=== PATIENT | male | born 1940 | race Caucasian/White ===

== ENCOUNTER 2021-09-09 03:13 | Outpatient (RCR) | payer MEDICARE, BC, SELFPAY ==
[2021-08-26 09:13] LABS: Abs Immature Grans 0.02 10^3/uL (0.0-0.06); Absolute Basophil Count 0.03 10^3/uL (0.0-0.2); Absolute Lymphocyte Count 1.61 10^3/uL (1.2-3.4); Absolute Monocyte Count 0.55 10^3/uL (0.1-0.8); Absolute Neutrophil Count 3.36 10^3/uL (1.2-6.7); Basophils % 0.5; Eosinophils % 1.8; HCT 34.7 % (40.0-50.0); HGB 11.5 g/dL (13.5-17.5); Immature Grans % 0.4; Lymphocytes % 28.4; MCHC 33.1 % (32.0-36.0); MCV 97 fL (80-95); MPV 10.2 fL (8.0-11.0); Monocytes % 9.7; Neutrophils % 59.2; Platelet Count 203 10^3/uL (130-400); RBC 3.59 10^6/uL (4.36-5.78); RDW 12.1 % (11.8-14.1); RDW-SD 43.4 fL; WBC 5.67 10^3/uL (4.4-10.8)
[2021-08-26] MEDS: Normal Saline Flush 10 ML SYR IVP (09:14)
[2021-08-26 09:31] LABS: ALT 24 U/L (16-63); AST 21 U/L (15-37); Albumin 3.5 g/dL (3.4-5.0); Alkaline Phosphatase 72 U/L (46-116); Anion Gap 9.7 mmol/L (3-11); BUN 31 mg/dL (7-18); Bilirubin, Total 0.5 mg/dL (0.2-1.0); CO2 26.3 mmol/L (21.0-32.0); CREATININE 1.9 mg/dL (0.70-1.30); Calcium 9.2 mg/dL (8.5-10.1); Chloride 105 mmol/L (98-107); Estimated GFR 34.11 (mL/min/1.73m2); Glucose 93 mg/dL (74-106); Potassium 4.5 mmol/L (3.5-5.1); Sodium 141 mmol/L (136-145); Total Protein 7.1 g/dL (6.4-8.2)
[2021-08-26 12:29] LABS: FREE T4 1.17 ng/dL (0.76-1.46); TSH 1.23 uIU/mL (0.36-3.74)
[2021-09-09] MEDS: Normal Saline Flush 10 ML SYR IVP (10:09)
[2021-09-09] MEDS: Heparin 500 UNITS/5 ML SYRINGE IV (10:10)
[2021-09-09 10:14] LABS: Abs Immature Grans 1.85 10^3/uL (0.0-0.06); HCT 29.4 % (40.0-50.0); HGB 9.7 g/dL (13.5-17.5); MCH 32.4 pg (27.0-33.0); MCV 98 fL (80-95); MPV 11.1 fL (8.0-11.0); RBC 2.99 10^6/uL (4.36-5.78); RDW 11.9 % (11.8-14.1); RDW-SD 43.1 fL; WBC 21.02 10^3/uL (4.4-10.8)
[2021-09-09 10:30] LABS: ALT 22 U/L (16-63); AST 18 U/L (15-37); Albumin 3.3 g/dL (3.4-5.0); Alkaline Phosphatase 116 U/L (46-116); Anion Gap 8.8 mmol/L (3-11); BUN 28 mg/dL (7-18); Bilirubin, Total 0.2 mg/dL (0.2-1.0); CO2 27.2 mmol/L (21.0-32.0); CREATININE 2.1 mg/dL (0.70-1.30); Calcium 9.4 mg/dL (8.5-10.1); Chloride 103 mmol/L (98-107); Estimated GFR 30.39 (mL/min/1.73m2); Glucose 103 mg/dL (74-106); Potassium 4.4 mmol/L (3.5-5.1); Sodium 139 mmol/L (136-145)
[2021-09-09 10:54] LABS: Absolute Basophil Count 0.42 10^3/uL (0.0-0.2); Absolute Eosinophil Count 0.42 10^3/uL (0.0-0.7); Absolute Lymphocyte Count 3.36 10^3/uL (1.2-3.4); Absolute Monocyte Count 2.73 10^3/uL (0.1-0.8); Absolute Neutrophil Count 12.82 10^3/uL (1.2-6.7); Bands % 5; Diff Comment Manual Differential; Metamyelocytes % 4; Myelocytes % 2; Platelet Count 57 10^3/uL (130-400); Polychromasia Present
== END 2021-09-14 23:59 | disposition home or self-care (01) ==
LOC: INF 03:13
PROVIDERS: Visit Provider Internal Medicine
DX: C80.1 Malignant (primary) neoplasm, unspecified (principal); Z45.2 Encounter for adjustment and management of vascular access device
CPT/HCPCS: 36591; 80053; 84439; 84443; 85025

== ENCOUNTER 2021-09-25 14:48 | Emergency (ER) | payer MEDICARE, BC, SELFPAY ==
[2021-09-25] VITALS (51 sets, daily range): BP systolic 104–164; BP diastolic 49–89; PULSE 67–115; RESP 15–27; TEMP 35.5–36.7; O2SAT 96–99
--- NOTE | 2021-09-25 14:45 | RT.EKG_ITS ---
APPROVED REPORT Exam: Resting ECG Reason for Exam: heart rate change Patient Location: E HR:104 bpm ECG Measurements Heart Rate 104 AXIS [place] [id number] P 0 QRSd 130 QRS -51 QT 335 T 196 QTc 441 Conclusion Ventricular-paced complexes...other complexes also detected IVCD, consider RBBB...QRSd>120mS, terminal axis(90,270) Nonspecific T abnormalities, lateral leads...T <-0.10mV, I aVL V5 V6. PVCs. Paced. No STEMI.
[2021-09-25 16:06] LABS: Abs Immature Grans 0.29 10^3/uL (0.0-0.06); Absolute Basophil Count 0.05 10^3/uL (0.0-0.2); HCT 22.3 % (40.0-50.0); HGB 7.4 g/dL (13.5-17.5); MCH 32.3 pg (27.0-33.0); MCHC 33.2 % (32.0-36.0); MCV 97 fL (80-95); MPV 11.2 fL (8.0-11.0); Platelet Count 108 10^3/uL (130-400); RBC 2.29 10^6/uL (4.36-5.78); RDW 12.3 % (11.8-14.1); RDW-SD 42.9 fL; WBC 4.55 10^3/uL (4.4-10.8)
--- NOTE | 2021-09-25 16:15 | DI.RAD_ITS ---
Exam(s) XR CHEST 2V PA LATERAL EXAM: XR CHEST 2V PA LATERAL CLINICAL HISTORY: dyspnea on exertion, r/o acute disease. TECHNIQUE: 2D digital imaging was performed. COMPARISON: No exams were available for comparison FINDINGS: 2 views: Bipolar left subclavian pacemaker noted with lead tips in are in RV. The distal tip of the right sailaja ed Port-A-Cath is in the SVC. Heart size is normal. The mediastinum is not widened. Platelike atelectasis noted in the left lung base. Small nodular density seen bilaterally and larger nodular density seen inferiorly in the lower right lung field. This may be a healing rib fracture. Cannot exclude noncalcified lung nodule. IMPRESSION: 2 cm nodule versus healing rib fracture in the right lung base. Other smaller nodule seen in both lester ng crawford. Platelike atelectasis in the left lung base.Consider noninfused CT scan cardiac findings as above. No pulmonary edema. No pleural effusions. \ DATA REPOSITORY: RADIATION DOSE DELIVERED:
[2021-09-25 16:19] LABS: Absolute Eosinophil Count 0.09 10^3/uL (0.0-0.7); Absolute Lymphocyte Count 1.46 10^3/uL (1.2-3.4); Absolute Monocyte Count 0.27 10^3/uL (0.1-0.8); Absolute Neutrophil Count 2.64 10^3/uL (1.2-6.7); Atypical Lymphocytes % 2
[2021-09-25 16:20] LABS: ALT 23 U/L (16-63); AST 16 U/L (15-37); Alkaline Phosphatase 107 U/L (46-116); Anion Gap 6.7 mmol/L (3-11); BUN 38 mg/dL (7-18); Bilirubin, Total 0.3 mg/dL (0.2-1.0); CO2 26.3 mmol/L (21.0-32.0); CREATININE 1.6 mg/dL (0.70-1.30); Calcium 8.7 mg/dL (8.5-10.1); Chloride 106 mmol/L (98-107); Diff Comment Manual Differential; Estimated GFR 41.59 (mL/min/1.73m2); Glucose 106 mg/dL (74-106); Hypochromasia 1+; Magnesium 1.2 mg/dL (1.8-2.4); Metamyelocytes % 2; Myelocytes % 1; NT-proBNP 1712 pg/mL (<300); Potassium 4.6 mmol/L (3.5-5.1); Sodium 139 mmol/L (136-145); Total Protein 6.3 g/dL (6.4-8.2); Troponin I < 50 ng/L (<or=60)
--- NOTE | 2021-09-25 16:25 | W.ED.GENAD ---
Discharge Plan Disposition Patient Disposition: HOME Condition: Stable Discharge Details Clinical Impression: Acute on chronic anemia, Status post chemotherapy, History of adrenal cancer, Dyspnea on exertion Primary Care Provider: Karla Curran ED Provider: Leslee Vuong Home Meds and New Rx's Prescriptions: Continued calcium 600 mg Capsule 1,200 mg PO DAILY atorvastatin 40 mg tablet 1 tab PO HS cyanocobalamin (vitamin B-12) [Vitamin B-12] 1,000 mcg Tablet 1,000 mcg PO DAILY pantoprazole 20 mg tablet,delayed release (DR/EC) 1 tab PO DAILY nitroglycerin 0.4 mg tablet, sublingual 1 tab buccal PRN PRN fluticasone propionate [Flovent HFA] 220 mcg/actuation HFA aerosol inhaler 2 inh INHALATION BID lisinopril 5 mg tablet 1 tab PO DAILY metoprolol tartrate 25 mg tablet 1 tab PO BID Eliquis 2.5 mg tablet 1 tab PO BID Label Comments: TAKE ONE TABLET BY MOUTH TWICE DAILY Discharge Instructions Instructions: Dyspnea (ED), Anemia (ED) Additional Instructions: It is suspected that your symptoms are secondary to anemia or a drop in your hemoglobin. You were given a blood transfusion here in the emergency department. Follow-up with your oncologist at [facility] for further evaluation and recommendations regarding your continued chemotherapy. Return immediately to the emergency department if you develop any worsening or new concerning symptoms. Discharge Data Discharge Date/Time-TO BE ENTERED AT DEPARTURE: 09/25/21 20:59 Discharge Physician: Leslee Vuong Medical Decision Making 1530 -- 80-year-old male with a history of prostate and bladder cancer in remission currently on chemotherapy for adrenal cancer and Eliquis for history of pulmonary embolism in May 2021 presents with dyspnea on exertion for the past week, worse in the past few days. EKG notes a rate of 104, paced, PVCs and no STEMI. Patient appears comfortable and nontoxic. He was tachycardic on arrival but his vitals are now within normal limits. Lungs are clear bilaterally without crackles, wheezing or rhonchi. He has no lower extremity swelling. Differential diagnosis includes anemia status postchemotherapy, ACS, CHF, pneumonia. History and presentation does not appear consistent with PE as his shortness of breath only occurs with activity and he has already taking Eliquis and states he has not missed any doses. Will obtain screening labs and chest x-ray. Labs and imaging reviewed. White blood cell within normal limits. Hemoglobin 7.4, down trended from 9 on 09/16. He denies any hematemesis, hematuria or rectal bleeding. Platelets 108, down trended from 327 on 09/16. D-dimer 661 and negative per age-adjusted cut off. Troponin within normal limits. BNP elevated at 1712. Urinalysis negative. Chest x-ray notes pulmonary nodules with COPD and had recommended considering CT chest for further evaluation of these findings. [facility] records reveal that patient had a CT chest with IV contrast in July 2021 which was completed at [facility]. Report noted pulmonary nodules bilaterally so this is not a new finding. This was discussed with patient and he agreed these are chronic. 1729 --discussed with [facility] oncology --they agreed with plan for blood transfusion and will follow up with patient later this month. They will obtain repeat hemoglobin for monitoring. 1999 --patient received blood transfusion and feels much better and would like to go home. Patient remains hemodynamically stable. Repeat H&H obtained. Patient requested to leave prior to results. Advised to follow up with the primary care doctor and oncology for re-evaluation. Usual and customary return precautions given prior to discharge. Medical Records Medical records reviewed: Yes I reviewed the patient's medical records. Medical records narrative: 07/25/2021 CT chest with IV contrast [facility] Impression: Small noncalcified pulmonary nodules bilaterally without significant change from prior study. No new pulmonary nodule with no new focal infiltrate. No focal infiltrate with mild areas of scarring bilaterally. Scattered sclerotic regional osseous lesions suspicious for metastatic disease without significant change. No mediastinal, hilar or axillary adenopathy. Imaging Data Radiologic Study: Radiologist's impression: XR Chest Exam date and time: 09/25/2021 5:00 PM Age: 80 years old Clinical indication: Other: Dyspnea on exertion, R/O acute disease TECHNIQUE: Imaging protocol: Radiologic exam of the chest. Views: 2 views. COMPARISON: No relevant prior studies available. FINDINGS: Tubes, catheters and devices: Port-A-Cath right chest wall with tip in the superior vena cava. Pacemaker present left chest wall. Lungs: Calcified lung granulomas. Lungs are hyperinflated. Possible lower lobe lung nodules. Pleural spaces: Unremarkable. No pleural effusion. No pneumothorax. Heart/Mediastinum: Unremarkable. No cardiomegaly. Bones/joints: Unremarkable. IMPRESSION: COPD with bilateral lower lobe nodular opacities. Possible lung nodules. If patient has not had recent chest CT consider chest CT with contrast. Lab Data Lab results reviewed: Yes I reviewed the patient's lab results. Labs: Laboratory Tests Range/Units 09/25/21 09/25/21 09/25/21 15:40 15:40 15:40 WBC (4.4-10.8) 10^3/uL 4.55 RBC (4.36-5.78) 10^6/uL 2.29 L Hgb (13.5-17.5) g/dL 7.4 L Hct (40.0-50.0) % 22.3 L MCV (80-95) fL 97 H MCH (27.0-33.0) pg 32.3 MCHC (32.0-36.0) % 33.2 RDW (11.8-14.1) % 12.3 Plt Count (130-400) 10^3/uL 108 L MPV (8.0-11.0) fL 11.2 H Immature Gran % 0.0 Neutrophils % 58.0 Lymphocytes % 30.0 Atypical Lymphs % 2 Monocytes % 6.0 Eosinophils % 2.0 Basophils % 1.0 Metamyelocytes % 2 Myelocytes % 1 Nucleated RBC % (0.0-0.3) % 0.0 Absolute Neutrophils (1.2-6.7) 10^3/uL 2.64 Absolute Lymphocytes (1.2-3.4) 10^3/uL 1.46 Absolute Monocytes (0.1-0.8) 10^3/uL 0.27 Absolute Eosinophils (0.0-0.7) 10^3/uL 0.09 Absolute Basophils (0.0-0.2) 10^3/uL 0.05 RBC Morphology See Below Hypochromasia 1+ D-Dimer (<500) ng/mlFEU 661 H Sodium (136-145) mmol/L 139 Potassium (3.5-5.1) mmol/L 4.6 Chloride (98-107) mmol/L 106 Carbon Dioxide (21.0-32.0) mmol/L 26.3 Anion Gap (3-11) mmol/L 6.7 BUN (7-18) mg/dL 38 H Creatinine (0.70-1.30) mg/dL 1.6 H Estimated GFR/1.73 m2 (mL/min/1.73m2) 41.59 Glucose (74-106) mg/dL 106 Calcium (8.5-10.1) mg/dL 8.7 Magnesium (1.8-2.4) mg/dL 1.2 L Total Bilirubin (0.2-1.0) mg/dL 0.3 AST (15-37) U/L 16 ALT (16-63) U/L 23 Alkaline Phosphatase (46-116) U/L 107 Troponin I (<or=60) ng/L < 50 NT-Pro-B Natriuret Pep (<300) pg/mL 1712 H Total Protein (6.4-8.2) g/dL 6.3 L Albumin (3.4-5.0) g/dL 3.0 L Urine Color (Yellow) Urine Clarity (Clear) Urine pH (5-8) Ur Specific [place] (1.005-1.025) Urine Protein (Negative) mg/dL Urine Ketones (Negative) mg/dL Urine Blood (Negative) Urine Nitrite (Negative) Urine Bilirubin (Negative) Urine Urobilinogen (Up TO 0.2) EU/dL Ur Leukocyte Esterase (Negative) Urine Glucose (Negative) mg/dL Patient ABO/Rh Antibody Screen Crossmatch Range/Units 09/25/21 09/25/21 16:44 16:47 WBC (4.4-10.8) 10^3/uL RBC (4.36-5.78) 10^6/uL Hgb (13.5-17.5) g/dL Hct (40.0-50.0) % MCV (80-95) fL MCH (27.0-33.0) pg MCHC (32.0-36.0) % RDW (11.8-14.1) % Plt Count (130-400) 10^3/uL MPV (8.0-11.0) fL Immature Gran % Neutrophils % Lymphocytes % Atypical Lymphs % Monocytes % Eosinophils % Basophils % Metamyelocytes % Myelocytes % Nucleated RBC % (0.0-0.3) % Absolute Neutrophils (1.2-6.7) 10^3/uL Absolute Lymphocytes (1.2-3.4) 10^3/uL Absolute Monocytes (0.1-0.8) 10^3/uL Absolute Eosinophils (0.0-0.7) 10^3/uL Absolute Basophils (0.0-0.2) 10^3/uL RBC Morphology Hypochromasia D-Dimer (<500) ng/mlFEU Sodium (136-145) mmol/L Potassium (3.5-5.1) mmol/L Chloride (98-107) mmol/L Carbon Dioxide (21.0-32.0) mmol/L Anion Gap (3-11) mmol/L BUN (7-18) mg/dL Creatinine (0.70-1.30) mg/dL Estimated GFR/1.73 m2 (mL/min/1.73m2) Glucose (74-106) mg/dL Calcium (8.5-10.1) mg/dL Magnesium (1.8-2.4) mg/dL Total Bilirubin (0.2-1.0) mg/dL AST (15-37) U/L ALT (16-63) U/L Alkaline Phosphatase (46-116) U/L Troponin I (<or=60) ng/L NT-Pro-B Natriuret Pep (<300) pg/mL Total Protein (6.4-8.2) g/dL Albumin (3.4-5.0) g/dL Urine Color (Yellow) Yellow Urine Clarity (Clear) Clear Urine pH (5-8) 5.5 Ur Specific [place] (1.005-1.025) 1.015 Urine Protein (Negative) mg/dL Negative Urine Ketones (Negative) mg/dL Negative Urine Blood (Negative) Negative Urine Nitrite (Negative) Negative Urine Bilirubin (Negative) Negative Urine Urobilinogen (Up TO 0.2) EU/dL 0.2 Ur Leukocyte Esterase (Negative) Negative Urine Glucose (Negative) mg/dL Negative Patient ABO/Rh A Positive Antibody Screen NEGATIVE Crossmatch See Detail ECG Data Attestation: I personally reviewed and interpreted this ECG (s) as follows: Interpretation: Rate of 104, paced, PVCs, no STEMI. HPI General Mode of arrival: ambulatory. Date/Time Provider Initiated Documentation: 09/25/21 14:53. Limitations to Documentation: no limitations. Information obtained by: patient. HPI Narrative: Patient is an 80-year-old male with a history of prostate and bladder cancer in remission currently on chemotherapy for adrenal cancer presents with dyspnea on exertion for the past week, worse over the past few days. Patient states he is followed by oncologist at [facility] and called the cancer center and spoke to the nurse and was advised to come here for further evaluation of his symptoms. states his last chemotherapy treatment was last Wednesday and states he has been more short of breath since then. He states he only has shortness of breath with activity which resolves immediately upon rest. He denies any fever, new cough, chest pain, abdominal pain, nausea, vomiting, diarrhea or urinary symptoms. Related Data Home Medications Medication Instructions Recorded Confirmed apixaban 2.5 mg tablet (Eliquis) 1 tab PO BID 09/25/21 09/25/21 atorvastatin 40 mg tablet 1 tab PO HS 09/25/21 09/25/21 calcium 600 mg capsule 1,200 mg PO DAILY 09/25/21 09/25/21 cyanocobalamin (vitamin B-12) 1,000 mcg PO DAILY 09/25/21 09/25/21 1,000 mcg tablet (Vitamin B-12) fluticasone propionate 220 2 inh inhalation BID 09/25/21 09/25/21 mcg/actuation HFA aerosol inhaler (Flovent HFA) lisinopril 5 mg tablet 1 tab PO DAILY 09/25/21 09/25/21 metoprolol tartrate 25 mg tablet 1 tab PO BID 09/25/21 09/25/21 nitroglycerin 0.4 mg sublingual 1 tab buccal PRN PRN 09/25/21 09/25/21 tablet pantoprazole 20 mg tablet,delayed 1 tab PO DAILY 09/25/21 09/25/21 release Allergies Allergy/AdvReac Type Severity Reaction Status Date / Time amoxicillin [From Augmentin] AdvReac Unverified 09/25/21 14:58 clavulanic acid AdvReac Unverified 09/25/21 14:58 [From Augmentin] fexofenadine [From Kelsy] AdvReac Unverified 09/25/21 14:58 Penicillins AdvReac Unverified 09/25/21 14:58 General Stated Complaint: SOB MATILDE: 3 Review of Systems All systems reviewed & are unremarkable except as noted in HPI and below Constitutional Constitutional: Denies chills, Denies excessive sweating, Denies fatigue, Denies fever(s), Denies weakness and Denies weight loss Eyes Eyes: Reports system reviewed and no additional complaints, except as documented and Denies blurry vision ENT Ears, Nose, Mouth, and Throat: Denies vertigo, Denies dizziness, Denies otalgia, Denies nasal congestion, Denies sore throat and Denies throat swelling Cardiovascular Cardiovascular: Denies chest pain, Denies syncope, Denies rapid heart rate, Denies dyspnea and Reports dyspnea on exertion Respiratory Respiratory: Denies chest congestion, Denies cough, Denies pain on inspiration, Denies dyspnea and Reports dyspnea on exertion Gastrointestinal Gastrointestinal: Denies abdominal pain, Denies diarrhea and Denies vomiting Genitourinary Genitourinary: Denies hematuria, Denies dysuria and Denies flank pain Musculoskeletal Musculoskeletal: Denies back pain and Denies joint swelling Integumentary/Breasts Skin/Breast: Denies lesions and Denies rash Neurologic Neurologic: Denies behavioral changes, Denies confusion, Denies vertigo, Denies dizziness, Denies syncope, Denies localized weakness and Denies weakness Psychiatric Psychiatric: Denies behavioral changes, Denies confusion and Denies depression Endocrine Endocrine: Denies excessive sweating and Denies fatigue Hematologic/Lymphatic Hematologic/Lymphatic: Denies easy bruising and Denies lymphadenopathy Allergic/Immunologic Allergic/Immunologic: Denies throat swelling PFSH All Active Problems (Updated 09/25/21 @ 19:28 by Leslee Vuong DO) Acute on chronic anemia (Acute) Status post chemotherapy (Acute) History of adrenal cancer (Acute) Dyspnea on exertion (Acute) Medical History (Updated 09/25/21 @ 19:28 by Leslee Vuong DO) Adrenal cancer Bladder tumor Prostate cancer Pulmonary embolism Surgical History (Updated 09/25/21 @ 19:28 by Leslee Vuong DO) Bladder tumor with resection of tumor Social History Smoking/Tobacco Use Status: Current every day Tobacco Type: cigarettes Smoking risk assessment performed?: Yes Alcohol Intake: never Substance use type: does not use Do you feel safe at home: Yes Do you feel safe in your relationship?: Yes Exam Const General: cooperative and no acute distress Orientation: alert, awake and oriented x3 HENMT Head: normal to inspection Ears: hearing grossly normal bilaterally and external ears normal General nose exam: external nose normal Face and sinus: normal facial exam Mouth: oral mucosae normal Throat: posterior oropharynx normal Eyes General: appearance normal, both eyes and all related structures Eyelids: eyelids normal Pupils: PERRL EOM: EOM intact bilaterally Neck Neck: normal visual inspection Lymphatic: no lymphadenopathy noted Chest Chest: normal inspection of the chest Resp Effort & Inspection: normal respiratory effort and able to speak in complete sentences Auscultation: clear to auscultation bilaterally Cardio Rate: tachycardic Rhythm: regular rhythm GI Inspection: normal to inspection Palpation: soft, not firm, no guarding, no hepatosplenomegaly, no masses and nontender Auscultation: normal bowel sounds Back/Spine/Pelvis Back: no CVA tenderness Skin General skin exam: no rashes or lesions noted Neuro General: patient alert and patient awake Cognition: normal cognition Speech: speech normal Gait: normal gait Motor: muscle tone normal throughout Sensory Exam: no sensory deficits noted Extrem General: normal to inspection, full ROM, capillary refill normal and no edema Psych Appearance: grossly normal Mental Status: mental status grossly normal Speech and Movement: speech and movement normal Affect: normal affect Thought Process: normal Course Vital Signs Vital signs: Vital Signs Temperature 98.1 F 09/25/21 14:53 Pulse 109 H 09/25/21 14:53 Respiratory Rate 20 09/25/21 14:53 Blood Pressure 155/68 H 09/25/21 14:53 Pulse Oximetry 98 09/25/21 14:53 Temperature 98.1 F 09/25/21 14:53 Temperature Source Temporal Artery Scan 09/25/21 14:53 Pulse 109 H 09/25/21 14:53 Respiratory Rate 20 09/25/21 14:53 Respiratory Effort 09/25/21 14:57 Blood Pressure 155/68 H 09/25/21 14:53 Blood Pressure Position Sitting 09/25/21 14:53 Pulse Oximetry 98 09/25/21 14:53 Oxygen Delivery Method Room Air 09/25/21 14:53 Oxygen Flow Rate 0 09/25/21 14:53 Pain Level 0 09/25/21 14:53 Lab/Test Results Lab/Test Results: Laboratory Tests Range/Units 09/25/21 15:40 WBC (4.4-10.8) 10^3/uL 4.55 RBC (4.36-5.78) 10^6/uL 2.29 L Hgb (13.5-17.5) g/dL 7.4 L Hct (40.0-50.0) % 22.3 L MCV (80-95) fL 97 H MCH (27.0-33.0) pg 32.3 MCHC (32.0-36.0) % 33.2 RDW (11.8-14.1) % 12.3 Plt Count (130-400) 10^3/uL 108 L MPV (8.0-11.0) fL 11.2 H Immature Gran % 0.0 Neutrophils % 58.0 Lymphocytes % 30.0 Atypical Lymphs % 2 Monocytes % 6.0 Eosinophils % 2.0 Basophils % 1.0 Metamyelocytes % 2 Myelocytes % 1 Nucleated RBC % (0.0-0.3) % 0.0 Absolute Neutrophils (1.2-6.7) 10^3/uL 2.64 Absolute Lymphocytes (1.2-3.4) 10^3/uL 1.46 Absolute Monocytes (0.1-0.8) 10^3/uL 0.27 Absolute Eosinophils (0.0-0.7) 10^3/uL 0.09 Absolute Basophils (0.0-0.2) 10^3/uL 0.05 RBC Morphology See Below Hypochromasia 1+
[2021-09-25 16:26] LABS: D-Dimer 661 ng/mlFEU (<500)
[2021-09-25 16:56] LABS: Bilirubin Negative (Negative); Blood Negative (Negative); Clarity Clear (Clear); Glucose Negative (Negative); Ketones Negative (Negative); Leukocyte Esterase Negative (Negative); Nitrite Negative (Negative); Specific Gravity 1.015 (1.005-1.025); Urobilinogen 0.2 EU/dL (Up TO 0.2); pH 5.5 (5-8)
[2021-09-25] MEDS: MAGNESIUM SULFATE 2 GM/50 ML BAG IVPB (17:05)
--- NOTE | 2021-09-25 17:27 | DI.VRAD_ITS ---
PROCEDURE INFORMATION: Exam: XR Chest Exam date and time: 09/25/2021 5:00 PM Age: 80 years old Clinical indication: Other: Dyspnea on exertion, R/O acute disease TECHNIQUE: Imaging protocol: Radiologic exam of the chest. Views: 2 views. COMPARISON: No relevant prior studies available. FINDINGS: Tubes, catheters and devices: Port-A-Cath right chest wall with tip in the superior vena cava. Pacemaker present left chest wall. Lungs: Calcified lung granulomas. Lungs are hyperinflated. Possible lower lobe lung nodules. Pleural spaces: Unremarkable. No pleural effusion. No pneumothorax. Heart/Mediastinum: Unremarkable. No cardiomegaly. Bones/joints: Unremarkable. IMPRESSION: COPD with bilateral lower lobe nodular opacities. Possible lung nodules. If patient has not had recent chest CT consider chest CT with contrast. Dictated and Authenticated by: Aniceto Alarcon MD. Ordering:MITRA Camilo MD
[2021-09-25 21:06] LABS: HCT 26.4 % (40.0-50.0); HGB 8.7 g/dL (13.5-17.5)
== END 2021-09-25 20:59 | disposition home or self-care (01) ==
PROVIDERS: Emergency Provider Physician Assistant; PCP Family Medicine
DX: D64.9 Anemia, unspecified (principal); C74.90 Malignant neoplasm of unspecified part of unspecified adrenal gland; I49.3 Ventricular premature depolarization; R06.02 Shortness of breath; J44.9 Chronic obstructive pulmonary disease, unspecified; R79.89 Other specified abnormal findings of blood chemistry; F17.210 Nicotine dependence, cigarettes, uncomplicated; R91.8 Other nonspecific abnormal finding of lung field
CPT/HCPCS: 36430; 80053; 86850; 86900; 86901; 86920; 93005; 96365; 96366; 99285; 71046; 81003; 83735; 83880; 84484; 85014; 85018; 85025; 85379; 93010; J3490; P9016

== ENCOUNTER 2021-10-07 02:37 | Outpatient (RCR) | payer MEDICARE, BC, SELFPAY ==
[2021-09-16] MEDS: Normal Saline Flush 10 ML SYR IVP (09:03)
[2021-09-16 09:21] LABS: Abs Immature Grans 0.31 10^3/uL (0.0-0.06); Absolute Basophil Count 0.07 10^3/uL (0.0-0.2); Absolute Eosinophil Count 0.01 10^3/uL (0.0-0.7); Absolute Lymphocyte Count 2.05 10^3/uL (1.2-3.4); Absolute Monocyte Count 1.28 10^3/uL (0.1-0.8); Absolute Neutrophil Count 10.83 10^3/uL (1.2-6.7); Basophils % 0.5; Eosinophils % 0.1; HCT 27.8 % (40.0-50.0); Immature Grans % 2.1; Lymphocytes % 14.1; MCH 31.7 pg (27.0-33.0); MCHC 32.4 % (32.0-36.0); MCV 98 fL (80-95); MPV 10.3 fL (8.0-11.0); Monocytes % 8.8; Neutrophils % 74.4; Platelet Count 327 10^3/uL (130-400); RBC 2.84 10^6/uL (4.36-5.78); RDW 12.2 % (11.8-14.1); RDW-SD 42.9 fL; WBC 14.55 10^3/uL (4.4-10.8)
[2021-09-16 09:37] LABS: ALT 20 U/L (16-63); AST 13 U/L (15-37); Alkaline Phosphatase 102 U/L (46-116); Anion Gap 6.8 mmol/L (3-11); BUN 28 mg/dL (7-18); Bilirubin, Total 0.3 mg/dL (0.2-1.0); CO2 26.2 mmol/L (21.0-32.0); Calcium 9.2 mg/dL (8.5-10.1); Chloride 101 mmol/L (98-107); Estimated GFR 32.15 (mL/min/1.73m2); Glucose 123 mg/dL (74-106); Sodium 134 mmol/L (136-145)
[2021-09-16 13:04] LABS: FREE T4 1.25 ng/dL (0.76-1.46); TSH 2.09 uIU/mL (0.36-3.74)
[2021-09-30 08:28] LABS: Abs Immature Grans 1.52 10^3/uL (0.0-0.06); Absolute Neutrophil Count 8.56 10^3/uL (1.2-6.7); Basophils % 0.7; Eosinophils % 0.1; HCT 27.1 % (40.0-50.0); HGB 9.2 g/dL (13.5-17.5); Immature Grans % 10.7; Lymphocytes % 18.5; MCH 32.2 pg (27.0-33.0); MCHC 33.9 % (32.0-36.0); MCV 95 fL (80-95); Monocytes % 9.7; Neutrophils % 60.3; Nucleated RBC 0.4 % (0.0-0.3); RBC 2.86 10^6/uL (4.36-5.78); RDW 12.7 % (11.8-14.1); RDW-SD 43.8 fL; WBC 14.19 10^3/uL (4.4-10.8)
[2021-09-30 08:35] LABS: Absolute Eosinophil Count 0.01 10^3/uL (0.0-0.7); Absolute Lymphocyte Count 2.63 10^3/uL (1.2-3.4); Absolute Monocyte Count 1.38 10^3/uL (0.1-0.8)
[2021-09-30] MEDS: Normal Saline Flush 10 ML SYR IVP ×2 (08:38→08:51)
[2021-09-30] MEDS: Heparin 500 UNITS/5 ML SYRINGE IV (08:51)
[2021-09-30 09:12] LABS: Diff Comment Agrees w/ Instrument; Platelet Count 45 10^3/uL (130-400)
[2021-09-30 09:13] LABS: Poikilocytes 2+; Polychromasia Present
[2021-10-07] MEDS: Normal Saline Flush 10 ML SYR IVP (08:03)
[2021-10-07 08:11] LABS: Abs Immature Grans 0.15 10^3/uL (0.0-0.06); Absolute Basophil Count 0.04 10^3/uL (0.0-0.2); Absolute Eosinophil Count 0.03 10^3/uL (0.0-0.7); Absolute Lymphocyte Count 1.89 10^3/uL (1.2-3.4); Basophils % 0.4; Eosinophils % 0.3; HCT 27.3 % (40.0-50.0); HGB 9.1 g/dL (13.5-17.5); Immature Grans % 1.4; MCH 32.2 pg (27.0-33.0); MCHC 33.3 % (32.0-36.0); MCV 97 fL (80-95); MPV 9.9 fL (8.0-11.0); Monocytes % 12.3; Neutrophils % 68.6; Platelet Count 259 10^3/uL (130-400); RBC 2.83 10^6/uL (4.36-5.78); RDW 13.6 % (11.8-14.1); RDW-SD 43.8 fL
[2021-10-07 08:12] LABS: Absolute Monocyte Count 1.37 10^3/uL (0.1-0.8); Absolute Neutrophil Count 7.61 10^3/uL (1.2-6.7)
[2021-10-07 08:37] LABS: ALT 23 U/L (16-63); AST 17 U/L (15-37); Albumin 3.2 g/dL (3.4-5.0); Alkaline Phosphatase 105 U/L (46-116); Anion Gap 9.5 mmol/L (3-11); BUN 28 mg/dL (7-18); Bilirubin, Total 0.3 mg/dL (0.2-1.0); CO2 26.5 mmol/L (21.0-32.0); CREATININE 1.9 mg/dL (0.70-1.30); Calcium 8.9 mg/dL (8.5-10.1); Chloride 103 mmol/L (98-107); Estimated GFR 34.11 (mL/min/1.73m2); FREE T4 1.06 ng/dL (0.76-1.46); Glucose 112 mg/dL (74-106); Potassium 4.4 mmol/L (3.5-5.1); Sodium 139 mmol/L (136-145); TSH 1.89 uIU/mL (0.36-3.74); Total Protein 7.1 g/dL (6.4-8.2)
== END 2021-10-15 23:59 | disposition home or self-care (01) ==
LOC: INF 02:37
PROVIDERS: PCP Family Medicine; Visit Provider Internal Medicine
DX: C80.1 Malignant (primary) neoplasm, unspecified (principal); E03.2 Hypothyroidism due to medicaments and other exogenous substances; Z45.2 Encounter for adjustment and management of vascular access device
CPT/HCPCS: 36591; 80053; 86900; 86901; 84439; 84443; 85025

== ENCOUNTER 2021-11-13 03:55 | Outpatient (RCR) | payer MEDICARE, BC, SELFPAY ==
[2021-10-21] MEDS: Normal Saline Flush 10 ML SYR IVP ×3 (08:20→12:00)
[2021-10-21 08:30] LABS: Abs Immature Grans 0.39 10^3/uL (0.0-0.06); Absolute Basophil Count 0.04 10^3/uL (0.0-0.2); Absolute Eosinophil Count 0.07 10^3/uL (0.0-0.7); Absolute Lymphocyte Count 1.87 10^3/uL (1.2-3.4); Absolute Monocyte Count 0.94 10^3/uL (0.1-0.8); Absolute Neutrophil Count 6.69 10^3/uL (1.2-6.7); Basophils % 0.4; Eosinophils % 0.7; HCT 22.5 % (40.0-50.0); HGB 7.4 g/dL (13.5-17.5); Immature Grans % 3.9; Lymphocytes % 18.7; MCH 32.2 pg (27.0-33.0); MCHC 32.9 % (32.0-36.0); MCV 98 fL (80-95); Monocytes % 9.4; Neutrophils % 66.9; Nucleated RBC 0.8 % (0.0-0.3); RDW 13.9 % (11.8-14.1); RDW-SD 47.5 fL
[2021-10-21 08:44] LABS: ALT 24 U/L (16-63); AST 17 U/L (15-37); Albumin 3.4 g/dL (3.4-5.0); Alkaline Phosphatase 117 U/L (46-116); Anion Gap 8.6 mmol/L (3-11); BUN 26 mg/dL (7-18); Bilirubin, Total 0.4 mg/dL (0.2-1.0); CO2 27.4 mmol/L (21.0-32.0); CREATININE 1.8 mg/dL (0.70-1.30); Calcium 8.9 mg/dL (8.5-10.1); Chloride 103 mmol/L (98-107); Estimated GFR 37.12 (mL/min/1.73m2); Glucose 105 mg/dL (74-106); Potassium 4.2 mmol/L (3.5-5.1); Sodium 139 mmol/L (136-145)
[2021-10-21 09:02] LABS: Platelet Count 40 10^3/uL (130-400)
[2021-10-21 09:50] VITALS: BP 127/68; PULSE 74; RESP 18; TEMP 36.2; O2SAT 98
[2021-10-21 10:08] VITALS: BP 126/67; PULSE 64; RESP 18; TEMP 36.4; O2SAT 99
[2021-10-21 10:45] VITALS: BP 137/74; PULSE 62; RESP 18; TEMP 36.4; O2SAT 99
[2021-10-21 11:45] VITALS: BP 141/80; PULSE 81; RESP 18; TEMP 36.1; O2SAT 100
[2021-10-21] MEDS: Heparin 500 UNITS/5 ML SYRINGE IV (12:01)
[2021-10-28] MEDS: Normal Saline Flush 10 ML SYR IVP (08:35)
[2021-10-28 08:43] LABS: Abs Immature Grans 0.05 10^3/uL (0.0-0.06); Absolute Basophil Count 0.03 10^3/uL (0.0-0.2); Absolute Eosinophil Count 0.07 10^3/uL (0.0-0.7); Absolute Lymphocyte Count 1.49 10^3/uL (1.2-3.4); Absolute Monocyte Count 1.05 10^3/uL (0.1-0.8); Absolute Neutrophil Count 6.16 10^3/uL (1.2-6.7); Basophils % 0.3; Eosinophils % 0.8; HGB 8.4 g/dL (13.5-17.5); Immature Grans % 0.6; Lymphocytes % 16.8; MCH 31.8 pg (27.0-33.0); MCHC 32.3 % (32.0-36.0); MCV 99 fL (80-95); Monocytes % 11.9; Neutrophils % 69.6; Platelet Count 159 10^3/uL (130-400); RBC 2.64 10^6/uL (4.36-5.78); RDW 16.3 % (11.8-14.1); RDW-SD 50.4 fL; WBC 8.85 10^3/uL (4.4-10.8)
[2021-10-28 09:12] LABS: ALT 18 U/L (16-63); AST 15 U/L (15-37); Albumin 3.2 g/dL (3.4-5.0); Alkaline Phosphatase 105 U/L (46-116); BUN 24 mg/dL (7-18); Bilirubin, Total 0.3 mg/dL (0.2-1.0); CREATININE 1.8 mg/dL (0.70-1.30); Chloride 103 mmol/L (98-107); Estimated GFR 37.12 (mL/min/1.73m2); FREE T4 1.04 ng/dL (0.76-1.46); Glucose 97 mg/dL (74-106); Potassium 4.5 mmol/L (3.5-5.1); Sodium 139 mmol/L (136-145); TSH 2.32 uIU/mL (0.36-3.74); Total Protein 7.1 g/dL (6.4-8.2)
[2021-11-06] VITALS (10 sets, daily range): BP systolic 125–159; BP diastolic 70–86; PULSE 75–89; RESP 16–18; TEMP 36–37.1; O2SAT 98–100
[2021-11-06] MEDS: Normal Saline Flush 10 ML SYR IVP (08:00)
[2021-11-06 08:09] LABS: Abs Immature Grans 0.45 10^3/uL (0.0-0.06); Absolute Monocyte Count 0.44 10^3/uL (0.1-0.8); HCT 23.1 % (40.0-50.0); HGB 7.6 g/dL (13.5-17.5); MCH 32.6 pg (27.0-33.0); MCHC 32.9 % (32.0-36.0); MCV 99 fL (80-95); MPV 10.8 fL (8.0-11.0); RBC 2.33 10^6/uL (4.36-5.78); RDW-SD 57.4 fL; WBC 5.55 10^3/uL (4.4-10.8)
[2021-11-06 08:29] LABS: Absolute Lymphocyte Count 0.94 10^3/uL (1.2-3.4); Bands % 5
[2021-11-06 08:30] LABS: Absolute Eosinophil Count 0.06 10^3/uL (0.0-0.7); Diff Comment Manual Differential; Hypochromasia 2+; Metamyelocytes % 3; Myelocytes % 1
[2021-11-06 11:29] LABS: Platelet Count 49 10^3/uL (130-400)
[2021-11-13] MEDS: Normal Saline Flush 10 ML SYR IVP (08:02)
[2021-11-13 08:14] LABS: Abs Immature Grans 0.06 10^3/uL (0.0-0.06); Absolute Basophil Count 0.02 10^3/uL (0.0-0.2); Absolute Eosinophil Count 0.06 10^3/uL (0.0-0.7); Absolute Lymphocyte Count 1.95 10^3/uL (1.2-3.4); Absolute Monocyte Count 0.81 10^3/uL (0.1-0.8); Absolute Neutrophil Count 5.68 10^3/uL (1.2-6.7); Basophils % 0.2; Eosinophils % 0.7; HCT 30.3 % (40.0-50.0); Immature Grans % 0.7; Lymphocytes % 22.7; MCH 31.5 pg (27.0-33.0); MCV 96 fL (80-95); MPV 11.4 fL (8.0-11.0); Monocytes % 9.4; Neutrophils % 66.3; RBC 3.17 10^6/uL (4.36-5.78); RDW 15.6 % (11.8-14.1); RDW-SD 51.9 fL; WBC 8.58 10^3/uL (4.4-10.8)
[2021-11-13 08:28] LABS: ALT 34 U/L (16-63); AST 20 U/L (15-37); Albumin 3.6 g/dL (3.4-5.0); Alkaline Phosphatase 123 U/L (46-116); Anion Gap 7.7 mmol/L (3-11); BUN 26 mg/dL (7-18); Bilirubin, Total 0.3 mg/dL (0.2-1.0); CO2 27.3 mmol/L (21.0-32.0); CREATININE 1.7 mg/dL (0.70-1.30); Calcium 8.8 mg/dL (8.5-10.1); Chloride 104 mmol/L (98-107); Estimated GFR 39.75 (mL/min/1.73m2); Glucose 111 mg/dL (74-106); Potassium 4.3 mmol/L (3.5-5.1); Sodium 139 mmol/L (136-145); Total Protein 7.2 g/dL (6.4-8.2)
[2021-11-13 08:33] LABS: Diff Comment Diff Reviewed; Platelet Count 39 10^3/uL (130-400); RBC Morphology Normal
== END 2021-11-14 23:59 | disposition home or self-care (01) ==
LOC: INF 03:55
PROVIDERS: PCP Family Medicine; Visit Provider Internal Medicine
DX: C67.9 Malignant neoplasm of bladder, unspecified (principal); E03.2 Hypothyroidism due to medicaments and other exogenous substances; Z45.2 Encounter for adjustment and management of vascular access device
CPT/HCPCS: 36430; 36591; 80053; 86850; 86900; 86901; 86920; 84439; 84443; 85025; P9016

== ENCOUNTER 2021-11-25 02:32 | Outpatient (RCR) | payer MEDICARE, BC, SELFPAY ==
[2021-11-15 00:12] VITALS: BP 153/81; PULSE 80; RESP 16; TEMP 36.1
[2021-11-25] MEDS: Normal Saline Flush 10 ML SYR IVP (09:06)
[2021-11-25 09:23] LABS: Abs Immature Grans 0.03 10^3/uL (0.0-0.06); Absolute Basophil Count 0.02 10^3/uL (0.0-0.2); Absolute Eosinophil Count 0.03 10^3/uL (0.0-0.7); Absolute Lymphocyte Count 1.11 10^3/uL (1.2-3.4); Absolute Monocyte Count 0.68 10^3/uL (0.1-0.8); Absolute Neutrophil Count 4.36 10^3/uL (1.2-6.7); Basophils % 0.3; Eosinophils % 0.5; HCT 29.5 % (40.0-50.0); HGB 9.9 g/dL (13.5-17.5); Immature Grans % 0.5; Lymphocytes % 17.8; MCH 32.1 pg (27.0-33.0); MCHC 33.6 % (32.0-36.0); MCV 96 fL (80-95); MPV 9.9 fL (8.0-11.0); Monocytes % 10.9; Platelet Count 330 10^3/uL (130-400); RBC 3.08 10^6/uL (4.36-5.78); RDW 18.3 % (11.8-14.1); WBC 6.23 10^3/uL (4.4-10.8)
[2021-11-25 09:56] LABS: ALT 26 U/L (16-63); AST 20 U/L (15-37); Albumin 3.4 g/dL (3.4-5.0); Alkaline Phosphatase 91 U/L (46-116); Anion Gap 10.9 mmol/L (3-11); BUN 28 mg/dL (7-18); Bilirubin, Total 0.4 mg/dL (0.2-1.0); CO2 26.1 mmol/L (21.0-32.0); CREATININE 1.8 mg/dL (0.70-1.30); Calcium 9.5 mg/dL (8.5-10.1); Chloride 102 mmol/L (98-107); Estimated GFR 37.12 (mL/min/1.73m2); FREE T4 1.07 ng/dL (0.76-1.46); Glucose 119 mg/dL (74-106); Potassium 4.3 mmol/L (3.5-5.1); Sodium 139 mmol/L (136-145); TSH 2.42 uIU/mL (0.36-3.74); Total Protein 7.2 g/dL (6.4-8.2)
== END 2021-12-15 23:59 | disposition home or self-care (01) ==
LOC: INF 02:32
PROVIDERS: PCP Family Medicine; Visit Provider Internal Medicine
DX: C80.1 Malignant (primary) neoplasm, unspecified (principal); E03.2 Hypothyroidism due to medicaments and other exogenous substances; Z45.2 Encounter for adjustment and management of vascular access device
CPT/HCPCS: 36591; 80053; 86900; 86901; 84439; 84443; 85025

== ENCOUNTER 2021-12-23 03:14 | Outpatient (RCR) | payer MEDICARE, BC, SELFPAY ==
[2021-12-16 00:06] VITALS: BP 153/81; PULSE 80; RESP 16; TEMP 36.1
[2021-12-23 09:09] LABS: Abs Immature Grans 0.02 10^3/uL (0.0-0.06); Absolute Basophil Count 0.04 10^3/uL (0.0-0.2); Absolute Lymphocyte Count 1.48 10^3/uL (1.2-3.4); Absolute Monocyte Count 0.76 10^3/uL (0.1-0.8); Absolute Neutrophil Count 4.16 10^3/uL (1.2-6.7); Basophils % 0.6; Eosinophils % 5.8; HCT 30.1 % (40.0-50.0); HGB 9.7 g/dL (13.5-17.5); Immature Grans % 0.3; Lymphocytes % 21.6; MCH 32.6 pg (27.0-33.0); MCHC 32.2 % (32.0-36.0); MCV 101 fL (80-95); MPV 10.3 fL (8.0-11.0); Monocytes % 11.1; Neutrophils % 60.6; Platelet Count 208 10^3/uL (130-400); RBC 2.98 10^6/uL (4.36-5.78); RDW-SD 67.1 fL; WBC 6.86 10^3/uL (4.4-10.8)
[2021-12-23] MEDS: Normal Saline Flush 10 ML SYR IVP (09:18)
[2021-12-23 09:40] LABS: ALT 24 U/L (16-63); AST 22 U/L (15-37); Albumin 3.4 g/dL (3.4-5.0); Alkaline Phosphatase 75 U/L (46-116); Anion Gap 9.8 mmol/L (3-11); BUN 31 mg/dL (7-18); Bilirubin, Total 0.4 mg/dL (0.2-1.0); CO2 26.2 mmol/L (21.0-32.0); Calcium 8.8 mg/dL (8.5-10.1); Chloride 105 mmol/L (98-107); Estimated GFR 32.51 (mL/min/1.73m2); FREE T4 1.03 ng/dL (0.76-1.46); Glucose 111 mg/dL (74-106); Potassium 4.2 mmol/L (3.5-5.1); Sodium 141 mmol/L (136-145); TSH 1.14 uIU/mL (0.36-3.74)
[2021-12-24 11:47] LABS: PSA, Ultrasensitive <0.01 ng/mL (<= 7.2)
== END 2022-01-14 23:59 | disposition home or self-care (01) ==
LOC: INF 03:14
PROVIDERS: PCP Family Medicine; Visit Provider Internal Medicine
DX: C61 Malignant neoplasm of prostate (principal); C80.1 Malignant (primary) neoplasm, unspecified; E03.2 Hypothyroidism due to medicaments and other exogenous substances; C67.9 Malignant neoplasm of bladder, unspecified; Z45.2 Encounter for adjustment and management of vascular access device
CPT/HCPCS: 36591; 80053; 84153; 84439; 84443; 85025

== ENCOUNTER 2022-01-20 02:57 | Outpatient (RCR) | payer MEDICARE, BC, SELFPAY ==
[2022-01-15 00:15] VITALS: BP 153/81; PULSE 80; RESP 16; TEMP 36.1
--- OUTSIDE RECORDS SUMMARY | 2022-01-15 09:38 | XMS_ITS ---
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 No sym ptoms attributable. Sent to [facility] ED, started on eliquis Last Assessment & Plan: Reviewed that if upcoming PET scan was w ithout disease, it would be reasonable to consider stopping eliquis. However, if active disease remains, would be inclined to continue, as it represents ongoing significant risk - eliquis 5 bid Non-ischemic cardiomyopathy 12/16/2020 Overview: 2003: EF 55% (at time of inferior IA) 2017: EF 30-35%. Had RCA disease, felt o ut of proportion to CDM. It was stented anyway 04/2018: EF 35% 05/2018: [facility] ICD placed for primary p revention - Generator: [id number], [id number] - RA: [id number]/52, [id number] - RV: 7122Q/58, [id number] Last Assessment & Plan: No failure by history nor exam. - Diuresis: none - Cardioprotection: - Beta Blockade: lopressor 25 bid. - RAASi Lisinopril 5 QD - MC Blockade: not indicated - Devices: ICD in place. ASCVD (arteriosclerotic cardiovascular disease) 2020 Overview: 2003: Inferior IA 2018 Cath (EF decreased to 30 from tammi l): LM patent, LAD and Cx with non- obstructive disease. RCA proximal 80--> LUIS M Last Assessment & Plan: No angina per history. - Anti-Thrombosis: eliquis - Statin: lipitor 40 - Anti-anginals: GTN PRN, metoprolol Chronic obstructive lung disease 11/20/2020 Gastro-esophageal reflux disease with esophagitis 07/2020 Pure hypercholesterolemia 11/20/2020 Malignant neoplasm of prostate metastatic to bone 07/[address] lung nodules on CT 11/20/2020 Malignant tumor of urinary bladder 03/20/2020 Primary malignant neoplasm of prostate 03/13/2020 Essential hypertension 03/13/2020 Hyperlipidemia 03/13/2020 Hyperparathyroidism due to renal insufficiency 021 Stage 3 chronic kidney disease 03/13/2020 Peripheral vascular disease 03/13/2020 Pure hyperglyceridemia 10/09/2016 Tobacco dependence with current use 02/15/1941 Current Oncology Plans [facility] AMB IMMUNOTHERAPY SHARED PLAN - ATEZOLIZUMAB (1,680 MG)Plan Start Date: 11/25/2021 Plan Provider:Jerald Bush MD Linked Problems Primary malignant neoplasm of prostateSm all cell carcinomaMalignant neoplasm of urinary bladder, [facility] Medications Current Day (Day 1, Cycle 3 Next Day ( Day 1, Cycle 4 - - Planned for 01/20/2022) Planned for 02/17) atezolizumab atezolizumab (Tecentriq) atezolizumab (T ecentriq) (Tecentriq)atezolizumab 1,680 mg in sodium chloride 1,680 mg in sodium chloride (Tecentriq) 840 mg infusion 0.9% 278 mL infusion 0.9% 278 mL infusion ZOLEDRONIC ACID (ZOMETA) INFUSIONPlan Start Date:10/28/2021 Plan Provider:Jerald Bush MD Linked Problems Primary malignant neoplasm of prostateMa lignant neoplasm of prostate metastatic to bone Treatment Medications No medications scheduled. ?LEUPROLIDE (LUPRON DEPOT) 22.5 MG EVERY 3 MONTHPlan Start Date:10/28/2021 Plan Provider:Jerald Bush MD Linked Problems Primary malignant neoplasm of prostate Treatment Medications No medications scheduled. Past Plans HEMONC ADDITIONAL THERAPY PLAN 1 Plan Name Start Date Discontinue Date Treatment Discontinue Plan Medications Reason Provider ZOLEDRONIC 10/24/2020 10/28/2021 No medications Therapy Complete D karin ACID (ZOMETA) scheduled. MD Jerald INFUSION ZOLEDRONIC 10/24/2020 10/15/2020 No medications Plan is Being Libby kyle ACID (ZOMETA) scheduled. Renewed MD Jerald INFUSION INFUSION TREATMENT Plan Name Start Date Discontinue Date Treatment Discontinue Plan Pr ovider Medications Reason ?LEUPR 10/24/2020 10/28/2021 No medications Therapy Complete Dev brenda OLMEG scheduled. MD Jerald (LUPRON DEPOT) 22.5 MG EVERY 3 MONTH ONCOLOGY TREATMENT Plan Name Start Discontinue Treatment Medications Discontinue Plan Cycles Date Date Reason Provider BCN AMB ONC 08/27/19 11/25/2021 atezolizumab Therapy Rachelle 4 of 6 SMALL CELL 22 (Tecentriq)atezolizum Complete , Sernina y, cycles LUNG CANCER - ab (Tecentriq) 1200 MD started CARBOplatin / mg ETOPOSIDE/ infusionCARBOplatin ATEZOLIZUMAB (Paraplatin) in 150 mL infusionetoposide (Vepesid) in 500 mL infusion Radiation Treatments No radiation treatments are documented for this patient in [facility]. Treatments may have been administered in another system. Resolved Problems Problem Noted Date Resolved Date Acute ST segment elevation myocardial infarction 03/13/2020 11/20/2020 History of IA (myocardial infarction) 11/15/2017
--- OUTSIDE RECORDS SUMMARY | 2022-01-15 09:38 | XMS_ITS | Encounter Summary ---
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 all cell carcinoma; [facility] Malignant neoplasm of urinar y bladder, unspecified site; [address] [place] [address] High risk medication use; [place], [place] [phone] Primary malignant neoplasm o f prostate [phone] Social History Tobacco Use Types Packs/Day Years Used Date Smoking Tobacco: Every Day Cigarettes 0.3 60 Smokeless Tobacco: Never Alcohol Use Standard Drinks/Week Comments Not Currently 0 (1 standard drink = 0.6 oz pure alcoho l) Sex Assigned at Date Recorded Not on file documented as of this encounter Last Filed Vital Signs Vital Sign Reading Time Taken Comments Blood Pressure 138/59 10/09/2021 1:12 PM EDT Pulse 69 10/09/2021 1:12 PM EDT Temperature 36.2 ??C (97.2 ??F) 10/09/2021 1:12 PM EDT Respiratory Rate 20 10/09/2021 1:12 PM EDT Oxygen Saturation 100% 10/09/2021 1:12 PM EDT Inhaled Oxygen Concentration - - Weight 80.8 kg (178 lb 3.2 oz) 10/09/2021 1:12 PM EDT Height 176.5 cm (5' 9.49) 10/09/2021 1:12 PM EDT Body Mass Index 25.95 10/09/2021 1:12 PM EDT documented in this encounter Progress Notes Marie Ordonez RN - 10/09/2021 1:30 PM EDT INFUSION THERAPY ADMINISTRATION NOTES DIAGNOSIS: Small Cell Carcinoma CYCLE #:3 Day 3 REASON FOR VISIT: Etop SUBJECTIVE Mr. Banks offers no complaints today. OBJECTIVE LAB DATA: Done 10/07 at [facility], reviewed and WNL for treatment. IV ACCESS: Mediport to right chest accessed at [facility] lab 10/07. Flushed after infusion with 20 cc NS and 500 units heparin and deaccessed. Pre administration: Chemotherapy orders independently verified for drug name, route, and dosage per patient's height, weight and BSA by Marie Ordonez, ANNABEL & on-site pharmacist. REACTIONS (DESCRIPTION, TIME, INTERVENTION AND EFFECTIVENESS) none ASSESSMENT Chris was awake, alert and tolerated treatment well. OnPro applied to right arm at 1430. Due to start deploying dose of medication at 1730. Patient instructed to remove at 1830 when meter reads empty and light is solid green. Verbal and written instruction given to patient. PLAN Return to clinic per plan. documented in this encounter Plan of Treatment Upcoming Encounters Date Type Specialty Care Team Description 01/20/2022 Office Visit Hematology and Oncology Rina Zazueta, IT TECHNICAL SUPPORT SPECIALIST [address] [place] [address] [place] [address] (Wo rk) 01/20/2022 Infusion Hematology and Oncology 02/19/2022 Office Visit Cardiology Liam Tompkins MD [facility] [address] [place], [place] [address] (Wo rk) 03/31/2022 Hospital Encounter Cardiology Arrived 04/03/2022 Office Visit Dermatology Mark Bishop MD [address] [facility] DERMATOLOGY [place], [place] [address] (Wo rk) 07/06/2022 Office Visit Urology Shane Ramos MD [facility] UROLOGY [place], [place] [address] (Wo rk) 08/12/2022 Office Visit Cardiology Graeme Cueva PA [facility] CARDIOLOGY DEPT [place], [place] [address] (Wo rk) documented as of this encounter Visit Diagnoses Diagnosis Small cell carcinoma Other malignant neoplasm without specifi cation of site Malignant neoplasm of urinary bladder, u nspecified site High risk medication use Encounter for long-term (current) use of other medications Primary malignant neoplasm of prostate Malignant neoplasm of prostate documented in this encounter Administered Medications Inactive Administered Medications - up to 3 most recent administrations Medication Order MAR Action Action Date Dose Rate Site dexAMETHasone (Decadron) tablet 10 Given 10/09/2021 1:19 PM EDT 10 mg mg 10 mg, Oral, ONCE, 1 dose, On Chelo 10/09/21 at 1330, Administer prior to chemotherapy, Routine etoposide (Vepesid) 148 mg in New Bag 10/09/2021 1:22 PM EDT 148 m g 507.4 mL/hr sodium chloride 0.9% Non-PVC 507.4 mL infusion 148 mg (rounded from 147.75 mg = 75 mg/m2/dose ? 1.97 m2 Treatment Plan BSA from Recorded weight), Intravenous, ONCE, 1 dose, On Chelo 10/09/21 at 1430, Administer over 60 Minutes, Warning Vesicant/Irritant Medication heparin (pf) (porcine) (100 units/mL) Given 10/09/2021 2:35 PM E DT 500 Units flush 5 mL syringe 500 Units 500 Units, Intravenous, ONCE PRN, Starting on Wed10/09/21 at 0810, Until Wed10/09/21 at 1741, Line Care, Refer to Intravenous (IV) Procedure: Accessing Implanted Vascular Access Devices (654) procedure and/or Intravenous (IV) Job Aid: Adult Flushing & Catheter Care (6394) job aid for additional information regarding guidelines and administration., Routine pegfilgrastim (Neulasta Onpro) (6 Given 10/09/2021 2:30 PM EDT 6 mg Right Arm mg/0.6 mL) injection kit 6 mg 6 mg, Subcutaneous, ONCE, 1 dose, On Wed10/09/21 at 1330, Allow the prefilled syringe co-packaged with the on-body injector to reach room temperature at least 30 minutes prior to administration., Routine, This agent is restricted to outpatient use. Is this drug being given as an outpatient? Yes sodium chloride 0.9 % (flush) (BD PosiFlush Given 10/09/2021 2:35 PM EDT 20 mLs Normal Saline 0.9) flush 5-20 mL 5-20 mL, Intravenous, EVERY 1 MIN PRN, Starting on Wed10/08/21 at 1452, Until Wed10/09/21 at 1451, Line Care, Flush pertains to all indwelling lines. Flush per protocol found in the job aid using the link provided on this medication record. Refer to Intravenous (IV) Job Aid: Adult Flushing & Catheter Care (6706) job aid for additional information regarding guidelines and administration., Routine sodium chloride 0.9% infusion New Bag 10/09/2021 1:25 PM EDT 100 mL/hr 100 mL/hr 100 mL/hr, Intravenous, CONTINUOUS, Starting on Wed10/09/21 at 1330, Until Wed10/09/21 at 1741 documented in this encounter Care Teams Sales Support Rep Relationship Specialty Start Date End Date Karla Curran MD PCP - General Family Medicine 12/16/20 [address] [place] [address] documented as of this encounter
--- OUTSIDE RECORDS SUMMARY | 2022-01-15 09:38 | XMS_ITS | Encounter Summary ---
:1940 Author Organization [facility] [place] [address] Care Team Providers Name Role Phone Karla Curran MD Primary Care Provider Encounter Details Date Type Department Care Team Description 11/06/2021 [facility] [address] [place] [phone] Social History Tobacco Use Types Packs/Day Years Used Date Smoking Tobacco: Every Day Cigarettes 0.3 60 Smokeless Tobacco: Never Alcohol Use Standard Drinks/Week Comments Not Currently 0 (1 standard drink = 0.6 oz pure alcoho l) Sex Assigned at Date Recorded Not on file documented as of this encounter Miscellaneous Notes Telephone Encounter - Jill Hall RN - 11/06/2021 10:00 AM EDT LAB TRACKING Diagnosis: Prostate cancer metastatic to multiple sites, 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 Labs: CBC/D at [facility] today. Patient to receive 2 units PRBCs today at [facility]. Called and spoke with ANNABEL Vuong. Patient is there now getting transfusion. States that he is doing well. Dr. Bush notified of labs. Labs again in one week 10/21/21 00:00 10/28/21 00:00 11/06/21 00:00 WBC 5.55 (E) Hemoglobin 7.4 (E) 8.4 (E) 7.6 (E) Hematocrit 22.5 (E) 26.0 (E) 23.1 (E) Platelets 49 (E) Neutr Abs (ANC) 4.00 (E) (E): External lab result documented in this encounter Plan of Treatment Upcoming Encounters Date Type Specialty Care Team Description 01/20/2022 Office Visit Hematology and Oncology Rina Zazueta, POOLROOM/POOLHALL MANAGER [address] [place] [address] [place] [address] (Wo rk) 01/20/2022 Infusion Hematology and Oncology 02/19/2022 Office Visit Cardiology Liam Tompkins MD [facility] [address] [place], [place] [address] (Wo rk) 03/31/2022 Hospital Encounter Cardiology Arrived 04/03/2022 Office Visit Dermatology Mark Bishop MD [address] [place] [address] DERMATOLOGY [place], [place] [address] (Wo rk) 07/06/2022 Office Visit Urology Shane Ramos MD [facility] UROLOGY [place], [place] [address] (Wo rk) 08/12/2022 Office Visit Cardiology Graeme Cueva PA [facility] CARDIOLOGY DEPT [place], [place] [address] (Wo rk) documented as of this encounter Procedures Procedure Name Priority Date/Time Associated Diagnosis Comme nts CBC (WITH DIFF) Routine 11/06/2021 Results for this procedure are in the resu lts section. documented in this encounter Results CBC (with Diff) (11/06/2021) Analysis Performed At Patho logist Time Signature WBC 5.55 [facility] Hemoglobin 7.6 [facility] Hematocrit 23.1 [facility] Platelets 49 [facility] Neutr Abs (ANC) 4.00 [facility] Specimen (Source) Anatomical Location Collection Method / Collectio n Time Received Time / Laterality Volume Blood 11/06/2021 Historical Provider HEMATOLOGY ORDERABLES Performing Organization Address City/State/ZIP Code Phon e Number [facility] [address] [place] [address] HOSPITAL documented in this encounter Visit Diagnoses Not on filedocumented in this encounter Care Teams Pigment Processor Relationship Specialty Start Date End Date Krala Curran MD PCP - General Family Medicine 12/16/[address] [place] [address] documented as of this encounter
--- OUTSIDE RECORDS SUMMARY | 2022-01-15 09:38 | XMS_ITS | Encounter Summary ---
:1940 Author Organization [facility] [place] [address] Care Team Providers Name Role Phone Karla Curran MD Primary Care Provider Encounter Details Date Type Department Care Team Description 01/14/2022 Telephone Cardiology at Liam Shannon MD [address] [facility] [place] [address] [place] [address] (Wo rk) Social History Tobacco Use Types Packs/Day Years Used Date Smoking Tobacco: Every Day Cigarettes 0.3 60 Smokeless Tobacco: Never Comments: 3-4 cigarettes per day Alcohol Use Standard Drinks/Week Comments Not Currently 0 (1 standard drink = 0.6 oz pure alcoho l) Sex Assigned at Date Recorded Not on file documented as of this encounter Miscellaneous Notes Telephone Encounter - Wilbert Solano - 01/14/2022 4:15 PM EST Pt called stating that Graeme scared pt to Pt would like to talk to rodrigo about what Anay has said and why things are so different between Anay's conclusions and Rodrigo' conclusions. When calling back talk to not pt- she is upset about this. Pt told Anay I dont know how I'm going to tell my this and so they are both upset needing a better understanding and want to know what Dr. Tompkins thinks She would like a call as soon as Rodrigo/nurse can #[phone] documented in this encounter Plan of Treatment Upcoming Encounters Date Type Specialty Care Team Description 01/20/2022 Office Visit Hematology and Oncology Rina Zazueta, CLAM SORTER[address] [place] [address] (Wo rk) 01/20/2022 Infusion Hematology and Oncology 02/19/2022 Office Visit Cardiology Liam Tompkins MD [facility] [address] [place] [address] (Wo rk) 03/31/2022 Hospital Encounter Cardiology Arrived 04/03/2022 Office Visit Dermatology Mark Bishop MD [address] [facility] DERMATOLOGY [place], [place] [address] (Wo rk) 07/06/2022 Office Visit Urology Shane Ramos MD [facility] UROLOGY [place], [place] [address] (Wo rk) 08/12/2022 Office Visit Cardiology Graeme Cueva PA [facility] CARDIOLOGY DEPT [place], [place] [address] (Wo rk) documented as of this encounter Visit Diagnoses Not on filedocumented in this encounter Care Teams Foundation Relations Manager Relationship Specialty Start Date End Date Karla Curran MD PCP - General Family Medicine 12/16/20 [address] [place] [address] documented as of this encounter
--- OUTSIDE RECORDS SUMMARY | 2022-01-15 09:38 | XMS_ITS | Encounter Summary ---
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, unspecified site High risk medication use Jerald Bush MD [facility] Hem Onc Office [address] HEMATOLOGY/[place] [phone] Fax: Referral ID Status Reason Start Date Expiration Date Visits Requ ested Visits Authorized [id number] Closed 08/12/2021 08/12/2022 99 99 Encounter Details Date Type Department Care Team Description 10/08/2021 Infusion Hematology Oncology at [facility] all cell carcinoma; [facility] Malignant neoplasm of urinar y bladder, unspecified site; [address] [place] [address] High risk medication use; [place], [place] [phone] Primary malignant neoplasm o f prostate [phone] Social History Tobacco Use Types Packs/Day Years Used Date Smoking Tobacco: Every Day Cigarettes 0.3 60 Smokeless Tobacco: Never Alcohol Use Standard Drinks/Week Comments Not Currently 0 (1 standard drink = 0.6 oz pure alcoho l) Sex Assigned at Date Recorded Not on file documented as of this encounter Last Filed Vital Signs Vital Sign Reading Time Taken Comments Blood Pressure 138/62 10/08/2021 1:26 PM EDT Pulse 74 10/08/2021 1:26 PM EDT Temperature 36.5 ??C (97.7 ??F) 10/08/2021 1:26 PM EDT Respiratory Rate 20 10/08/2021 1:26 PM EDT Oxygen Saturation 100% 10/08/2021 1:26 PM EDT Inhaled Oxygen Concentration - - Weight 79.9 kg (176 lb 3.2 oz) 10/08/2021 1:26 PM EDT Height 176.5 cm (5' 9.49) 10/08/2021 1:26 PM EDT Body Mass Index 25.66 10/08/2021 1:26 PM EDT documented in this encounter Progress Notes Marie Ordonez RN - 10/08/2021 1:30 PM EDT INFUSION THERAPY ADMINISTRATION NOTES DIAGNOSIS: Small Cell Carcinoma CYCLE #:3 Day 2 REASON FOR VISIT: Etop SUBJECTIVE Mr. Banks reports nausea this morning, he is using his home compazine with good effect, otherwise no complaints today, ready for treatment. OBJECTIVE LAB DATA: Done 10/07 at [facility], reviewed and WNL for treatment. IV ACCESS: Mediport to right chest accessed at [facility] lab 10/07. Flushed after infusion with 20 cc NS and 500 units heparin. Left accessed for tomorrow's infusion. Pre administration: Chemotherapy orders independently verified for drug name, route, and dosage per patient's height, weight and BSA by Marie Ordonez, ANNABEL & on-site pharmacist. REACTIONS (DESCRIPTION, TIME, INTERVENTION AND EFFECTIVENESS) none ASSESSMENT Chris was awake, alert and tolerated treatment well. PLAN Return tomorrow for Cycle 3, Day 3. documented in this encounter Plan of Treatment Upcoming Encounters Date Type Specialty Care Team Description 01/20/2022 Office Visit Hematology and Oncology Rina Zazueta APRN [address] [place] [address] [place] [address] (Wo rk) 01/20/2022 Infusion Hematology and Oncology 02/19/2022 Office Visit Cardiology iLam Tompkins MD [facility] [place], [place] [address] (Wo rk) 03/31/2022 Hospital Encounter Cardiology Arrived 04/03/2022 Office Visit Dermatology Mark Bihsop MD [address] [facility] DERMATOLOGY [place], [place] [address] (Wo rk) 07/06/2022 Office Visit Urology Shane Ramos MD [facility] UROLOGY [place], [place] [address] (Wo rk) 08/12/2022 Office Visit Cardiology Graeme Cueva PA [facility] CARDIOLOGY DEPT [place], [place] [address] (Wo rk) documented as of [...] Rate Site dexAMETHasone (Decadron) tablet 10 Given 10/08/2021 1:29 PM EDT 10 mg mg 10 mg, Oral, ONCE, 1 dose, On Wed10/08/21 at 1330, Administer prior to chemotherapy, Routine etoposide (Vepesid) 148 mg in New Bag 10/08/2021 1:36 PM EDT 148 m g 507.4 mL/hr sodium chloride 0.9% Non-PVC 507.4 mL infusion 148 mg (rounded from 147.75 mg = 75 mg/m2/dose ? 1.97 m2 Treatment Plan BSA from Recorded weight), Intravenous, ONCE, 1 dose, On Wed10/08/21 at 1400, Administer over 60 Minutes, Warning Vesicant/Irritant Medication heparin (pf) (porcine) (100 units/mL) Given 10/08/2021 2:48 PM E DT 500 Units flush 5 mL syringe 500 Units 500 Units, Intravenous, ONCE PRN, Starting on Wed10/08/21 at 0817, Until Wed10/08/21 at 1651, Line Care, Refer to Intravenous (IV) Procedure: Accessing Implanted Vascular Access Devices (654) procedure and/or Intravenous (IV) Job Aid: Adult Flushing & Catheter Care (7076) job aid for additional information regarding guidelines and administration., Routine sodium chloride 0.9 % (flush) (BD PosiFlush Given 10/08/2021 2:48 PM EDT 20 mLs Normal Saline 0.9) flush 5-20 mL 5-20 mL, Intravenous, EVERY 1 MIN PRN, Starting on Wed10/07/21 at 1518, Until Wed10/08/21 at 1517, Line Care, Flush pertains to all indwelling lines. Flush per protocol found in the job aid using the link provided on this medication record. Refer to Intravenous (IV) Job Aid: Adult Flushing & Catheter Care (9769) job aid for additional information regarding guidelines and administration., Routine sodium chloride 0.9% infusion New Bag 10/08/2021 1:35 PM EDT 100 mL/hr 100 mL/hr 100 mL/hr, Intravenous, CONTINUOUS, Starting on Wed10/08/21 at 1330, Until Wed10/08/21 at 1651 documented in this encounter Care Teams Bell Clerk Relationship Specialty Start Date End Date Karla Curran MD PCP - General Family Medicine 12/16/20 [address] [place] [address] documented as of this encounter
--- OUTSIDE RECORDS SUMMARY | 2022-01-15 09:38 | XMS_ITS | Encounter Summary ---
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, unspecified site High risk medication use Jerald Bush MD [facility] Hem Onc Office [address] HEMATOLOGY/[place] [phone] Fax: Referral ID Status Reason Start Date Expiration Date Visits Requ ested Visits Authorized [id number] Closed 08/12/2021 08/12/2022 99 99 Encounter Details Date Type Department Care Team Description 10/28/2021 Infusion Hematology Oncology at [facility] all cell carcinoma; [facility] Malignant neoplasm of urinar y bladder, unspecified site; [address] [place] [address] High risk medication use; [place], [place] [phone] Primary malignant neoplasm o f prostate; [phone] 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 Banks offers no complaints. Met with provider prior to infusion and found adequate to treat. OBJECTIVE LAB DATA: Done today at [facility]- WBC 8.85, Hgb 8.4, Hct 26.0, PLT 159, ANC 6.16, BUN 24, Cr 1.8, CrCl 34.8, Lytes WNL, TSH 2.32, T4 1.04 IV ACCESS: Mediport to right chest accessed at [facility] lab. Flushed after infusion with 20 cc NS and 500 units heparin. Left accessed for tomorrow's infusion. Pre administration: Chemotherapy orders independently verified for drug name, route, and dosage per patient's height, weight and BSA by Patricia Astorga RN & on-site pharmacist. REACTIONS (DESCRIPTION, TIME, INTERVENTION AND EFFECTIVENESS) none ASSESSMENT Chris was awake, alert and tolerated treatment well. Lupron 22.5mg given IM to right buttocks. PLAN Return tomorrow for Cycle 4, Day 2. documented in this encounter Plan of Treatment Upcoming Encounters Date Type Specialty Care Team Description 01/20/2022 Office Visit Hematology and Oncology Rina Zazueta APRN [address] [place] [address] [place] [address] (Becky angela) 01/20/2022 Infusion Hematology and Oncology 02/19/2022 Office Visit Cardiology Liam Tompkins MD [facility] [address] [place] [address] (Becky angela) 03/31/2022 Hospital Encounter Cardiology Arrived 04/03/2022 Office Visit Dermatology Mark Bishop MD [address] [place] [address] DERMATOLOGY [place], [place] [address] (Becky angela) 07/06/2022 Office Visit Urology Shane Ramos MD [facility] UROLOGY [place], [place] [address] (Wo rk) 08/12/2022 Office Visit Cardiology Graeme Cueva PA [facility] CARDIOLOGY DEPT [place], [place] [address] (Becky angela) documented as of this encounter Visit Diagnoses Diagnosis Small cell carcinoma Other malignant neoplasm without specifi cation of site Malignant neoplasm of urinary bladder, u nspecified site High risk medication use Encounter for long-term (current) use of other medications Primary malignant neoplasm of prostate Malignant neoplasm of prostate Malignant neoplasm of prostate metastati c to bone Malignant neoplasm of prostate documented in this encounter Administered Medications Inactive Administered Medications - up to 3 most recent administrations Medication Order MAR Action Action Date Dose Rate Site aprepitant (CINVANTI) injection Given 10/28/2021 10:04 AM EDT 13 0 mg Emul 130 mg 130 mg, Intravenous, ONCE, 1 dose, On Wed10/28/21 at 1000, Alternative administration of IV push over 2 minutes is a recommendation from the steam fitter helper. Administer prior to chemotherapy., Routine atezolizumab (Tecentriq) 1,200 New Bag 10/28/2021 10:24 AM EDT 1,200 mg 540 mL/hr mg in sodium chloride 0.9% 270 mL infusion 1,200 mg, Intravenous, ONCE, 1 dose, On Wed10/28/21 at 1100, Administer over 30 Minutes, NO DOSE ADJUSTMENTS. Give initial dose over 60 minutes. If the initial dose is tolerated, all subsequent doses can be given over 30 minutes., This agent is restricted to outpatient use. Is this drug being given as an outpatient? Yes calcium carbonate (Tums) chewable tablet 500 Given 1:17 PM EDT 500 mg mg 500 mg, Oral, ONCE, 1 dose, On Wed10/28/21 at 1000, Routine CARBOplatin (Paraplatin) 293 mg New Bag 10/28/2021 11:02 AM ED T 293 mg 558.6 mL/hr in dextrose 5% 279.3 mL infusion 293 mg (rounded from 292.5 mg, Target AUC = 5), Intravenous, ONCE, 1 dose, On Wed10/28/21 at 1100, Administer over 30 Minutes, Warning Vesicant/Irritant Medication dexAMETHasone (Decadron) tablet 10 mg Given 10/28/2021 10:01 AM EDT 10 mg 10 mg, Oral, ONCE, 1 dose, On Wed10/28/21 at 1000, Administer prior to chemotherapy, Routine etoposide (Vepesid) 148 mg in New Bag 10/28/2021 11:44 AM EDT 148 mg 507.4 mL/hr sodium chloride 0.9% Non-PVC 507.4 mL infusion 148 mg (rounded from 147.75 mg = 75 mg/m2/dose ? 1.97 m2 Treatment Plan BSA from Recorded weight), Intravenous, ONCE, 1 dose, On Wed10/28/21 at 1100, Administer over 60 Minutes, Warning Vesicant/Irritant Medication heparin (pf) (porcine) (100 units/mL) Given 10/28/2021 1:31 PM E DT 500 Units flush 5 mL syringe 500 Units 500 Units, Intravenous, ONCE PRN, Starting on Wed10/28/21 at 0940, Until Wed10/28/21 at 1541, Line Care, Refer to Intravenous (IV) Procedure: Accessing Implanted Vascular Access Devices (694) procedure and/or Intravenous (IV) Job Aid: Adult Flushing & Catheter Care (7250) job aid for additional information regarding guidelines and administration., Routine leuprolide (Lupron Depot) Given 10/28/2021 1:20 PM EDT 22.5 mg Right Gluteal injection 22.5 mg 22.5 mg, Intramuscular, ONCE, 1 dose, On Wed10/28/21 at 1000, Routine, This agent is restricted to outpatient use. Is this drug being given as an outpatient? Yes palonosetron (Aloxi) (0.05 mg/mL) injection Given 10/16 10:03 AM EDT 0.25 mg 0.25 mg 0.25 mg, Intravenous, ONCE, 1 dose, On Wed10/28/21 at 1000, Administer over 30 seconds., Routine sodium chloride 0.9 % (flush) (BD PosiFlush Given 10/28/2021 1:30 PM EDT 20 mLs Normal Saline 0.9) flush 5-20 mL 5-20 mL, Intravenous, EVERY 1 MIN PRN, Starting on Wed10/28/21 at 0940, Until Wed10/28/21 at 1541, Line Care, Flush pertains to all indwelling lines. Flush per protocol found in the job aid using the link provided on this medication record. Refer to Intravenous (IV) Job Aid: Adult Flushing & Catheter Care (2826) job aid for additional information regarding guidelines and administration., Routine sodium chloride 0.9% infusion New Bag 10/28/2021 10:00 AM EDT 100 mL/hr 100 mL/hr 100 mL/hr, Intravenous, CONTINUOUS, Starting on Wed10/28/21 at 1000, Until Wed10/28/21 at 1541 zoledronic acid (Zometa) 3 mg in New Bag 10/28/2021 1:12 PM EDT 3 mg 415 mL/hr sodium chloride 0.9% 103.75 mL infusion 3 mg, Intravenous, ONCE, 1 dose, On Wed10/28/21 at 1000, Administer over 15 Minutes, Do not administer or Y-site with calcium-containing solutions such as lactated ringers. Do not mix with IV Calcium-containing products. CrCl > 60 ml/min: Recommended dose is 4mg IV. CrCl 50-60 ml/min: Reduce dose to 3.5 mg IV. CrCl 40-49 ml/min: Reduce dose to 3.3 mg IV. CrCl 30-39 ml/min: Reduce dose to 3 mg IV. CrCl < 30 ml/min: Use not recommended due to lack of clinical data, Indication for: Multiple myeloma and bone metastases documented in this encounter Care Teams Wastewater Superintendent Relationship Specialty Start Date End Date Karla Curran MD PCP - General Family Medicine 12/16/[address] [place] [address] documented as of this encounter
--- OUTSIDE RECORDS SUMMARY | 2022-01-15 09:38 | XMS_ITS | Encounter Summary ---
:1940 Author Organization [facility] [place] [address] Care Team Providers Name Role Phone Karla Curran MD Primary Care Provider Reason for Visit Reason Onset Date Comments Labs Only 11/13/2021 Lab Tracking Encounter Details Date Type Department Care Team Description 11/13/2021 Telephone Hematology/Oncology at [facility] Only (Lab Tracking [facility] Monica Lala RN ) [address] [place] [phone] Social History Tobacco Use Types Packs/Day Years Used Date Smoking Tobacco: Every Day Cigarettes 0.3 60 Smokeless Tobacco: Never Alcohol Use Standard Drinks/Week Comments Not Currently 0 (1 standard drink = 0.6 oz pure alcoho l) Sex Assigned at Date Recorded Not on file documented as of this encounter Miscellaneous Notes Telephone Encounter - Monica Dillard RN - 11/13/2021 8:41 AM EDT LAB TRACKING Diagnosis: Prostate cancer metastatic to multiple sites, 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 Labs: CBC/D at [facility] Standing Transfusion Orders at [facility] Assessment/Plan: Labs sent to Dr Bush for review. No transfusion needed. 10/21/21 00:00 10/28/21 00:00 11/06/21 00:00 11/13/21 00:00 WBC 5.55 (E) 8.58 (E) RBC 3.17 (E) Hemoglobin 7.4 (E) 8.4 (E) 7.6 (E) 10.0 (E) Hematocrit 22.5 (E) 26.0 (E) 23.1 (E) 30.3 (E) Platelets 49 (E) 39 (E) Neutr Abs (ANC) 4.00 (E) 5.68 (E) BUN 26 (E) Creatinine 1.7 (E) (E): External lab result documented in this encounter Plan of Treatment Upcoming Encounters Date Type Specialty Care Team Description 01/20/2022 Office Visit Hematology and Oncology Rina Zazueta, [address] [place] [address] (Wo rk) 01/20/2022 Infusion Hematology and Oncology 02/19/2022 Office Visit Cardiology Liam Tompkins MD [facility] [place], [place] [address] (Wo rk) 03/31/2022 Hospital Encounter Cardiology Arrived 04/03/2022 Office Visit Dermatology Mark Bishop MD [address] [place] [address] DERMATOLOGY [place], [place] [address] (Wo rk) 07/06/2022 Office Visit Urology Shane Ramos MD [facility] UROLOGY [place], [place] [address] (Wo rk) 08/12/2022 Office Visit Cardiology Graeme Cueva PA [facility] CARDIOLOGY DEPT [place], [place] [address] (Wo rk) documented as of this encounter Procedures Procedure Name Priority Date/Time Associated Diagnosis Comme nts CBC (WITH DIFF) Routine 11/13/2021 Results for this procedure are i n the results section . COMPREHENSIVE METABOLIC Routine 11/13/2021 Resu lts for this PANEL (NON-FASTING) procedur e are in the results section . documented in this encounter Results CBC (with Diff) (11/13/2021) P athologist Signature WBC 8.58 RBC 3.17 Hemoglobin 10.0 Hematocrit 30.3 Platelets 39 Neutr Abs (ANC) 5.68 Specimen (Source) Anatomical Location Collection Method / Collectio n Time Received Time / Laterality Volume Blood Historical Provider HEMATOLOGY ORDERABLES Comprehensive metabolic panel (non-fasting) (11/13/2021) P athologist Signature BUN 26 Creatinine 1.7 Specimen (Source) Anatomical Location Collection Method / Collectio n Time Received Time / Laterality Volume Blood Historical Provider CHEMISTRY ORDERABLES documented in this encounter Visit Diagnoses Not on filedocumented in this encounter Care Teams Criminal Justice Professor Relationship Specialty Start Date End Date Karla Curran MD PCP - General Family Medicine 12/16/20 [address] [place] [address] documented as of this encounter
--- OUTSIDE RECORDS SUMMARY | 2022-01-15 09:38 | XMS_ITS | Encounter Summary ---
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, unspecified site High risk medication use Jerald Bush MD [facility] Hem Onc Office [address] HEMATOLOGY/[place] [phone] Fax: Referral ID Status Reason Start Date Expiration Date Visits Requ ested Visits Authorized [id number] Closed 08/12/2021 08/12/2022 99 99 Encounter Details Date Type Department Care Team Description 10/29/2021 Infusion Hematology Oncology at [facility] all cell carcinoma; [facility] Malignant neoplasm of urinar y bladder, unspecified site; [address] [place] [address] High risk medication use; [place], [place] [phone] Primary malignant neoplasm o f prostate [phone] Social History Tobacco Use Types Packs/Day Years Used Date Smoking Tobacco: Every Day Cigarettes 0.3 60 Smokeless Tobacco: Never Alcohol Use Standard Drinks/Week Comments Not Currently 0 (1 standard drink = 0.6 oz pure alcoho l) Sex Assigned at Date Recorded Not on file documented as of this encounter Last Filed Vital Signs Vital Sign Reading Time Taken Comments Blood Pressure 130/48 10/29/2021 1:31 PM EDT Pulse 87 10/29/2021 1:31 PM EDT Temperature 36.6 ??C (97.9 ??F) 10/29/2021 1:31 PM EDT Respiratory Rate 18 10/29/2021 1:31 PM EDT Oxygen Saturation 100% 10/29/2021 1:31 PM EDT Inhaled Oxygen Concentration - - Weight 80.4 kg (177 lb 3.2 oz) 10/29/2021 1:31 PM EDT Height 176.5 cm (5' 9.49) 10/29/2021 1:31 PM EDT Body Mass Index 25.8 10/29/2021 1:31 PM EDT documented in this encounter Progress Notes Gladys Christian RN - 10/29/2021 1:30 PM EDT INFUSION THERAPY ADMINISTRATION NOTES DIAGNOSIS: Metastatic Small Cell Cancer, Unknown Primary. CYCLE #: Cycle 4, Day 2 - Etoposide. REASON FOR VISIT: To receive prescribed chemotherapy. SUBJECTIVE: Chris offers no complaints. OBJECTIVE: VSS. Weight stable. Denies side effects, slept well. LAB DATA: 10/28/21 - WBC - 8.85, H/H - 8.4/26.0, Plt Ct - 159, ANC - 6.16, Lytes wnl, BUN/Cr - 24/1.8, CA++ - 9.0, TSH/Free T4 - 2.32/1.04 IV ACCESS: Port accessed off site on 10/28/21. Flushes readily with brisk blood return. Pre administration: Chemotherapy orders independently verified for drug name, route, and dosage per patient's height, weight and BSA by Gladys Christian, ANNABEL and Staff Pharmacist(s). REACTIONS (DESCRIPTION, TIME, INTERVENTION AND EFFECTIVENESS) none ASSESSMENT: Chris was awake, alert and tolerated treatment well. Port flushed with 20 cc's of NS and 500 units of heparin and remains accessed for day 3 tomorrow. PLAN: Return to clinic for Day 3. documented in this encounter Plan of Treatment Upcoming Encounters Date Type Specialty Care Team Description 01/20/2022 Office Visit Hematology and Oncology Rina Zazueta, PURCHASING DIRECTOR [address] [place] [address] [place] [address] (Wo rk) 01/20/2022 Infusion Hematology and Oncology 02/19/2022 Office Visit Cardiology Liam Tompkins MD [facility] [place], [place] [address] (Wo rk) 03/31/2022 Hospital Encounter Cardiology Arrived 04/03/2022 Office Visit Dermatology Mark Bishop MD [address] DERMATOLOGY [place], [place] [address] (Wo rk) 07/06/2022 Office Visit Urology Shane Ramos MD [facility] UROLOGY [address] (Wo rk) 08/12/2022 Office Visit Cardiology Graeme Cueva PA [facility] CARDIOLOGY DEPT [address] (Wo rk) documented as of this [...] Rate Site dexAMETHasone (Decadron) tablet 10 Given 10/29/2021 2:04 PM EDT 10 mg mg 10 mg, Oral, ONCE, 1 dose, On Wed10/29/21 at 1400, Administer prior to chemotherapy, Routine etoposide (Vepesid) 148 mg in New Bag 10/29/2021 2:10 PM EDT 148 m g 507.4 mL/hr sodium chloride 0.9% Non-PVC 507.4 mL infusion 148 mg (rounded from 147.75 mg = 75 mg/m2/dose ? 1.97 m2 Treatment Plan BSA from Recorded weight), Intravenous, ONCE, 1 dose, On Wed10/29/21 at 1500, Administer over 60 Minutes, Warning Vesicant/Irritant Medication heparin (pf) (porcine) (100 units/mL) Given 10/29/2021 3:25 PM E DT 500 Units flush 5 mL syringe 500 Units 500 Units, Intravenous, ONCE PRN, Starting on Wed10/29/21 at 0000, Until Wed10/29/21 at 1742, Line Care, Refer to Intravenous (IV) Procedure: Accessing Implanted Vascular Access Devices (654) procedure and/or Intravenous (IV) Job Aid: Adult Flushing & Catheter Care (8646) job aid for additional information regarding guidelines and administration., Routine sodium chloride 0.9% infusion New Bag 10/29/2021 2:04 PM EDT 100 mL/hr 100 mL/hr 100 mL/hr, Intravenous, CONTINUOUS, Starting on Wed10/29/21 at 1400, Until Wed10/29/21 at 1742 documented in this encounter Care Teams Banking Consultant Relationship Specialty Start Date End Date Karla Curran MD PCP - General Family Medicine 12/16/20 [address] [place] [address] documented as of this encounter
--- OUTSIDE RECORDS SUMMARY | 2022-01-15 09:38 | XMS_ITS | Encounter Summary ---
:1940 Author Organization [facility] [place] [address] Care Team Providers Name Role Phone Karla Curran MD Primary Care Provider Reason for Visit Reason Onset Date Comments Labs Only 10/28/2021 Lab tracking Encounter Details Date Type Department Care Team Description 10/28/2021 Telephone Hematology/Oncology at Peg Lutz RN Labs Only (Lab tracking) [address] [phone] Social History Tobacco Use Types Packs/Day Years Used Date Smoking Tobacco: Every Day Cigarettes 0.3 60 Smokeless Tobacco: Never Alcohol Use Standard Drinks/Week Comments Not Currently 0 (1 standard drink = 0.6 oz pure alcoho l) Sex Assigned at Date Recorded Not on file documented as of this encounter Miscellaneous Notes Telephone Encounter - Peg Lutz RN - 10/28/2021 12:01 PM EDT LAB TRACKING DIAGNOSIS: bladder cancer/prostate cancer LABS ORDERED: cbc diff type and screen MEDICATIONS: carbo/etop every 3 weeks, zometa/lupron every 3 months Transfusion orders Transfuse 2 units PRBCS for hbg less than or equal to 8 No premeds Assessment/Plan: Pt saw Dr. bush in clinic today. He will get cycle 4 of carbo etop. He will get cbc diff, type and screen on nov 06. Transfusion orders at [facility]. We will update Dr. Bush with results via a note. Pt agrees with plan. 09/25/21 00:00 09/30/21 00:00 10/21/21 00:00 10/28/21 00:00 Hemoglobin 7.4 (E) 9.2 (E) 7.4 (E) 8.4 (E) Hematocrit 22.3 (E) 27.1 (E) 22.5 (E) 26.0 (E) (E): External lab result documented in this encounter Plan of Treatment Upcoming Encounters Date Type Specialty Care Team Description 01/20/2022 Office Visit Hematology and Oncology Rina Zazueta, [address] [place] [address] (Wo rk) 01/20/2022 Infusion Hematology and Oncology 02/19/2022 Office Visit Cardiology Liam Tompkins MD [facility] [address] [place], [place] [address] (Wo rk) 03/31/2022 Hospital Encounter Cardiology Arrived 04/03/2022 Office Visit Dermatology Mark Bishop MD [address] [place] [address] DERMATOLOGY [place], [place] [address] (Wo rk) 07/06/2022 Office Visit Urology Shane Ramos MD [facility] UROLOGY [place], [place] [address] (Wo rk) 08/12/2022 Office Visit Cardiology Graeme Cueva PA [facility] CARDIOLOGY DEPT [place], [place] [address] (Wo rk) documented as of this encounter Procedures Procedure Name Priority Date/Time Associated Diagnosis Comme nts CBC (WITH DIFF) Routine 10/28/2021 Results for this procedure are in the resu lts section. CBC (WITH DIFF) Routine 10/21/2021 Results for this procedure are in the resu lts section. CBC (WITH DIFF) Routine 09/30/2021 Results for this procedure are in the resu lts section. CBC (WITH DIFF) Routine 09/25/2021 Results for this procedure are in the resu lts section. documented in this encounter Results CBC (with Diff) (10/28/2021) P athologist Signature Hemoglobin 8.4 Hematocrit 26.0 Specimen (Source) Anatomical Location Collection Method / Collectio n Time Received Time / Laterality Volume Blood 10/28/2021 Historical Provider MD HEMATOLOGY ORDERABLES CBC (with Diff) (10/21/2021) P athologist Signature Hemoglobin 7.4 Hematocrit 22.5 Specimen (Source) Anatomical Location Collection Method / Collectio n Time Received Time / Laterality Volume Blood 10/21/2021 Historical Provider MD HEMATOLOGY ORDERABLES CBC (with Diff) (09/30/2021) P athologist Signature Hemoglobin 9.2 Hematocrit 27.1 Specimen (Source) Anatomical Location Collection Method / Collectio n Time Received Time / Laterality Volume Blood 09/30/2021 Historical Provider HEMATOLOGY ORDERABLES CBC (with Diff) (09/25/2021) athologist Signature Hemoglobin 7.4 Hematocrit 22.3 Specimen (Source) Anatomical Location Collection Method / Collectio n Time Received Time / Laterality Volume Blood 09/25/2021 Historical Provider MD HEMATOLOGY ORDERABLES documented in this encounter Visit Diagnoses Not on filedocumented in this encounter Care Teams Food And Beverage Order Clerk Relationship Specialty Start Date End Date Karla Curran MD PCP - General Family Medicine 12/16/20 [address] [place] [address] documented as of this encounter
--- OUTSIDE RECORDS SUMMARY | 2022-01-15 09:38 | XMS_ITS | Encounter Summary ---
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, unspecified site High risk medication use Jerald Bush MD [facility] Hem Onc Office Procedures BCN AMB IMMUNOTHERAPY SHARED PLAN - ATEZOLIZUMAB (1,[address] HEMATOLOGY/[place] [phone] Fax: Referral ID Status Reason Start Date Expiration Date Visits V isits Requested Authorized [id number] Authorized 11/25/2021 11/25/2022 99 99 Encounter Details Date Type Department Care Team Description 11/25/2021 Infusion Hematology Oncology at [facility] all cell carcinoma; [facility] Malignant neoplasm of urinar y bladder, unspecified site; [address] [place] [address] High risk medication use; [place], [place] [phone] Primary malignant neoplasm o f prostate [phone] Social History Tobacco Use Types Packs/Day Years Used Date Smoking Tobacco: Every Day Cigarettes 0.3 60 Smokeless Tobacco: Never Alcohol Use Standard Drinks/Week Comments Not Currently 0 (1 standard drink = 0.6 oz pure alcoho l) Sex Assigned at Date Recorded Not on file documented as of this encounter Progress Notes Patricia Taylor RN - 11/25/2021 10:00 AM EDT INFUSION THERAPY ADMINISTRATION NOTES DIAGNOSIS: Small Cell Carcinoma CYCLE #:5 Day 1 REASON FOR VISIT: Atezolizumab only SUBJECTIVE Mr. Banks offers no complaints. Met with provider prior to infusion and found adequate to treat. Willomit the Carboplatin and etoposide this cycle. OBJECTIVE LAB DATA: Done today at [facility]- WBC 6.23, Hgb 9.9, Hct 29.5, PLT 330, ANC 4.36, BUN 28, Cr 1.8, CrCl 34.75, Lytes WNL, TSH 2.42, T4 1.07 IV ACCESS: Mediport to right chest accessed at [facility] lab. Flushed after infusion with 20 cc NS and 500 units heparin before de-accessing. Pre administration: Chemotherapy orders independently verified for drug name, route, and dosage per patient's height, weight and BSA by Patricia Astorga RN & on-site pharmacist. REACTIONS (DESCRIPTION, TIME, INTERVENTION AND EFFECTIVENESS) none ASSESSMENT Chris was awake, alert and tolerated treatment well. PLAN Return to clinic per plan. documented in this encounter Plan of Treatment Upcoming Encounters Date Type Specialty Care Team Description 01/20/2022 Office Visit Hematology and Oncology Rina Zazueta APRN [address] [place] [address] [place] [address] (Becky angela) 01/20/2022 Infusion Hematology and Oncology 02/19/2022 Office Visit Cardiology Liam Tompkins MD [facility] [address] [place] [address] (Becky angela) 03/31/2022 Hospital Encounter Cardiology Arrived 04/03/2022 Office Visit Dermatology Mark Bishop MD [address] [place] [address] DERMATOLOGY [place], [place] [address] (Becky angela) 07/06/2022 Office Visit Urology Shane Ramos MD [facility] DR UROLOGY [place], [place] [address] (Wo rk) 08/12/2022 Office Visit Cardiology Graeme Cueva PA [facility] CARDIOLOGY DEPT [place], [place] [address] (Wo rk) documented as of [...] MAR Action Action Date Dose Rate Site atezolizumab (Tecentriq) New Bag 11/25/2021 11:15 AM 1,680 mg 55 6 mL/hr 1,680 mg in sodium chloride EDT 0.9% 278 mL infusion 1,680 mg, Intravenous, ONCE, 1 dose, On Wed11/25/21 at 1130, Administer over 30 Minutes, NO DOSE ADJUSTMENTS. Give initial dose over 60 minutes. If the initial dose is tolerated, all subsequent doses can be given over 30 minutes., This agent is restricted to outpatient use. Is this drug being given as an outpatient? Yes heparin (pf) (porcine) (100 units/mL) Given 11/25/2021 11:50 AM EDT 500 Units flush 5 mL syringe 500 Units 500 Units, Intravenous, ONCE PRN, Starting on Wed11/25/21 at 1004, Until Wed11/25/21 at 1402, Line Care, Refer to Intravenous (IV) Procedure: Accessing Implanted Vascular Access Devices (304) procedure and/or Intravenous (IV) Job Aid: Adult Flushing & Catheter Care (0572) job aid for additional information regarding guidelines and administration., Routine sodium chloride 0.9 % (flush) (BD PosiFlush Given 11/15 11:50 AM EDT 20 mLs Normal Saline 0.9) flush 5-20 mL 5-20 mL, Intravenous, EVERY 1 MIN PRN, Starting on Wed11/25/21 at 1004, Until Wed11/25/21 at 1402, Line Care, Flush pertains to all indwelling lines. Flush per protocol found in the job aid using the link provided on this medication record. Refer to Intravenous (IV) Job Aid: Adult Flushing & Catheter Care (5171) job aid for additional information regarding guidelines and administration., Routine documented in this encounter Care Teams Graduating Machine Operator Relationship Specialty Start Date End Date Karla Curran MD PCP - General Family Medicine 12/16/[address] [place] [address] documented as of this encounter
--- OUTSIDE RECORDS SUMMARY | 2022-01-15 09:38 | XMS_ITS | Encounter Summary ---
:1940 Author Organization [facility] [place] [address] Care Team Providers Name Role Phone Karla Curran MD Primary Care Provider Reason for Referral Diagnostic Test (Routine) - Closed Specialty Diagnoses / Procedures Referred By Contact Refer red To Contact Radiology Diagnoses Small cell carcinoma Jerald Bush MD [facility] Rad Nuclear Med Procedures NM PET CT Skull Base to Mid-thigh [facility] HEMATOLOGY/[place] [address] [place] [address] Referral ID Status Reason Start Date Expiration Date Visits V isits Requested Authorized [id number] Closed Specialty 10/28/2021 04/28/2023 1 1 Service Requested Reason for Visit Diagnostic Test (Routine) - Closed Specialty Diagnoses / Procedures Referred By Contact Refer red To Contact Radiology Diagnoses Small cell carcinoma Jerald Bush MD [facility] Rad Nuclear Med Procedures NM PET CT Skull Base to Mid-thigh [facility] HEMATOLOGY/[place] [address] [place] [address] Referral ID Status Reason Start Date Expiration Date Visits V isits Requested Authorized [id number] Closed Specialty 10/28/2021 04/28/2023 1 1 Service Requested Encounter Details Date Type Department Care Team Description 11/17/2021 Hospital Encounter Nuclear Medicine at [facility] all cell carcinoma Angelica Marques MD [facility] [place] HEMATOLOGY/ONCOL [id number] OGY [phone] [place] [address] Social History Tobacco Use Types Packs/Day Years Used Date Smoking Tobacco: Every Day Cigarettes 0.3 60 Smokeless Tobacco: Never Alcohol Use Standard Drinks/Week Comments Not Currently 0 (1 standard drink = 0.6 oz pure alcoho l) Sex Assigned at Date Recorded Not on file documented as of this encounter Medications at Time of Discharge Medication Sig Dispensed Refills Start Date End Date zoledronic 100 ml over 15 minutes 0 11/25/2020 ikos-ipgllozE-uuvua 4 mg/100 mL Piggyback Eliquis 2.5 mg Tablet Take 2.5 mg by mouth 2 0 times daily. leuprolide acetate Inject subcutaneously 0 (ELIGARD, 3 MONTH, SUBQ) Q 3 Months. calcium-vitamin D3 600 mg Take by mouth. 0 calcium- 400 unit Tablet lisinopriL (Zestril) 5 mg Take 5 mg by mouth 0 Tablet daily. metoprolol tartrate Take 25 mg by mouth 2 0 (Lopressor) 25 mg Tablet times daily. atorvastatin (Lipitor) 40 Take 40 mg by mouth 0 mg Tablet daily. zoledronic acid (Zometa) Inject 4 mg into the 0 4 mg/5 mL Solution vein Q 3 Months. pantoprazole EC Take 20 mg by mouth 0 (Protonix) 20 mg Tablet, daily. Delayed Release (E.C.) fluticasone propionate Inhale 1 puff into the 0 (Flovent HFA) 220 lungs 2 times daily. mcg/actuation HFA Aerosol Inhaler acetaminophen (Tylenol) Take 1,000 mg by mouth 0 500 mg Tablet every 6 hours as needed for Pain. prochlorperazine Take 1 tablet by mouth 30 tablet 3 08/12/ 022 (Compazine) 10 mg every 6 hours as TabletIndications: Small needed for Nausea. cell carcinoma ondansetron (Zofran) 8 mg Take 1 tablet by mouth 20 tablet 3 08/12/2021 TabletIndications: Small every 8 hours as cell carcinoma needed for Nausea. nitroGLYcerin (Nitrostat) Place 1 tablet under 25 tablet 06/16/2021 0.4 mg Tablet, Sublingual the tongue every 5 minutes as needed for Chest pain. documented as of this encounter Plan of Treatment Upcoming Encounters Date Type Specialty Care Team Description 01/20/2022 Office Visit Hematology and Oncology Rina Zazueta APRN [address] [place] [address] [place] [address] (Wo rk) 01/20/2022 Infusion Hematology and Oncology 02/19/2022 Office Visit Cardiology Liam Tompkins MD [facility] [place] [address] (Wo rk) 03/31/2022 Hospital Encounter Cardiology Arrived 04/03/2022 Office Visit Dermatology Mark Bishop MD [address] [place] [address] DERMATOLOGY [place], [place] [address] (Wo rk) 07/06/2022 Office Visit Urology Shane Ramos MD [facility] UROLOGY [place], [place] [address] (Wo rk) 08/12/2022 Office Visit Cardiology Graeme Cueva PA [facility] CARDIOLOGY DEPT [place], [place] [address] (Wo rk) documented as of this encounter Procedures Procedure Name Priority Date/Time Associated Diagnosis Comme nts NM PET CT SKULL Routine 11/17/2021 2:45 PM Small cell carcinom a Results for this BASE TO MID-THIGH EDT procedure are in (LCSR) the results section. documented in this encounter Results NM PET CT Skull Base to Mid-thigh (11/17/2021 2:45 PM EDT) Anatomical Region Laterality Modality Positron Emission To mography (PET) Specimen (Source) Anatomical Location Collection Method / Collectio n Time Received Time / Laterality Volume Impressions 11/18/2021 11:12 AM EDT 1. ??Interval resolution of previously seen bilateral adrenal lesions and abdominal para-aortic adenopathy. 2. ??Unchanged small FDG avid sclerotic lesion in the C2 spinous process, highly suspicious for active osseous metastasis . 3. ??No other sites of suspected active metastatic disease. 4. ??Multiple non-FDG avid sclerotic les ions in the axial and proximal appendicular skeleton are unchanged in C T appearance compared to prior PET/CT, consistent with treated sites of osseous metastasis. 5. ??Several new mildly FDG avid subcent imeter ill-defined opacities in the medial left lung apex and in the superio r right lower lobe, with an appearance more suggestive of an interval inflammat ory process. 6. ??Intervally FDG avid calcified nodul e in the posterior right upper lobe is slightly increased in size compared to p rior PET/CT and favored to represent an active granuloma. Attention on follow-up recommended. 7. ??Additional unchanged scattered smal l ill-defined groundglass opacities in the lateral periphery of the left upper lobe and unchanged small bilateral calcified granulomas. 8. ??Mildly FDG avid borderline-enlarged right lower paratracheal lymph node, slightly increased in size and FDG avidi ty compared to prior PET/CT and favored to represent an interval benign reactive node. 9. ??Unchanged 12 mm FDG avid soft tissu e density in the right anterior abdominal wall, favored to represent a benign infl ammatory lesion that may be due to to an injection site. Please correlate with cl inical exam. I have personally reviewed the image(s) and the resident's interpretation and agree with the findings, Meghna Haddad at 11/18/2021 11:12 AM Thank you for letting us participate in the care of this patient. ??If you are a health care provider and have any questi ons regarding this report, please contact the number below. ??For patients who have questions please contact the health rn wound care that requested your imaging first. ? 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 The noncontrast CT was used for anatomic localization and photo n attenuation correction of the PET scan. Blood glucose level: 101 (mg/dL) FDG dose: 12.3 mCi COMPARISON: PET/CT 08/22/2021; FINDINGS: HEAD/NECK: Normal activity in all soft tissue regio ns of the neck and visualized lower head. No significant adenopathy CHEST: Intervally FDG avid calcified nodule in the posterior right upper lobe (axial image 64), slightly increased in size co mpared to prior PET/CT. New mildly FDG avid subcentimeter opacit ies in the superior right lower lobe (axial image 91) and in the more inferio r right lower lobe (axial image 97). New mildly FDG avid subcentimeter ill-de fined opacity in the medial left lung apex (axial image 56), new from prior PE T/CT 08/22/2021. Unchanged appearance scattered small ill -defined groundglass opacities in the lateral periphery of the left upper lobe . Unchanged non-FDG avid bilateral subcent imeter calcified granulomas. Slightly increased size of a mildly FDG avid 23 x 11 mm right lower paratracheal node (axial image 79), previously 18 x 1 0, favored to represent an interval benign reactive node. Right chest wall port with distal tip in the lower SVC. Left chest cardiac generator with leads in the right atrium and ventricle. Coronary and aortic calcifications ABDOMEN/PELVIS: Unchanged 12 x 7 mm FDG avid soft tissue density in the right anterior abdominal wall (axial image 197), favored to repre sent a chronic inflammatory lesion that may be due to an injection site. Interval anatomic and metabolic resoluti on of bilateral adrenal lesions. Interval anatomic and metabolic resoluti on of left para-aortic adenopathy. No new adenopathy. Status post cholecystectomy. SKELETON/EXTREMITIES: Small FDG avid sclerotic lesion within t he C2 spinous process, which in retrospect was present and unchanged in appearance on prior PET/CT of 08/22/2021. Multiple CT visualized non-FDG avid scle rotic lesions in the axial and proximal appendicular skeleton including multiple levels of the spine, sternum, bilateral ribs and bilateral pelvis, unchanged in CT appearance compared to prior study. Procedure Note Vasquez Mason MD - 11/18/2021Formatti ng of this note might be different from the original. 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 The noncontrast CT was used for anatomic localization and photo n attenuation correction of the PET scan. Blood glucose level: 101 (mg/dL) FDG dose: 12.3 mCi COMPARISON: PET/CT 08/22/2021; FINDINGS: HEAD/NECK: Normal activity in all soft tissue regio ns of the neck and visualized lower head. No significant adenopathy CHEST: Intervally FDG avid calcified nodule in the posterior right upper lobe (axial image 64), slightly increased in size co mpared to prior PET/CT. New mildly FDG avid subcentimeter opacit ies in the superior right lower lobe (axial image 91) and in the more inferio r right lower lobe (axial image 97). New mildly FDG avid subcentimeter ill-de fined opacity in the medial left lung apex (axial image 56), new from prior PE T/CT 08/22/2021. Unchanged appearance scattered small ill -defined groundglass opacities in the lateral periphery of the left upper lobe . Unchanged non-FDG avid bilateral subcent imeter calcified granulomas. Slightly increased size of a mildly FDG avid 23 x 11 mm right lower paratracheal node (axial image 79), previously 18 x 1 0, favored to represent an interval benign reactive node. Right chest wall port with distal tip in the lower SVC. Left chest cardiac generator with leads in the right atrium and ventricle. Coronary and aortic calcifications ABDOMEN/PELVIS: Unchanged 12 x 7 mm FDG avid soft tissue density in the right anterior abdominal wall (axial image 197), favored to repre sent a chronic inflammatory lesion that may be due to an injection site. Interval anatomic and metabolic resoluti on of bilateral adrenal lesions. Interval anatomic and metabolic resoluti on of left para-aortic adenopathy. No new adenopathy. Status post cholecystectomy. SKELETON/EXTREMITIES: Small FDG avid sclerotic lesion within t he C2 spinous process, which in retrospect was present and unchanged in appearance on prior PET/CT of 08/22/2021. Multiple CT visualized non-FDG avid scle rotic lesions in the axial and proximal appendicular skeleton including multiple levels of the spine, sternum, bilateral ribs and bilateral pelvis, unchanged in CT appearance compared to prior study. IMPRESSION 1. Interval resolution of previously see n bilateral adrenal lesions and abdominal para-aortic adenopathy. 2. Unchanged small FDG avid sclerotic le carmen in the C2 spinous process, highly suspicious for active osseous metastasis . 3. No other sites of suspected active me tastatic disease. 4. Multiple non-FDG avid sclerotic lesio ns in the axial and proximal appendicular skeleton are unchanged in C T appearance compared to prior PET/CT, consistent with treated sites of osseous metastasis. 5. Several new mildly FDG avid subcentim eter ill-defined opacities in the medial left lung apex and in the superio r right lower lobe, with an appearance more suggestive of an interval inflammat ory process. 6. Intervally FDG avid calcified nodule in the posterior right upper lobe is slightly increased in size compared to p rior PET/CT and favored to represent an active granuloma. Attention on follow-up recommended. 7. Additional unchanged scattered small ill-defined groundglass opacities in the lateral periphery of the left upper lobe and unchanged small bilateral calcified granulomas. 8. Mildly FDG avid borderline-enlarged r ight lower paratracheal lymph node, slightly increased in size and FDG avidi ty compared to prior PET/CT and favored to represent an interval benign reactive node. 9. Unchanged 12 mm FDG avid soft tissue density in the right anterior abdominal wall, favored to represent a benign infl ammatory lesion that may be due to to an injection site. Please correlate with cl inical exam. I have personally reviewed the image(s) and the resident's interpretation and agree with the findings, Meghna Haddad at 11/18/2021 11:12 AM Thank you for letting us participate in the care of this patient. If you are a health care provider and have any questi ons regarding this report, please contact the number below. For patients w ho have questions please contact the health rn wound care that requested your imaging first. Jerald Bush MD IMG PET ORDERABLES documented in this encounter Visit Diagnoses Diagnosis Small cell carcinoma Other malignant neoplasm without specifi cation of site documented in this encounter Administered Medications Inactive Administered Medications - up to 3 most recent administrations Medication Order MAR Action Action Date Dose Rate Site fludeoxyglucose (F-18) FDG Given 11/17/2021 1:42 PM 12.3 mCi Right Arm injection 0-20 mCi EDT 0-20 mCi, Intravenous, ONCE PRN, 1 dose, Starting on 11/17/21 at 1348, Until 11/17/21 at 1342, Per Protocol, Radiology Contrast, Routine documented in this encounter Care Teams Volunteer Services Supervisor Relationship Specialty Start Date End Date Karla Curran MD PCP - General Family Medicine 12/16/20 [address] [place] [address] documented as of this encounter
--- OUTSIDE RECORDS SUMMARY | 2022-01-15 09:38 | XMS_ITS | Encounter Summary ---
:1940 Author Organization [facility] [place] [address] Care Team Providers Name Role Phone Karla Curran MD Primary Care Provider Encounter Details Date Type Department Care Team Description 11/25/2021 Office Visit Hematology/Oncology Jolie Bush MD [facility] DR HEMATOLOGY/[place] [address] Primary malignant neoplasm of prostate ( Primary Dx); at [facility], Rina Choudhary APRN [address] [place] [address] [place] [address] Small cell carcinoma; [address] [place] [address] Drive Malignant neoplasm of urinar y bladder, unspecified site; [place], [place] Anemia due to antineoplastic chemotherapy; [id number] Bone metastases; [phone] Multiple lung n odules on CT; Malignant neopl asm of prostate metastatic to [...] Sign Reading Time Taken Comments Blood Pressure 142/78 11/25/2021 9:29 AM EDT Pulse 79 11/25/2021 9:29 AM EDT Temperature 36.4 ??C (97.6 ??F) 11/25/2021 9:29 AM EDT Respiratory Rate 16 11/25/2021 9:29 AM EDT Oxygen Saturation 100% 11/25/2021 9:29 AM EDT Inhaled Oxygen Concentration - - Weight 78.9 kg (174 lb) 11/25/2021 9:29 AM EDT Height 176.5 cm (5' 9.49) 11/25/2021 9:29 AM EDT Body Mass Index 25.34 11/25/2021 9:29 AM EDT documented in this encounter Progress Notes Jerald Bush MD - 11/25/2021 9:30 AM EDT Images from the original note were not included. 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 Onclogical history 1. Castrate sensitive metastatic prostate cancer -Presented with left cervical adenopathy and bone metastasis documented in March 2015 with PSA of69 -Casodex initiated March 2015 for 1 month -Eligard initiated in March 2015 -Monthly Zometa from March 2015 to February 2017 with transition to every 3 months starting in April 2017 -July 2020 last PSA < 0.0 64, last Eligard and Zometa July 30, 2020 2. 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 scan revealed 3 cm left lateral wall bladder mass and multiple blastic lesions., Right renal stone 6 mm, 09/08/2019 cystoscopy 3+ centimeter sessile bladder mass left lateral bladder wall. 10/10/TURBT with T2 NX MX high-grade urothelial carcinoma bladder 10/30/2019 PET scan without evidence of metastasis. Sclerotic bone lesion without uptake -Weekly carboplatin/Doxil with concurrent radiation started 11/06/2019 and completed 12/19/2019, status post six cycles. Cystectomy was declined 3. Anemia, multifactorial stable Interval history 11/25/21 Chris is in clinic today for followup of his prostate cancer,, discussion on restaging PET scan and maintenance atezolizumab. He tolerated first cycle of chemotherapy reasonably well with mild to moderate fatigue. Minimal nausea. Denies any pain. He received 2 units of blood on November 06.. \\ ROS is otherwise negative. PMH: No interval changes since last visit Kidney stone ER visit in [place] Pulmonary embolism November 07, 2020 Pacemaker defibrillator placement 2 years ago, CAD with 2 coronary stents placement, hypertension, CHF with ejection fraction of 35% IN 2020 Patient Active Problem List Diagnosis ??? Malignant neoplasm of prostate metastatic to bone ??? Small cell carcinoma ??? Malignant neoplasm of urinary bladder ??? High risk medication use ??? Pulmonary embolism 10/2020: detected on surveillance. No symptoms attributable. Sent to [facility] ED, started on eliquis ??? Non-ischemic cardiomyopathy 2003: EF 55% (at time of inferior LA) 2018: EF 30-35%. 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 It was stented anyway 04/2018: EF 35% 05/2018: [facility] ICD placed for primary prevention - Generator: [id number], [id number] - RA: 2088TC/52, [id number] - RV: 7122Q/58, [id number] ??? ASCVD (arteriosclerotic cardiovascular disease) 2003: Inferior LA 2018 Cath (EF decreased to 30 from normal): LM patent, LAD and Cx with non- obstructive disease. RCA proximal 80--> LUIS M ??? Chronic obstructive lung disease ??? Gastro-esophageal reflux disease with esophagitis ??? Pure hypercholesterolemia ??? Malignant neoplasm of prostate metastatic to bone ??? Multiple lung nodules on CT ??? Malignant tumor of urinary bladder ??? Primary malignant neoplasm of prostate ??? Essential hypertension ??? Hyperlipidemia ??? Hyperparathyroidism due to renal insufficiency ??? Stage 3 chronic kidney disease ??? Peripheral vascular disease ??? Pure hyperglyceridemia ??? Tobacco dependence with current use Problem List: #1 CAD -acute IMI 06/14/02 with TNK and rescue PTCA of RCA at [facility] [place] -Echo 06/15/02 with nl LV dimension, EF 60%, inferior and posterior hypo to akinesis, mildly thickened AV. -MIBI no ischemia 2005 #2 Hypercholesterolemia #3 COPD #4 tobacco abuse Social History: No interval changes since last visit Smokes less than half a pack a day, 65 pack year smoking history, does not drink alcohol, lives at home with his Family History: Noncontributory Allergies: Allergies Allergen Reactions ??? Amoxicillin Rash ??? Amoxicillin-Pot Clavulanate Rash ??? Cis Free Text Allergy Rash ANTIHISTAMINES. ??? Fexofenadine Rash ??? Penicillins Hives Medications: Your Medications Accurate as of November 25, 2021 9:33 AM. If you have any questions, ask your nurse or doctor. Continued medications, unchanged Dose Details acetaminophen 500 mg Tab Commonly known as: Tylenol Take 1,000 mg by mouth every 6 hours as needed for Pain. 1,000 mg Refills: 0 atorvastatin 40 mg Tab Commonly known as: Lipitor Take 40 mg by mouth daily. 40 mg Refills: 0 calcium-vitamin D3 600 mg calcium- 400 unit Tab Take by mouth. Refills: 0 ELIGARD (3 MONTH) SUBQ Inject subcutaneously. Refills: 0 Eliquis 2.5 mg Tab Take 2.5 mg by mouth 2 times daily. Generic drug: apixaban 2.5 mg Refills: 0 fluticasone propionate 220 mcg/actuation Hfaa Commonly known as: Flovent HFA Inhale 1 puff into the lungs 2 times daily. 1 puff Refills: 0 lisinopriL 5 mg Tab Commonly known as: Zestril 5 mg. 5 mg Refills: 0 metoproloL tartrate 25 mg Tab Commonly known as: Lopressor Take 25 mg by mouth 2 times daily. 25 mg Refills: 0 nitroGLYcerin 0.4 mg Subl Commonly known as: Nitrostat Place 1 tablet under the tongue every 5 minutes as needed for Chest pain. 0.4 mg Quantity: 25 tablet Refills: PRN ondansetron 8 mg Tab Commonly known as: Zofran Take 1 tablet by mouth every 8 hours as needed for Nausea. 8 mg Quantity: 20 tablet Refills: 3 pantoprazole EC 20 mg Tbec Commonly known as: Protonix Take 20 mg by mouth daily. 20 mg Refills: 0 prochlorperazine 10 mg Tab Commonly known as: Compazine Take 1 tablet by mouth every 6 hours as needed for Nausea. 10 mg Quantity: 30 tablet Refills: 3 zoledronic acid 4 mg/5 mL Soln Commonly known as: Zometa Inject 4 mg into the vein every 21 days. 4 mg Refills: 0 Review of Systems: Constitutional: Negative for fever, chills, activity change, fatigue and unexpected weight change. HEENT: Negative for sore throat, mouth sores and trouble swallowing. Eyes: Negative. Respiratory: Negative for cough, shortness of breath and wheezing. Cardiovascular: Negative for chest pain, palpitations and leg swelling. Gastrointestinal: Negative for nausea, vomiting, abdominal pain, diarrhea, constipation and abdominal distention. Genitourinary: Negative for dysuria and difficulty urinating. Musculoskeletal: Negative. Skin: Negative. Neurological: Negative. Hematological: Negative for adenopathy. PE: General: AAAx3, in NAD Head: Normocephalic, without obvious abnormality, atraumatic Eyes: PERRL, conjunctiva/corneas clear, EOM's intact, fundi benign, both eyes Ears: Normal TM's and external ear canals, both ears Nose: Nares normal, septum midline, mucosa normal, no drainage or sinus tenderness Throat: Lips, mucosa, and tongue normal; teeth and gums normal Neck: Supple, symmetrical, trachea midline, no adenopathy, thyroid: not enlarged, symmetric, no tenderness/mass/nodules, no carotid bruit or JVD Back: Symmetric, no curvature, ROM normal, no CVA tenderness Lungs: Clear to auscultation bilaterally, respirations unlabored Chest Wall: No tenderness or deformity Heart: Regular rate and rhythm, S1, S2 normal, no murmur, rub or gallop Abdomen: Soft, non-tender, bowel sounds active all four quadrants, no masses, no organomegaly. Thereis no appreciable ascites Extremities: Extremities normal, atraumatic, no cyanosis or edema Pulses: 2+ and symmetric Skin: Skin color, texture, turgor normal, no rashes or lesions Lymph nodes: Cervical, supraclavicular, and axillary nodes normal Neurologic: Normal Vitals Pulse 79 Temp 36.4 ??C (97.6 ??F) (Temporal) Resp 16 Ht 176.5 cm (5' 9.49) Wt 78.9 kg (174 lb) SpO2 100% BMI 25.34 kg/m?? Pathology: 08/06/21 DIAGNOSIS Left adrenal gland, biopsy: ??- Small cell carcinoma, consistent with metastasis. ?(see Discussion.) DISCUSSION The immunophenotypic studies performed are not specific for tumor site of origin. ??Clinical/radiologic correlation is needed. 03/29/2015 left low lateral neck lymph node core biopsy: Malignant neoplasm. Comment: Histologic features suggestive of adenocarcinoma. Although definite lymph node there is not identified this most likely represented metastasis. Addendum immunochemical studies performed on adenocarcinoma with antibodies in case pankeratin's, PSA, prostate acid phosphatase. The results of focal activity with antibodies against CDX2. A immunohistochemical profile is diagnosed as of metastatic adenocarcinoma of prostatic origin. Labs 11/25/2021 BUN 28, creatinine 1.8, calcium 9.5, AST 20, ALT 26, alkaline phosphatase 91, TSH 2.42, free T4 1.07, WBC 6.23, hemoglobin 9.9, platelet count 330, ANC 4.36 11/14/2021 WBC 8.85, hemoglobin 8.4, platelet count 159, ANC 6.16, BUN 24, creatinine 1.8, calcium 9.0, AST 15, ALT 18, alkaline phosphatase at 85, total protein 7.1, albumin 3.2, TSH 2.32, free T4 1.04. 10/07/21 WBC 11.10 H/H 9.1/27.3 Plts 259 ANC 7.61 Na 139 K+ 4.4 BUN/Cr 28/1.9 Ca 8.9 T bili 0.3 AST 17 ALT 23 Alk phos 105 TSH 1.89 T4 free 1.06 09/16/2021 WBC 14.55, hemoglobin 9, platelet count 327, ANC 10.8, BUN 28, creatinine 2.0,. 09/09/21 WBC 21.02 H/H 9.7/29.4 Plts 57K Na 139 K+ 4.4 BUN/Cr 28/2.1 Ca 9.4 AST18 ALT 22 Alk phos [id number] 08/26/21 WBC 5.67 H/H11.5/34.7 Plts 203 ANC 3.36 Na 141 K+ 4.5 BUN/Cr 31/1.9 Glu 93 AST 21 ALT 24 T bili 0.5 Alk phos 72 Tsh and T4 free pending Labs: WBC 5.3, hemoglobin 11.9, platelet count 226 2 calcium 9.3, BUN 33, creatinine 1.9, TB0.8, total protein 6.7, albumin 3.7, alkaline phosphatase 60, ALT 16, AST 21, 01/20/21- WBC-6.2 Hgb/Hct-11.4/34.6 Plt-207 ANC-3.7 Na-137 K+-4.2 Ca-9.4 Glucose-100 BUN/cr-24/1.48 T bili-0.5 albumin-3.7 Alk phos- 64 ALT-19 AST-25 10/16/2020 WBC 7, hemoglobin 11.7, platelet count 233, BUN 26, creatinine 1.44, TB 0.6, total protein6.7, albumin 3.9, alkaline phosphatase 75, ALT 19, AST 21, 07/09/2020 BUN 26, creatinine 1.5, sodium 142, potassium 4.5, calcium 9.8, albumin 3.8, AST 17, ALT 14, alkaline phosphatase 65, TB 0.4, glucose 106, total protein 6.3, EGFR 43, WBC 6.3, hemoglobin 10.8, MCV 98, platelet count 233 PSA testosteron 11/25/21 pending 07/17/2021 <0.008 <10.0 01/20/21 <0.008 <10.0 10/16/20 <0.008 <10 07/16/20 <0.064 Imagin11/17/21 PET scan: IMPRESSION 1. Interval resolution of previously seen bilateral adrenal lesions and abdominal para-aortic adenopathy. 2. Unchanged small FDG avid sclerotic lesion in the C2 spinous process, highly suspicious for active osseous metastasis. 3. No other sites of suspected active metastatic disease. 4. Multiple non-FDG avid sclerotic lesions in the axial and proximal appendicular skeleton are unchanged in CT appearance compared to prior PET/CT, consistent with treated sites of osseous metastasis. 5. Several new mildly FDG avid subcentimeter ill-defined opacities in the medial left lung apex and in the superior right lower lobe, with an appearance more suggestive of an interval inflammatory process. 6. Intervally FDG avid calcified nodule in the posterior right upper lobe is slightly increased in size compared to prior PET/CT and favored to represent an active granuloma. Attention on follow-up recommended. 7. Additional unchanged scattered small ill-defined groundglass opacities in the lateral periphery of the left upper lobe and unchanged small bilateral calcified granulomas. 8. Mildly FDG avid borderline-enlarged right lower paratracheal lymph node, slightly increased in size and FDG avidity compared to prior PET/CT and favored to represent an interval benign reactive node. 9. Unchanged 12 mm FDG avid soft tissue density in the right anterior abdominal wall, favored to represent a benign inflammatory lesion that may be due to to an injection site. Please correlate with clinical exam. 09/03/21 CT scan head Normal scan no disease seen 08/25/21 PET scan: IMPRESSION 1. FDG avid adenopathy in the left neck as detailed above, consistent with ruben metastases. 2. FDG avid bilateral adrenal lesions, consistent with adrenal metastases. 3. FDG avid 14 mm adenopathy in the left periaortic region at the level of the renal hilum, consistent with ruben metastasis. 4. CT visualized groundglass opacities in the left upper, right middle, and right lower lobes, unchanged compared to CT of 07/25/2021. 5. Multiple CT visualized non-FDG avid sclerotic lesions in the axial and proximal appendicular skeleton, consistent with treated or quiescent sites of osseous metastases. 07/25/2021 CT chest abdomen pelvis: Impression: Small noncalcified pulmonary nodules bilaterally without significant change from prior study. No new pulmonary nodules no focal infiltrate. Scattered sclerotic region of osseous lesions suspicious for metastatic disease without significant change. No mediastinal, hilar or axillary adenopathy. Bilateral adrenal nodules which have increased in size as detailed above consistent with metastatic disease. Previously described mild left. Pelvic calyceal dilation is no longer seen. Scattered sclerotic lesions. 04/22/21 CT revied 01/20/21- CT chest W contrast- Impression- The small noncalcified pulmonary nodule in the left upper lobe described previously is smaller in size The additional small noncalcified pulmonary nodule in the right lower lobe is without significant change. No new pulmonary nodules. Mild subsegmental atelectasis or scarring in RLL, worse since prior study with mild areas of scarring bilaterally. No mediastinal, hilar or axillary adenopathy. Pulmonary embolus involving the proximal right lower lobe pulmonary artery trunk which was previously described. This appears slightly smaller in size currently. Multiple regional sclerotic osseous lesions suspicious for metastatic disease which were seen previously. 11/07/2020 CT chest with contrast: Findings: No mediastinal, hilar or axillary adenopathy. Stable nonenlarged scattered mediastinal lymph nodes. No pericardial effusion. Filling defect involving the proximal right lower lobe pulmonary artery trunk consistent with pulmonary embolism. Noncalcified nodule opacity in the posterior aspect of the left upper lobe measuring approximately 6 x 7 mm. Tiny pleural-based nodule opacity. Small pleural-based nodule opacity in the posterior lateral aspect of the right lung. Tiny noncalcified nodule in the right lower lobe more inferiorly measuring approximately 3.8 x 3.6 mm. Not definitely seen previously. Impression: Small noncalcified nodule in the opacities 1 in the left upper apex and one in the rightlower lobe which are new since prior outside examination from July 082020. Neoplastic nodules in the setting of metastatic disease cannot be excluded. Continued follow-up is recommended. No focal infiltrate. No mediastinal, hilar or axillary adenopathy. Pulmonary embolism involving the proximal right lower lobe pulmonary artery trunk. CT abdomen and pelvis: Mild prostate enlargement. No abdominal/pelvic mass adenopathy with small left parapelvic renal cyst. Scattered small sclerotic lesions in the lumbar spine, sacrum, pelvic and right proximal femur suspicious for metastatic disease. 11/07/2020 nuclear bone scan: Impression: Subtle uptake in the left posterolateral lower rib cage consistent with sclerotic metastatic disease. No abnormal uptake noted in the reminder of multiple sclerotic lesions described in thechest, abdomen and pelvic regions. 07/08/[address] urogram: No abnormal enhancement within the collecting system. No abdominal pelvic adenopathy. Stable scattered sclerotic osseous metastatic disease Assessment and Plan: [facility] s/p chemo/RT completed 12/2019 Diagnosis: Prostate cancer with multiple metastasis to bones and lymph nodes Treatment: -Eligard 22.5 mg and Zometa renally adjusted dose every 3 months -08/26/21 -10/30/21 fourth cycle of carboplatin/etoposide/atezolizumab -11/25/2021 atezolizumab maintenance. Mr. Banks followed with , [place] [facility] specialist in [place]. PSA was undetectable in July 2020. Clinically, he is asymptomatic. We will continue current regiment.. Restaging CT and bone scan on 11/07/20 shows stable bony lesions with no uptake on the bone scan withexception of one lesion. CT scan demonstrates new small lung opacities/nodules suspicious. They are too small for biopsy. The differential diagnosis is broad including metastases from bladder cancer versus metastasis from prostate cancer versus benign lesions. 07/29/[address] scan today: No changes in lung nodule in right lobe and growing bilateral adrenal masses seen suspicious for metastatic disease. We do not know if.? Adrenal lesions are metastatic from bladder cancer versus prostate versus benignlesions. We discussed a biopsy of 1 out of 2 adrenal gland preferably left one. I will see him back in 1-2 weeks after biopsy. Chris agrees with the plan Continue Lupron and Zometa 08/12/21 he underwent biopsy of adrenal gland on August 06. Pathology is consistent with small cell carcinoma unclear origin. I informed Chris that this is aggressive cancer which can limit his life expectancy. If left untreated his life expectancy can be 6 to 12 months. With treatment median overall survival was about a yearand a half. We discusseds option including chemotherapy and immunotherapy versus chemotherapy alone versus palliative care We discussed chemotherapy with carboplatin, etoposide and atezolizumab. We talk about benefits and risks Risk of chemotherapy and atezolizumab include but not limited to nausea, vomiting, fatigue, allergicreaction, kidney failure, hearing loss, numbness and tingling in extremities, pain, low blood countsrequiring blood transfusion, infection including life-threatng infection as well as immune mediated thyroiditis, hypo or hyperthyroidism, immune mediated colitis, hepatitis, skin rash. All questions were answered to patient's satisfaction. He is interested to proceed with chemotherapy. Informed verbal consent was obtained We will complete his staging with PET scan and brain MRI We will arrange Mediport placement. 09/16/21 Chris tolerated first cycle of chemotherapy reasonably well with mild nausea, fatigue. His gammaglobulin is trending down. Hemoglobin is 9 today. We will proceed with second cycle of chemotherapy. We will check his CBC and type and screen in about 2 weeks and transfuse him with unit of blood ifhemoglobin goes below 8. We discussed benefits and risk of blood transfusion. Consent was obtained. 10/28/21 Na completed cycle 3. Feels very tired and weak dizzy. Dyspnea improved after transfusionof 1 unit last week. We will proceed with cycle 4 today. We will schedule him for blood transfusion of 2 units next . I plan to restage him prior next visit with PET scan. We will see him back in 4 weeks to decide about maintenance therapy with atezolizumab versus 2 more consolidative cycle ofchemotherapy. 11/25/21 PET scan showed resolution of adrenal glands retroperitoneal lymphadenopathy consistent with complete response small cell cancer from chemotherapy. No change in the C2 bone lesion. Lung nodulesent lymphadenopathy consistent with reactive/inflammation. Will monitor. He received 4 cycle of carboplatin/etoposide/atezolizumab. Required support with blood transfusion with last couple of cycles. Given his excellent response I recommended maintenance atezolizumab every 4 weeks. #Bladder cancer: He saw Dr. Ramos for surveillance cystoscopy in June, which was negative. He will see Dr. Ramos again in May for cystoscopy. 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 We will repeat CT scan in 3 months and if stable continue surveillance every 6 months. Plan: 1. Lupron 22.5 mg and Zometa 3 mg IV every 3 months due in January 2. Maintenance atezolizumab today 3. Next visit with CBC CMP TSH T4 free and maintenance atezolizumab in 4 weeks The plan was discussed with the patient in details. All questions answered to patient satisfaction he is comfortable with this plan. He knows to call should he have any problems prior to his next visit. documented in this encounter Plan of Treatment Upcoming Encounters Date Type Specialty Care Team Description 01/20/2022 Office Visit Hematology and Oncology Rina Zazueta, ERIKA [address] [place] [address] [place] [address] (Wo rk) 01/20/2022 Infusion Hematology and Oncology 02/19/2022 Office Visit Cardiology Liam Tompkins MD [facility] [address] [place], [place] [address] (Wo rk) 03/31/2022 Hospital Encounter Cardiology Arrived 04/03/2022 Office Visit Dermatology Mark Bishop MD [address] [facility] DERMATOLOGY [place], [place] [address] (Wo rk) 07/06/2022 Office Visit Urology Shane Ramos MD [facility] UROLOGFrida [place], [place] [address] (Wo rk) 08/12/2022 Office Visit Cardiology Graeme Cueva PA [facility] CARDIOLOGY DEPT [place], [place] [address] (Wo rk) Scheduled Orders Name Type Priority Associated Diagnoses Order S chedule PSA (Ultrasensitive) Lab STAT Primary malignant ne oplasm Expected: 11/25/2021, of prostate Expires: 2022 documented as of this encounter Visit Diagnoses Diagnosis Primary malignant neoplasm of prostate - Primary Malignant neoplasm of prostate Small cell carcinoma Other malignant neoplasm without specifi cation of site Malignant neoplasm of urinary bladder, u nspecified site Anemia due to antineoplastic chemotherap y Antineoplastic chemotherapy induced anem ia Bone metastases Secondary malignant neoplasm of bone and bone marrow Multiple lung nodules on CT Malignant neoplasm of prostate metastati c to bone Malignant neoplasm of prostate documented in this encounter Care Teams Order Picker Relationship Specialty Start Date End Date Karla Curran MD PCP - General Family Medicine 12/16/20 [address] [place] [address] documented as of this encounter
--- OUTSIDE RECORDS SUMMARY | 2022-01-15 09:38 | XMS_ITS | Encounter Summary ---
:1940 Author Organization [facility] [place] [address] Care Team Providers Name Role Phone Karla Curran MD Primary Care Provider Encounter Details Date Type Department Care Team Description 01/12/2022 Office Visit Urology at [facility] Shane Ramos Primary malignant [facility] MD Meghna [place] [address] UROLOGY [phone] [place], [place] [address] (Wo rk) Social History Tobacco Use Types Packs/Day Years Used Date Smoking Tobacco: Every Day Cigarettes 0.3 60 Smokeless Tobacco: Never Alcohol Use Standard Drinks/Week Comments Not Currently 0 (1 standard drink = 0.6 oz pure alcoho l) Sex Assigned at Date Recorded Not on file documented as of this encounter Patient Instructions Patient InstructionsDanyelle Smith LPN - 01/12/2022 10:00 AM EST Instructions following Cystoscopy Activity: As tolerated by your comfort level. Fluids: You should increase your water today. Avoid coffee, tea and cola. You do not need to exceed 64 ounces of water today. Urination: You will likely have a small amount of blood in your urine for the next several days. This is normal; however, if you are passing large amounts of blood clots or are unable to void please call our office at [phone] before 5PM or [phone] after hours. Please call if: * you have copious blood in your urine * fevers greater than 101.3 F * you are unable to void The number for questions is [phone] before 5 PM weekdays and [phone] after 5 PM and weekends. Follow-up: in 6 months documented in this encounter Procedure Notes Shane Ramos MD - 01/12/2022 10:00 AM ESTAssociated Order(s): CYSTOSCOPY Pre-Procedure Diagnose(s): Primary malignant neoplasm of prostate Procedure: Flexible Cystoscopy Surgeon: Shane Ramos MD Preoperative Diagnosis: MIBC s/p chemo / RT completed 12/2019 Post Operative Diagnosis: Negative cysto Complications: None Procedure: Urinalysis revealed no evidence of an active urinary tract infection. After informed consent was obtained and the external genitalia appropriately cleaned and draped, lidocaine was instilled into the urethra to achieve topical anaesthesia. The flexible telescope was inserted into the urethra and advanced into the bladder under direct vision. The bladder was systematically inspected through 360 degrees with the flexible telescope including retroversion. The anterior urethroscopy was normal. The ureteral orifices were in normal position and effluxed clear urine. The bladder was normal. There were no bladder tumors, mucosal abnormalities or bladder stones. The cystoscope was removed. The patient tolerated the procedure without difficulty. There were no complications. Plan: Cysto in 6 months, further care per Dr. Cathie Ramos MD documented in this encounter Plan of Treatment Upcoming Encounters Date Type Specialty Care Team Description 01/20/2022 Office Visit Hematology and Oncology Rina Zazueta APRN [address] [place] [address] [place] [address] (Becky angela) 01/20/2022 Infusion Hematology and Oncology 02/19/2022 Office Visit Cardiology Liam Tompkins MD [facility] [address] [place] [address] (Becky angela) 03/31/2022 Hospital Encounter Cardiology Arrived 04/03/2022 Office Visit Dermatology Mark Bishop MD [address] [facility] DERMATOLOGY [place], [place] [address] (Wo rk) 07/06/2022 Office Visit Urology Shane Ramos MD [facility] UROLOGY [place], [place] [address] (Wo rk) 08/12/2022 Office Visit Cardiology Graeme Cueva PA [facility] CARDIOLOGY DEPT [place], [place] [address] (Wo rk) documented as of this encounter Procedures Procedure Name Priority Date/Time Associated Comments Diagnosis NON-CONFERENCE SPECIALIST FINAL REPORT Routine 01/12/2022 10:15 Res ults for this AM EST procedure are i n the results section. CYTOPATHOLOGY Routine 01/12/2022 10:15 Primary malignant Resul ts for this NON-GYNECOLOGICAL AM EST neoplasm of procedure are in prostate the results section. CYSTOSCOPY Routine 01/12/2022 10:00 Primary malignant Result s for this AM EST neoplasm of procedure are i n prostate the results section. documented in this encounter Results Non-Pulp Operator Final Report (01/12/2022 10:15 AM EST) Component Value Ref Test Analysis Performed At [facility] gist Range Method Time Signature Non-Pulp Operator Final [id number] ? Location: [address] [place] [address] The signing pathologist has (i) examined the relevant preparation(s) for the [facility] specimen(s) and (ii) rendered or confirmed the diagnosis(es) . HOSPITAL LABORATORY . ? No n-Pulp Operator Final DIAGNOSIS Negative for High Grade Urothelial Carcinoma See discussion. Electronically signed by: ?Hardik Murillo MD Verified: ??01/13/2022 11:25 ??Cytopathologist Performed at: ??-[facility] Dept. of Pathology, [place] [address] Newspaper Editor: Caren hall MD, FCAP, ??CLIA Certificate: [id number] DISCUSSION Urine, voided: Urothelial and squamous cells present. Reference: ??Zelalem EM, ??Ku rtycz DFI, Jose CARLISLE. The [place] System for Reporting Urinary Cytology, 2nd edition. [place]: Irene; 2021. CLINICAL INFORMATION Specimen Source : Urine, voided Pertinent Clinical Data and Significant Therapy: Bladder cancer Clinical Impression : Bladder cancer Pertinent Radiologic Findings ??: (not provided) Gross Description: Received ??fresh, approximately 20 mL total volume of clear, yellow fluid. Total Preparation: Liquid-Based Prep 1. Specimen (Source) Anatomical Collection Method Collection Time Re ceived Time Location / / Volume Laterality 01/12/2022 10:15 AM EST Shane Ramos MD PATHOLOGY/CYTOLOGY ORDERABLE S Performing Organization Address City/[facility]/ZIP Code Phon e Number [address] Cytopathology Non-Gynecological (01/12/2022 10:15 AM EST) Specimen Anatomical Collection Method Collection Time Receive d Time (Source) Location / / Volume Laterality AP Specimen 01/12/2022 10:15 01/12/2022 AM EST 10:15 AM EST Narrative [facility] LAB[facility]Y - 01/12/2022 10:15 AM EST Specimen requisition ordered. ??Separate Pathology report to follow Shane Ramos MD PATHOLOGY/CYTOLOGY ORDERABLE S Performing Organization Address City/State/ZIP Code Phon e Number [address] Cystoscopy (01/12/2022 10:00 AM EST) Narrative Shane Ramos MD - 01/12/2022 10: 00 AM EST Shane Ramos MD ? 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 After informed consent was obtained and the external genitalia appropriately cleaned and draped, lidoca ine was instilled into the urethra to achieve topical anaesthes ia. The flexible telescope was inserted into the urethra and advanced into the bladder under direct vision. Th e bladder was systematically inspected through 360 deg holley with the flexible telescope including retroversion. The anterior urethroscopy was normal. The ureteral orifices were in normal pos ition and effluxed clear urine. The bladder was normal. There were no bl adder tumors, mucosal abnormalities or bladder stones. The cystoscope was removed. The patient tolerated the procedure without difficulty. There were no compli cations. Plan: Cysto in 6 months, further care per Dr. Cathie Ramos MD Shane Ramos MD PROCEDURE ORDERABLES documented in this encounter Visit Diagnoses Diagnosis Primary malignant neoplasm of prostate Malignant neoplasm of prostate documented in this encounter Care Teams Speech Clinician Relationship Specialty Start Date End Date Karla Curran MD PCP - General Family Medicine 12/16/[address] [place] [address] documented as of this encounter
--- OUTSIDE RECORDS SUMMARY | 2022-01-15 09:38 | XMS_ITS | Encounter Summary ---
:1940 Author Organization [facility] [place] [address] Care Team Providers Name Role Phone Karla Curran MD Primary Care Provider Reason for Visit Diagnostic Test (Routine) - Closed Specialty Diagnoses / Procedures Referred By Contact Refer red To Contact Radiology Diagnoses Small cell carcinoma Jerald Bush MD [facility] Rad Nuclear Med Procedures NM PET CT Skull Base to Mid-thigh [facility] HEMATOLOGY/[place] [address] [place] [address] Referral ID Status Reason Start Date Expiration Date Visits V isits Requested Authorized [id number] Closed Specialty 10/28/2021 04/28/2023 1 1 Service Requested Encounter Details Date Type Department Care Team Description 11/17/2021 Hospital Encounter Nuclear Medicine at [facility] Mary Hitchcock MD [facility] [place] [address] HEMATOLOGY/ONCOLOGY [phone] [place], [place] [address] (Wo rk) Social History Tobacco [...] 100 ml over 15 minutes 0 11/25/2020 [id number] 4 mg/100 mL Piggyback Eliquis 2.5 mg [...] 1 tablet by mouth 30 tablet 3 022 (Compazine) 10 mg every 6 hours [...] Visit Hematology and Oncology Rina Zazueta, ERIKA [address] [place] [address] [place] [address] (Wo rk) 01/20/2022 Infusion Hematology and Oncology 02/19/2022 Office Visit Cardiology Liam Tompkins MD [facility] Dr [place], [place] [address] (Wo rk) 03/31/2022 Hospital Encounter Cardiology Arrived 04/03/2022 Office Visit Dermatology Mark Bishop MD [address] [facility] DERMATOLOGY [place], [place] [address] (Wo rk) 07/06/2022 Office Visit Urology Shane Ramos MD [facility] UROLOGY [place], [place] [address] (Wo rk) 08/12/2022 Office Visit Cardiology Graeme Cueva PA [facility] DR CARDIOLOGY DEPT [place], [place] [address] (Wo rk) documented as of this encounter Procedures Procedure Name Priority Date/Time Associated Diagnosis Comme nts NM PET CT SKULL Routine 11/17/2021 2:45 PM Small cell carcinom a Results for this BASE TO MID-THIGH EDT procedure are in (LCSR) the results section. POCT GLUCOSE Routine 11/17/2021 1:35 PM Results f or this EDT procedure are i n the results section. documented in this encounter Results POCT Glucose (11/17/2021 1:35 PM EDT) athologist Signature POC Glucose 101 65 - 199 [facility] mg/dL [facility] LABOR[facility] Comment: Supplemental ranges: <140 mg/dL before meals <180 mg/dL all other times of the day Specimen Anatomical Collection Method Collection Time Receive d Time (Source) Location / / Volume Laterality Blood 11/17/2021 1:35 PM 1:35 EDT PM EDT Jerald Bush MD POINT OF CARE TEST ORDERABLE S Performing Organization Address City/State/[place] [address] documented in this encounter Visit Diagnoses Not on filedocumented in this encounter Care Teams Hacksaw Inspector Relationship Specialty Start Date End Date Karla Curran MD PCP - General Family Medicine 12/16/20 580 [place] [address] documented as of this encounter
--- OUTSIDE RECORDS SUMMARY | 2022-01-15 09:38 | XMS_ITS | Encounter Summary ---
:1940 Author Organization [facility] [place] [address] Care Team Providers Name Role Phone Karla Curran MD Primary Care Provider Reason for Referral Diagnostic Test (Routine) - Closed Specialty Diagnoses / Procedures Referred By Contact Refer red To Contact Radiology Diagnoses Small cell carcinoma Jerald Bush MD [facility] Rad Nuclear Med Procedures NM PET CT Skull Base to Mid-thigh [facility] HEMATOLOGY/[place] [address] [place] [address] Referral ID Status Reason Start Date Expiration Date Visits V isits Requested Authorized [id number] Closed Specialty 10/28/2021 04/28/2023 1 1 Service Requested Encounter Details Date Type Department Care Team Description 10/28/2021 Office Visit Hematology/Oncology Jolie Bush MD [facility] HEMATOLOGY/[place] [address] Small cell [facility] (Primary Dx[facility] [address] [place] [address] [place] [address] Malignant neoplasm of prostate metastati c to bone; [address] [place] [address] Drive High risk medication use; [place], [place] Anemia due to antineoplastic chemotherapy; [id number] Hypothyroidism due to drugs; [phone] Malignant neopl asm of urinary bladder, unspecified site; Bone metastases Social History Tobacco Use Types Packs/Day Years Used Date Smoking Tobacco: Every Day Cigarettes 0.3 60 Smokeless Tobacco: Never Alcohol Use Standard Drinks/Week Comments Not Currently 0 (1 standard drink = 0.6 oz pure alcoho l) Sex Assigned at Date Recorded Not on file documented as of this encounter Last Filed Vital Signs Vital Sign Reading Time Taken Comments Blood Pressure 148/78 10/28/2021 8:51 AM EDT Pulse 80 10/28/2021 8:51 AM EDT Temperature 36.4 ??C (97.5 ??F) 10/28/2021 8:51 AM EDT Respiratory Rate 16 10/28/2021 8:51 AM EDT Oxygen Saturation 100% 10/28/2021 8:51 AM EDT Inhaled Oxygen Concentration - - Weight 78.9 kg (174 lb) 10/28/2021 8:51 AM EDT Height 176.5 cm (5' 9.49) 10/28/2021 8:51 AM EDT Body Mass Index 25.34 10/28/2021 8:51 AM EDT documented in this encounter Progress Notes Jerald Bush MD - 10/28/2021 9:30 AM EDT Images from the original note were not included. 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 Onclogical history 1. Castrate sensitive metastatic [...] declined 3. Anemia, multifactorial stable Interval history 10/28/21 Chris is in clinic today for followup of his prostate cancer and 4-th cycleof chemotherapy. He was fatigued again after treatment and had a decreased appetite. He received a unit of blood last week for hemoglobin 7.4. He was transfused and his shortness of breath improved. Heotherwise had no symptoms. He denies any chest pain shortness of breath or cough. Had episode of runny nose which he believes is due to seasonal allergy. It went away after 1 Benadryl he has had no blood in his urine or bowel movements. He did have some mild constipation but it only lasted a couple ofdays after treatment. He denies any pain> ROS is otherwise negative. PMH: No interval changes since last visit Kidney stone ER visit in [place] Pulmonary embolism November 07, 2020 Pacemaker defibrillator placement 2 years ago, CAD with 2 coronary stents placement, hypertension, CHF with ejection fraction of 35% IN 2019 Patient Active Problem List Diagnosis ??? Small cell carcinoma ??? Malignant neoplasm of urinary bladder ??? High risk medication use ??? Pulmonary embolism 10/2020: detected on surveillance. No symptoms attributable. Sent to [facility] ED, started on eliquis ??? Non-ischemic cardiomyopathy 2003: EF 55% (at time of inferior MS) 2018: EF 30-35%. 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 It was stented anyway 04/2018: EF 35% 05/2018: [facility] ICD placed for primary prevention - Generator: [id number], [id number] - RA: 2088TC/52, [id number] - RV: 7122Q/58, [id number] ??? ASCVD (arteriosclerotic cardiovascular disease) 2003: Inferior MS 2018 Cath (EF decreased to 30 from [...] TNK [place] [facility] 06/15/02 with nl LV dimension, EF [...] Hives Medications: Your Medications Accurate as of October 28, 2021 9:17 AM. If you have any questions, ask [...] and axillary nodes normal Neurologic: Normal Vitals BP 148/78 (Patient Position: Sitting) Pulse 80 Temp 36.4 ??C (97.5 ??F) (Temporal) Resp16 Ht 176.5 cm (5' 9.49) Wt 78.9 [...] of metastatic adenocarcinoma of prostatic origin. Labs 11/14/2021 WBC 8.85, hemoglobin 8.4, platelet count [...] Ca 9.4 AST18 ALT 22 Alk phos [id number] 08/26/21 WBC 5.67 H/H11.5/34.7 Plts 203 ANC [...] MCV 98, platelet count 233 PSA testosteron 07/17/2021 <0.008 <10.0 01/20/21 <0.008 <10.0 10/16/20 <0.008 <10 07/16/20 <0.064 Imagin09/03/21 CT scan head Normal scan no disease [...] sclerotic osseous metastatic disease Assessment and Plan: [facility] s/p chemo/RT completed 12/2019 Diagnosis: Prostate cancer with multiple metastasis to bones and lymph nodes Treatment: -Eligard 22.5 mg and Zometa renally adjusted dose every 3 months Mr. Banks followed with , [place] cancer specialist in [place]. PSA was undetectable in July 2020. Clinically, [...] atezolizumab versus 2 more consolidative cycle ofchemotherapy. #Bladder cancer: He saw Dr. Ramos for [...] continue surveillance every 6 months. Plan: 1. Start cycle of carboplatin/etoposide and atezolizumab. Lupron 22.5 mg and Zometa 3 mg IV today 2. CBC and type and screen next , transfuse 2 units for hemoglobin less than 8 3. PET scan in 3 weeks prior next visit 4. Next visit 11/25/21 with CBC CMP TSH T4 free and 4-th cycle of chemotherapy The plan was discussed with the patient in details. All questions answered to patient satisfaction he is comfortable with this plan. He knows to call should he have any problems prior to his next visit. documented in this encounter Plan of Treatment Upcoming Encounters Date Type Specialty Care Team Description 01/20/2022 Office Visit Hematology and Oncology Rina Zazueta[address] [place] [address] (Wo rk) 01/20/2022 Infusion Hematology and Oncology 02/19/2022 Office Visit Cardiology Liam Tompkins MD [facility] Dr [place] [address] (Wo rk) 03/31/2022 Hospital Encounter Cardiology Arrived 04/03/2022 Office Visit Dermatology Mark Bishop MD [address] [place] [address] RD DERMATOLOGY [place], [place] [address] (Wo rk) 07/06/2022 Office Visit Urology Shane Ramos MD [facility] UROLOGY [place], [place] [address] (Wo rk) 08/12/2022 Office Visit Cardiology Graeme Cueva , [place] [facility] CARDIOLOGY DEPT [place], [place] [address] (Wo coreen) documented as of this encounter Results NM PET CT Skull [...] who have questions please contact the health hospice care sales consultant that requested your imaging first. ? Electronically signed by: Vasquez Mason MD, [facility] ([phone]), at 11/18/2021 11:12 AM Narrative 11/18/2021 11:12 AM EDT EXAMINATION: NM [...] cancer TECHNIQUE: Following IV injection of 18- jssszc-8-dnhdksxbrdvq (FDG) a standard uptake of approximately 60 [...] cancer TECHNIQUE: Following IV injection of 18- bwdxcw-1-axfbovbiydwe (FDG) a standard uptake of approximately 60 [...] ho have questions please contact the health hospice care sales consultant that requested your imaging first. 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
--- OUTSIDE RECORDS SUMMARY | 2022-01-15 09:38 | XMS_ITS | Encounter Summary ---
:1940 Author Organization [facility] [place] [address] Care Team Providers Name Role Phone Karla Curran MD Primary Care Provider Reason for Referral Diagnostic Test (Routine) - Authorized Specialty Diagnoses / Procedures Referred By Contact Refer red To Contact Cardiology Diagnoses Fatigue, unspecified type QUINTANA (dyspnea on exertion) ASCVD (arteriosclerotic cardiovascular disease) Cardiomyopathy, unspecified type Graeme Cueva PA [facility] Non-Inv Card Lab Procedures Echocardiogram Transthoracic [facility] [place] [address] [place] [address] Fax: Referral ID Status Reason Start Expiration Visits Visits Date Date Requested Authorized [id number] Authorized Specialty 01/14/2023 1 1 Service 2 Requested Reason for Visit Reason Comments Cardiomyopathy [facility] ICD Encounter Details Date Type Department Care Team Description 01/14/2022 Office Visit Cardiology at Graeme Cueva, Fatigue, unspecified type; Maria G PARRISH QUINTANA (dyspnea on exertion); [address] [facility] MEDICAL ASCVD (a rteriosclerotic cardiovascular disease); [facility] Non-ischemic cardiomyopathy; [place], [place] CARDIOLOGY DEPT Cardiomyopathy, unspecified type [id number] [place] [address] Social History Tobacco Use Types Packs/Day Years Used Date Smoking Tobacco: Every Day Cigarettes 0.3 60 Smokeless Tobacco: Never Tobacco Cessation: Ready to Quit: Not As ked; Counseling Given: Not Answered Comments: 3-4 cigarettes per day Alcohol Use Standard Drinks/Week Comments Not Currently 0 (1 standard drink = 0.6 oz pure alcoho l) Sex Assigned at Date Recorded Not on file documented as of this encounter Last Filed Vital Signs Vital Sign Reading Time Taken Comments Blood Pressure 106/48 01/14/2022 2:45 PM EST Pulse 75 01/14/2022 2:45 PM EST per ekg Temperature - - Respiratory Rate - - Oxygen Saturation - - Inhaled Oxygen Concentration - - Weight 80.3 kg (177 lb) 01/14/2022 2:45 PM EST Height 175.3 cm (5' 9) 01/14/2022 2:45 PM EST Body Mass Index 26.14 01/14/2022 2:45 PM EST documented in this encounter Plan of Treatment Upcoming Encounters Date Type Specialty Care Team Description 01/20/2022 Office Visit Hematology and Oncology Rina Zazueta[address] [place] [address] (Wo rk) 01/20/2022 Infusion Hematology and Oncology 02/19/2022 Office Visit Cardiology Liam Tompkins MD [facility] [place], [place] [address] (Wo rk) 03/31/2022 Hospital Encounter Cardiology Arrived 04/03/2022 Office Visit Dermatology Mark Bishop MD [address] [place] [address] RD DERMATOLOGY [place], [place] [address] (Wo rk) 07/06/2022 Office Visit Urology Shane Ramos MD [facility] UROLOGY [place], [place] [address] (Wo rk) 08/12/2022 Office Visit Cardiology Graeme Cueva PA [facility] DR CARDIOLOGY DEPT [place], [place] [address] (Wo rk) Scheduled Orders Name Type Priority Associated Diagnoses Order S chedule Echocardiogram Echocardiography Routine Fatigue, unspecified E xpected: Transthoracic type 01/14/2022, QUINTANA (dyspnea on Expires: exertion) 07/16/2022 ASCVD (arteriosclerotic cardiovascular disease) Cardiomyopathy, unspecified type documented as of this encounter Visit Diagnoses Diagnosis Fatigue, unspecified type QUINTANA (dyspnea on exertion) Other dyspnea and respiratory abnormalit y ASCVD (arteriosclerotic cardiovascular d isease) Unspecified cardiovascular disease Cardiomyopathy, unspecified type documented in this encounter Care Teams Rear Load Truck Driver Relationship Specialty Start Date End Date Karla Curran MD PCP - General Family Medicine 12/16/[address] [place] [address] documented as of this encounter
--- OUTSIDE RECORDS SUMMARY | 2022-01-15 09:38 | XMS_ITS | Encounter Summary ---
:1940 [place] [address] Care Team Providers Name Role Phone Karla Curran MD Primary Care Provider Encounter Details Date Type Department Care Team Description 12/31/2021 Hospital Encounter [facility] [address] Social History Tobacco Use Types Packs/Day Years Used Date Smoking Tobacco: Every Day Cigarettes 0.3 60 Smokeless Tobacco: Never Alcohol Use Standard Drinks/Week Comments Not Currently 0 (1 standard drink = 0.6 oz pure alcoho l) Sex Assigned at Date Recorded Not on file documented as of this encounter Medications at Time of Discharge Medication Sig Dispensed Refills Start Date End Date vitamin E 400 unit Take by mouth daily. 0 Capsule zoledronic 100 ml over 15 0 11/25/2020 bbjf-[id number]-qkzib 4 minutes mg/100 mL Piggyback Eliquis 2.5 mg Tablet Take 2.5 mg by mouth 0 05/0 10/2021 2 times daily. leuprolide acetate Inject subcutaneously 0 (ELIGARD, 3 MONTH, SUBQ) Q 3 Months. calcium-vitamin D3 600 Take by mouth. 0 mg calcium- 400 unit Tablet lisinopriL (Zestril) 5 Take 5 mg by mouth 0 01/24 mg Tablet daily. metoprolol tartrate Take 25 mg by mouth 2 0 (Lopressor) 25 mg Tablet times daily. atorvastatin (Lipitor) Take 40 mg by mouth 0 40 mg Tablet daily. zoledronic acid (Zometa) Inject 4 mg into the 0 4 mg/5 mL Solution vein Q 3 Months. pantoprazole EC Take 20 mg by mouth 0 (Protonix) 20 mg Tablet, daily. Delayed Release (E.C.) fluticasone propionate Inhale 1 puff into 0 (Flovent HFA) 220 the lungs 2 times mcg/actuation HFA daily. Aerosol Inhaler Calcium Carbonate 600 mg Every 12 hours. 0 calcium (1,500 mg) Tablet acetaminophen (Tylenol) Take 1,000 mg by 0 500 mg Tablet mouth every 6 hours as needed for Pain. prochlorperazine Take 1 tablet by 30 tablet 3 08/12/2021 (Compazine) 10 mg mouth every 6 hours TabletIndications: Small as needed for Nausea. cell carcinoma ondansetron (Zofran) 8 Take 1 tablet by 20 tablet 3 022 mg TabletIndications: mouth every 8 hours Small cell carcinoma as needed for Nausea. nitroGLYcerin Place 1 tablet under 25 tablet 06/16/2021 (Nitrostat) 0.4 mg the tongue every 5 Tablet, Sublingual minutes as needed for Chest pain. cyanocobalamin, Vitamin every 24 hours. 0 01/14/2022 B-12, (Vitamin B-12) 1,000 mcg Tablet documented as of this encounter Plan of Treatment Upcoming Encounters Date Type Specialty Care Team Description 01/20/2022 Office Visit Hematology and Oncology Rina Zazueta, [address] [place] [address] (Wo coreen) 01/20/2022 Infusion Hematology and Oncology 02/19/2022 Office Visit Cardiology Liam Tompkins MD [facility] [address] [place] [address] (Becky angela) 03/31/2022 Hospital Encounter Cardiology Arrived 04/03/2022 Office Visit Dermatology Mark Bishop MD [address] [place] [address] DERMATOLOGY [place], [place] [address] (Wo rk) 07/06/2022 Office Visit Urology Shane Ramos MD [facility] UROLOGY [place], [place] [address] (Becky angela) 08/12/2022 Office Visit Cardiology Graeme Cueva PA [facility] DR CARDIOLOGY DEPT [place], [place] [address] (Wo rk) documented as of this encounter Visit Diagnoses Not on filedocumented in this encounter Care Teams Bus Attendant Relationship Specialty Start Date End Date Karla Cruran MD PCP - General Family Medicine 12/16/[address] [place] [id number] documented as of this encounter
--- OUTSIDE RECORDS SUMMARY | 2022-01-15 09:38 | XMS_ITS | Encounter Summary ---
:1940 Author Organization [facility] [place] [address] Care Team Providers Name Role Phone Karla Curran MD Primary Care Provider Encounter Details Date Type Department Care Team Description 11/25/2021 Notes Only Cardiology [place] [facility] [place] [address] Social History Tobacco Use Types Packs/Day Years Used Date Smoking Tobacco: Every Day Cigarettes 0.3 60 Smokeless Tobacco: Never Alcohol Use Standard Drinks/Week Comments Not Currently 0 (1 standard drink = 0.6 oz pure alcoho l) Sex Assigned at Date Recorded Not on file documented as of this encounter Progress Notes Asia Ang RN - 11/25/2021 7:26 AM EDT Cardiac Electrophysiology Cardiac Implantable Electronic Device Remote Monitoring Interpretation ?? Transmission Date:??11/25/21 Device Type:??ICD Generator document clerk:??Causey Battery Status:??~4.7-5.1 years Alerting for V pacing percent greater than limit ?? Atrial lead status:??stable Right ventricular lead status:??stable Left ventricular lead status:??stable ?? Presenting EGM: /CREWMAN ARMOURED PERSONNEL CARRIER M113 ?? Since August 30, 2020 ?? Atrial pacin% Ventricular pacin% ?? 2 mode switching episodes <1% AT/AF burden ?? documented in this encounter Plan of Treatment Upcoming Encounters Date Type Specialty Care Team Description 01/20/2022 Office Visit Hematology and Oncology Rina Zazueta, [address] [place] [address] (Wo rk) 01/20/2022 Infusion Hematology and Oncology 02/19/2022 Office Visit Cardiology Liam Tompkins MD [facility] [address] [place], [place] [address] (Wo rk) 03/31/2022 Hospital Encounter Cardiology Arrived 04/03/2022 Office Visit Dermatology Mark Bishop MD [address] [facility] DERMATOLOGY [place], [place] [address] (Wo rk) 07/06/2022 Office Visit Urology Shane Ramos MD [facility] UROLOGY [place], [place] [address] (Wo rk) 08/12/2022 Office Visit Cardiology Graeme Cueva PA [facility] DR CARDIOLOGY DEPT [place], [place] [address] (Wo rk) documented as of this encounter Visit Diagnoses Not on filedocumented in this encounter Care Teams Zinc Chloride Operator Relationship Specialty Start Date End Date Karla Curran MD PCP - General Family Medicine 12/16/20 [address] [place] [address] documented as of this encounter
--- OUTSIDE RECORDS SUMMARY | 2022-01-15 09:38 | XMS_ITS | Encounter Summary ---
:1940 Author Organization [facility] [place] [address] Care Team Providers Name Role Phone Karla Curran MD Primary Care Provider Encounter Details Date Type Department Care Team Description 2021 Office Visit Hematology/Oncology Jolie Bush MD [facility] DR HEMATOLOGY/[place] [address] Malignant neoplasm of urinary bladder, u nspecified site; at [facility], Rina L, MARINE ELECTRICIAN HELPER [address] [place] [address] [place] [address] Primary malignant neoplasm of prostate; [address] [place] [address] Anemia due to [place] [id number] Social History Tobacco Use Types Packs/Day Years Used Date Smoking Tobacco: Every Day Cigarettes 0.3 60 Smokeless Tobacco: Never Alcohol Use Standard Drinks/Week Comments Not Currently 0 (1 standard drink = 0.6 oz pure alcoho l) Sex Assigned at Date Recorded Not on file documented as of this encounter Last Filed Vital Signs Vital Sign Reading Time Taken Comments Blood Pressure 135/64 2021 9:10 AM EST Pulse 80 2021 9:10 AM EST Temperature 36.4 ??C (97.5 ??F) 2021 9:10 AM EST Respiratory Rate 16 2021 9:10 AM EST Oxygen Saturation 98% 2021 9:10 AM EST Inhaled Oxygen Concentration - - Weight 80.3 kg (177 lb) 2021 9:10 AM EST Height 176.5 cm (5' 9.49) 2021 9:10 AM EST Body Mass Index 25.77 2021 9:10 AM EST documented in this encounter Progress Notes Marbin Rinasunday Choudhary APRN - 2021 9:30 AM EST Images from the original note were not included. 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 Onclogical history 1. Castrate sensitive metastatic [...] declined 3. Anemia, multifactorial stable Interval history 12/23/21- Chris is in clinic today to continue treatment for MIUC. He is currently receiving maintenance Atezolizumab monthly. He tells me he feels the best the he has in a long time. He was able to finish a shower without resting. He denies any fevers, chills or signs of infection. Nonausea,vomiting, constipation or diarrhea. He has a chronic cough. Still smoking about 4 cigarettes a day. No increase in shortness of breath, chest pain or edema. No rash or skin issues. His fatigue has improved. Denies any pain. Denies any bleeding. No blood in urine. No other focal complaints. PMH: No interval changes since last visit 11/06/21- 2 Units RBC Kidney stone ER visit in [place] Pulmonary embolism November 07, 2020 Pacemaker defibrillator placement 2 years ago, CAD with 2 coronary stents placement, hypertension, CHF with ejection fraction of 35% IN 2020 Patient Active Problem List Diagnosis ??? Cardiac pacemaker in situ ??? Deviated nasal septum ??? Malignant neoplasm of prostate metastatic to bone ??? Small cell carcinoma ??? Malignant neoplasm of urinary bladder ??? High risk medication use ??? Pulmonary embolism 10/2020: detected on surveillance. No symptoms attributable. Sent to [facility] ED, started on eliquis ??? Non-ischemic cardiomyopathy 2003: EF 55% (at time of inferior [place]) 2018: EF 30-35%. 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 It was stented anyway 04/2018: EF 35% 05/2018: [facility] Roberto ICD placed for primary prevention - Generator: [id number], [id number] - RA: 2088TC/52, [id number] - RV: 7122Q/58, [id number] ??? ASCVD (arteriosclerotic cardiovascular disease) 2003: Inferior [place] 2018 Cath (EF decreased to 30 from [...] TNK and rescue PTCA of RCA at [facility] -Echo 06/15/02 with nl LV dimension, EF [...] Hives Medications: Your Medications Accurate as of 2021 11:33 AM. If you have any questions, ask your nurse or doctor. Continued medications, unchanged Dose Details acetaminophen 500 mg Tab Commonly known as: Tylenol Take 1,000 mg by mouth every 6 hours as needed for Pain. 1,000 mg Refills: 0 atorvastatin 40 mg Tab Commonly known as: Lipitor Take 40 mg by mouth daily. 40 mg Refills: 0 Calcium Carbonate 600 mg calcium (1,500 mg) Tab Every 12 hours. Refills: 0 calcium-vitamin D3 600 mg calcium- [...] 10 mg Quantity: 30 tablet Refills: 3 Vitamin B-12 1,000 mcg Tab every 24 hours. Generic drug: cyanocobalamin (Vitamin B-12) Refills: 0 vitamin E 400 unit Cap Take by mouth daily. Refills: 0 zoledronic acid 4 mg/5 mL Soln Commonly known as: Zometa Inject 4 mg into the vein every 21 days. 4 mg Refills: 0 zoledronic swbh-[id number]-tbguc 4 mg/100 mL Pgbk 100 ml over 15 minutes Refills: 0 Review of Systems: Constitutional: Negative [...] axillary nodes normal Neurologic: Normal Vitals BP 135/64 (Patient Position: Sitting) Pulse 80 Temp 36.4 ??C (97.5 ??F) (Temporal) Resp16 Ht 176.5 cm (5' 9.49) Wt 80.3 kg (177 lb) SpO2 98% BMI 25.77 kg/m?? Pathology: 08/06/21 DIAGNOSIS Left adrenal gland, [...] as of metastatic adenocarcinoma of prostatic origin. Labs: 12/23/21- WBC-6.86 Hgb/Hct-9.7/30.1 MCV-101 Plt-208 ANC-4.16 Na-141 K+-4.2 BUN/Cr-21/2.0 Glucose-111 Ca-8.8 T. Bili-0.4 AST-22 ALT-24 Alk phos-75 Albumin-3.4 TSH-1.14 Free T4-1.03 11/25/2021 BUN 28, creatinine 1.8, calcium 9.5, [...] Ca 9.4 AST18 ALT 22 Alk phos [id number] 08/26/21 WBC 5.67 H/H11.5/34.7 Plts 203 ANC [...] sclerotic osseous metastatic disease Assessment and Plan: MIBC s/p chemo/RT completed 12/2019 Diagnosis: Prostate cancer with multiple metastasis to bones and lymph nodes Treatment: -Eligard 22.5 mg and Zometa renally adjusted dose every 3 months -08/26/21 -10/30/21 fourth cycle of carboplatin/etoposide/atezolizumab -11/25/2021 atezolizumab maintenance. Mr. Banks followed with , [place] cancer specialist in [place]. PSA was undetectable in July 2020. Clinically, [...] consistent with small cell carcinoma unclear origin. 09/16/21 Chris tolerated first cycle of chemotherapy [...] couple of cycles. Given his excellent response he was started on maintenance atezolizumab every 4 weeks. 12/23/21- Mr. Banks is here today for C2 maintenance atezolizumab. He is tolerating the therapy well. No clinical evidence of toxicities. Labs reviewed and are acceptable to continue treatment today. #Bladder cancer: He saw Dr. Ramos for surveillance cystoscopy in June, which was negative. He will see Dr. Ramos again in January 2022 for cystoscopy. 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 We will continue surveillance CT scan every 6 months. # Anemia- multifactoral. He completed chemotherapy on 12/18/21. He is taking oral Vitamin B12. Hgb today 9.7. He is asymptomatic. Will continue to monitor. #CKD- Cr today is 2.0 up from 1.8 BUN 21. Followed by his PCP and cardiology. Plan: 1. Lupron 22.5 mg and Zometa 3 mg IV every 3 months due in January 16. C2 Maintenance atezolizumab today 3. Next visit with CBC CMP TSH T4 free and maintenance atezolizumab in 4 weeks Mr. Banks voiced understanding of the plan and was given an opportunity to ask questions which I answered to the best of my ability. Mr. Banks understands he can call the clinic between visits with any questions/concerns or new symptoms. Rina Zazueta APRN Medical Oncology documented in this encounter Plan of Treatment Upcoming Encounters Date Type Specialty Care Team Description 01/20/2022 Office Visit Hematology and Oncology Rina Zazueta APRN [address] [place] [address] [place] [address] (Wo rk) 01/20/2022 Infusion Hematology and Oncology 02/19/2022 Office Visit Cardiology Liam Tompkins MD [facility] [place], [place] [address] (Wo rk) 03/31/2022 Hospital Encounter Cardiology Arrived 04/03/2022 Office Visit Dermatology Mark Bishop MD [address] [facility] DERMATOLOGY [place], [place] [address] (Wo rk) 07/06/2022 Office Visit Urology Shane Ramos MD [facility] UROLOGY [place], [place] [address] (Wo rk) 08/12/2022 Office Visit Cardiology Graeme Cueva PA [facility] CARDIOLOGY DEPT [place], [place] [address] (Wo rk) documented as of this encounter Visit Diagnoses Diagnosis Malignant neoplasm of urinary bladder, u nspecified site Primary malignant neoplasm of prostate Malignant neoplasm of prostate 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
--- OUTSIDE RECORDS SUMMARY | 2022-01-15 09:38 | XMS_ITS | Encounter Summary ---
:1940 Author Organization [facility] [place] [address] Care Team Providers Name Role Phone Karla Curran MD Primary Care Provider Encounter Details Date Type Department Care Team Description 10/07/2021 Office Visit Hematology/Oncology Jolie Bush MD [facility] DR HEMATOLOGY/[place] [address] Primary malignant at [facility] Uma Jeronimo APRN [facility] [place] [address] neoplasm of prostate [address] [place] [phone] Social History Tobacco Use Types Packs/Day Years Used Date Smoking Tobacco: Every Day Cigarettes 0.3 60 Smokeless Tobacco: Never Alcohol Use Standard Drinks/Week Comments Not Currently 0 (1 standard drink = 0.6 oz pure alcoho l) Sex Assigned at Date Recorded Not on file documented as of this encounter Last Filed Vital Signs Vital Sign Reading Time Taken Comments Blood Pressure 115/56 10/07/2021 8:27 AM EDT Pulse 90 10/07/2021 8:27 AM EDT Temperature 36.9 ??C (98.4 ??F) 10/07/2021 8:27 AM EDT Respiratory Rate 18 10/07/2021 8:27 AM EDT Oxygen Saturation 100% 10/07/2021 8:27 AM EDT Inhaled Oxygen Concentration - - Weight 78.4 kg (172 lb 12.8 oz) 10/07/2021 8:27 AM EDT Height 176.5 cm (5' 9.49) 10/07/2021 8:27 AM EDT Body Mass Index 25.16 10/07/2021 8:27 AM EDT documented in this encounter Patient Instructions Patient InstructionsUma Jeronimo APRN - 10/07/2021 9:00 AM EDT He will return as scheduled. documented in this encounter Progress Notes Uma Jeronimo APRN - 10/07/2021 9:00 AM EDT Images from the original note were not included. 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 Onclogical history 1. Castrate sensitive metastatic prostate [...] declined 3. Anemia, multifactorial stable Interval history 10/07/21 Chris is in clinic today for followup of his prostate cancer and third cycle of chemotherapy. He was fatigued again after treatment and had a decreased appetite. He had shortness of breath on 09/29 and was found to have a Hgb 7.5. He was transfused and his shortness of breath improved. He otherwise had no symptoms. He denies any chest pain shortness of breath or cough. He has had no blood in his urine or bowel movements. He did have some mild constipation but it only lasted acouple of days after treatment. He denies any pain> ROS is otherwise negative. Interval history 09/16/21 Chris is in clinic today to follow-up on prostate cancer and second cycle ofchemotherapy. He tolerated first cycle of chemotherapy well with mild fatigue for first week and nausea/decreased appetite. Otherwise, no focal complaints.. He denies any chest pain shortness of breathor cough. He denies any fevers or chills. He had constipation for a couple of days after chemo, but he is bowel movements are regular now. ROS is otherwise negative. PMH: No interval changes since last visit Kidney stone ER visit in [place] Pulmonary embolism November 07, 2020 Pacemaker defibrillator [...] 2003: EF 55% (at time of inferior [place]) 2018: EF 30-35%. 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 It was stented anyway 04/2018: EF 35% 05/2018: [facility] ICD placed for primary prevention - Generator: [id number], [id number] - RA: 2088TC/52, [id number] - RV: 7122Q/58, [id number] ??? ASCVD (arteriosclerotic cardiovascular disease) 2003: Inferior [place] 2018 Cath (EF decreased to 30 from [...] TNK and rescue PTCA of RCA at [facility] -Echo 06/15/02 with nl LV dimension, EF [...] Medications: Your Medications Accurate as of October 07, 2021 9:15 AM. If you have any questions, ask [...] axillary nodes normal Neurologic: Normal Vitals BP 115/56 (Patient Position: Sitting) Pulse 90 Temp 36.9 ??C (98.4 ??F) (Temporal) Resp18 Ht 176.5 cm (5' 9.49) Wt 78.4 kg (172 lb 12.8 oz) SpO2 100% BMI 25.16 kg/m?? Pathology: 08/06/21 DIAGNOSIS Left adrenal gland, [...] of metastatic adenocarcinoma of prostatic origin. Labs 10/07/21 WBC 11.10 H/H 9.1/27.3 Plts 259 [...] Ca 9.4 AST18 ALT 22 Alk phos [id number] 08/26/21 WBC 5.67 H/H11.5/34.7 Plts 203 ANC [...] 3 months Mr. Banks followed with , [place] cancer specialist in [place]. PSA was undetectable in July 2020. Clinically, [...] risk of blood transfusion. Consent was obtained. #Bladder cancer: He saw Dr. Ramos for [...] if stable continue surveillance every 6 months. 10/07/21 his counts are acceptable for treatment. He will receive cycle 3 today and he will return in3 weeks for cycle 4. Plan: 1. Start cycle 3 of carboplatin/etoposide and atezolizumab. Today 2. CBC and type and screen in 2 weeks, transfuse for hemoglobin less than 8 3. Next visit in 3 weeks with CBC CMP TSH T4 free third cycle of chemotherapy The plan was discussed with the patient in details. All questions answered to patient satisfaction he is comfortable with this plan. He knows to call should he have any problems prior to his next visit. documented in this encounter Plan of Treatment Upcoming Encounters Date Type Specialty Care Team Description 01/20/2022 Office Visit Hematology and Oncology Rina Zazueta APRN [address] [place] [address] [place] [address] (Wo rk) 01/20/2022 Infusion Hematology and Oncology 02/19/2022 Office Visit Cardiology Liam Tompkins MD [facility] [address] [place], [place] [address] (Wo rk) 03/31/2022 Hospital Encounter Cardiology Arrived 04/03/2022 Office Visit Dermatology Mark Bishop MD [address] [facility] DERMATOLOGY [place], [place] [address] (Wo rk) 07/06/2022 Office Visit Urology Shane Ramos MD [facility] UROLOGY [place], [place] [address] (Wo rk) 08/12/2022 Office Visit Cardiology Graeme Cueva PA [facility] CARDIOLOGY DEPT [place], [place] [address] (Wo rk) documented as of this encounter Visit Diagnoses Diagnosis Primary malignant neoplasm of prostate Malignant neoplasm of prostate documented in this encounter Care Teams Lineman Apprentice Relationship Specialty Start Date End Date Karla Curran MD PCP - General Family Medicine 12/16/20 [address] [place] [address] documented as of this encounter
--- OUTSIDE RECORDS SUMMARY | 2022-01-15 09:38 | XMS_ITS | Encounter Summary ---
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, unspecified site High risk medication use Jerald Bush MD [facility] [place] Hem Onc Office [address] HEMATOLOGY/[place] [phone] Fax: Referral ID Status Reason Start Date Expiration Date Visits Requ ested Visits Authorized [id number] Closed 08/12/2021 08/12/2022 99 99 Encounter Details Date Type Department Care Team Description 10/07/2021 Infusion Hematology Oncology at [facility] all cell carcinoma; [facility] Malignant neoplasm of urinar y bladder, unspecified site; [address] [place] [address] High risk medication use; [place], [place] [phone] Primary malignant neoplasm o f prostate [phone] Social History Tobacco Use Types Packs/Day Years Used Date Smoking Tobacco: Every Day Cigarettes 0.3 60 Smokeless Tobacco: Never Alcohol Use Standard Drinks/Week Comments Not Currently 0 (1 standard drink = 0.6 oz pure alcoho l) Sex Assigned at Date Recorded Not on file documented as of this encounter Progress Notes Monica Dillard RN - 10/07/2021 9:30 AM EDT INFUSION THERAPY ADMINISTRATION NOTES DIAGNOSIS: Small Cell Carcinoma CYCLE #:3 Day 1 REASON FOR VISIT: Atezo/Carbo/Etop SUBJECTIVE Mr. Banks offers no complaints. Met with provider prior to infusion and found adequate to treat. OBJECTIVE LAB DATA: Done today at [facility], reviewed and WNL for treatment. IV ACCESS: Mediport to right chest accessed at [facility] lab. Flushed after infusion with 20 cc NS and 500 units heparin. Left accessed for tomorrow's infusion. Pre administration: Chemotherapy orders independently verified for drug name, route, and dosage per patient's height, weight and BSA by Monica Dillard, ANNABEL & on-site pharmacist. REACTIONS (DESCRIPTION, TIME, INTERVENTION AND EFFECTIVENESS) none ASSESSMENT Chris was awake, alert and tolerated treatment well. PLAN Return tomorrow for Cycle 3, Day 2. documented in this encounter Plan of Treatment Upcoming Encounters Date Type Specialty Care Team Description 01/20/2022 Office Visit Hematology and Oncology Rina Zazueta DIE FITTER [address] [place] [address] [place] [address] (Becky angela) 01/20/2022 Infusion Hematology and Oncology 02/19/2022 Office Visit Cardiology Liam Tompkins MD [facility] [address] [place] [phone] (Becky angela) 03/31/2022 Hospital Encounter Cardiology Arrived 04/03/2022 Office Visit Dermatology Mark Bishop MD [address] [place] [address] RD DERMATOLOGY [place], [place] [address] (Wo coreen) 07/06/2022 Office Visit Urology Shane Ramos MD [facility] UROLOGY [place], [place] [address] (Becky angela) 08/12/2022 Office Visit Cardiology Graeme Cueva PA [facility] CARDIOLOGY DEPT [place], [place] [address] (Wo rk) documented as of [...] Dose Rate Site aprepitant (CINVANTI) injection Given 10/07/2021 9:28 AM EDT 130 mg Emul 130 mg 130 mg, Intravenous, ONCE, 1 dose, On Wed10/07/21 at 0930, Alternative administration of IV push over 2 minutes is a recommendation from the economic historian. Administer prior to chemotherapy., Routine atezolizumab (Tecentriq) 1,200 mg New Bag 10/07/2021 9:52 AM E DT 1,200 mg 540 mL/hr in sodium chloride 0.9% 270 mL infusion 1,200 mg, Intravenous, ONCE, 1 dose, On Wed10/07/21 at 1030, Administer over 30 Minutes, NO DOSE ADJUSTMENTS. Give initial dose over 60 minutes. If the initial dose is tolerated, all subsequent doses can be given over 30 minutes., This agent is restricted to outpatient use. Is this drug being given as an outpatient? Yes CARBOplatin (Paraplatin) 293 mg New Bag 10/07/2021 10:34 AM ED T 293 mg 558.6 mL/hr in dextrose 5% 279.3 mL infusion 293 mg (rounded from 292.5 mg, Target AUC = 5), Intravenous, ONCE, 1 dose, On Wed10/07/21 at 1030, Administer over 30 Minutes, Warning Vesicant/Irritant Medication dexAMETHasone (Decadron) tablet 10 mg Given 10/07/2021 9:25 AM EDT 10 mg 10 mg, Oral, ONCE, 1 dose, On Wed10/07/21 at 0930, Administer prior to chemotherapy, Routine etoposide (Vepesid) 148 mg in New Bag 10/07/2021 11:15 AM EDT 148 mg 507.4 mL/hr sodium chloride 0.9% Non-PVC 507.4 mL infusion 148 mg (rounded from 147.75 mg = 75 mg/m2/dose ? 1.97 m2 Treatment Plan BSA from Recorded weight), Intravenous, ONCE, 1 dose, On Wed10/07/21 at 1030, Administer over 60 Minutes, Warning Vesicant/Irritant Medication heparin (pf) (porcine) (100 units/mL) Given 10/07/2021 12:23 PM EDT 500 Units flush 5 mL syringe 500 Units 500 Units, Intravenous, ONCE PRN, Starting on Wed10/07/21 at 0914, Until Wed10/07/21 at 1442, Line Care, Refer to Intravenous (IV) Procedure: Accessing Implanted Vascular Access Devices (654) procedure and/or Intravenous (IV) Job Aid: Adult Flushing & Catheter Care (7739) job aid for additional information regarding guidelines and administration., Routine palonosetron (Aloxi) (0.05 mg/mL) injection Given 09/16 9:26 AM EDT 0.25 mg 0.25 mg 0.25 mg, Intravenous, ONCE, 1 dose, On Wed10/07/21 at 0930, Administer over 30 seconds., Routine sodium chloride 0.9 % (flush) (BD PosiFlush Given 09/16 12:23 PM EDT 20 mLs Normal Saline 0.9) flush 5-20 mL 5-20 mL, Intravenous, EVERY 1 MIN PRN, Starting on Wed10/07/21 at 0914, Until Wed10/07/21 at 1442, Line Care, Flush pertains to all indwelling lines. Flush per protocol found in the job aid using the link provided on this medication record. Refer to Intravenous (IV) Job Aid: Adult Flushing & Catheter Care (7315) job aid for additional information regarding guidelines and administration., Routine sodium chloride 0.9% infusion New Bag 10/07/2021 9:25 AM EDT 100 mL/hr 100 mL/hr 100 mL/hr, Intravenous, CONTINUOUS, Starting on Wed10/07/21 at 0930, Until Wed10/07/21 at 1442 documented in this encounter Care Teams Checker Stocker Relationship Specialty Start Date End Date Karla Curran MD PCP - General Family Medicine 12/16/20 [address] [place] [address] documented as of this encounter
--- OUTSIDE RECORDS SUMMARY | 2022-01-15 09:38 | XMS_ITS | Encounter Summary ---
:1940 Author Organization [facility] [place] [address] Care Team Providers Name Role Phone Karla Curran MD Primary Care Provider Encounter Details Date Type Department Care Team Description 01/12/2022 Travel Social History Tobacco Use Types Packs/Day Years Used Date Smoking Tobacco: Every Day Cigarettes 0.3 60 Smokeless Tobacco: Never Alcohol Use Standard Drinks/Week Comments Not Currently 0 (1 standard drink = 0.6 oz pure alcoho l) Sex Assigned at Date Recorded Not on file documented as of this encounter Plan of Treatment Upcoming Encounters Date Type Specialty Care Team Description 01/20/2022 Office Visit Hematology and Oncology Rina Zazueta APRN [address] [place] [address] [place] [address] (Wo rk) 01/20/2022 Infusion Hematology and Oncology 02/19/2022 Office Visit Cardiology Liam Tompkins MD [facility] [address] [place] [address] (Wo rk) 03/31/2022 Hospital Encounter Cardiology Arrived 04/03/2022 Office Visit Dermatology Mark Bishop MD [address] [place] [address] DERMATOLOGY [place], [place] [address] (Wo rk) 07/06/2022 Office Visit Urology Shane Ramos MD [facility] UROLOGY [place], [place] [address] (Becky angela) 08/12/2022 Office Visit Cardiology Graeme Cueva PA [facility] DR CARDIOLOGY DEPT [place], [place] [address] (Wo rk) documented as of this encounter Visit Diagnoses Not on filedocumented in this encounter Care Teams Inside Sales Advisor Relationship Specialty Start Date End Date Karla Curran MD PCP - General Family Medicine 12/16/[address] [place] [address] documented as of this encounter
--- OUTSIDE RECORDS SUMMARY | 2022-01-15 09:38 | XMS_ITS | Continuity of Care Document ---
:1940 Author Organization [facility] Ambulatory Clinics Address [address] [place] [address] Encounter [facility] NBR [id number] Date(s): 12/04/21 - 12/04/21 [facility] Ambulatory Clinics [address] [place], [place] [address] Encounter Diagnosis COVID-19 vaccine administered (Discharge Diagnosis) - 12/04/21 Influenza vaccine administered (Discharge Diagnosis) - 12/04/21 Discharge Disposition: Home or Self Care Attending Physician: Hilton Dorantes. PA Immunizations Given and Recorded Vaccine Date Status Refusal Reason influenza virus vaccine, inactivated 12/04/21 Given SARS-COV-2 mRNA-1273 bivalent booster 12/04/21 Given Medications pantoprazole 20 mg oral delayed release tablet See Instructions, TAKE 1 TABLET ONCE DAILY, # 90 tab, 1 Refill(s), Pharmacy: [facility] Start Date: 12/02/21 Status: Ordered
--- OUTSIDE RECORDS SUMMARY | 2022-01-15 09:38 | XMS_ITS | Encounter Summary ---
:1940 Author Organization [facility] [place] [address] Care Team Providers Name Role Phone Karla Curran MD Primary Care Provider Encounter Details Date Type Department Care Team Description 11/18/2021 Notes Only Cardiology at [facility] Asia Ang, [place] [address] Social History Tobacco Use Types Packs/Day Years Used Date Smoking Tobacco: Every Day Cigarettes 0.3 60 Smokeless Tobacco: Never Alcohol Use Standard Drinks/Week Comments Not Currently 0 (1 standard drink = 0.6 oz pure alcoho l) Sex Assigned at Date Recorded Not on file documented as of this encounter Progress Notes Asia Ang RN - 11/18/2021 8:15 AM EDT Cardiac Electrophysiology Cardiac Implantable Electronic Device Remote Monitoring Interpretation ?? Transmission Date: 11/18/21 Device Type: ICD Generator corporate financial analyst: Causey Battery Status: ~4.7-5.1 years ?? Atrial lead status: stable Right ventricular lead status: stable Left ventricular lead status: stable ?? Presenting EGM: /ADMISSIONS ADVISOR, AP/ADMISSIONS ADVISOR ?? Since August 30, 2020 Atrial pacin% Ventricular pacin% ?? 2 mode switching episodes <1% AT/AF burden ?? Events/Arrhythmias noted since last reset : Alert for V pacing percent greater than limit 2 AMS October 03, 2021 10:04am lasting 10 seconds with peak V rates in the 70s October 16, 2021 9:01pm lasting 16 seconds With peak V rates in the 70s ? documented in this encounter Plan of Treatment Upcoming Encounters Date Type Specialty Care Team Description 01/20/2022 Office Visit Hematology and Oncology Rina Zazueta [address] [place] [address] (Wo rk) 01/20/2022 Infusion Hematology and Oncology 02/19/2022 Office Visit Cardiology Liam Tompkins MD [facility] Dr [place], [place] [address] (Wo rk) 03/31/2022 Hospital Encounter Cardiology Arrived 04/03/2022 Office Visit Dermatology Mark Bishop MD [address] [facility] DERMATOLOGY [place], [place] [address] (Wo rk) 07/06/2022 Office Visit Urology Shane Ramos MD [facility] UROLOGY [place], [place] [address] (Wo rk) 08/12/2022 Office Visit Cardiology Graeme Cueva PA [facility] CARDIOLOGY DEPT [place], [place] [address] (Wo rk) documented as of this encounter Visit Diagnoses Not on filedocumented in this encounter Care Teams Portainer Operator Relationship Specialty Start Date End Date Karla Curran MD PCP - General Family Medicine 12/16/20 [address] [place] [address] documented as of this encounter
--- OUTSIDE RECORDS SUMMARY | 2022-01-15 09:38 | XMS_ITS | Encounter Summary ---
:1940 Author Organization [facility] [place] [address] Care Team Providers Name Role Phone Karla Curran MD Primary Care Provider Encounter Details Date Type Department Care Team Description 12/10/2021 Notes Only Cardiology at [facility] Yordy Brambila PA [facility] [place] [address] [place] [address] [phone] (Wo rk) Social History Tobacco Use Types Packs/Day Years Used Date Smoking Tobacco: Every Day Cigarettes 0.3 60 Smokeless Tobacco: Never Alcohol Use Standard Drinks/Week Comments Not Currently 0 (1 standard drink = 0.6 oz pure alcoho l) Sex Assigned at Date Recorded Not on file documented as of this encounter Progress Notes Yordy Brambila PA - 12/10/2021 2:53 PM EDT Images from the original note were not included. Cardiac Electrophysiology Cardiac Implantable Electronic Device Remote Monitoring Interpretation Chris Banks [id number] Transmission Date: 12/10/2021 Device Type: ICD Generator: Causey Fortify Assura??? , 1327-40 Battery Status: 4.9 years Charge Time: 9.0 sec Atrial Pacin% Ventricular Pacin% Impression: Alerted for V percent greater than limit as it is now reported at 46%. In actuality, he has been 100% V paced since about october. It is not clear why this is the case, but this was also seen prior to mid December last year. Unclear if it is related to his metastatic prostate cancer or treatmentfor same. Normally functioning device Yordy Brambila PA-C, PhD 12/10/2021 Pager [phone] documented in this encounter Plan of Treatment Upcoming Encounters Date Type Specialty Care Team Description 01/20/2022 Office Visit Hematology and Oncology Rina Zazueta, [address] [place] [address] (Wo rk) 01/20/2022 Infusion Hematology and Oncology 02/19/2022 Office Visit Cardiology Liam Tompkins MD [facility] Dr [place], [place] [address] (Wo rk) 03/31/2022 Hospital Encounter Cardiology Arrived 04/03/2022 Office Visit Dermatology Mark Bishop MD [address] [facility] DERMATOLOGY [place], [place] [address] (Wo rk) 07/06/2022 Office Visit Urology Shane Ramos MD [facility] UROLOGY [place], [place] [address] (Wo rk) 08/12/2022 Office Visit Cardiology Graeme Cueva PA [facility] CARDIOLOGY DEPT [place], [place] [address] (Wo rk) documented as of this encounter Visit Diagnoses Not on filedocumented in this encounter Care Teams Construction Flagger Relationship Specialty Start Date End Date Karla Curran MD PCP - General Family Medicine 12/16/20 [address] [place] [address] documented as of this encounter
--- OUTSIDE RECORDS SUMMARY | 2022-01-15 09:38 | XMS_ITS | Encounter Summary ---
:1940 Author Organization [facility] [place] [place] [address] Care Team Providers Name Role Phone Karla Curran MD Primary Care Provider Encounter Details Date Type Department Care Team Description 2021 Travel Social History Tobacco Use Types Packs/Day [...] Visit Hematology and Oncology Rina Zazueta APRN [address] [place] [address] [place] [address] (Wo rk) 01/20/2022 Infusion Hematology and Oncology 02/19/2022 Office Visit Cardiology Liam Tompkins MD [facility] [address] [place] [address] (Wo rk) 03/31/2022 Hospital Encounter Cardiology Arrived 04/03/2022 Office Visit Dermatology Mark Bishop MD [address] [place] [address] DERMATOLOGY [place], [place] [address] (Wo rk) 07/06/2022 Office Visit Urology Shane Ramos MD [facility] UROLOGY [place], [place] [address] (Becky angela) 08/12/2022 Office Visit Cardiology Graeme Cueva PA [facility] DR CARDIOLOGY DEPT [place], [place] [address] (Wo rk) documented as of this encounter Visit Diagnoses Not on filedocumented in this encounter Care Teams Clinical Engineer Relationship Specialty Start Date End Date Karla Curran MD PCP - General Family Medicine 12/16/[address] [place] [address] documented as of this encounter
--- OUTSIDE RECORDS SUMMARY | 2022-01-15 09:38 | XMS_ITS | Encounter Summary ---
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 all cell carcinoma; [facility] Malignant neoplasm of urinar y bladder, unspecified site; [address] [place] [address] High risk medication use; [place], [place] [address] Primary malignant neoplasm o f prostate [phone] Social History Tobacco Use Types Packs/Day Years Used Date Smoking Tobacco: Every Day Cigarettes 0.3 60 Smokeless Tobacco: Never Alcohol Use Standard Drinks/Week Comments Not Currently 0 (1 standard drink = 0.6 oz pure alcoho l) Sex Assigned at Date Recorded Not on file documented as of this encounter Progress Notes Patricia Taylor RN - 2021 10:00 AM EST INFUSION THERAPY ADMINISTRATION NOTES DIAGNOSIS: Small Cell Carcinoma CYCLE #:2 Day 1 REASON FOR VISIT: Atezolizumab only SUBJECTIVE Mr. Bakns offers no complaints. Met with provider prior to infusion and found adequate to treat. OBJECTIVE LAB DATA: Done today at [facility]- WBC 6.86, Hgb 9.7, Hct 30.1, PLT 208, ANC 4.16, BUN 31, Cr 2, Lytes WNL IV ACCESS: Mediport to right chest accessed at [facility] lab. Flushed after infusion with 20 cc [...] Office Visit Hematology and Oncology Rina Zazueta, [address] [place] [address] (eBcky angela) 01/20/2022 Infusion Hematology and Oncology 02/19/2022 Office Visit Cardiology Liam Tompkins MD [facility] [address] [place] [address] (Wo coreen) 03/31/2022 Hospital Encounter Cardiology Arrived 04/03/2022 Office Visit Dermatology Mark Bishop MD [address] [place] [address] DERMATOLOGY [place], [place] [address] (Wo rk) 07/06/2022 Office Visit Urology Shane Ramos MD [facility] UROLOGY [place], [place] [address] (Wo rk) 08/12/2022 Office Visit Cardiology Graeme Cueva PA [facility] CARDIOLOGY DEPT [place], [place] [address] (Becky rk) documented as of this encounter Visit [...] Dose Rate Site atezolizumab (Tecentriq) New Bag 2021 11:00 AM 1,680 mg 55 6 mL/hr 1,680 mg in sodium chloride EST 0.9% 278 mL infusion 1,680 mg, Intravenous, ONCE, 1 dose, On Wed12/23/21 at 1115, Administer over 30 Minutes, NO DOSE ADJUSTMENTS. Give initial dose over 60 minutes. If the initial dose is tolerated, all subsequent doses can be given over 30 minutes., This agent is restricted to outpatient use. Is this drug being given as an outpatient? Yes heparin (pf) (porcine) (100 units/mL) Given 2021 11:35 AM EST 500 Units flush 5 mL syringe 500 Units 500 Units, Intravenous, ONCE PRN, Starting on Wed12/23/21 at 0955, Until Wed12/23/21 at 1429, Line Care, Refer to Intravenous (IV) Procedure: Accessing Implanted Vascular Access Devices (654) procedure and/or Intravenous (IV) Job Aid: Adult Flushing & Catheter Care (5859) job aid for additional information regarding guidelines and administration., Routine sodium chloride 0.9 % (flush) (BD PosiFlush Given 09/2021 11:35 AM EST 20 mLs Normal Saline 0.9) flush 5-20 mL 5-20 mL, Intravenous, EVERY 1 MIN PRN, Starting on Wed12/23/21 at 0955, Until Wed12/23/21 at 1429, Line Care, Flush pertains to all indwelling lines. Flush per protocol found in the job aid using the link provided on this medication record. Refer to Intravenous (IV) Job Aid: Adult Flushing & Catheter Care (5245) job aid for additional information regarding guidelines and administration., Routine documented in this encounter Care Teams Child Caregiver Relationship Specialty Start Date End Date Karla Curran MD PCP - General Family Medicine 12/16/20 [address] [place] [address] documented as of this encounter
--- OUTSIDE RECORDS SUMMARY | 2022-01-15 09:38 | XMS_ITS | Clinical Summary ---
:1940 Author Organization [facility] [place] [address] Care Team Providers Name Role Phone Karla Curran MD Primary Care Provider Allergies Active Allergy Reactions Severity Noted Date Comments Amoxicillin Rash Medium Amoxicillin-Pot Clavulanate Rash Medium Cis Free Text Allergy Rash Medium ANTIHI STAMINES. Fexofenadine Rash Medium 11/20/2020 Penicillins Hives Medium 11/20/2020 Medications Medication Sig Dispensed Refills Start Date End Date Status pantoprazole EC Take 20 mg by mouth 0 Active (Protonix) 20 mg daily. Tablet, Delayed Release (E.C.) fluticasone propionate Inhale 1 puff into 0 Active (Flovent HFA) 220 the lungs 2 times mcg/actuation HFA daily. Aerosol Inhaler metoprolol tartrate Take 25 mg by mouth 0 Active (Lopressor) 25 mg 2 times daily. Tablet atorvastatin (Lipitor) Take 40 mg by mouth 0 Active 40 mg Tablet daily. zoledronic acid Inject 4 mg into 0 Active (Zometa) 4 mg/5 mL the vein Q 3 Solution Months. calcium-vitamin D3 600 Take by mouth. 0 Active mg calcium- 400 unit Tablet lisinopriL (Zestril) 5 Take 5 mg by mouth 0 01/25/20 21 Active mg Tablet daily. leuprolide acetate Inject 0 A ctive (ELIGARD, 3 MONTH, subcutaneously Q 3 SUBQ) Months. nitroGLYcerin Place 1 tablet 25 tablet 06/16/2021 Active (Nitrostat) 0.4 mg under the tongue Tablet, Sublingual every 5 minutes as needed for Chest pain. Eliquis 2.5 mg Tablet Take 2.5 mg by 0 06/23/2021 Active mouth 2 times daily. prochlorperazine Take 1 tablet by 30 tablet 3 08/12/2021 Active (Compazine) 10 mg mouth every 6 hours TabletIndications: as needed for Small cell carcinoma Nausea. ondansetron (Zofran) 8 Take 1 tablet by 20 tablet 3 08/12/2021 Active mg TabletIndications: mouth every 8 hours Small cell carcinoma as needed for Nausea. acetaminophen Take 1,000 mg by 0 Active (Tylenol) 500 mg mouth every 6 hours Tablet as needed for Pain. vitamin E 400 unit Take by mouth 0 Active Capsule daily. Calcium Carbonate 600 Every 12 hours. 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 No sym ptoms attributable. Sent to [facility], started on eliquis Last Assessment & Plan: Reviewed that if upcoming PET scan was w ithout disease, it would be reasonable to consider stopping eliquis. However, if active disease remains, would be inclined to continue, as it represents ongoing significant risk - eliquis 5 bid Non-ischemic cardiomyopathy 12/16/2020 Overview: 2003: EF 55% (at time of inferior HI) 2018: EF 30-35%. Had RCA disease, felt o ut of proportion to CDM. It was stented anyway 04/2018: EF 35% 05/2018: [facility] Roberto ICD placed for primary p revention - Generator: [id number], [id number] - RA: 2088TC/52, [id number] - RV: 7122Q/58, [id number] Last Assessment & Plan: No failure by history nor exam. - Diuresis: none - Cardioprotection: - Beta Blockade: lopressor 25 bid. - RAASi Lisinopril 5 QD - MC Blockade: not indicated - Devices: ICD in place. ASCVD (arteriosclerotic cardiovascular disease) 2020 Overview: 2003: Inferior HI 2018 Cath (EF decreased to 30 from [...] 10/09/2016 Tobacco dependence with current use 02/15/1941 Resolved Problems Problem Noted Date Resolved Date Acute ST segment elevation myocardial infarction 03/13/2020 11/20/2020 History of HI (myocardial infarction) 11/15/2017 Encounters Date Type Specialty Care Team Description 01/14/2022 Office Visit Cardiology Graeme Cueva Fatigue, unsp ecified type; W, PA [place] (dyspnea on exertion); ASCVD (arterios clerotic cardiovascular disease); Non-ischemic ca rdiomyopathy; Cardiomyopathy, unspecified type 01/14/2022 Telephone Cardiology Liam Tompkins MD 01/12/2022 Office Visit Urology Dagrosa, Primary maligna nt Shane Coffman MD neoplasm of p rostate 01/12/2022 Travel 12/31/2021 Hospital Encounter Cardiology 2021 Infusion Hematology and Small cell ca rcinoma; Oncology Malignant neopl asm of urinary bladder, unspecified site; High risk medic ation use; Primary maligna nt neoplasm of prostate 2021 Office Visit Hematology and Rachelle, Malignant omaira plasm of urinary bladder, unspecified site; Oncology MD Jerald Primary malignant neoplasm of prostate; Rina Zazueta, Anemia due to antineoplastic chemotherapy LINER REPLACER 2021 Travel 12/10/2021 Notes Only Cardiology Yordy Brambila PA 11/25/2021 Infusion Hematology and Small cell ca rcinoma; Oncology Malignant neopl asm of urinary bladder, unspecified site; High risk medic ation use; Primary maligna nt neoplasm of prostate 11/25/2021 Office Visit Hematology and Rachelle, Primary malig nant neoplasm of prostate (Primary Dx); Oncology MD Jerald Small cell carcinoma; Rina Zazueta, Malignant n eoplasm of urinary bladder, unspecified site; LINER REPLACER Anemia due to a ntineoplastic chemotherapy; Bone metastases ; Multiple lung n odules on CT; Malignant neopl asm of prostate metastatic to bone 11/25/2021 Notes Only Cardiology Asia Ang, RN 11/18/2021 Notes Only Cardiology Asia Ang RN 11/17/2021 Hospital Encounter Radiology Jerald Bush MD 11/17/2021 Hospital Encounter Radiology Thierry Bush l carcinoma MD Jerald 11/13/2021 Telephone Hematology and [place], Labs Only (Jovita blandon Oncology Monica Lala RN Tracking ) 11/06/2021 Telephone Hematology and Isabel, Oncology Jill Dave RN 10/30/2021 Infusion Hematology and Small cell ca rcinoma; Oncology Malignant neopl asm of urinary bladder, unspecified site; High risk medic ation use; Primary maligna nt neoplasm of prostate 10/29/2021 Infusion Hematology and Small cell ca rcinoma; Oncology Malignant neopl asm of urinary bladder, unspecified site; High risk medic ation use; Primary maligna nt neoplasm of prostate 10/28/2021 Infusion Hematology and Small cell ca rcinoma; Oncology Malignant neopl asm of urinary bladder, unspecified site; High risk medic ation use; Primary maligna nt neoplasm of prostate; Malignant neopl asm of prostate metastatic to bone 10/28/2021 Office Visit Hematology and Libbytscarmina, Small cell ca rcinoma (Primary Dx); Oncology MD Jerald Malignant neoplasm of prostate metastati c to bone; Rina Zazueta, High risk m edication use; LINER REPLACER Anemia due to a ntineoplastic chemotherapy; Hypothyroidism due to drugs; Malignant neopl asm of urinary bladder, unspecified site; Bone metastases 10/28/2021 Telephone Hematology and Peg Lutz Labs Only ( Lab violin teacher tracking) from Last 3 Months Social History Tobacco Use Types Packs/Day Years Used Date Smoking Tobacco: Every Day Cigarettes 0.3 60 Smokeless Tobacco: Never Tobacco Cessation: Ready to Quit: Not As ked; Counseling Given: Not Answered Comments: 3-4 cigarettes per day Alcohol Use Standard Drinks/Week Comments Not Currently 0 (1 standard drink = 0.6 oz pure alcoho l) Sex Assigned at Date Recorded Not on file Last Filed Vital Signs Vital Sign Reading Time Taken Comments Blood Pressure 106/48 01/14/2022 2:45 PM EST Pulse 75 01/14/2022 2:45 PM EST per ekg Temperature 36.4 ??C (97.5 ??F) 2021 9:10 AM EST Respiratory Rate 16 2021 9:10 AM EST Oxygen Saturation 98% 2021 9:10 AM EST Inhaled Oxygen Concentration - - Weight 80.3 kg (177 lb) 01/14/2022 2:45 PM EST Height 175.3 cm (5' 9) 01/14/2022 2:45 PM EST Body Mass Index 26.14 01/14/2022 2:45 PM EST Plan of Treatment Upcoming Encounters Date Type Specialty Care Team Description 01/20/2022 Office Visit Hematology and Oncology Rina Zazueta APRN [address] [place] [address] [place] [address] (Wo rk) 01/20/2022 Infusion Hematology and Oncology 02/19/2022 Office Visit Cardiology Liam Tompkins MD [facility] [address] [place] [address] (Wo rk) 03/31/2022 Hospital Encounter Cardiology Arrived 04/03/2022 Office Visit Dermatology Mark Bishop MD [address] DERMATOLOGY [place], [place] [address] (Wo rk) 07/06/2022 Office Visit Urology Shane Ramos MD [facility] UROLOGY [place], [place] [address] (Wo rk) 08/12/2022 Office Visit Cardiology Graeme Cueva PA [facility] CARDIOLOGY DEPT [place], [place] [address] (Wo rk) Health Maintenance Due Date Last Done Comments Covid-19 Vaccine (#1) 06/23/1941 Pneumoccocal Vaccine: 65+ (1 - PCV) 1944 Tdap adult 1957 Tetanus vaccine 1957 Zoster vaccine (1 of 2) 1988 Advance Directive 1993 Influenza (Flu) vaccine (1 of 1 - Influenza standard 10/16/2021 series) Medical Devices Implanted Type Area Geomagnetist Device Shelf Model / Identifier Expiration Serial / Date Lot Elke Regalado Dr [id number]-06/09/2018 Defibrillator Chest [facility] [id number] / Implanted: Qty: 1 on 06/09/2018 [facility] [id number] / Description: The above implant ([id number]) is considered MR UNSAFE and therefore cannot be scanned here at [facility] ([place]). Duglas Iglesias RT(R)(CT)(MR)(ARRT), MRI Safety Technologist, 08/20/2021 Elke Mendenhall [id number] Lead-06/09/[address] [facility] [id number]-58 / Implanted: Qty: 1 on 06/09/2018 [id number] / Description: RV Lead See Defibrillator for MRI Status: Duglas Iglesias RT(R)(CT)(MR)(ARRT), MRI Safety Technologist, 08/20/2021 Mediport-08/21/2021 Mediport Right: Chest [employer] - 01/14 / Implanted: Qty: 1 on 08/21/2021 by Alexander Mark MD [facility] / [id number] Description: placed in the rij Procedures Procedure Name Priority Date/Time Associated Comments Diagnosis NON-BRICK TENDER FINAL REPORT Routine 01/12/2022 10:15 Res ults for this AM EST procedure are i n the results section. CYTOPATHOLOGY Routine 01/12/2022 10:15 Primary malignant Resul ts for this NON-GYNECOLOGICAL AM EST neoplasm of procedure are in prostate the results section. CYSTOSCOPY Routine 01/12/2022 10:00 Primary malignant Result s for this AM EST neoplasm of procedure are i n prostate the results section. PRO ICD INTERROGATION Routine 12/24/2021 5:24 AM REMOTE UP TO 90 DAYS EST LAB SCAN 2021 12:00 Results for this AM EST procedure are i n the results section. LAB SCAN 2021 12:00 Results for this AM EST procedure are i n the results section. LAB SCAN 11/25/2021 12:00 Results for this AM EDT procedure are i n the results section. LAB SCAN 11/25/2021 12:00 Results for this AM EDT procedure are i n the results section. NM PET CT SKULL BASE Routine 11/17/2021 2:45 PM Small cell R esults for this TO MID-THIGH ([facility]) EDT carcinoma procedur e are in the results section. POCT GLUCOSE Routine 11/17/2021 1:35 PM Results f or this EDT procedure are i n the results section. LAB SCAN 11/13/2021 12:00 Results for this AM EDT procedure are i n the results section. CBC (WITH DIFF) Routine 11/13/2021 Results for this procedure are i n the results section. COMPREHENSIVE Routine 11/13/2021 Results for th is METABOLIC PANEL procedure ar e in (NON-FASTING) the results section. ALLERGY SCAN 11/13/2021 12:00 Results for this AM EDT procedure are i n the results section. LAB SCAN 11/06/2021 12:00 Results for this AM EDT procedure are i n the results section. LAB SCAN 11/06/2021 12:00 Results for this AM EDT procedure are i n the results section. LAB SCAN 11/06/2021 12:00 Results for this AM EDT procedure are i n the results section. LAB SCAN 11/06/2021 12:00 Results for this AM EDT procedure are i n the results section. CBC (WITH DIFF) Routine 11/06/2021 Results for this procedure are i n the results section. ORDS - PROVIDER CARE 10/28/2021 12:00 Res ults for this SCAN AM EDT procedure are i n the results section. CBC (WITH DIFF) Routine 10/28/2021 Results for this procedure are i n the results section. LAB SCAN 10/28/2021 12:00 Results for this AM EDT procedure are i n the results section. LAB SCAN 10/28/2021 12:00 Results for this AM EDT procedure are i n the results section. CBC (WITH DIFF) Routine 10/21/2021 Results for this procedure are i n the results section. LAB SCAN 10/21/2021 12:00 Results for this AM EDT procedure are i n the results section. LAB SCAN 10/21/2021 12:00 Results for this AM EDT procedure are i n the results section. LAB SCAN 10/21/2021 12:00 Results for this AM EDT procedure are i n the results section. from Last 3 Months Results Non-Networking Administrator Final Report (01/12/2022 10:15 AM EST) Component Value Ref Test Analysis Performed At [facility] Range Method Time Signature Non-Networking Administrator Final [id number] ? Location: [address] [place] [address] The signing pathologist has (i) examined the relevant preparation(s) for the [facility] specimen(s) and (ii) rendered or confirmed the diagnosis(es) . HOSP[facility] . ? No n-Networking Administrator Final DIAGNOSIS Negative for High Grade Urothelial Carcinoma See discussion. Electronically signed by: ?Hardik Murillo MD Verified: ??01/13/2022 11:25 ??Cytopathologist Performed at: ??-[facility] Dept. of Pathology, [place] [address] Director Call: Caren hall MD, FCAP, ??CLIA Certificate: [id number] DISCUSSION Urine, voided: Urothelial and squamous cells present. Reference: ??Zelalem KRISHNA, ??Rafael rtycz DFI, Jose CARLISLE. The [place] System for Reporting Urinary Cytology, 2nd edition. [place]: Irene; 2021. CLINICAL INFORMATION Specimen Source : [...] MD PATHOLOGY/CYTOLOGY ORDERABLE S Performing Organization Address City/[facility]/ZIP [place] [address] Cytopathology Non-Gynecological (01/12/2022 10:15 AM EST) Specimen Anatomical Collection Method Collection Time Receive d Time (Source) Location / / Volume Laterality AP Specimen 01/12/2022 10:15 01/12/2022 AM EST 10:15 AM EST Narrative [facility] - 01/12/2022 10:15 AM EST Specimen requisition ordered. ??Separate Pathology report to follow Shane Ramos MD PATHOLOGY/CYTOLOGY ORDERABLE S Performing Organization Address City/State/ZIP [place] [address] Cystoscopy (01/12/2022 10:00 AM EST) [...] Ramos MD Shane Ramos MD PROCEDURE ORDERABLES Cardiac Device Check - Remote (12/24/2021 5:24 AM EST) Anatomical Region Laterality Modality Other Specimen (Source) Anatomical Collection Method Collection Time Re ceived Time Location / / Volume Laterality 12/24/2021 5:24 AM EST Rianna Nicholson MD IMPLANTABLE CARDIAC DEVICE SCAN DOC: LAB (2021 12:00 AM EST)Only the most recent of14 resultswithin the time period is included. Narrative 2021 12:00 AM EST This result has an attachment that is no t available. Ordered by an unspecified provider. Scanning Provider MEDIA MGR SCAN EXT ORDR/RSLT NM PET CT Skull Base to Mid-thigh [...] who have questions please contact the health personal care aide that requested your imaging first. ? Narrative [...] cancer TECHNIQUE: Following IV injection of 18- drinks-0-fazsccohneqo (FDG) a standard uptake of approximately 60 [...] cancer TECHNIQUE: Following IV injection of 18- qqnrnd-9-pwszydgvsxht (FDG) a standard uptake of approximately 60 [...] ho have questions please contact the health personal care aide that requested your imaging first. Jerald Bush MD IMG PET ORDERABLES POCT Glucose (11/17/2021 1:35 PM EDT) athologist Signature POC Glucose 101 65 - 199 [facility] mg/dL [facility] Comment: Supplemental ranges: <140 mg/dL before meals <180 mg/dL all other times of the day Specimen Anatomical Collection Method Collection Time Receive d Time (Source) Location / / Volume Laterality Blood 11/17/2021 1:35 PM 2 1:35 EDT PM EDT Jerald Bush MD POINT OF CARE TEST ORDERABLE S Performing Organization Address City/State/ZIP [place] [address] SCAN DOC: ALLERGY (11/13/2021 12:00 AM EDT) Narrative 11/13/2021 12:00 AM EDT This result has an attachment that is no t available. Ordered by an unspecified provider. Scanning Provider MEDIA MGR SCAN EXT ORDR/RSLT CBC (with Diff) (11/13/2021)Only the most recent of4 resultswithin the time period is included. athologist Signature WBC 8.58 RBC 3.17 Hemoglobin [...] Laterality Volume Blood Historical Provider CHEMISTRY ORDERABLES SCAN DOC: ORDS - PROVIDER CARE (10/28/2021 12:00 AM EDT) Narrative 10/28/2021 12:00 AM EDT This result has an attachment that is no t available. Ordered by an unspecified provider. Scanning Provider MEDIA MGR SCAN EXT ORDR/RSLT from Last 3 Months Insurance Payer Benefit Plan / Subscriber ID Effective Phone Address T ype Group Dates MEDICARE MEDICARE PART A [id number] 2020-Prese [phone] [facility] [place] [phone] ANTH MEDICARE ANTHEM MEDICARE [id number] 2019-Prese [address] [place] [address] Advance Directives Latest Code Status on File Code Status Date Activated Date Inactivated Comments Attempt Cardiopulmonary Resuscitation - 08/21/2021 6:46 AM 4:39 AM Inpatient Question Answer Comments Code Status decision made by: Patient Code Status History Code Status Date Activated Date Inactivated Comments Do NOT Attempt CPR - Inpatient 08/06/2021 1:17 PM 08/07/2021 4:39 AM Question Answer Comments Code Status decision made by: Patient Content of discussion: if my heart stops, don't do anything Independent of Code Status decision, Not Discussed are there any PRE Arrest limitations (Intubation, Pressors, Cardioversion / Pacing, etc)? Per policy, patient may receive all Acknowledged applicable life support PRE arrest: Care Teams Substation Designer Relationship Specialty Start Date End Date Karla Curran MD PCP - General Family Medicine 12/16/20 [address] [place] [address]
--- OUTSIDE RECORDS SUMMARY | 2022-01-15 09:38 | XMS_ITS | Encounter Summary ---
:1940 Author Organization [facility] [place] [address] Care Team Providers Name Role Phone Karla Curran MD Primary Care Provider Reason for Visit Reason Comments Chemotherapy Cycle 4, Day 3 Injections Neulasta Onpro Treatment/Therapy Plan Authorization (Routine) - Closed Specialty Diagnoses / Procedures Referred By Contact Refer red To Contact Diagnoses Primary malignant neoplasm of prostate 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, unspecified site High risk medication use Jerald Bush MD [facility] Hem Onc Office [address] HEMATOLOGY/[place] [phone] Fax: Referral ID Status Reason Start Date Expiration Date Visits Requ ested Visits Authorized [id number] Closed 08/12/2021 08/12/2022 99 99 Encounter Details Date Type Department Care Team Description 10/30/2021 Infusion Hematology Oncology at [facility] all cell carcinoma; [facility] Malignant neoplasm of urinar y bladder, unspecified site; [address] [place] [address] High risk medication use; [place], [place] [phone] Primary malignant neoplasm o f prostate [phone] Social History Tobacco Use Types Packs/Day Years Used Date Smoking Tobacco: Every Day Cigarettes 0.3 60 Smokeless Tobacco: Never Alcohol Use Standard Drinks/Week Comments Not Currently 0 (1 standard drink = 0.6 oz pure alcoho l) Sex Assigned at Date Recorded Not on file documented as of this encounter Last Filed Vital Signs Vital Sign Reading Time Taken Comments Blood Pressure 134/52 10/30/2021 11:08 AM EDT Pulse 71 10/30/2021 11:08 AM EDT Temperature 36.7 ??C (98.1 ??F) 10/30/2021 11:08 AM EDT Respiratory Rate 16 10/30/2021 11:08 AM EDT Oxygen Saturation 99% 10/30/2021 11:08 AM EDT Inhaled Oxygen Concentration - - Weight 81.6 kg (180 lb) 10/30/2021 11:08 AM EDT Height 176.5 cm (5' 9.49) 10/30/2021 11:08 AM EDT Body Mass Index 26.21 10/30/2021 11:08 AM EDT documented in this encounter Progress Notes Monica Dillard RN - 10/30/2021 11:00 AM EDT INFUSION THERAPY ADMINISTRATION NOTES DIAGNOSIS: Metastatic Small Cell Cancer, Unknown Primary. CYCLE #4: Day 3 REASON FOR VISIT: Etoposide & Neulasta OnPro SUBJECTIVE: Chris offers no complaints. OBJECTIVE: VSS. Weight stable. Denies side effects, slept well. LAB DATA: 10/28/21 - WBC - 8.85, H/H - 8.4/26.0, Plt Ct - 159, ANC - 6.16, Lytes wnl, BUN/Cr - 24/1.8, CA++ - 9.0, TSH/Free T4 - 2.32/1.04 IV ACCESS: Port accessed off site on 10/28/21. Flushes readily with brisk blood return. Port flushed with 20cc NS and 500 units Heparin then de-accessed after completion of treatment. Pre administration: Chemotherapy orders independently verified for drug name, route, and dosage per patient's height, weight and BSA by Monica Dillard, ANNABEL and Staff Pharmacist(s). REACTIONS (DESCRIPTION, TIME, INTERVENTION AND EFFECTIVENESS) none ASSESSMENT: Chris was awake, alert and tolerated treatment well. OnPro applied to right arm at 1245. Due to start deploying dose of medication at 1545 on 10/31. Patient instructed to remove at 4:45 PM when meter reads empty and light is solid green. Verbal and written instruction given to patient. PLAN: Return to clinic as scheduled. documented in this encounter Plan of Treatment Upcoming Encounters Date Type Specialty Care Team Description 01/20/2022 Office Visit Hematology and Oncology Rina Zazueta APRN [address] [place] [address] [place] [address] (Wo rk) 01/20/2022 Infusion Hematology and Oncology 02/19/2022 Office Visit Cardiology Liam Tompkins MD [facility] [place] [address] (Wo rk) 03/31/2022 Hospital Encounter Cardiology Arrived 04/03/2022 Office Visit Dermatology Mark Bishop MD [address] [place] [address] DERMATOLOGY [place], [place] [address] (Wo rk) 07/06/2022 Office Visit Urology Shane Ramos MD [facility] UROLOGY [place], [place] [address] (Wo rk) 08/12/2022 Office Visit Cardiology Graeme Cueva PA [facility] DR CARDIOLOGY DEPT [place], [place] [address] (Wo rk) documented as of [...] Rate Site dexAMETHasone (Decadron) tablet 10 Given 10/30/2021 11:16 AM EDT 10 mg mg 10 mg, Oral, ONCE, 1 dose, On Chelo 10/30/21 at 1100, Administer prior to chemotherapy, Routine etoposide (Vepesid) 148 mg in New Bag 10/30/2021 11:30 AM EDT 148 mg 507.4 mL/hr sodium chloride 0.9% Non-PVC 507.4 mL infusion 148 mg (rounded from 147.75 mg = 75 mg/m2/dose ? 1.97 m2 Treatment Plan BSA from Recorded weight), Intravenous, ONCE, 1 dose, On Wed10/30/21 at 1100, Administer over 60 Minutes, Warning Vesicant/Irritant Medication heparin (pf) (porcine) (100 units/mL) Given 10/30/2021 12:40 PM EDT 500 Units flush 5 mL syringe 500 Units 500 Units, Intravenous, ONCE PRN, Starting on Wed10/30/21 at 0000, Until Wed10/30/21 at 1507, Line Care, Refer to Intravenous (IV) Procedure: Accessing Implanted Vascular Access Devices (654) procedure and/or Intravenous (IV) Job Aid: Adult Flushing & Catheter Care (6638) job aid for additional information regarding guidelines and administration., Routine pegfilgrastim (Neulasta Onpro) (6 Given 10/30/2021 12:45 PM EDT 6 mg Right Arm mg/0.6 mL) injection kit 6 mg 6 mg, Subcutaneous, ONCE, 1 dose, On Wed10/30/21 at 1100, Allow the prefilled syringe co-packaged with the on-body injector to reach room temperature at least 30 minutes prior to administration., Routine, This agent is restricted to outpatient use. Is this drug being given as an outpatient? Yes sodium chloride 0.9 % (flush) (BD PosiFlush Given 10/16 12:40 PM EDT 20 mLs Normal Saline 0.9) flush 5-20 mL 5-20 mL, Intravenous, EVERY 1 MIN PRN, Starting on Wed10/29/21 at 1544, Until Wed10/30/21 at 1507, Line Care, Flush pertains to all indwelling lines. Flush per protocol found in the job aid using the link provided on this medication record. Refer to Intravenous (IV) Job Aid: Adult Flushing & Catheter Care (9241) job aid for additional information regarding guidelines and administration., Routine sodium chloride 0.9% infusion New Bag 10/30/2021 11:16 AM EDT 100 mL/hr 100 mL/hr 100 mL/hr, Intravenous, CONTINUOUS, Starting on Wed10/30/21 at 1100, Until Chelo 10/30/21 at 1507 documented in this encounter Care Teams Respiratory Director Relationship Specialty Start Date End Date Karla Curran MD PCP - General Family Medicine 12/16/[address] [place] [address] documented as of this encounter
--- OUTSIDE RECORDS SUMMARY | 2022-01-15 09:39 | XMS_ITS | Encounter Summary ---
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 Jerald Bush MD [facility] Rad Ct Scan Procedures CT Guided Biopsy Adrenal [facility] HEMATOLOGY/[place] [address] [place] [address] Referral ID Status Reason Start Date Expiration Date Visits V isits Requested Authorized [id number] Closed Specialty 07/29/2021 01/28/2023 1 1 Service Requested Encounter Details Date Type Department Care Team Description 07/29/2021 Office Visit Hematology/Oncology Jolie Bush MD [facility] HEMATOLOGY/[place] [address] Malignant neoplasm of urinary bladder, u nspecified site (Primary Dx); [facility] [place] [address] Malignant neoplasm of prostate metastati c to bone; [address] 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; [facility], [place] [phone] Social History Tobacco Use Types Packs/Day Years Used Date Smoking Tobacco: Every Day Cigarettes 0.3 60 Smokeless Tobacco: Never Sex Assigned at Date Recorded Not on file documented as of this encounter Last Filed Vital Signs Vital Sign Reading Time Taken Comments Blood Pressure 168/84 07/29/2021 1:54 PM EDT Pulse 75 07/29/2021 1:54 PM EDT Temperature 36.3 ??C (97.3 ??F) 07/29/2021 1:54 PM EDT Respiratory Rate 16 07/29/2021 1:54 PM EDT Oxygen Saturation 99% 07/29/2021 1:54 PM EDT Inhaled Oxygen Concentration - - Weight 79.8 kg (176 lb) 07/29/2021 1:54 PM EDT Height 176.5 cm (5' 9.49) 07/29/2021 1:54 PM EDT Body Mass Index 25.63 07/29/2021 1:54 PM EDT documented in this encounter Progress Notes Jerald Bush MD - 07/29/2021 2:00 PM EDT Images from the original note were not included. 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 Onclogical history 1. Castrate sensitive metastatic [...] was declined 3. Anemia, multifactorial stable Interval history(07/29/21): Mr. Schwarz returns for follow-up appointment metastatic prostate cancer and muscular invasive bladder cancer. He went to emergency room at [facility] in May with flank pain. Was diagnosed with kidney stone. I do not have the report at time of dictation. He continues on Eliquis 2.5 mg BID. Today he feels well. Complains on abdominal pain lasted for few minutes whenhe goes to bathroom at nighttime. Otherwise no pain.. No blood in the urine. No fever or chills. PMH: Kidney stone ER visit in [place] Pulmonary embolism November 07, 2020 Pacemaker defibrillator placement 2 years ago, CAD with 2 coronary stents placement, hypertension, CHF with ejection fraction of 35% IN 2019 Patient Active Problem List Diagnosis ??? Pulmonary embolism 10/2020: detected on surveillance. No symptoms attributable. Sent to [facility] ED, started on eliquis ??? Non-ischemic cardiomyopathy 2003: EF 55% (at time of inferior OK) 2018: EF 30-35%. 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 It was stented anyway 04/2018: EF 35% 05/2018: [facility] ICD placed for primary prevention - Generator: [id number], [id number] - RA: 2088TC/52, [id number] - RV: 7122Q/58, [id number] ??? ASCVD (arteriosclerotic cardiovascular disease) 2003: Inferior OK 2018 Cath (EF decreased to 30 from [...] TNK and rescue PTCA of RCA at [facility] -Echo 06/15/02 with nl LV dimension, EF 60%, inferior and posterior hypo to akinesis, mildly thickened AV. -MIBI no ischemia 2005 #2 Hypercholesterolemia #3 COPD #4 tobacco abuse Social History: Smokes less than half a pack a day, 65 pack year smoking history, does not drink alcohol, lives at home with his Family History: Noncontributory Allergies: Allergies Allergen Reactions ??? Amoxicillin Rash ??? Amoxicillin-Pot Clavulanate Rash ??? Cis Free Text Allergy Rash ANTIHISTAMINES. ??? Fexofenadine Rash ??? Penicillins Hives Medications: Your Medications Accurate as of July 29, 2021 2:12 PM. If you have any questions, ask your nurse or doctor. Continued medications, unchanged Dose Details atorvastatin 40 mg Tab Commonly known as: [...] Zestril 5 mg. 5 mg Refills: 0 metoprolol tartrate 25 mg Tab Commonly known as: Lopressor Take 25 mg by mouth 2 times daily. 25 mg Refills: 0 nitroGLYcerin 0.4 mg Subl Commonly known as: Nitrostat Place 1 tablet under the tongue every 5 minutes as needed for Chest pain. 0.4 mg Quantity: 25 tablet Refills: PRN pantoprazole EC 20 mg Tbec Commonly known as: Protonix Take 20 mg by mouth daily. 20 mg Refills: 0 zoledronic acid 4 mg/5 mL [...] axillary nodes normal Neurologic: Normal Vitals BP 168/84 (Patient Position: Sitting) Pulse 75 Temp 36.3 ??C (97.3 ??F) (Temporal) Resp16 Ht 176.5 cm (5' 9.49) Wt 79.8 kg (176 lb) SpO2 99% BMI 25.63 kg/m?? Pathology: 03/29/2015 left low lateral neck lymph node [...] of metastatic adenocarcinoma of prostatic origin. Labs: WBC 5.3, hemoglobin 11.9, platelet count [...] <0.008 <10.0 10/16/20 <0.008 <10 07/16/20 <0.064 Imagin07/25/2021 CT chest abdomen pelvis: Impression: Small noncalcified [...] 3 months Mr. Banks followed with , [place] cancer specialist in [place]. PSA was undetectable in July 2020. Clinically, [...] with the plan Continue Lupron and Zometa #Bladder cancer: He saw Dr. Ramos for [...] continue surveillance every 6 months. Plan: 1. Continue Eligard and Zometa infusion every 3 months, due today 2. Adrenal gland biopsy by IR at 3. Follow up visit in 1-2 weeks after the biopsy The plan was discussed with the patient in details. All questions answered to patient satisfaction documented in this encounter Plan of Treatment Upcoming Encounters Date Type Specialty Care Team Description 01/20/2022 Office Visit Hematology and Oncology Rina Zazueta APRN [address] [place] [address] [place] [address] (Wo rk) 01/20/2022 Infusion Hematology and Oncology 02/19/2022 Office Visit Cardiology Liam Tompkins MD [facility] [place], [place] [address] (Wo rk) 03/31/2022 Hospital Encounter Cardiology Arrived 04/03/2022 Office Visit Dermatology Mark Bishop MD [address] [place] [address] DERMATOLOGY [place], [place] [address] (Wo rk) 07/06/2022 Office Visit Urology Shane Ramos MD [facility] UROLOGY [place], [place] [address] (Wo rk) 08/12/2022 Office Visit Cardiology Graeme Cueva PA [facility] DR CARDIOLOGY DEPT [place], [place] [address] (Wo rk) documented as of this encounter Results CT Guided Biopsy Adrenal (08/06/2021 2:02 PM EDT) Anatomical Region Laterality Modality Computed Tomography Specimen (Source) Anatomical Location Collection Method / Collectio n Time Received Time / Laterality Volume Narrative 08/06/2021 2:00 PM EDT IR Procedure Note Procedure: ??CT guided left adrenal glan d biopsy History/indication: ?80 yr old M pa tient with both metastatic prostate Ca and muscular invasive bladder Ca. ??N ow with enlarging bilateral, left greater than right, adrenal glands natalee rning for metastatic disease. ??Request for biopsy for histopathologic diagnosis. Technique: ?? After discussing risks (in cluding infection, hemorrhage), and benefits, patient consented to the proce dure. Split doses of fentanyl and versed were administered by the IR nurse during continuous monitoring of pulse, blood pressure, end tidal CO2 and oxygen saturation. The patient was positioned prone and the enlarged left adrenal gland localized with spiral CT images. ??After sterile preparation of the overlying skin, 1% lidocaine SQ was admi nistered for local anesthesia. A suitable level and access path was selec aishwarya; a 19 ga needle was then advanced under spiral CT guidance (3 D s oftware reconstruction) to the surface of the enlarged gland. Four 20 g auge core biopsy specimens were obtained and submitted to Pathology. The needle was removed and hemostasis observed. Post biopsy CT images demonstr ate no pneumothorax or violeta-adrenal bleeding. The patient shantel ated the procedure well. Complications: ?None immediate; ??EB L=0 Medications: ??1% lidocaine (<10 cc); ve rsed 1.5 mg; fentanyl 150 mcg IV contrast: ?None Impression: ??Left adrenal gland biopsy as detailed above. Attending: ?Josh Mark MD ? I was present during the intraservice ti me as documented by the IR Nurse. 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
--- OUTSIDE RECORDS SUMMARY | 2022-01-15 09:39 | XMS_ITS | Encounter Summary ---
:1940 Author Organization [facility] [place] [address] Care Team Providers Name Role Phone Karla Curran MD Primary Care Provider Encounter Details Date Type Department Care Team Description 08/13/2021 Orders Only Radiology at [facility] [place] Maddie Shah, [facility] [place] [address] [facility] [phone] RADIOLOGY DEPT [place], [place] [address] (Wo rk) Social History Tobacco Use Types Packs/Day Years Used Date Smoking Tobacco: Every Day Cigarettes 0.3 60 Smokeless Tobacco: Never Alcohol Use Standard Drinks/Week Comments Not Currently 0 (1 standard drink = 0.6 oz pure alcoho l) Sex Assigned at Date Recorded Not on file documented as of this encounter H&P Notes Maddie Shah PA - 08/13/2021 2:45 PM EDT Images from the original note were not included. Interventional Radiology Focused Pre-procedure H&P: PCP: Karla Curran MD Referring Provider: No ref. provider found Planned procedure: Port implant Procedure indication: Bladder cancer, need for long-term durable venous access for systemic chemotherapy IR workflow: Procedure request received through Interventional Radiology eDH order queue. There are no answered order specific questions. History of Present Illness: Per chart review, Chris Banks is a 80 y.o. male with PMH of bladder CA who presents to Interventional Radiology to undergo port implant for systemic chemotherapy. First infusion is scheduled for 08/26/21. Patient has a pertinent PMH of PE (on Eliquis). Remainder of patient's medical and surgical history,allergies, medications, and social/family history obtained below as previously outlined in patient'smedical record. IR History: Date/Procedure Meds given/comments 08/06/21 Adrenal gland BIopsy Fentanyl IV 100 mcg, Versed IV 1.5 mg pt tolerated ? Imagin07/25/21 Assessment: 80 y.o. male with bladder CA presenting to Interventional Radiology for port. Plan Planned procedure: Port implant Labs to be performed day of procedure: No labs Sedation: Moderate (Conscious sedation) Prophylactic antibiotic : None Contrast: No contrast Additional medications for procedure: Lidocaine Planned access site: Right IJ vein Position: Supine Consent: Pending Medications to discontinue (and days held): None Cytopathology presence needed: No Case Urgency:: G- Other (non E or F elective cases) Labs: Lab Results Component Value Date PLATELET 239 08/06/2021 INR 1.1 08/06/2021 Allergies: Amoxicillin, Amoxicillin-pot clavulanate, Cis free text allergy, Fexofenadine, and Penicillins Medications: Current Outpatient Medications on File Prior to Visit Medication Sig Dispense Refill ??? prochlorperazine (Compazine) 10 mg Tablet Take 1 tablet by mouth every 6 hours as needed for Nausea. 30 tablet 3 ??? ondansetron (Zofran) 8 mg Tablet Take 1 tablet by mouth every 8 hours as needed for Nausea. 20 tablet 3 ??? Eliquis 2.5 mg Tablet Take 2.5 mg by mouth 2 times daily. ??? nitroGLYcerin (Nitrostat) 0.4 mg Tablet, Sublingual Place 1 tablet under the tongue every 5 minutes as needed for Chest pain. (Patient not taking: No sig reported) 25 tablet PRN ??? leuprolide acetate (ELIGARD, 3 MONTH, SUBQ) Inject subcutaneously. ??? calcium-vitamin D3 600 mg calcium- 400 unit Tablet Take by mouth. ??? lisinopriL (Zestril) 5 mg Tablet 5 mg. ??? metoprolol tartrate (Lopressor) 25 mg Tablet Take 25 mg by mouth 2 times daily. ??? atorvastatin (Lipitor) 40 mg Tablet Take 40 mg by mouth daily. ??? zoledronic acid (Zometa) 4 mg/5 mL Solution Inject 4 mg into the vein every 21 days. ??? pantoprazole EC (Protonix) 20 mg Tablet, Delayed Release (E.C.) Take 20 mg by mouth daily. ??? fluticasone propionate (Flovent HFA) 220 mcg/actuation HFA Aerosol Inhaler Inhale 1 puff into the lungs 2 times daily. No current facility-administered medications on file prior to visit. Past Medical/Surgical history: Patient Active Problem List Diagnosis Code ??? Primary malignant neoplasm of prostate C61 ??? ASCVD (arteriosclerotic cardiovascular disease) I25.10 ??? Chronic obstructive lung disease J44.9 ??? Essential hypertension I10 ??? Gastro-esophageal reflux disease with esophagitis K21.00 ??? Hyperlipidemia E78.5 ??? Hyperparathyroidism due to renal insufficiency N25.81 ??? Stage 3 chronic kidney disease N18.30 ??? Pure hyperglyceridemia E78.1 ??? Pure hypercholesterolemia E78.00 ??? Peripheral vascular disease I73.9 ??? Malignant tumor of urinary bladder C67.9 ??? Tobacco dependence with current use F17.200 ??? Malignant neoplasm of prostate metastatic to bone C61, C79.51 ??? Multiple lung nodules on CT R91.8 ??? Pulmonary embolism I26.99 ??? Non-ischemic cardiomyopathy I42.8 ??? 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 Malignant neoplasm of urinary bladder C67.9 ??? High risk medication use Z79.899 Past Medical History: Diagnosis Date ??? Acute ST segment elevation myocardial infarction 03/13/2020 ??? Chronic obstructive lung disease 11/20/2020 ??? Coronary arteriosclerosis in [place] artery 11/20/2020 ??? High risk medication use 08/12/2021 ??? Hyperparathyroidism due to renal insufficiency 03/13/2020 ??? Peripheral vascular disease 03/13/2020 ??? Stage 3 chronic kidney disease 03/13/2020 ??? Tobacco dependence with current use 02/15/1941 Past Surgical History: Procedure Laterality Date ??? CARDIAC DEFIBRILLATOR PLACEMENT 03/13/2020 ??? CORONARY ANGIOPLASTY WITH STENT PLACEMENT 11/15/2017 ??? CT BIOPSY-ADRENAL 08/06/2021 CT Guided Biopsy Adrenal Alexander Mark MD [facility] RAD CT SCAN Social History and Habits: Social History Tobacco Use ??? Smoking status: Current Every Day Smoker Packs/day: 0.25 Years: 60.00 Pack years: 15.00 Types: Cigarettes ??? Smokeless tobacco: Never Used Vaping Use ??? Vaping Use: Never used Substance Use Topics ??? Alcohol use: Not Currently ??? Drug use: Not Currently Significant Family History: No family history on file. Pertinent ROS: as per HPI Physical Exam: Pending (to be performed in IR the day of procedure) ASA: Pending (to be assessed in IR the day of procedure) Mallampati class: Pending (to be assessed in IR the day of procedure) 08/13/2021 Maddie Shah PA-C documented in this encounter Plan of Treatment Upcoming Encounters Date Type Specialty Care Team Description 01/20/2022 Office Visit Hematology and Oncology Rina Zazueta[address] [place] [address] (Wo rk) 01/20/2022 Infusion Hematology and Oncology 02/19/2022 Office Visit Cardiology Liam Tompkins MD [facility] Dr [place], [place] [address] (Wo rk) 03/31/2022 Hospital Encounter Cardiology Arrived 04/03/2022 Office Visit Dermatology Mark Bishop MD [address] [place] [address] RD DERMATOLOGY [place], [place] [address] (Wo rk) 07/06/2022 Office Visit Urology Shane Ramos MD [facility] UROLOGY [place], [place] [address] (Wo rk) 08/12/2022 Office Visit Cardiology Graeme Cueva PA [facility] CARDIOLOGY DEPT [place], [place] [address] (Wo rk) documented as of this encounter Visit Diagnoses Not on filedocumented in this encounter Care Teams Inspector Purchased Parts Relationship Specialty Start Date End Date Karla Curran MD PCP - General Family Medicine 12/16/[address] [place] [id number] documented as of this encounter
--- OUTSIDE RECORDS SUMMARY | 2022-01-15 09:39 | XMS_ITS | Encounter Summary ---
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 Jerald Bush MD Procedures CT Head wwo Contrast [facility] HEMATOLOGY/[place] [address] Referral ID Status Reason Start Expiration Visits Visits Date Date Requested Authorized [id number] Authorized Specialty 09/01/2021 03/04/2023 1 1 Service Requested Encounter Details Date Type Department Care Team Description 09/01/2021 Orders Only Hematology/Oncology at Jerald Bush, Small cell carcinoma (Primary Dx); [facility] Malignant neoplasm of prostate metastati c to bone [address] [place] [address] HEMATOLOGY/ONCOLOG [phone] [place], [place] [address] Social History Tobacco Use Types Packs/Day Years [...] Visit Hematology and Oncology Rina Zazueta APRN [address] [place] [address] [place] [address] (Wo rk) 01/20/2022 Infusion Hematology and Oncology 02/19/2022 Office Visit Cardiology Liam Tompkins MD [facility] [address] [place], [place] [address] (Wo rk) 03/31/2022 Hospital Encounter Cardiology Arrived 04/03/2022 Office Visit Dermatology Mark Bishop MD [address] [place] [address] DERMATOLOGY [place], [place] [address] (Wo rk) 07/06/2022 Office Visit Urology Shane Ramos MD [facility] UROLOGY [place], [place] [address] (Wo rk) 08/12/2022 Office Visit Cardiology Graeme Cueva PA [facility] DR CARDIOLOGY DEPT [place], [place] [address] (Wo rk) Scheduled Orders Name Type Priority Associated Diagnoses Order S chedule CT Head wwo Contrast Imaging Routine Small cell carcinoma Expected: 09/08/2021, Malignant neoplasm of s: 03/10/2022 prostate metastatic to bone documented as of this encounter Procedures Procedure Name Priority Date/Time Associated Diagnosis Comme nts PRO ICD INTERROGATION Routine 12/24/2021 5:24 AM REMOTE UP TO 90 DAYS EST documented in this encounter Results Cardiac Device Check - Remote (12/24/2021 5:24 AM EST) Anatomical Region Laterality Modality Other Specimen (Source) Anatomical Collection Method Collection Time Re ceived Time Location / / Volume Laterality 12/24/2021 5:24 AM EST Rianna Nicholson MD IMPLANTABLE CARDIAC DEVICE documented in this encounter Visit Diagnoses Diagnosis Small cell carcinoma - Primary Other malignant neoplasm without specifi cation of site Malignant neoplasm of prostate metastati c to bone Malignant neoplasm of prostate documented in this encounter Care Teams Property Condition Assessor Relationship Specialty Start Date End Date Karla Curran MD PCP - General Family Medicine 12/16/20 [address] [place] [address] documented as of this encounter
--- OUTSIDE RECORDS SUMMARY | 2022-01-15 09:39 | XMS_ITS | Encounter Summary ---
:1940 Author Organization [facility] [place] [address] Care Team Providers Name Role Phone Karla Curran MD Primary Care Provider Encounter Details Date Type Department Care Team Description 07/07/2021 Office Visit Urology at [facility] Shane Ramos Primary malignant [facility] MD Meghna [place] [address] UROLOGY [phone] [place], [place] [address] (Wo rk) Social History Tobacco Use Types Packs/Day Years Used Date Smoking Tobacco: Every Day Cigarettes 0.3 60 Smokeless Tobacco: Never Sex Assigned at Date Recorded Not on file documented as of this encounter Last Filed Vital Signs Vital Sign Reading Time Taken Comments Blood Pressure 178/72 07/07/2021 10:01 AM EDT Pulse 77 07/07/2021 10:01 AM EDT Temperature - - Respiratory Rate - - Oxygen Saturation - - Inhaled Oxygen Concentration - - Weight - - Height - - Body Mass Index - - documented in this encounter Patient Instructions Patient InstructionsMuMai welsh RN - 07/07/2021 10:13 AM EDT Instructions following Cystoscopy Activity: As tolerated by [...] to void please call our office at [phone] before 5PM or [phone] after hours. Please call if: * you have copious blood in your urine * fevers greater than 101.3 F * you are unable to void The number for questions is [phone] before 5 PM weekdays and [phone] after 5 PM and weekends. Follow-up: 6 months office cystoscopy documented in this encounter Procedure Notes Shane Ramos MD - 07/07/2021 10:00 AM EDTAssociated Order(s): CYSTOSCOPY Pre-Procedure Diagnose(s): Primary malignant neoplasm [...] Visit Hematology and Oncology Rina Zazueta APRN [address] [place] [address] [place] [address] (Wo rk) 01/20/2022 Infusion Hematology and Oncology 02/19/2022 Office Visit Cardiology Liam Tompkins MD [facility] [address] [place], [place] [address] (Wo rk) 03/31/2022 Hospital Encounter Cardiology Arrived 04/03/2022 Office Visit Dermatology Mark Bishop MD [address] [facility] DERMATOLOGY [place], [place] [address] (Wo rk) 07/06/2022 Office Visit Urology Shane Ramos MD [facility] UROLOGY [place], [place] [address] (Wo rk) 08/12/2022 Office Visit Cardiology Graeme Cueva PA [facility] DR CARDIOLOGY DEPT [place], [place] [address] (Wo rk) documented as of this encounter Procedures Procedure Name Priority Date/Time Associated Comments Diagnosis NON-INTERNET MANAGER FINAL REPORT Routine 07/07/2021 10:28 Res ults for this AM EDT procedure are i n the results section. CYTOPATHOLOGY Routine 07/07/2021 10:28 Primary malignant Resul ts for this NON-GYNECOLOGICAL AM EDT neoplasm of procedure are in prostate the results section. CYSTOSCOPY Routine 07/07/2021 10:00 Primary malignant Result s for this AM EDT neoplasm of procedure are i n prostate the results section. documented in this encounter Results Non-Animal Care Supervisor Final Report (07/07/2021 10:28 AM EDT) Component Value Ref Test Analysis Performed At [facility] Range Method Time Signature Non-Animal Care Supervisor Final [id number] ? Location: [address] [place] [address] The signing pathologist has (i) examined the relevant preparation(s) for the [facility] specimen(s) and (ii) rendered or confirmed the diagnosis(es) . HOSPITAL LABORATORY . ? No n-Animal Care Supervisor Final DIAGNOSIS Negative for High Grade Urothelial Carcinoma See discussion. Electronically signed by: ?Long Santoyo MD Verified: ??07/08/2021 14:00 ??Pathologist Performed at: ??-[facility] Dept. of Pathology, [place], [place] DISCUSSION Urine, voided: Urothelial cells, squamous cells, white blood cells, red bloods, and casts are present. Reference: ??Zelalem EM, ??Ku rtycz DFI, Jose DL. The [place] System for Reporting Urinary Cytology, 2nd edition. Harding: Irene; 2021. CLINICAL INFORMATION Specimen Source : Urine, voided Pertinent Clinical Data and Significant Therapy: Hematuria Clinical Impression : Hematuria Pertinent Radiologic Findings ??: (not provided) Gross Description: Received ??fresh, approximately 80 mL total volu me of ?? clear, yellow fluid. Total Preparation: Liquid-Based Prep 1. Specimen (Source) Anatomical Collection Method Collection Time Re ceived Time Location / / Volume Laterality 07/07/2021 10:28 AM EDT Shane Ramos MD PATHOLOGY/CYTOLOGY ORDERABLE S Performing Organization Address City/State/ZIP Code Phon e Number [address] Cytopathology Non-Gynecological (07/07/2021 10:28 AM EDT) Specimen Anatomical Collection Method Collection Time Receive d Time (Source) Location / / Volume Laterality AP Specimen 07/07/2021 10:28 07/07/2021 AM EDT 10:28 AM EDT Narrative [facility] - 07/07/2021 10:28 AM EDT Specimen requisition ordered. ??Separate Pathology report to follow Shane Ramos MD PATHOLOGY/CYTOLOGY ORDERABLE S Performing Organization Address City/[facility]/ZIP Code Phon e Number [address] Cystoscopy (07/07/2021 10:00 AM EDT) Narrative Shane Ramos MD - 07/07/2021 10: 00 AM EDT Shane Ramos MD ? 07/07/2021 11:14 AM Procedure: Flexible Cystoscopy Surgeon: Shane Ramos [...] bladder was systematically inspected through 360 deg holely with the flexible telescope including retroversion. The [...] further care per Dr. Cathie Ramos MD Aliyah Castellanos APRN PROCEDURE ORDERABLES documented in this encounter Visit Diagnoses Diagnosis Primary malignant neoplasm of prostate Malignant neoplasm of prostate documented in this encounter Care Teams Kitchen Steward/Stewardess Relationship Specialty Start Date End Date Karla Curran MD PCP - General Family Medicine 12/16/20 [address] [place] [address] documented as of this encounter
--- OUTSIDE RECORDS SUMMARY | 2022-01-15 09:39 | XMS_ITS | Encounter Summary ---
:1940 [place] [address] Care Team Providers Name Role Phone Karla Curran MD Primary Care Provider Encounter Details Date Type Department Care Team Description 10/01/2021 Notes Only Cardiology at [facility] Leelee Sanchez, [place] [facility] [place] [phone] CARDIOLOGY [phone] [place], [place] [address] (Wo rk) Social History Tobacco Use Types Packs/Day Years Used Date Smoking Tobacco: Every Day Cigarettes 0.3 60 Smokeless Tobacco: Never Alcohol Use Standard Drinks/Week Comments Not Currently 0 (1 standard drink = 0.6 oz pure alcoho l) Sex Assigned at Date Recorded Not on file documented as of this encounter Progress Notes Leelee Sanchez APRN - 10/01/2021 7:50 AM EDT Cardiac Electrophysiology Cardiac Implantable Electronic Device Remote Monitoring Interpretation Transmission Date: 10/01/21 Device Type: ICD Generator remedial masseur: Causey Battery Status: ~4.9 years Atrial lead status: stable Right ventricular lead status: stable Left ventricular lead status: stable Presenting EGM: /BATTERY CONTAINER TESTER ALUMINUM, AP/BATTERY CONTAINER TESTER ALUMINUM Atrial pacin% Ventricular pacin% 0 mode switching 0% AT/AF burden Events/Arrhythmias noted since last reset : Alert for V pacing percent greater than limit (40%) 1 NSVT 09/05/21 10:29AM. 10 seconds @ 179 bpm Impression: Normally functionning device V pacing % trending upward. ICD implanted 2018, EF 35%. Paced QRS 172ms in 2020. Could consider upgrade to COMPLIANCE INTERN, if clinical symptoms apparent. Leelee Sanchez APRN Cardiac Electrophysiology documented in this encounter Plan of Treatment Upcoming Encounters Date Type Specialty Care Team Description 01/20/2022 Office Visit Hematology and Oncology Rina Zazueta APRN [address] [place] [address] [place] [address] (Wo rk) 01/20/2022 Infusion Hematology and Oncology 02/19/2022 Office Visit Cardiology Liam Tompkins MD [facility] [address] [place], [place] [address] (Wo rk) 03/31/2022 Hospital Encounter Cardiology Arrived 04/03/2022 Office Visit Dermatology Mark Bishop MD [address] [facility] DERMATOLOGY [place], [place] [address] (Wo rk) 07/06/2022 Office Visit Urology Shane Ramos MD [facility] UROLOGY [place], [place] [address] (Wo rk) 08/12/2022 Office Visit Cardiology Graeme Cueva PA [facility] CARDIOLOGY DEPT [place], [place] [address] (Wo rk) documented as of this encounter Visit Diagnoses Not on filedocumented in this encounter Care Teams Drop Pit Worker Relationship Specialty Start Date End Date Karla Curran MD PCP - General Family Medicine 12/16/20 [address] [place] [address] documented as of this encounter
--- OUTSIDE RECORDS SUMMARY | 2022-01-15 09:39 | XMS_ITS | Encounter Summary ---
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 all cell carcinoma; [facility] Malignant neoplasm of urinar y bladder, unspecified site; [address] [place] [address] High risk medication use; [place], [place] [phone] Primary malignant neoplasm o f prostate [phone] Social History Tobacco Use Types Packs/Day Years Used Date Smoking Tobacco: Every Day Cigarettes 0.3 60 Smokeless Tobacco: Never Alcohol Use Standard Drinks/Week Comments Not Currently 0 (1 standard drink = 0.6 oz pure alcoho l) Sex Assigned at Date Recorded Not on file documented as of this encounter Last Filed Vital Signs Vital Sign Reading Time Taken Comments Blood Pressure 130/78 09/17/2021 1:31 PM EDT Pulse 45 09/17/2021 1:31 PM EDT Temperature 36.4 ??C (97.5 ??F) 09/17/2021 1:31 PM EDT Respiratory Rate 20 09/17/2021 1:31 PM EDT Oxygen Saturation 99% 09/17/2021 1:31 PM EDT Inhaled Oxygen Concentration - - Weight 79.7 kg (175 lb 9.6 oz) 09/17/2021 1:31 PM EDT Height 176.5 cm (5' 9.49) 09/17/2021 1:31 PM EDT Body Mass Index 25.57 09/17/2021 1:31 PM EDT documented in this encounter Progress Notes Zoe Mead RN - 09/17/2021 1:30 PM EDT INFUSION THERAPY ADMINISTRATION NOTES DIAGNOSIS: Small Cell Carcinoma CYCLE #:2 Day 2 REASON FOR VISIT: Etoposide SUBJECTIVE Mr. Banks offers no complaints. OBJECTIVE LAB DATA: 09/16/21 at [facility]- WBC 14.55, Hgb 9.0, Hct 27.8, PLT 327k, ANC 10.83, BUN 28, Cr 2.0, TSH 2.09, T4 1.25 IV ACCESS: Mediport to right chest accessed from treatment yesterday. Flushed after infusion with 20cc NS and 500 units heparin. Left accessed for tomorrow's infusion. Pre administration: Chemotherapy orders independently verified for drug name, route, and dosage per patient's height, weight and BSA by Zoe Mead RN & on-site pharmacist. REACTIONS (DESCRIPTION, TIME, INTERVENTION AND EFFECTIVENESS) none ASSESSMENT Chris was awake, alert and tolerated treatment well. PLAN Return tomorrow for Cycle 2, Day 3. documented in this encounter Plan of Treatment Upcoming Encounters Date Type Specialty Care Team Description 01/20/2022 Office Visit Hematology and Oncology Rina Zazueta APRN [address] [place] [address] [place] [address] (Wo rk) 01/20/2022 Infusion Hematology and Oncology 02/19/2022 Office Visit Cardiology Liam Tompkins MD [facility] [address] [place], [place] [address] (Wo rk) 03/31/2022 Hospital Encounter Cardiology Arrived 04/03/2022 Office Visit Dermatology Mark Bishop MD [address] [facility] DERMATOLOGY [place], [place] [address] (Wo rk) 07/06/2022 Office Visit Urology Shane Ramos MD [facility] UROLOGY [place], [place] [address] (Wo rk) 08/12/2022 Office Visit Cardiology Graeme Cueva PA [facility] CARDIOLOGY DEPT [place], [place] [address] (Wo rk) documented as of [...] Rate Site dexAMETHasone (Decadron) tablet 10 Given 09/17/2021 1:40 PM EDT 10 mg mg 10 mg, Oral, ONCE, 1 dose, On Wed09/17/21 at 1330, Administer prior to chemotherapy, Routine etoposide (Vepesid) 148 mg in New Bag 09/17/2021 1:51 PM EDT 148 m g 507.4 mL/hr sodium chloride 0.9% Non-PVC 507.4 mL infusion 148 mg (rounded from 147.75 mg = 75 mg/m2/dose ? 1.97 m2 Treatment Plan BSA from Recorded weight), Intravenous, ONCE, 1 dose, On Wed09/17/21 at 1430, Administer over 60 Minutes, Warning Vesicant/Irritant Medication heparin (pf) (porcine) (100 units/mL) Given 09/17/2021 3:06 PM E DT 500 Units flush 5 mL syringe 500 Units 500 Units, Intravenous, ONCE PRN, Starting on Wed09/17/21 at 0000, Until Wed09/17/21 at 1724, Line Care, Refer to Intravenous (IV) Procedure: Accessing Implanted Vascular Access Devices (654) procedure and/or Intravenous (IV) Job Aid: Adult Flushing & Catheter Care (9324) job aid for additional information regarding guidelines and administration., Routine sodium chloride 0.9 % (flush) (BD PosiFlush Given 09/17/2021 3:06 PM EDT 20 mLs Normal Saline 0.9) flush 5-20 mL 5-20 mL, Intravenous, EVERY 1 MIN PRN, Starting on Wed09/16/21 at 1407, Until Wed09/17/21 at 1406, Line Care, Flush pertains to all indwelling lines. Flush per protocol found in the job aid using the link provided on this medication record. Refer to Intravenous (IV) Job Aid: Adult Flushing & Catheter Care (5926) job aid for additional information regarding guidelines and administration., Routine sodium chloride 0.9% infusion New Bag 09/17/2021 1:47 PM EDT 100 mL/hr 100 mL/hr 100 mL/hr, Intravenous, CONTINUOUS, Starting on Wed09/17/21 at 1330, Until Wed09/17/21 at 1724 documented in this encounter Care Teams Head Of Science Relationship Specialty Start Date End Date Karla Curran MD PCP - General Family Medicine 12/16/20 [address] [place] [id number] documented as of this encounter
--- OUTSIDE RECORDS SUMMARY | 2022-01-15 09:39 | XMS_ITS | Encounter Summary ---
:1940 [place] [address] Care Team Providers Name Role Phone Karla Curran MD Primary Care Provider Encounter Details Date Type Department Care Team Description 07/30/2021 Notes Only Radiology at [facility] Placido Norton DO [facility] [place] [address] RADIOLOGY [phone] [place], [place] [address] (Wo rk) Social History Tobacco Use Types Packs/Day Years Used Date Smoking Tobacco: Every Day Cigarettes 0.3 60 Smokeless Tobacco: Never Sex Assigned at Date Recorded Not on file documented as of this encounter Progress Notes Placido Norton DO - 07/30/2021 7:34 AM EDT INTERVENTIONAL RADIOLOGY Brief Progress Note Received in-basket message from Liam Tompkins MD of Cardiology on 11:35 AM on 07/30/21. Patient can stop Eliquis vioelta-procedurally without need for Lovenox bridge. Placido Norton DO, MPH Staff Physician - Diagnostic and Interventional Radiology Pager [phone] documented in this encounter H&P Notes Placido Norton DO - 07/30/2021 7:34 AM EDT Images from the original note were not included. INTERVENTIONAL RADIOLOGY FOCUSED H&P and PRE-PROCEDURE NOTE: PCP: Karla Curran MD Referring Provider: Annel Bush Planned Procedure: Planned procedure: Adrenal Gland Biopsy; Likely Left Procedure Indication: Growing adrenal glands suspicious for metastatic disease. ??Patient with bladder cancer and metastatic prostate cancer. Need for histopathologic process. Procedure Request: Procedure request received through the Interventional Radiology eDH order queue. Presenting Diagnosis/ Complaint: Chris Banks is a 80 y.o. male presenting to IR for adrenal gland biopsy, likely left. Past medical history is significant for metastatic prostate cancer and muscular invasive bladder cancer. He had incidental finding of pulmonary embolism on his restaging CT scan and was started on Eliquis. Now with enlarging bilateral, left greater than right, adrenal glands concerning for metastatic disease. Request for biopsy for histopathologic diagnosis. IR History: None at [facility]. Previously received care in [place] prior to moving to [place]. Antiplatelets: None. Anticoagulants: Eliquis. Recent Laboratories: ??? None in our system. ??? Getting Laboratories Before Procedure: Yes - Platelet Count and Coagulation Panel. Allergies: None pertinent. Past Medical/Surgical History: Patient Active Problem List Diagnosis Code ??? [...] Pulmonary embolism I26.99 ??? Non-ischemic cardiomyopathy I42.8 Past Medical History: Diagnosis Date ??? Acute ST segment elevation myocardial infarction 03/13/2020 ??? Chronic obstructive lung disease 11/20/2020 ??? Coronary arteriosclerosis in [place] artery 11/20/2020 ??? Hyperparathyroidism due to renal insufficiency 03/13/2020 ??? Peripheral vascular disease 03/13/2020 ??? Stage 3 chronic kidney disease 03/13/2020 ??? Tobacco dependence with current use 02/15/1941 Past Surgical History: Procedure Laterality Date ??? CARDIAC DEFIBRILLATOR PLACEMENT 03/13/2020 ??? CORONARY ANGIOPLASTY WITH STENT PLACEMENT 11/15/2017 Medications: Current Outpatient Medications on File Prior to Visit Medication Sig Dispense Refill ??? Eliquis 2.5 mg Tablet Take 2.5 mg by mouth 2 times daily. ??? nitroGLYcerin (Nitrostat) 0.4 mg Tablet, Sublingual Place 1 tablet under the tongue every 5 minutes as needed for Chest pain. (Patient not taking: Reported on 07/29/2021) 25 tablet PRN ??? leuprolide acetate (ELIGARD, [...] puff into the lungs 2 times daily. Current Facility-Administered Medications on File Prior to Visit Medication Dose Route Frequency Provider Last Rate Last Admin ??? [COMPLETED] leuprolide (Lupron Depot) injection 22.5 mg 22.5 mg Intramuscular Once Jerald Bush MD 22.5 mg at 07/29/21 1536 ??? [COMPLETED] zoledronic acid (Zometa) 3 mg in sodium chloride 0.9% 103.75 mL infusion 3 mg Intravenous Once Jerald Bush MD Stopped at 07/29/21 1530 ??? [COMPLETED] calcium carbonate (Tums) chewable tablet 500 mg 500 mg Oral Once Jerald Bush MD 500 mg at 07/29/21 1512 Allergies: Amoxicillin, Amoxicillin-pot clavulanate, Cis free text allergy, Fexofenadine, and Penicillins Social History and Habits: Social History Socioeconomic History ??? Marital status: Spouse name: Not on file ??? Number of children: Not on file ??? Years of education: Not on file ??? Highest education level: Not on file Occupational History ??? Not on file Tobacco Use ??? Smoking status: Current Every Day Smoker Packs/day: 0.25 Years: 60.00 Pack years: 15.00 Types: Cigarettes ??? Smokeless tobacco: Never Used Vaping Use ??? Vaping Use: Never used Substance and Sexual Activity ??? Alcohol use: Not on file ??? Drug use: Not on file ??? Sexual activity: Not on file Other Topics Concern ??? Not on file Social History Narrative ??? Not on file Social Determinants of Health Financial Resource Strain: Not on file Food Insecurity: Not on file Transportation Needs: Not on file Physical Activity: Not on file Housing Stability: Not on file Significant Family History: No family history on file. Pertinent ROS: as per HPI Labs: Imaging: Physical Exam: Pending (to be performed in angio the day of procedure) ASA: Pending (to be assessed in angio the day of procedure) Mallampati Class: Pending (to be assessed in angio the day of procedure) Assessment: 80 y.o. male with history of both bladder and prostate cancer now with enlarging bilateral, left greater than right, adrenal glands concerning for metastatic disease. Need for histopathologic diagnosis. Left adrenal gland appears amenable to percutaneous biopsy. Patient is on Eliquis which will need to be stopped for 3-days prior to procedure; I have sent a message to the patient's cardiology, Dr. Tompkins, with regard for need for a Lovenox Bridge. No antiplatelets. No recent laboratories; will obtain a platelet count and coagulation panel on day of procedure. Patient appears to be a candidate for moderate sedation. Plan: Planned procedure: Adrenal Gland Biopsy; Likely Left Labs to be performed day of procedure: PLT; Coags Sedation: Moderate (Conscious sedation) Prophylactic antibiotic : None Contrast: No contrast Additional medications for procedure: Lidocaine Planned access site: Left Flank Position: Prone Consent: Pending Medications to discontinue (and days held): None Case Urgency:: G- Other (non E or F elective cases) 07/30/2021 documented in this encounter Plan of Treatment Upcoming Encounters Date Type Specialty Care Team Description 01/20/2022 Office Visit Hematology and Oncology Rina Zazueta [address] [place] [address] (Wo rk) 01/20/2022 Infusion Hematology and Oncology 02/19/2022 Office Visit Cardiology Liam Tompkins MD [facility] [place], [place] [address] (Wo rk) 03/31/2022 Hospital Encounter Cardiology Arrived 04/03/2022 Office Visit Dermatology Mark Bishop MD [address] [facility] DERMATOLOGY [place], [place] [address] (Wo rk) 07/06/2022 Office Visit Urology Shane Ramos MD [facility] UROLOGY [place], [place] [address] (Wo rk) 08/12/2022 Office Visit Cardiology Graeme Cueva PA [facility] CARDIOLOGY DEPT [place], [place] [address] (Wo rk) documented as of this encounter Visit Diagnoses Not on filedocumented in this encounter Care Teams Scientific Associate Relationship Specialty Start Date End Date Karla Curran MD PCP - General Family Medicine 12/16/20 [address] [place] [address] documented as of this encounter
--- OUTSIDE RECORDS SUMMARY | 2022-01-15 09:39 | XMS_ITS | Encounter Summary ---
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, unspecified site High risk medication use Jerald Bush MD [facility] Hem Onc Office [address] HEMATOLOGY/[place] [phone] Fax: Referral ID Status Reason Start Date Expiration Date Visits Requ ested Visits Authorized [id number] Closed 08/12/2021 08/12/2022 99 99 Encounter Details Date Type Department Care Team Description 08/27/2021 Infusion Hematology Oncology at [facility] all cell carcinoma; [facility] Malignant neoplasm of urinar y bladder, unspecified site; [address] [place] [address] High risk medication use; [place], [place] [phone] Primary malignant neoplasm o f prostate [phone] Social History Tobacco Use Types Packs/Day Years Used Date Smoking Tobacco: Every Day Cigarettes 0.3 60 Smokeless Tobacco: Never Alcohol Use Standard Drinks/Week Comments Not Currently 0 (1 standard drink = 0.6 oz pure alcoho l) Sex Assigned at Date Recorded Not on file documented as of this encounter Last Filed Vital Signs Vital Sign Reading Time Taken Comments Blood Pressure 134/68 08/27/2021 1:33 PM EDT Pulse 79 08/27/2021 1:33 PM EDT Temperature 36.5 ??C (97.7 ??F) 08/27/2021 1:33 PM EDT Respiratory Rate 18 08/27/2021 1:33 PM EDT Oxygen Saturation 96% 08/27/2021 1:33 PM EDT Inhaled Oxygen Concentration - - Weight 79.6 kg (175 lb 6.4 oz) 08/27/2021 1:33 PM EDT Height 176.5 cm (5' 9.49) 08/27/2021 1:33 PM EDT Body Mass Index 25.54 08/27/2021 1:33 PM EDT documented in this encounter Progress Notes Marie Ordonez RN - 08/27/2021 1:30 PM EDT INFUSION THERAPY ADMINISTRATION NOTES DIAGNOSIS: SCLC CYCLE #: C1D2 REASON FOR VISIT: etoposide chemotherapy SUBJECTIVE Chris is here for C1D2 Etoposide, he states he feels well today, no issues overnight, ready for treatment. OBJECTIVE LAB DATA: WBC 5.67; Hgb 11.5; Hct 34.7; Plt 203; ANC 3.36; Lytes WNL; BUN 31; Cr 1.9 IV ACCESS: PORT BLOOD RETURN: yes ANY S/S OF INFECTION/EXTRAVASATIONS:none IV FLUSHED WITH: 20cc NS and 500 Units heparin IV DISCONTINUED: remains accessed for day 3 tomorrow Pre administration: Chemotherapy orders independently verified for drug name, route, and dosage per patient's height, weight and BSA by Abbie Gallegos RN and pharmacist on-site REACTIONS (DESCRIPTION, TIME, INTERVENTION AND EFFECTIVENESS) none ASSESSMENT Chris was awake, alert and he tolerated treatment well. PLAN Return to clinic per routine. documented in this encounter Plan of Treatment Upcoming Encounters Date Type Specialty Care Team Description 01/20/2022 Office Visit Hematology and Oncology Rina Zazueta APRN [address] [place] [address] [place] [address] (Wo rk) 01/20/2022 Infusion Hematology and Oncology 02/19/2022 Office Visit Cardiology Liam Tompkins MD [facility] [place], [place] [address] (Wo rk) 03/31/2022 Hospital Encounter Cardiology Arrived 04/03/2022 Office Visit Dermatology Mark Bishop MD [address] [facility] DERMATOLOGY [place], [place] [address] (Wo rk) 07/06/2022 Office Visit Urology Shane Ramos MD [facility] UROLOGY [place], [place] [address] (Wo rk) 08/12/2022 Office Visit Cardiology Graeme Cueva , [facility] CARDIOLOGY DEPT [place], [place] [address] (Wo rk) documented as of [...] Rate Site dexAMETHasone (Decadron) tablet 10 Given 08/27/2021 1:32 PM EDT 10 mg mg 10 mg, Oral, ONCE, 1 dose, On Wed08/27/21 at 1330, Administer prior to chemotherapy, Routine etoposide (Vepesid) 148 mg in New Bag 08/27/2021 1:38 PM EDT 148 m g 338.3 mL/hr sodium chloride 0.9% Non-PVC 507.4 mL infusion 148 mg (rounded from 147.75 mg = 75 mg/m2/dose ? 1.97 m2 Treatment Plan BSA from Recorded weight), Intravenous, ONCE, 1 dose, On Wed08/27/21 at 1430, Administer over 90 Minutes, Warning Vesicant/Irritant Medication heparin (pf) (porcine) (100 units/mL) Given 08/27/2021 3:21 PM E DT 500 Units flush 5 mL syringe 500 Units 500 Units, Intravenous, ONCE PRN, Starting on Wed08/27/21 at 0000, Until Wed08/27/21 at 1734, Line Care, Refer to Intravenous (IV) Procedure: Accessing Implanted Vascular Access Devices (654) procedure and/or Intravenous (IV) Job Aid: Adult Flushing & Catheter Care (1711) job aid for additional information regarding guidelines and administration., Routine sodium chloride 0.9 % (flush) (BD PosiFlush Given 08/27/2021 3:20 PM EDT 20 mLs Normal Saline 0.9) flush 5-20 mL 5-20 mL, Intravenous, EVERY 1 MIN PRN, Starting on Wed08/26/21 at 1504, Until Wed08/27/21 at 1503, Line Care, Flush pertains to all indwelling lines. Flush per protocol found in the job aid using the link provided on this medication record. Refer to Intravenous (IV) Job Aid: Adult Flushing & Catheter Care (6106) job aid for additional information regarding guidelines and administration., Routine documented in this encounter Care Teams Supervisor Assembly And Packing Relationship Specialty Start Date End Date Karla Curran MD PCP - General Family Medicine 12/16/20 [address] [place] [address] documented as of this encounter
--- OUTSIDE RECORDS SUMMARY | 2022-01-15 09:39 | XMS_ITS | Encounter Summary ---
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, unspecified site Jerald Bush MD [facility] Interventionl Rad Procedures IR [facility] HEMATOLOGY/[place] [address] [place] [address] Referral ID Status Reason Start Date Expiration Date Visits V isits Requested Authorized [id number] Closed Specialty 08/12/2021 02/11/2023 1 1 Service Requested Reason for Visit Diagnostic Test (Routine) - Closed Specialty Diagnoses / Procedures Referred By Contact Refer red To Contact Radiology 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, unspecified site Jerald Bush MD [facility] Interventionl Rad Procedures IR [facility] HEMATOLOGY/[place] [address] [place] [address] Referral ID Status Reason Start Date Expiration Date Visits V isits Requested Authorized [id number] Closed Specialty 08/12/2021 02/11/2023 1 1 Service Requested Encounter Details Date Type Department Care Team Description 08/21/2021 [place] [facility] [place]; [facility] MD Jerald Malignant neoplasm of urinary bladder, u nspecified site [address] [place], [place] [address] HEMATOLOGY/ONCOL [phone] [place] [address] Social History Tobacco Use Types Packs/Day Years Used Date Smoking Tobacco: Every Day Cigarettes 0.3 60 Smokeless Tobacco: Never Alcohol Use Standard Drinks/Week Comments Not Currently 0 (1 standard drink = 0.6 oz pure alcoho l) Sex Assigned at Date Recorded Not on file documented as of this encounter Last Filed Vital Signs Vital Sign Reading Time Taken Comments Blood Pressure 164/70 08/21/2021 9:00 AM EDT Pulse 69 08/21/2021 8:30 AM EDT Temperature 36.5 ??C (97.7 ??F) 08/21/2021 8:40 AM EDT Respiratory Rate 20 08/21/2021 9:00 AM EDT Oxygen Saturation 96% 08/21/2021 9:00 AM EDT Inhaled Oxygen Concentration - - Weight - - Height - - Body Mass Index - - documented in this encounter Discharge Instructions Discharge Thania Good RN - 08/21/2021 7:45 AM EDT Images from the original note were not included. [facility] Department of Vascular and Interventional Radiology Discharge Instructions for your Chest Port You have received a ???Power Port?? , which provides access for infusions and blood draws. What makes this a ???Power Port?? is the unique ability to ???power inject?? contrast (intravenous dye) through the port when getting a CT scan, which produces superior images (pictures). Patients who don???thave these special ports need to have an IV started if they need dye injected for their CT scan. Your port is printed with the letters ???CT?? which can be detected by x- ray to identify it as a ???Power Port?? . You will be provided with an ID card stating the production leader and type of port you have. Please carry this with you in a safe place. Bandage: There is a sterile dressing over the port site consisting of small gauze with a clear dressing (Tegaderm or [id number] ). This dressing should be left in place for 48 hours. If the clear dressing becomes loose you should place tape over the edges to secure it in place. Note: If you have steri-strips beneath your dressing, simply allow them to fall off. Do not peel them off. There may be Aguilita-hand (skin glue) also, allow this to flake off. Pain: Apply ice bag to site (s) at 30 minute intervals (30 minutes on and 30 minutes off) for 24 hours?? . May use as needed for pain and/or bruising after 24 hours. Bathing: Do not take a shower until 48 hours after your port is placed; after this time you may shower with the dressing in place, then remove it and pat your skin dry. After 48 hours, we recommend that you cover the area with THE AQUA GUARD PROVIDED for 1 week while showering, facing away from the shower stream. You may use a bandaid to cover the site after the 48 hours are up if there is any drainage. No tub baths, whirlpools or swimming for one week following port placement. Flushing the mediport: If your port has not been used, it must be flushed every 30 days. What to expect when your port is accessed: 1. You may feel tenderness the first few times it is accessed but generally this subsides over time.Ask your healthcare provider to use a local anesthetic on the site if discomfort is a problem for you. You may ask for a prescription for a topical cream (EMLA) from your clinician; you may apply at home prior to your appointments, to help numb the skin over your port. 2. The clinician should be wearing sterile gloves and a mask during the access procedure. Anyone in the room with you should also have a mask on. 3. The skin over and 2 inches around the port should be cleaned with a disinfectant 4. Tell the clinician if you would like the skin numbed (lidocaine) before the access needle is placed. 5. Unless you are unable to take heparin (blood thinner), the port should be injected with a heparinsolution before deaccess (at end of each treatment or blood draw). When to call your healthcare provider: If you notice bleeding from the puncture site in your neck, or from the port incision on your chest,you should apply firm pressure over the site for 10-15 minutes, keeping the site covered. Call if you are still bleeding after 10-15 minutes. If you develop pain, redness, drainage or swelling at or around the port site, or the puncture site in the neck If you develop fever (elevation of more than 2 degrees or greater than 101F) and/or shaking chills When to call the Interventional Radiology Department: Please call with any questions or concerns. Ifit is during regular office hours, please call [phone]. If it is after regular office hours, oron weekends or holidays, please call [phone] and ask to speak to the Diesel Engine Ii Pipe Fitter on callfor Interventional Radiology. XXX You have received medication during your procedure to help lessen anxiety and keep you comfortable. These medications affect judgement and reaction time. We recommend that you do not drive, operateequipment, sign any important documents, or smoke unattended for 24 hours following your procedure. Because of the sedation, be careful on stairs, as you may be unsteady on your feet. You may resume your regular diet as tolerated. IV site -- slight redness, or tenderness is normal, you can use a warm compress. If tenderness and redness increases or foul drainage occurs, please contact your M. D. Revised 12/01/18 documented in this encounter Medications at Time of Discharge Medication Sig Dispensed Refills Start Date End Date zoledronic 100 ml over 15 minutes 0 11/25/2020 [id number] 4 mg/100 mL Piggyback Eliquis 2.5 mg [...] 2 times daily. mcg/actuation HFA Aerosol Inhaler prochlorperazine Take 1 tablet by mouth 30 [...] Chest pain. documented as of this encounter Progress Notes Lore Dodson RN - 08/21/2021 11:59 PM EDT Interventional and Vascular Radiology Post-Procedure Call Name: Chris Ashby Age: 80 y.o. Sex: Male Date of : 1940 (home) No relevant phone numbers on file. PCP Karla Curran MD [phone] Date/Time of call: August 22, 2021/8:16 AM Procedure: Mediport placement Procedural Provider: Dr Mark Contact with patient or if not, with whom? Eleonore- Message left on answering machine? [X] No Are you having pain related to your procedure now? [X] No Are you having any swelling or bleeding from the site? No Are you having any other problems related to your procedure? no Did you understand the discharge instructions given and do you have any questions? yes Do you have any comments about your Nurse or Provider or the care you received? [X] No Comments (if applicable): Thania Sifuentes RN - 08/21/2021 7:45 AM EDT ANGIO NURSING DATABASE Name: CHRIS ASHBY Date of : 1940 AGE: 80 y.o. Address: [address] [place] [address] [address] [facility] [address] (home) Mobile: No relevant phone numbers on file. Referring Provider: Jerald Bush REASON FOR VISIT: Order Questions Answers Where will study be performed? [facility] Radiology [120] Is the patient on anticoagulant / antiplatelet therapy ? 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 Amoxicillin Rash ??? Amoxicillin-Pot Clavulanate Rash ??? Cis Free Text Allergy Rash ANTIHISTAMINES. ??? Fexofenadine Rash ??? Penicillins Hives Pertinent PMH: Patient Active Problem List Diagnosis Code ??? [...] C67.9 ??? High risk medication use Z79.899 Pertinent PSH: Past Surgical History: Procedure Laterality Date ??? CARDIAC DEFIBRILLATOR PLACEMENT 03/13/2020 ??? CORONARY ANGIOPLASTY WITH STENT PLACEMENT 11/15/2017 ??? CT BIOPSY-ADRENAL 08/06/2021 CT Guided Biopsy Adrenal Jas, Alexander Mathews MD [facility] RAD CT SCAN Date/Procedure Meds given/comments 08/06/21 Adrenal gland BIopsy Fentanyl IV 100 mcg, Versed IV 1.5 mg pt tolerated 08/21/21 Mediport Placement Versed 0.5mg IV; Fentanyl 25mcg IV, Pt tolerated procedure ? 729 to procedure room 1 via stretcher. Onto table supine. All monitors, O2, safety strap in place. Meds per protocol. Laboratory Results: Lab Results Component Value Date INR 1.1 08/06/2021 Lab Results Component Value Date PLATELET 239 08/06/2021 documented in this encounter H&P Notes Maddie Shah PA - 08/21/2021 6:46 AM EDT INTERVENTIONAL RADIOLOGY FOCUSED H&P: Procedure: Port implant The patient's history and physical exam have been reviewed and completed. There has been no intervalchange from that of the pre-operative history and physical exam done within the last 30 days. Physical Exam: Cardiovascular: Regular, Normal Pulmonary: Breath sounds clear to auscultation The planned procedure (and sedation plan if appropriate) , its benefits and risks, and alternatives were discussed with the patient. The patient consented to the procedure. PRE-SEDATION ASSESSMENT: Sedation Plan: moderate (conscious sedation) ASA: 2: Patient with mild systemic disease Mallampati: II: tonsillar pillars are blocked by the tongue Confirm NPO status: Yes History of anesthetic complications: No Current medications reviewed: Yes Allergies reviewed: Yes Source Note - Maddie Shah PA - 08/13/2021 2:45 PM [...] of Present Illness: Per chart review, Chris Ashby is a 80 y.o. male with PMH [...] lung disease 11/20/2020 ??? Coronary arteriosclerosis in [place] artery 11/20/2020 ??? High risk medication use 08/12/2021 ??? Hyperparathyroidism due to renal insufficiency 03/13/2020 ??? Peripheral vascular disease 03/13/2020 ??? Stage 3 chronic kidney disease 03/13/2020 ??? Tobacco dependence with current use 02/15/1941 Past Surgical History: Procedure Laterality Date ??? CARDIAC DEFIBRILLATOR PLACEMENT 03/13/2020 ??? CORONARY ANGIOPLASTY WITH STENT PLACEMENT 11/15/2017 ??? CT BIOPSY-ADRENAL 08/06/2021 CT Guided Biopsy Adrenal Alexander Mark MD [facility] RAD CT SCAN Social History and [...] Visit Hematology and Oncology Rina Zazueta APRN [address] [place] [address] [place] [address] (Wo coreen) 01/20/2022 Infusion Hematology and Oncology 02/19/2022 Office Visit Cardiology Liam Tompkins MD [facility] [address] [place] [address] (Becky angela) 03/31/2022 Hospital Encounter Cardiology Arrived 04/03/2022 Office Visit Dermatology Mark Bishop MD [address] [place] [address] DERMATOLOGY [place], [place] [address] (Becky angela) 07/06/2022 Office Visit Urology Shane Ramos MD [facility] UROLOGY [place], [place] [address] (Wo rk) 08/12/2022 Office Visit Cardiology Graeme Cueva PA [facility] CARDIOLOGY DEPT [place], [place] [address] (Wo rk) documented as of this encounter Procedures Procedure Name Priority Date/Time Associated Diagnosis Comme nts IR MEDIPORT Routine 08/21/2021 8:36 AM Small cell ca rcinoma Results for this PLACEMENT EDT Malignant neoplasm procedure are in of urinary bladder, the resu lts unspecified site section. documented in this encounter Results IR Mediport Placement (08/21/2021 8:36 AM EDT) Anatomical Region Laterality Modality X-Ray Angiography Specimen (Source) Anatomical Location Collection Method / Collectio n Time Received Time / Laterality Volume Narrative 08/21/2021 8:34 AM EDT IR Procedure Note Procedure: ? US guided right I JV access ? Single lumen chest port placement (CT compatible) History/indication: ?80 yr old M patient w/ metastatic prostate & muscle invasive bladder C. Chest port pl acement for systemic therapy is requested. PMHx is notable for CAD, card iomyopathy (EF~30%), CKD, COPD. Technique: ?? After discussing risks (in cluding infection, hemorrhage, occlusion), and benefits, the patient co nsented to the procedure and conscious sedation. Split doses of fenta nyl and versed were administered by the IR nurse during continuous monito ring of pulse, blood pressure, end tidal CO2 and oxygen saturation for nader viation of discomfort. ??Maximal sterile barrier technique was employed t hroughout the case. After sterile preparation of the right l ateral neck and upper chest, ultrasound was used to identify and acce ss the internal jugular vein using a micropuncture technique. ??1% lidocain e was used for anesthesia. A 0.018 wire was advanced into SVC under fluoros copic guidance. ??A short 4 Fr dilator was placed. ?? A subcutaneous pocket was created for th e port reservoir inferiorly and laterally using blunt dissection after a skin incision. Additional anesthesia was achieved with bupivicaine with epinepherine. The single lumen port reservoir was attached to the catheter and placed into the pocket. ??A blunt ended tunneler was the n used to bring the infusion catheter through the tunnel to the venot lee site. ??The venotomy was sequentially dilated over a 0.035 Morley wire and a peel-away sheath placed. The catheter was cut to length a nd inserted via the sheath. The catheter tip was positioned in the dista l SVC, documented with a digital fluoroscopic image. The port flushed and aspirated well. ??The pocket was closed using a two layer technique with absorbable suture material (2-0 and 4-0 Vicryl). The superficial skin wa s approximated with tissue adhesive. The patient tolerated the proc edure well. ?? Complications: ?None immediate; ??EB L=0 Medications: ??1% lidocaine (<10 cc); ve rsed 0.5 mg; fentanyl 25 mcg IV contrast: ?None Fluoroscopy time: ?? 0.5 minutes Findings: 1. Patent right IJV by US evaluation 2. Single lumen chest port placement as detailed above; port ready for immediate use. IR Resident: ?? Loretta Smith MD Attending: ? Josh Mark MD (I wa s present and scrubbed for the entire procedure) I was present during the intraservice t sergio as documented by the IR Nurse. Jerald Bush MD IMG IR ORDERABLES documented in this encounter Visit Diagnoses Diagnosis Small cell carcinoma Other malignant neoplasm without specifi cation of site Malignant neoplasm of urinary bladder, u nspecified site documented in this encounter Administered Medications Inactive Administered Medications - up to 3 most recent administrations Medication Order MAR Action Action Date Dose Rate Site fentaNYL (pf) (50 mcg/mL) Given 08/21/2021 7:50 AM EDT 25 mcg multi-dose injection 25-50 mcg 25-50 mcg, Intravenous, EVERY 3 MIN PRN, Starting on Chelo 08/21/21 at 0643, Until Wed08/22/21 at 0434, Pain, per unit protocol, - Start dose 50 mcg (reduce dose to 25 mcg if history of sedation sensitivity). - Titration dose 25-50 mcg IV, (based on patient response) every 3 minutes PRN, to maintain procedural pain less than 2 per pain Scale. Maximum dose: 50 mcg/dose, 250 mcg/hour For use in Interventional Radiology (IR) only for procedural sedation with direct provider supervision and verbal order., Angio/IR (Day of Procedure), Routine lidocaine (Xylocaine) 1% (10 mg/mL) injection Given 7:00 AM EDT 10 mg 10 mg 10 mg, Subcutaneous, ONCE, 1 dose, On Chelo 08/21/21 at 0700, For use in Interventional Radiology (IR) only for procedure with direct provider supervision and verbal order., Angio/IR (Day of Procedure), Routine lidocaine-EPINEPHrine (2% - 1:100,000) Given 08/21/2021 7:00 AM EDT 10 mLs injection vial 10 mL 10 mL, Intradermal, ONCE, 1 dose, On Chelo 08/21/21 at 0700, Warning Vesicant/Irritant Medication , Angio/IR (Day of Procedure), Routine midazolam (pf) (Versed) (1 mg/mL) multi-dose Given 08/2021 7:50 AM EDT 0.5 mg injection 0.5-1 mg 0.5-1 mg, Intravenous, EVERY 3 MIN PRN, Starting on Chelo 08/21/21 at 0643, Until Wed08/22/21 at 0434, Sleep, - Start dose; 1 mg (Reduce dose to 0.5 mg if history of sedation sensitivity). - Titration dose: 0.5 mg - 1 mg (based on patient response) every 3 minutes PRN to obtain RASS score of -3. Maximum dose: 1 mg per dose, 5 mg/hour. For use in Interventional Radiology (IR) only for procedural sedation with direct provider supervision and verbal order., Angio/IR (Day of Procedure), Routine documented in this encounter Care Teams Foreclosure Home Inspector Relationship Specialty Start Date End Date Karla Curran MD PCP - General Family Medicine 12/16/[address] [place] [address] documented as of this encounter
--- OUTSIDE RECORDS SUMMARY | 2022-01-15 09:39 | XMS_ITS | Encounter Summary ---
:1940 Author Organization [facility] [place] [address] Care Team Providers Name Role Phone Karla Curran MD Primary Care Provider Reason for Visit Reason Onset Date Comments Flank Pain 05/23/2021 Left sided pain Encounter Details Date Type Department Care Team Description 05/23/2021 Telephone Hematology/Oncology at Peg Lutz RN Flank Pain (Left sided [facility] pain) [address] [place] [phone] Social History Tobacco Use Types Packs/Day Years Used Date Smoking Tobacco: Every Day Cigarettes 0.3 60 Smokeless Tobacco: Never Sex Assigned at Date Recorded Not on file documented as of this encounter Miscellaneous Notes Telephone Encounter - Peg Lutz RN - 05/23/2021 9:32 AM EDT Caller: Relationship: Spouse/Significant Other Clarified Two Patient Identifiers: [x] Reason For Call: Flank Pain (Left sided pain) Assessment/Symptom Review (onset, location, duration, what makes it better or worse, pertinent positives and negatives): calls and states pt walk up with pain in left side into back rating it a 8 or 10 pain. He also feels nauseated and like he has to have diarrhea. He has moved bowels twice today with normal formed stool. He has no fever or chills and no blood in urine. History of bladder and prostate cancer and renal stones. Asked to bring him to [facility]. Report given to Tatiana JIN. Review of Systems Related to Reason for Call: System POS NEG Not Applicable Head (ENT /Neuro) [] [] [x] Cardiac [] [] [x] Respiratory [] [] [x] GI [] [x] [] [] [x] [] Musculoskeletal [x] [] [] Integumentary [] [] [x] Mental Health [] [] [x] Select Specific Decision Support Tool Used: Telephone Triage for Oncology Nurses, 3rd Edition, ONCSussy and Bret, 2019 Name of Guideline/Protocol Used: Pain Disposition/Plan of Care: Emergency Room via personal vehicle now Patient/Caregiver verbalizes understanding of plan of care: Yes Patient/Caregiver agrees with plan: Yes Advised patient/caregiver to: to ER Patient/Caregiver demonstrates understanding via teach back: Yes documented in this encounter Plan of Treatment Upcoming Encounters Date Type Specialty Care Team Description 01/20/2022 Office Visit Hematology and Oncology Rina Zazueta, [address] [place] [address] (Wo rk) 01/20/2022 Infusion Hematology and Oncology 02/19/2022 Office Visit Cardiology Liam Tompkins MD [facility] [place] [address] (Wo rk) 03/31/2022 Hospital Encounter Cardiology Arrived 04/03/2022 Office Visit Dermatology Mark Bishop MD [address] [place] [address] DERMATOLOGY [place], [place] [address] (Wo rk) 07/06/2022 Office Visit Urology Shane Ramos MD [facility] [place]OLOG[place], [place] [address] (Wo rk) 08/12/2022 Office Visit Cardiology Graeme Cueva PA [facility] CARDIOLOGY DEPT [place], [place] [address] (Wo rk) documented as of this encounter Visit Diagnoses Not on filedocumented in this encounter Care Teams Haulage Boss Relationship Specialty Start Date End Date Karla Curran MD PCP - General Family Medicine 12/16/20 [address] [place] [address] documented as of this encounter
--- OUTSIDE RECORDS SUMMARY | 2022-01-15 09:39 | XMS_ITS | Encounter Summary ---
:1940 Author Organization [facility] [place] [address] Care Team Providers Name Role Phone Karla Curran MD Primary Care Provider Reason for Referral Diagnostic Test (Routine) - Closed Specialty Diagnoses / Procedures Referred By Contact Refer red To Contact Radiology Diagnoses Malignant neoplasm of urinary bladder, unspecified site Malignant neoplasm of prostate metastatic to bone 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 Jerald Bush MD [facility] Rad Ct Scan Procedures CT Guided Biopsy Adrenal [facility] HEMATOLOGY/[place] [address] [place] [address] Referral ID Status Reason Start Date Expiration Date Visits V isits Requested Authorized [id number] Closed Specialty 07/29/2021 01/28/2023 1 1 Service Requested Reason for Visit Diagnostic Test (Routine) - Closed Specialty Diagnoses / Procedures Referred By Contact Refer red To Contact Radiology Diagnoses Malignant neoplasm of urinary bladder, unspecified site Malignant neoplasm of prostate metastatic to bone 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 Jerald Bush MD [facility] Rad Ct Scan Procedures CT Guided Biopsy Adrenal [facility] HEMATOLOGY/[place] [address] [place] [address] Referral ID Status Reason Start Date Expiration Date Visits V isits Requested Authorized [id number] Closed Specialty 07/29/2021 01/28/2023 1 1 Service Requested Encounter Details Date Type Department Care Team Description 08/06/[address] Scan at [facility] Rachelle, Malignant neoplasm of prosta te metastatic to bone; [facility] MD Jerald Pre-op testing; [facility] Malignant neoplasm of urinar y bladder, unspecified site; [place], [place] CENTER 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 [phone] HEMATOLOGY/ONCOL [phone] [place] [address] Social History Tobacco Use Types Packs/Day Years Used Date Smoking Tobacco: Every Day Cigarettes 0.3 60 Smokeless Tobacco: Never Alcohol Use Standard Drinks/Week Comments Not Currently 0 (1 standard drink = 0.6 oz pure alcoho l) Sex Assigned at Date Recorded Not on file documented as of this encounter Last Filed Vital Signs Vital Sign Reading Time Taken Comments Blood Pressure 158/84 08/06/2021 3:45 PM EDT Pulse 77 08/06/2021 1:45 PM EDT Temperature 36 ??C (96.8 ??F) 08/06/2021 2:00 PM EDT Respiratory Rate 18 08/06/2021 3:30 PM EDT Oxygen Saturation 96% 08/06/2021 3:45 PM EDT Inhaled Oxygen Concentration - - Weight - - Height - - Body Mass Index - - documented in this encounter Discharge Instructions Discharge InstructionsWhCheryl mackenzie RN - 08/06/2021 12:[address] [facility] Vascular and Interventional Radiology Biopsy Discharge Instructions Liver, kidney or bone biopsy: call your doctor immediately if you develop a sudden onset of weakness, increased pain or swelling at the biopsy site or heavy bleeding at the biopsy site. Activity And Diet: Go home and rest quietly for the remainder of the day. You may resume your normal activities tomorrow. Resume your usual diet after the procedure. Do not drive, sign any important/legal documents, or make any important decisions for 24 hours following sedation medications. When to call your healthcare provider: If you see any redness, swelling or drainage at the biopsy site. If you develop chills. If you have a fever greater than or equal to 101 degrees Fahrenheit. If you develop pain around the biopsy site. Bandage: Check the dressing/bandaid throughout the day for an increase in drainage. Keep the biopsy site dry for 24 hours. Replace the bandaid as needed. You may shower 24 hours after the biopsy. Medication: DO NOT take aspirin-containing products, ibuprofen, or blood-thinning medication for the next 24 hours unless your clinician says you may do so. Generally you may use acetaminophen as needed for discomfort unless you have liver disease and are instructed not to take acetaminophen. Biopsy Results The results of your biopsy should be available within 5 business days and will be reported to you byyour primary child care lead teacher or the clinician who ordered the biopsy. Please do not call us for results as we will not have them. If you have not been contacted by your clinician within 5 business days you should call that officefor further information. When to call the Interventional Radiology Department: Please call with any questions or concerns. Ifit is during regular office hours, please call [phone]. If it is after regular office hours, oron weekends or holidays, please call [phone] and ask to speak to the Raw Silk Grader on callfor Interventional Radiology. You have received medication during your procedure to help lessen anxiety and keep you comfortable.These medications affect judgement and reaction time. We recommend that you do not drive, operate equipment, sign any important documents, or smoke unattended [...] 100 ml over 15 minutes 0 11/25/2020 [id number]-[id number] 4 mg/100 mL Piggyback Eliquis 2.5 mg Tablet Take 2.5 mg by mouth 2 0 times daily. leuprolide acetate Inject subcutaneously Q 0 (ELIGARD, 3 MONTH, 3 Months. SUBQ) calcium-vitamin D3 600 Take by mouth. 0 mg calcium- 400 unit Tablet lisinopriL (Zestril) 5 Take 5 mg by mouth 0 01/24 mg Tablet daily. metoprolol tartrate Take 25 mg by mouth 2 0 (Lopressor) 25 mg times daily. Tablet atorvastatin (Lipitor) Take 40 mg by mouth 0 40 mg Tablet daily. zoledronic acid Inject 4 mg into the 0 (Zometa) 4 mg/5 mL vein Q 3 Months. Solution pantoprazole EC Take 20 mg by mouth 0 (Protonix) 20 mg daily. Tablet, Delayed Release (E.C.) fluticasone propionate Inhale 1 puff into the 0 (Flovent HFA) 220 lungs 2 times daily. mcg/actuation HFA Aerosol Inhaler nitroGLYcerin Place 1 tablet under the 25 tablet 06/17/19 22 (Nitrostat) 0.4 mg tongue every 5 minutes Tablet, Sublingual as needed for Chest pain. documented as of this encounter Progress Notes Ida Bar RN - 08/06/2021 11:59 PM EDT Interventional and Vascular Radiology Post-Procedure Call Name: Chris Ashby Age: 80 y.o. Sex: Male Date of : 1940 (home) No relevant phone numbers on file. PCP Karla Curran MD [phone] Date/Time of call: August 07, 2021/8:26 AM Procedure: CT Guided Adrenal Biopsy Procedural Provider: Dr. Mark Contact with patient or if not, with whom? No, pts Harika Message left on answering machine? [X] No Are you having pain related to your procedure now? [X] No Are you having any swelling or bleeding from the site? No Are there any improvement in your symptoms? No Are you having any other problems related to your procedure? No Did you understand the discharge instructions given and do you have any questions? Yes Do you have any comments about your Nurse or Provider or the care you received? [X] N/A Comments (if applicable): Cheryl Hernandez RN - 08/06/2021 2:12 PM EDT Report given to recovery nurse Marina Cheryl Hernandez RN - 08/06/2021 1:50 PM EDT Pt tolerated procedure, pt had some PVC and BP elevated , MD aware Cheryl Hernandez RN - 08/06/2021 1:32 PM EDT ANGIO NURSING DATABASE Name: CHRIS ASHBY Date of : 1940 AGE: 80 y.o. Address: [facility] [address] [place] [id number] (home) Mobile: No relevant phone numbers on file. Referring Provider: Jerald Bush REASON FOR VISIT: Order Questions Answers Where will study be performed? [facility] Radiology [120] Is the patient on anticoagulant / antiplatelet therapy ? DOAC (Direct Oral Anticoagulant) Does the patient have any pertinent outside imaging? Yes Reason for exam and clinical history: GrowingAdrenal glands suspicious for metastatic disease. Patient with bladder cancer and metastatic prostate cancer Clinical information / loya questions for radiologist: Needs histology for confirmation of diagnosis Allergies Allergen Reactions ??? Amoxicillin Rash ??? [...] Pulmonary embolism I26.99 ??? 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 CARDIAC DEFIBRILLATOR PLACEMENT 03/13/2020 ??? CORONARY ANGIOPLASTY WITH STENT PLACEMENT 11/15/2017 Date/Procedure Meds given/comments 08/06/21 Adrenal gland BIopsy Fentanyl IV 100 mcg, Versed IV 1.5 mg pt tolerated 1315 to procedure room CT5 via stretcher. Onto table prone. All monitors, O2, safety strap in place. Meds per protocol. Laboratory Results: ForAlexander stroud MD - 08/06/2021 1:05 PM EDT Images from the original note were not included. INTERVENTIONAL RADIOLOGY ?? FOCUSED H&P and PRE-PROCEDURE NOTE: Referring Provider: Annel Bush MD (- Med Onc) Planned Procedure: Adrenal Gland Biopsy- Left Procedure Indication: Growing adrenal glands suspicious for metastatic disease. ??Patient with bladder cancer and metastatic prostate cancer. Presenting Diagnosis/ Complaint: 80 yr old m patient with both metastatic prostate Ca and muscular invasive bladder Ca. ??Now with enlarging bilateral, left greater than right, adrenal glands concerning for metastatic disease. Request for biopsy for histopathologic diagnosis. Pre-Sedation Assessment: ASA: 2: Patient with mild systemic disease Mallampati: II: tonsillar pillars are blocked by the tongue Cardiovascular: Rhythm: Regular Rate: Normal Pulmonary: Breath sounds clear to auscultation H&P reviewed: Yes Confirm NPO status: Yes History of anesthetic complications: No Current medications reviewed: Yes Allergies reviewed: Yes Alcohol use: no, Date and Time of last drink: n/a Drug use: no Sedation Plan: moderate (conscious sedation) The sedation plan, its benefits and risks, and alternatives were discussed with the patient. The planned procedure, its benefits and risks, and alternatives were discussed with the patient. Thepatient consented to the procedure. Discharge to: home documented in this encounter Plan of Treatment Upcoming Encounters Date Type Specialty Care Team Description 01/20/2022 Office Visit Hematology and Oncology Rina Zazueta, [address] [place] [address] (Wo rk) 01/20/2022 Infusion Hematology and Oncology 02/19/2022 Office Visit Cardiology Liam Tompkins MD [facility] [address] [place] [address] (Wo rk) 03/31/2022 Hospital Encounter Cardiology Arrived 04/03/2022 Office Visit Dermatology Mark Bishop MD [address] [place] [address] DERMATOLOGY [place], [place] [address] (Wo rk) 07/06/2022 Office Visit Urology Shane Ramos MD [facility] UROLOGY [place], [place] [address] (Wo rk) 08/12/2022 Office Visit Cardiology Graeme Cueva PA [facility] DR CARDIOLOGY DEPT [place], [place] [address] (Wo rk) documented as of this encounter Procedures Procedure Name Priority Date/Time Associated Diagnosis Comme nts CT BIOPSY-ADRENAL Routine 08/06/2021 2:02 PM Malignant neoplas m Results for this EDT of urinary bladder, procedur e are in unspecified site the results Malignant neoplasm section. of prostate metastatic to milagros ne 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 SURGICAL PATHOLOGY Routine 08/06/2021 1:20 PM Res ults for this REPORT EDT procedure are i n the results section. SPECIMEN TO Routine 08/06/2021 12:47 PM Results for this PATHOLOGY EDT procedure are i n the results section. documented in this encounter Results CT Guided Biopsy Adrenal [...] Nurse. Jerald Bush MD IMG CT ORDERABLES Surgical Pathology Report (08/06/2021 1:20 PM EDT) Component Value Ref Test Analysis Performed At [facility] Method Time Signature Surgical [id number] ? Location: [address] [place] [address] Pathology ODELL Report The signing pathologist has (i) examined the relevant preparation(s) for the [facility] specimen(s) and (ii) rendered or confirmed the diagnosis(es) . HOSPITAL LABORATORY . ?Surgic al Pathology DIAGNOSIS Left adrenal gland, biopsy: - Small cell carcinoma, consistent with metastasis. ? (see Discussion.) Electronically signed by: ?MD Edwige, Graeme Araujo Verified: ??08/08/2021 11:31 ??Pathologist Performed at: ??-[facility] Dept. of Pathology, [place], [place] DISCUSSION The immunophenotypic studies performed are not specific for tumor site of origin. Clinical/radiologic correlation is needed. ADDITIONAL STUDIES Whole slide scan: employment program representative slide(s) Immunohistochemistry Studies: Formalin-fixed, paraffin-emb edded tissue sections are studied using the polymer technique with appropriate positive and negative controls. ?These IHC studies provide the pathologist wit h adjunctive diagnostic information. Antibody specificity has been verified by testin g antibodies on a series of in-house tissues with known immunohistochemical perform ance characteristics. The clinical interpretation of any antibody positive stain ing or its absence is evaluated within the context of clinical presentation, morp hology, histopathological criteria and other diagnostic tests. Block ? Antibody ?Result (Positive /Negative) A2 ? PSA ?Negative A2 ? NKX3.1 ? Negative A2 ? GATA3 ?Focally positive A2 ? TTF1 (Dako) ?Focally positive A2 ? Synaptophysin ?Positive A2 ? RB1 ?Negative (loss) SPECIMEN(S) SUBMITTED A - Left adrenal gland, biopsy (Multiple) CLINICAL INFORMATION Growing adrenal glands suspi cious for metastatic disease. Patient with bladder cancer and metastatic prostate cancer. Need hi stology for confirmation of diagnosis. SPECIMEN PROCESSING A - Labeled/Fixative: Left adrenal gland, formalin. Quantity/Size: Four, averaging 1.6 x 0.1 cm Tissue Description: Marcano-white needle core biopsies. Sections/Processing: Entirely submitted in 2 cassettes labeled A1-A2. ??sns Specimen (Source) Anatomical Collection Method Collection Time Re ceived Time Location / / Volume Laterality 08/06/2021 1:20 PM EDT Jerald Bush MD PATHOLOGY/CYTOLOGY ORDERABLE S Performing Organization Address City/State/[place] [address] Specimen to Pathology (08/06/2021 12:47 PM EDT) Specimen Anatomical Collection Method Collection Time Receive d Time (Source) Location / / Volume Laterality AP Specimen 08/06/2021 12:47 08/06/2021 PM EDT 12:47 PM EDT Narrative [facility] - 08/06/2021 12:47 PM EDT Specimen requisition ordered. ??Separate Pathology report to follow Jerald Bush MD PATHOLOGY/CYTOLOGY ORDERABLE S Performing Organization Address City/State/[place] [address] Prothrombin Time (08/06/2021 11:29 AM EDT) P athologist Signature PT 12.1 9.4 - 12.5 [facility] LABORATORY INR 1.1 [facility] Comment: An INR <2.0 indicates adequate procoagul ant activity for hemostasis in most patients without underlying bleeding dis orders, though the INR may not adequately reflect hemostatic capacity i n patients with liver disease and synthetic impairment. The recommended ta rget INR range for therapeutic anticoagulation is 2.0 ? 3.0 for most applications, though lower and higher ranges may be appropriate depending on c linical circumstances. Specimen Anatomical Collection Method Collection Time Receive d Time (Source) Location / / Volume Laterality Blood 08/06/2021 11:29 08/06/2021 AM EDT 11:44 AM EDT Resulting Agency Comment Spec In Lab Jerald Bush MD HEMATOLOGY ORDERABLES Performing Organization Address City/State/ZIP Code Phon [place] [address] Platelet count (08/06/2021 11:29 AM EDT) P athologist Signature Platelets 239 145 - 357 [facility]IN[facility] x10(3)/[facility] LABORATORY Plat Immature 2.5 0.0 - 7.4 [facility] % % [facility] LABORATORY Comment: Limitation of the Immature Platelet Frac tion (IPF)-May be less reliable when the platelet count is less than 32z009/u L due to statistical imprecision. The IPF value provides an assessment of the Bone Marrow production status. ??It is useful in differentiating Thrombocyto penia caused by platelet destruction/consumption versus decreased production. It also helps to determine the imminent release of platelets and ca n be therefore a helpful parameter in Chemotherapy and Bone marrow transplant patients. ELEVATED IPF value: ?? When the bone marrow is in a state of over production such as when increased destruction and consumption are the unde rlying issue. ?? When the marrow is recovering post ch emotherapy or bone marrow transplant. LOW to NORMAL IPF value: ?? When the bone marrow in not respondin g and is in a decreased state of production. References: [employer] The Clinical Value of the Immature Platelet Fraction (IPF) in Cell Recovery Document Number [id number] 07/2010 [employer] The Role of the Imm ature Platelet Fraction (IPF) in the Differential Diagnosis of Thrombocytopen ia, Document [id number] V006/26/13 P014 Specimen Anatomical Collection Method Collection Time Receive d Time (Source) Location / / Volume Laterality Blood 08/06/2021 11:29 08/06/2021 AM EDT 11:44 AM EDT Resulting Agency Comment Spec In Lab Jerald Bush MD HEMATOLOGY ORDERABLES Performing Organization Address City/State/ZIP Code Phon e Number [facility] [place] [address] documented in this encounter Visit Diagnoses Diagnosis Malignant neoplasm of prostate metastati c to bone Malignant neoplasm of prostate Pre-op testing Preoperative examination, unspecified Malignant neoplasm of urinary bladder, u nspecified site 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 documented in this encounter Administered Medications Inactive Administered Medications - up to 3 most recent administrations Medication Order MAR Action Action Date Dose Rate Site fentaNYL (pf) (50 mcg/mL) Given 08/06/2021 1:32 PM EDT 50 mcg multi-dose injection 25-50 mcg 25-50 mcg, Intravenous, EVERY 3 MIN PRN, Starting on Wed08/06/21 at 1257, Until Chelo 08/07/21 at 0434, Pain, per unit protocol, - [...] direct provider supervision and verbal order., Angio/IR (Intra-Procedure), Routine Given 08/06/2021 1:25 PM EDT 50 mcg lidocaine (Xylocaine) 1% (10 mg/mL) injection Given 1:32 PM EDT 10 mg 10 mg 10 mg, Subcutaneous, ONCE, 1 dose, On Wed08/06/21 at 1315, For use in Interventional Radiology (IR) only for procedure with direct provider supervision and verbal order., Angio/IR (Intra-Procedure), Routine midazolam (pf) (Versed) (1 mg/mL) multi-dose Given 1:32 PM EDT 0.5 mg injection 0.5-1 mg 0.5-1 mg, Intravenous, EVERY 3 MIN PRN, Starting on Wed08/06/21 at 1257, Until Chelo 08/07/21 at 0434, Sleep, - Start dose; 1 [...] direct provider supervision and verbal order., Angio/IR (Intra-Procedure), Routine Given 08/06/2021 1:25 PM EDT 1 mg documented in this encounter Care Teams Blood Bank Technician Relationship Specialty Start Date End Date Karla Curran MD PCP - General Family Medicine 12/16/[address] [place] [address] documented as of this encounter
--- OUTSIDE RECORDS SUMMARY | 2022-01-15 09:39 | XMS_ITS | Encounter Summary ---
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, unspecified site Jerald Bush MD [facility] Rad Nuclear Med Procedures NM PET CT Skull Base to Mid-thigh [facility] HEMATOLOGY/[place] [address] [place] [address] Referral ID Status Reason Start Date Expiration Date Visits V isits Requested Authorized [id number] Closed Specialty 08/12/2021 02/11/2023 1 1 Service Requested Encounter Details Date Type Department Care Team Description 08/22/2021 Hospital Encounter Nuclear Medicine at [facility] Mary Hitchcock MD [facility] [place] [address] HEMATOLOGY/ONCOLOGY [phone] [place], [place] [address] (Wo rk) Social History Tobacco [...] 100 ml over 15 minutes 0 11/25/2020 itka-qjfzcstU-nxmrh 4 mg/100 mL Piggyback Eliquis 2.5 mg [...] Visit Hematology and Oncology Rina Zazueta APRN [address] [place] [address] [place] [address] (Becky angela) 01/20/2022 Infusion Hematology and Oncology 02/19/2022 Office Visit Cardiology Liam Tompkins MD [facility] [address] [place], [place] [address] (Becky angela) 03/31/2022 Hospital Encounter Cardiology Arrived 04/03/2022 Office Visit Dermatology Mark Bishop MD [address] [facility] DERMATOLOGY [place], [place] [address] (Wo rk) 07/06/2022 Office Visit Urology Shane Ramos MD [facility] UROLOGY [place], [place] [address] (Wo rk) 08/12/2022 Office Visit Cardiology Graeme Cueva PA [facility] CARDIOLOGY DEPT [place], [place] [address] (Wo rk) documented as of this encounter Procedures Procedure Name Priority Date/Time Associated Diagnosis Comme nts NM PET CT SKULL Routine 08/22/2021 10:02 AM Small cell c arcinoma Results for this BASE TO MID-THIGH EDT Malignant neoplasm proc edure are in ([facility]) of urinary bladder, the resu lts unspecified site section. POCT GLUCOSE Routine 08/22/2021 8:48 AM Results f or this EDT procedure are i n the results section. documented in this encounter Results POCT Glucose (08/22/2021 8:48 AM EDT) P athologist Signature POC Glucose 107 65 - 199 [facility] mg/dL [facility] LABORATORY Comment: Supplemental ranges: <140 mg/dL before meals <180 mg/dL all other times of the day Specimen Anatomical Collection Method Collection Time Receive d Time (Source) Location / / Volume Laterality Blood 08/22/2021 8:48 AM 8:48 EDT AM EDT Jerald Bush MD POINT OF CARE TEST ORDERABLE S Performing Organization Address City/State/[place] [address] documented in this encounter Visit Diagnoses Not on filedocumented in this encounter Care Teams Welfare Investigator Relationship Specialty Start Date End Date Karla Curran MD PCP - General Family Medicine 12/16/[address] [place] [id number] documented as of this encounter
--- OUTSIDE RECORDS SUMMARY | 2022-01-15 09:39 | XMS_ITS | Encounter Summary ---
:1940 Author Organization [facility] [place] [address] Care Team Providers Name Role Phone Karla Curran MD Primary Care Provider Reason for Visit Reason Comments IV Medication Zometa Injections Lupron Treatment/Therapy Plan Authorization (Routine) - Closed Specialty Diagnoses / Procedures Referred By Contact Refer red To Contact Diagnoses Primary malignant neoplasm of prostate Jerald Bush MD [facility] Hem Onc Office Procedures TC ZOLEDRONIC ACID, 1 MG, INJECTION TC LEUPROLIDE ACETATE 7.5MG, FOR DEPOST SUSPENSION (LUPRON DEPOT) ZOMETA LUPRON [address] HEMATOLOGY/[place] [phone] Fax: Referral ID Status Reason Start Date Expiration Date Visits Requ ested Visits Authorized [id number] Closed 10/15/2020 03/09/2021 99 99 Encounter Details Date Type Department Care Team Description 07/29/2021 Infusion Hematology Oncology at [facility] malignant neoplasm [facility] of prostate [address] [place] [phone] Social History Tobacco Use Types Packs/Day Years Used Date Smoking Tobacco: Every Day Cigarettes 0.3 60 Smokeless Tobacco: Never Sex Assigned at Date Recorded Not on file documented as of this encounter Progress Notes Zoe Mead RN - 07/29/2021 2:30 PM EDT Infusion Note Diagnosis: Metastatic prostate cancer Treatment: Zometa Infusion Creatinine: 07/17/21 CrCl 33.4, Cr 1.90, Ca 9.3 Zometa 3 mg infused over 15 minutes. Treatment: Lupron Injection Lupron 22.5mg injected in left buttocks Patient instructed on side effects of Zometa and Lupron. Patient states understanding of teaching, Patient aware to call clinic with any questions or concerns. Plan: Return to clinic as scheduled. documented in this encounter Plan of Treatment Upcoming Encounters Date Type Specialty Care Team Description 01/20/2022 Office Visit Hematology and Oncology Rina Zazueta[address] [place] [address] (Wo rk) 01/20/2022 Infusion Hematology and Oncology 02/19/2022 Office Visit Cardiology Liam Tompkins MD [facility] Dr [place], [place] [address] (Wo rk) 03/31/2022 Hospital Encounter Cardiology Arrived 04/03/2022 Office Visit Dermatology Mark Bishop MD [address] [place] [address] DERMATOLOGY [place], [place] [address] (Wo rk) 07/06/2022 Office Visit Urology Shane Ramos MD [facility] UROLOGY [place], [place] [address] (Wo rk) 08/12/2022 Office Visit Cardiology Graeme Cueva PA [facility] CARDIOLOGY DEPT [place], [place] [address] (Wo rk) documented as of this encounter Visit Diagnoses Diagnosis Primary malignant neoplasm of prostate Malignant neoplasm of prostate documented in this encounter Administered Medications Inactive Administered Medications - up to 3 most recent administrations Medication Order MAR Action Action Date Dose Rate Site calcium carbonate (Tums) chewable Given 07/29/2021 3:12 PM EDT 5 00 mg tablet 500 mg 500 mg, Oral, ONCE, 1 dose, On Wed07/29/21 at 1515, Routine leuprolide (Lupron Depot) Given 07/29/2021 3:36 PM EDT 22.5 mg Left Gluteal injection 22.5 mg 22.5 mg, Intramuscular, ONCE, 1 dose, On Wed07/29/21 at 1500, Routine, This agent is restricted to outpatient use. Is this drug being given as an outpatient? Yes zoledronic acid (Zometa) 3 mg in New Bag 07/29/2021 3:11 PM EDT 3 mg 415 mL/hr sodium chloride 0.9% 103.75 mL infusion 3 mg, Intravenous, ONCE, 1 dose, On Wed07/29/21 at 1515, Administer over 15 Minutes, Do not administer [...] metastases documented in this encounter Care Teams Trichologist Relationship Specialty Start Date End Date Karla Curran MD PCP - General Family Medicine 12/16/20 580 [place] [address] documented as of this encounter
--- OUTSIDE RECORDS SUMMARY | 2022-01-15 09:39 | XMS_ITS | Encounter Summary ---
:1940 Author Organization [place] [address] Care Team Providers Name Role Phone Karla Curran MD Primary Care Provider Encounter Details Date Type Department Care Team Description 08/06/2021 Laboratory Appointment Lab 3L [facility] Malignant neoplasm of prostate metastatic to bone; [facility] [place] [phone] Social History Tobacco Use Types Packs/Day Years [...] Visit Hematology and Oncology Rina Zazueta APRN [address] [place] [address] [place] [address] (Wo rk) 01/20/2022 Infusion Hematology and Oncology 02/19/2022 Office Visit Cardiology Liam Tompkins MD [facility] [address] [place], [place] [address] (Wo rk) 03/31/2022 Hospital Encounter Cardiology Arrived 04/03/2022 Office Visit Dermatology Mark Bishop MD [address] [place] [address] DERMATOLOGY [place], [place] [address] (Wo rk) 07/06/2022 Office Visit Urology Shane Ramos MD [facility] DR UROLOGY [place], [place] [address] (Wo rk) 08/12/2022 Office Visit Cardiology Graeme Cueva PA [facility] CARDIOLOGY DEPT [place], [place] [address] (Wo rk) documented as of this encounter Procedures Procedure Name Priority Date/Time Associated Comments Diagnosis HC PROTHROMBIN TIME STAT 08/06/2021 11:29 AM Malignant neop lasm Results for this EDT of prostate procedure are i n metastatic to milagros ne the results Pre-op testing section. HC PLATELET COUNT STAT 08/06/2021 11:29 AM Malignant neopla sm Results for this EDT of prostate procedure are i n metastatic to milagros ne the results Pre-op testing section. documented in this encounter Results Platelet count (08/06/2021 11:29 AM EDT) athologist Signature Platelets 239 145 - 357 [facility] x10(3)/[facility] LABORATORY Plat Immature 2.5 0.0 - 7.4 AVINASH ODELL % % [facility] LABORATORY Comment: Limitation of the Immature Platelet Frac tion (IPF)-May be less reliable when the platelet count is less than 16f925/u L due to statistical imprecision. The IPF [...] in a decreased state of production. References: [employer] The Clinical Value of the Immature Platelet Fraction (IPF) in Cell Recovery Document Number [id number] 07/2010 [employer] The Role of the Imm ature Platelet Fraction (IPF) in the Differential Diagnosis of Thrombocytopen ia, Document [id number] V05/01/28 P05/14 Specimen Anatomical Collection Method Collection Time Receive d Time (Source) Location / / Volume Laterality Blood 08/06/2021 11:29 08/06/2021 AM EDT 11:44 AM EDT Resulting Agency Comment Spec In Lab Jerald Bush MD HEMATOLOGY ORDERABLES Performing Organization Address City/[facility] Phon e Number [place] [phone] [facility] LAB[address]ORY [address] Prothrombin Time (08/06/2021 11:29 AM EDT) athologist Signature PT 12.1 9.4 - 12.5 [facility] LABORATORY INR 1.1 [facility] LABOR[facility] Comment: An INR <2.0 indicates [...] Bush MD HEMATOLOGY ORDERABLES Performing Organization Address City/[facility] Phon e Number [place] [phone] HOS[facility] LAB[address]ORY [address] documented in this encounter Visit Diagnoses Diagnosis Malignant neoplasm of prostate metastati c to bone Malignant neoplasm of prostate Pre-op testing Preoperative examination, unspecified documented in this encounter Care Teams Videogame Tester Relationship Specialty Start Date End Date Karla Curran MD PCP - General Family Medicine 12/16/20 580 [place] [address] documented as of this encounter
--- OUTSIDE RECORDS SUMMARY | 2022-01-15 09:39 | XMS_ITS | Encounter Summary ---
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 all cell carcinoma; [facility] Malignant neoplasm of urinar y bladder, unspecified site; [address] [place] [address] High risk medication use; [place], [place] [phone] Primary malignant neoplasm o f prostate [phone] Social History Tobacco Use Types Packs/Day Years Used Date Smoking Tobacco: Every Day Cigarettes 0.3 60 Smokeless Tobacco: Never Alcohol Use Standard Drinks/Week Comments Not Currently 0 (1 standard drink = 0.6 oz pure alcoho l) Sex Assigned at Date Recorded Not on file documented as of this encounter Progress Notes Monica Dillard RN - 09/16/2021 10:30 AM EDT INFUSION THERAPY ADMINISTRATION NOTES DIAGNOSIS: Small Cell Carcinoma CYCLE #:2 Day 1 REASON FOR VISIT: Atezo/Carbo/Etop SUBJECTIVE Mr. Banks offers no complaints. Met with provider prior to infusion and found adequate to treat. OBJECTIVE LAB DATA: Done today at [facility]- WBC 14.55, Hgb 9.0, Hct 27.8, PLT 327k, ANC 10.83, BUN 28, Cr 2.0, TSH2.09, T4 1.25 IV ACCESS: Mediport to right chest accessed at [facility] lab. Flushed after infusion with 20 [...] PLAN Return tomorrow for Cycle 2, Day 2. documented in this encounter Plan of Treatment Upcoming Encounters Date Type Specialty Care Team Description 01/20/2022 Office Visit Hematology and Oncology Rina Zazueta [address] [place] [address] (Bceky angela) 01/20/2022 Infusion Hematology and Oncology 02/19/2022 Office Visit Cardiology Liam Tompkins MD [facility] [address] [place] [address] (Wo coreen) 03/31/2022 Hospital Encounter Cardiology Arrived 04/03/2022 Office Visit Dermatology Mark Bishop MD [address] [place] [address] DERMATOLOGY [place], [place] [address] (Wo rk) 07/06/2022 Office Visit Urology Shane Ramos MD [facility] UROLOGY [place], [place] [address] (Wo rk) 08/12/2022 Office Visit Cardiology Graeme Cueva PA [facility] CARDIOLOGY DEPT [place], [place] [address] (Wo rk) documented as of this encounter [...] Dose Rate Site aprepitant (CINVANTI) injection Given 09/16/2021 10:57 AM EDT 13 0 mg Emul 130 mg 130 mg, Intravenous, ONCE, 1 dose, On Wed09/16/21 at 1100, Alternative administration of IV push over 2 minutes is a recommendation from the cone winder. Administer prior to chemotherapy., Routine atezolizumab (Tecentriq) 1,200 New Bag 09/16/2021 11:23 AM EDT 1,200 mg 540 mL/hr mg in sodium chloride 0.9% 270 mL infusion 1,200 mg, Intravenous, ONCE, 1 dose, On Wed09/16/21 at 1200, Administer over 30 Minutes, NO DOSE ADJUSTMENTS. Give initial dose over 60 minutes. If the initial dose is tolerated, all subsequent doses can be given over 30 minutes., This agent is restricted to outpatient use. Is this drug being given as an outpatient? Yes CARBOplatin (Paraplatin) 293 mg New Bag 09/16/2021 12:05 PM ED T 293 mg 558.6 mL/hr in dextrose 5% 279.3 mL infusion 293 mg (rounded from 292.5 mg, Target AUC = 5), Intravenous, ONCE, 1 dose, On Wed09/16/21 at 1200, Administer over 30 Minutes, Warning Vesicant/Irritant Medication dexAMETHasone (Decadron) tablet 10 mg Given 09/16/2021 10:55 AM EDT 10 mg 10 mg, Oral, ONCE, 1 dose, On Wed09/16/21 at 1100, Administer prior to chemotherapy, Routine etoposide (Vepesid) 148 mg in New Bag 09/16/2021 12:46 PM EDT 148 mg 507.4 mL/hr sodium chloride 0.9% Non-PVC 507.4 mL infusion 148 mg (rounded from 147.75 mg = 75 mg/m2/dose ? 1.97 m2 Treatment Plan BSA from Recorded weight), Intravenous, ONCE, 1 dose, On Wed09/16/21 at 1200, Administer over 60 Minutes, Warning Vesicant/Irritant Medication heparin (pf) (porcine) (100 units/mL) Given 09/16/2021 1:53 PM E DT 500 Units flush 5 mL syringe 500 Units 500 Units, Intravenous, ONCE PRN, Starting on Wed09/16/21 at 1043, Until Wed09/16/21 at 1601, Line Care, Refer to Intravenous (IV) Procedure: Accessing Implanted Vascular Access Devices (654) procedure and/or Intravenous (IV) Job Aid: Adult Flushing & Catheter Care (4892) job aid for additional information regarding guidelines and administration., Routine palonosetron (Aloxi) (0.05 mg/mL) injection Given 03/2021 10:56 AM EDT 0.25 mg 0.25 mg 0.25 mg, Intravenous, ONCE, 1 dose, On Wed09/16/21 at 1100, Administer over 30 seconds., Routine sodium chloride 0.9 % (flush) (BD PosiFlush Given 09/16/2021 1:53 PM EDT 20 mLs Normal Saline 0.9) flush 5-20 mL 5-20 mL, Intravenous, EVERY 1 MIN PRN, Starting on Wed09/16/21 at 1043, Until Wed09/16/21 at 1601, Line Care, Flush pertains to all indwelling lines. Flush per protocol found in the job aid using the link provided on this medication record. Refer to Intravenous (IV) Job Aid: Adult Flushing & Catheter Care (2283) job aid for additional information regarding guidelines and administration., Routine sodium chloride 0.9% infusion New Bag 09/16/2021 11:00 AM EDT 100 mL/hr 100 mL/hr 100 mL/hr, Intravenous, CONTINUOUS, Starting on Wed09/16/21 at 1100, Until Wed09/16/21 at 1601 documented in this encounter Care Teams Animal Skinner Relationship Specialty Start Date End Date Karla Curran MD PCP - General Family Medicine 12/16/20 [address] [place] [address] documented as of this encounter
--- OUTSIDE RECORDS SUMMARY | 2022-01-15 09:39 | XMS_ITS | Encounter Summary ---
:1940 Author Organization [facility] [place] [address] Care Team Providers Name Role Phone Karla Curran MD Primary Care Provider Encounter Details Date Type Department Care Team Description 04/29/2021 Office Visit Hematology/Oncology Rina Zazueta Mali gnant neoplasm of urinary bladder, unspecified site; at [facility] [employer] Malignant neoplasm of prostate; [address] [place] [address] DR Multiple lung nodules on CT [place], [place]OG [place] [phone] [place], [place] [phone] (Wo rk) Social History Tobacco Use Types Packs/Day Years Used Date Smoking Tobacco: Every Day Cigarettes 0.3 60 Smokeless Tobacco: Never Sex Assigned at Date Recorded Not on file documented as of this encounter Last Filed Vital Signs Vital Sign Reading Time Taken Comments Blood Pressure 166/91 04/29/2021 2:31 PM EDT Pulse 80 04/29/2021 2:31 PM EDT Temperature 36.7 ??C (98.1 ??F) 04/29/2021 2:31 PM EDT Respiratory Rate 17 04/29/2021 2:31 PM EDT Oxygen Saturation 99% 04/29/2021 2:31 PM EDT Inhaled Oxygen Concentration - - Weight 82 kg (180 lb 12.8 oz) 04/29/2021 2:31 PM EDT Height 176.5 cm (5' 9.5) 04/29/2021 2:31 PM EDT Body Mass Index 26.32 04/29/2021 2:31 PM EDT documented in this encounter Progress Notes Rina Zazueta, [employer] - 04/29/2021 2:30 PM EDT Images from the original note were not included. 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. Onclogical history 1. Castrate sensitive metastatic [...] was declined 3. Anemia, multifactorial stable Interval history(01/28/21): Mr. Schwarz returns for follow-up appointment metastatic prostate cancer and muscular invasive bladder cancer. He had incidental finding of pulmonary embolism on his restaging CT scan and was sent to emergency room. Started on Eliquis. Stopped Plavix and aspirin. Overall, he feels well. Denies any pain. No blood in the urine. No fever or chills. Crhis was seen by his new primary care Coby Azevedo PMH: Pulmonary embolism November 07, 2020 Pacemaker defibrillator placement 2 years ago, CAD with 2 coronary stents placement, hypertension, CHF with ejection fraction of 35% IN 2019 Patient Active Problem List Diagnosis ??? Pulmonary embolism 10/2020: detected on surveillance. No symptoms attributable. Sent to [facility] ED, started on eliquis ??? Non-ischemic cardiomyopathy 2003: EF 55% (at time of inferior NC) 2018: EF 30-35%. 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 It was stented anyway 04/2018: EF 35% 05/2018: [facility] ICD placed for primary prevention - Generator: [id number], [id number] - RA: 2088TC/52, [id number] - RV: 7122Q/58, [id number] ??? ASCVD (arteriosclerotic cardiovascular disease) 2003: Inferior NC 2018 Cath (EF decreased to 30 from [...] TNK and rescue PTCA of RCA at [facility] -Echo 06/15/02 with nl LV dimension, EF 60%, inferior and posterior hypo to akinesis, mildly thickened AV. -MIBI no ischemia 2005 #2 Hypercholesterolemia #3 COPD #4 tobacco abuse Social History: Smokes less than half a pack a day, 65 pack year smoking history, does not drink alcohol, lives at home with his Family History: Noncontributory Allergies: Allergies Allergen Reactions ??? Amoxicillin ??? Amoxicillin-Pot Clavulanate ??? Cis Free Text Allergy ANTIHISTAMINES. ??? Fexofenadine Other (See Comments) ??? Penicillins Hives Medications: Your Medications Accurate as of April 29, 2021 2:38 PM. If you have any questions, ask your nurse or doctor. Continued medications, unchanged Dose Details apixaban 5 mg Tab Commonly known as: Eliquis Take 5 mg by mouth 2 times daily. 5 mg Refills: 0 aspirin EC 81 mg Tbec Take 81 mg by mouth daily. 81 mg Refills: 0 atorvastatin 40 mg Tab Commonly known as: Lipitor Take 40 mg by mouth daily. 40 mg Refills: 0 calcium-vitamin D3 600 mg calcium- 400 unit Tab Take by mouth. Refills: 0 ELIGARD (3 MONTH) SUBQ Inject subcutaneously. Refills: 0 fluticasone propionate 220 mcg/actuation Hfaa Commonly known as: Flovent HFA Inhale 1 puff into the lungs 2 times daily. 1 puff Refills: 0 lisinopriL 2.5 mg Tab Commonly known as: Zestril Refills: 0 metoprolol tartrate 25 mg Tab Commonly known as: Lopressor Take 25 mg by mouth 2 times daily. 25 mg Refills: 0 pantoprazole EC 20 mg Tbec Commonly known [...] axillary nodes normal Neurologic: Normal Vitals BP (!) 166/91 (Patient Position: Sitting) Pulse 80 Temp 36.7 ??C (98.1 ??F) (Temporal) Resp 17 Ht 176.5 cm (5' 9.5) Wt 82 kg (180 lb 12.8 oz) SpO2 99% BMI 26.32 kg/m?? Pathology: 03/29/2015 left low lateral neck [...] of metastatic adenocarcinoma of prostatic origin. Labs: 01/20/21- WBC-6.2 Hgb/Hct-11.4/34.6 Plt-207 ANC-3.7 Na-137 K+-4.2 [...] MCV 98, platelet count 233 PSA testosteron 01/20/21 <0.008 <10.0 10/16/20 <0.008 <10 07/16/20 <0.064 Imagin01/20/21- CT chest W contrast- Impression- The small [...] sclerotic osseous metastatic disease Assessment and Plan: [facility] s/p chemo/RT completed 12/2019 Diagnosis: Prostate cancer with multiple metastasis to bones and lymph nodes Treatment: -Eligard 22.5 mg and Zometa renally adjusted dose every 3 months Mr. Banks followed with , [place] cancer specialist in [place]. PSA was undetectable in July 2020. Clinically, [...] metastasis from prostate cancer versus benign lesions. We reviewed repeat CT scan today from 04/22/21- - increase in lung nodule in right lobe and new adrenal mass seen. No new nodules. Plan to continue monitoring him clinically and repeat CT scan in 3 months. #Bladder cancer: He saw Dr. Ramos for surveillance cystoscopy on 12/23/20 which was negative. He will see Dr. [...] Continue Eligard and Zometa infusion every [address] scans in 3 months. 3. Follow up visit in 3 months with CBC,CMP, PSA, testosterone. The plan was discussed with the patient in details. All questions answered to patient satisfaction documented in this encounter Plan of Treatment Upcoming Encounters Date Type Specialty Care Team Description 01/20/2022 Office Visit Hematology and Oncology Rina Zazueta APRN [address] [place] [address] [place] [address] (Becky angela) 01/20/2022 Infusion Hematology and Oncology 02/19/2022 Office Visit Cardiology Liam Tompkins MD [facility] [address] [place] [address] (Becky angela) 03/31/2022 Hospital Encounter Cardiology Arrived 04/03/2022 Office Visit Dermatology Mark Bishop MD [address] [facility] DERMATOLOGY [place], [place] [address] (Wo rk) 07/06/2022 Office Visit Urology Shane Ramos MD [facility] UROLOGY [place], [place] [address] (Wo rk) 08/12/2022 Office Visit Cardiology Graeme Cueva PA [facility] DR CARDIOLOGY DEPT [place], [place] [address] (Wo rk) documented as of this encounter Visit Diagnoses Diagnosis Malignant neoplasm of urinary bladder, u nspecified site Malignant neoplasm of prostate Multiple lung nodules on CT documented in this encounter Care Teams Program Control Analyst Relationship Specialty Start Date End Date Karla Curran MD PCP - General Family Medicine 12/16/20 [address] [place] [address] documented as of this encounter
--- OUTSIDE RECORDS SUMMARY | 2022-01-15 09:39 | XMS_ITS | Encounter Summary ---
:1940 Author Organization [facility] [place] [address] Care Team Providers Name Role Phone Karla Curran MD Primary Care Provider Reason for Visit Reason Onset Date Comments Follow-up 09/29/2021 Encounter Details Date Type Department Care Team Description 09/29/2021 Telephone Hematology/Oncology at Peg Lutz RN Follow-up [address] [phone] Social History Tobacco Use Types Packs/Day Years Used Date Smoking Tobacco: Every Day Cigarettes 0.3 60 Smokeless Tobacco: Never Alcohol Use Standard Drinks/Week Comments Not Currently 0 (1 standard drink = 0.6 oz pure alcoho l) Sex Assigned at Date Recorded Not on file documented as of this encounter Miscellaneous Notes Telephone Encounter - Peg Lutz RN - 09/29/2021 10:52 AM EDT Spoke with pt is feeling better, still gets SOB with activity. He has rash on right foot using hydrocortisone and it is getting better. questioning labs tomorrow. Per Uma Jeronimo CURTAIN FITTER he should get labs again tomorrow. Standing orders up at [facility] inf. Continue with hydrocortisone cream. documented in this encounter Plan of Treatment Upcoming Encounters Date Type Specialty Care Team Description 01/20/2022 Office Visit Hematology and Oncology Rina Zazueta APRN [address] [place] [address] [place] [address] (Wo rk) 01/20/2022 Infusion Hematology and Oncology 02/19/2022 Office Visit Cardiology Liam Tompkins MD [facility] [address] [place] [address] (Wo rk) 03/31/2022 Hospital Encounter Cardiology Arrived 04/03/2022 Office Visit Dermatology Mark Bishop MD [address] [facility] DERMATOLOGY [place], [place] [address] (Wo rk) 07/06/2022 Office Visit Urology Shane Ramos MD [facility] UROLOGFrida [place], [place] [address] (Wo rk) 08/12/2022 Office Visit Cardiology Graeme Cueva PA [facility] CARDIOLOGY DEPT [place], [place] [address] (Wo rk) documented as of this encounter Visit Diagnoses Not on filedocumented in this encounter Care Teams Teletypesetter Operator Relationship Specialty Start Date End Date Karla Curran MD PCP - General Family Medicine 12/16/20 580 [place], [place] [phone] documented as of this encounter
--- OUTSIDE RECORDS SUMMARY | 2022-01-15 09:39 | XMS_ITS | Encounter Summary ---
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 all cell carcinoma; [facility] Malignant neoplasm of urinar y bladder, unspecified site; [address] [place] [address] High risk medication use; [place], [place] [phone] Primary malignant neoplasm o f prostate [phone] Social History Tobacco Use Types Packs/Day Years Used Date Smoking Tobacco: Every Day Cigarettes 0.3 60 Smokeless Tobacco: Never Alcohol Use Standard Drinks/Week Comments Not Currently 0 (1 standard drink = 0.6 oz pure alcoho l) Sex Assigned at Date Recorded Not on file documented as of this encounter Last Filed Vital Signs Vital Sign Reading Time Taken Comments Blood Pressure 150/57 09/18/2021 1:25 PM EDT Pulse 67 09/18/2021 1:25 PM EDT Temperature 36.1 ??C (97 ??F) 09/18/2021 1:25 PM EDT Respiratory Rate 16 09/18/2021 1:25 PM EDT Oxygen Saturation 99% 09/18/2021 1:25 PM EDT Inhaled Oxygen Concentration - - Weight 80.8 kg (178 lb 3.2 oz) 09/18/2021 1:25 PM EDT Height 176.5 cm (5' 9.49) 09/18/2021 1:25 PM EDT Body Mass Index 25.95 09/18/2021 1:25 PM EDT documented in this encounter Progress Notes Patricia Taylor RN - 09/18/2021 1:30 PM EDT INFUSION THERAPY ADMINISTRATION NOTES DIAGNOSIS: Small Cell Carcinoma CYCLE #:2 Day 3 REASON FOR VISIT: Etoposide SUBJECTIVE Mr. Banks offers no complaints. OBJECTIVE LAB DATA: 09/16/21 at [facility]- WBC 14.55, Hgb 9.0, Hct 27.8, PLT 327k, ANC 10.83, BUN 28, Cr 2.0, TSH 2.09, T4 1.25 IV ACCESS: Mediport to right chest accessed from treatment yesterday. Flushed after infusion with 20cc NS and 500 units heparin. Mediport deaccessed prior to discharge. Pre administration: Chemotherapy orders independently verified for drug name, route, and dosage per patient's height, weight and BSA by Patricia Astorga RN & on-site pharmacist. REACTIONS (DESCRIPTION, TIME, INTERVENTION AND EFFECTIVENESS) none ASSESSMENT Chris was awake, alert and tolerated treatment well. OnPro applied to right arm at 1430. Due to start deploying dose of medication tomorrow at 1730. Patient instructed to remove tomorrow at 1830 when meter reads empty and light is solid green. Verbal andwritten instruction given to patient. PLAN Return to clinic as planned. documented in this encounter Plan of Treatment Upcoming Encounters Date Type Specialty Care Team Description 01/20/2022 Office Visit Hematology and Oncology Rina Zazueta, [address] [place] [address] (Wo rk) 01/20/2022 Infusion Hematology and Oncology 02/19/2022 Office Visit Cardiology Liam Tompkisn MD [facility] [address] [place], [place] [address] (Wo rk) 03/31/2022 Hospital Encounter Cardiology Arrived 04/03/2022 Office Visit Dermatology Mark Bishop MD [address] DERMATOLOGY [place], [place] [address] (Wo rk) 07/06/2022 Office Visit Urology Shaen Ramos MD [facility] UROLOGY [place], [place] [address] (Wo rk) 08/12/2022 Office Visit Cardiology Graeme Cueva PA [facility] DR CARDIOLOGY DEPT [place], [place] [address] (Wo rk) documented as of [...] Rate Site dexAMETHasone (Decadron) tablet 10 Given 09/18/2021 1:22 PM EDT 10 mg mg 10 mg, Oral, ONCE, 1 dose, On Chelo 09/18/21 at 1330, Administer prior to chemotherapy, Routine etoposide (Vepesid) 148 mg in New Bag 09/18/2021 1:31 PM EDT 148 m g 507.4 mL/hr sodium chloride 0.9% Non-PVC 507.4 mL infusion 148 mg (rounded from 147.75 mg = 75 mg/m2/dose ? 1.97 m2 Treatment Plan BSA from Recorded weight), Intravenous, ONCE, 1 dose, On Chelo 09/18/21 at 1430, Administer over 60 Minutes, Warning Vesicant/Irritant Medication heparin (pf) (porcine) (100 units/mL) Given 09/18/2021 2:47 PM E DT 500 Units flush 5 mL syringe 500 Units 500 Units, Intravenous, ONCE PRN, Starting on Chelo 09/18/21 at 1111, Until Chelo 09/18/21 at 1700, Line Care, Refer to Intravenous (IV) Procedure: Accessing Implanted Vascular Access Devices (654) procedure and/or Intravenous (IV) Job Aid: Adult Flushing & Catheter Care (3560) job aid for additional information regarding guidelines and administration., Routine pegfilgrastim (Neulasta Onpro) (6 Given 09/18/2021 2:30 PM EDT 6 mg Right Arm mg/0.6 mL) injection kit 6 mg 6 mg, Subcutaneous, ONCE, 1 dose, On Chelo 09/18/21 at 1330, Allow the prefilled syringe co-packaged with the on-body injector to reach room temperature at least 30 minutes prior to administration., Routine, This agent is restricted to outpatient use. Is this drug being given as an outpatient? Yes sodium chloride 0.9 % (flush) (BD PosiFlush Given 09/18/2021 2:47 PM EDT 20 mLs Normal Saline 0.9) flush 5-20 mL 5-20 mL, Intravenous, EVERY 1 MIN PRN, Starting on Chelo 09/18/21 at 1111, Until Chelo 09/18/21 at 1700, Line Care, Flush pertains to all indwelling lines. Flush per protocol found in the job aid using the link provided on this medication record. Refer to Intravenous (IV) Job Aid: Adult Flushing & Catheter Care (9814) job aid for additional information regarding guidelines and administration., Routine sodium chloride 0.9% infusion New Bag 09/18/2021 1:25 PM EDT 100 mL/hr 100 mL/hr 100 mL/hr, Intravenous, CONTINUOUS, Starting on Chelo 09/18/21 at 1330, Until Chelo 09/18/21 at 1700 documented in this encounter Care Teams Ux Manager Relationship Specialty Start Date End Date Karla Curran MD PCP - General Family Medicine 12/16/20 [address] [place] [address] documented as of this encounter
--- OUTSIDE RECORDS SUMMARY | 2022-01-15 09:39 | XMS_ITS | Encounter Summary ---
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, unspecified site High risk medication use Jerald Bush MD [facility] Hem Onc Office [address] HEMATOLOGY/[place] [phone] Fax: Referral ID Status Reason Start Date Expiration Date Visits Requ ested Visits Authorized [id number] Closed 08/12/2021 08/12/2022 99 99 Encounter Details Date Type Department Care Team Description 08/26/2021 Infusion Hematology Oncology at [facility] all cell carcinoma; [facility] Malignant neoplasm of urinar y bladder, unspecified site; [address] [place] [address] High risk medication use; [place], [place] [phone] Primary malignant neoplasm o f prostate [phone] Social History Tobacco Use Types Packs/Day Years Used Date Smoking Tobacco: Every Day Cigarettes 0.3 60 Smokeless Tobacco: Never Alcohol Use Standard Drinks/Week Comments Not Currently 0 (1 standard drink = 0.6 oz pure alcoho l) Sex Assigned at Date Recorded Not on file documented as of this encounter Progress Notes Patricia Taylor RN - 08/26/2021 11:00 AM EDT INFUSION THERAPY ADMINISTRATION NOTES DIAGNOSIS: Small Cell Cancer Unknown Origin CYCLE #:1, Day 1 REASON FOR VISIT: Atezo/Carbo/Etop SUBJECTIVE Mr. Banks offers no complaints. Met with Uma Jeronimo NP prior to infusion for chemo teach and foundadequate to treat. OBJECTIVE LAB DATA: WBC 5.67; Hgb 11.5; Hct 34.7; Plt 203; ANC 3.36; Lytes WNL; BUN 31; Cr 1.9 IV ACCESS: Mediport to right chest accessed at [facility] lab. Flushed after infusion with 20cc NS and 500unit heparin. Left accessed for tomorrow's infusion. Pre administration: Chemotherapy orders independently verified for drug name, route, and dosage per patient's height, weight and BSA by Patricia Astorga RN & on-site pharmacist. REACTIONS (DESCRIPTION, TIME, INTERVENTION AND EFFECTIVENESS) none ASSESSMENT Chris was awake, alert and tolerated treatment well. PLAN Return tomorrow for Cycle 1, Day 2. documented in this encounter Plan of Treatment Upcoming Encounters Date Type Specialty Care Team Description 01/20/2022 Office Visit Hematology and Oncology Rina Zazueta [employer] OPER[employer] [address] [place] [address] [place] [address] (Becky angela) 01/20/2022 Infusion Hematology and Oncology 02/19/2022 Office Visit Cardiology Liam Tompkins MD [facility] [address] [place] [address] (Wo coreen) 03/31/2022 Hospital Encounter Cardiology Arrived 04/03/2022 Office Visit Dermatology Mark Bishop MD [address] [place] [address] DERMATOLOGY [place], [place] [address] (Wo coreen) 07/06/2022 Office Visit Urology Shane Ramos MD [facility] UROLOGY [place], [place] [address] (Wo rk) 08/12/2022 Office Visit Cardiology Graeme Cueva PA [facility] CARDIOLOGY DEPT [place], [place] [address] (Wo rk) documented as of [...] Dose Rate Site aprepitant (CINVANTI) injection Given 08/26/2021 11:02 AM EDT 13 0 mg Emul 130 mg 130 mg, Intravenous, ONCE, 1 dose, On Wed08/26/21 at 1045, Alternative administration of IV push over 2 minutes is a recommendation from the supervisor poultry hatchery. Administer prior to chemotherapy., Routine atezolizumab (Tecentriq) 1,200 New Bag 08/26/2021 11:10 AM EDT 1,200 mg 270 mL/hr mg in sodium chloride 0.9% 270 mL infusion 1,200 mg, Intravenous, ONCE, 1 dose, On Wed08/26/21 at 1145, Administer over 60 Minutes, NO DOSE ADJUSTMENTS. Give initial dose over 60 minutes. If the initial dose is tolerated, all subsequent doses can be given over 30 minutes., This agent is restricted to outpatient use. Is this drug being given as an outpatient? Yes CARBOplatin (Paraplatin) 293 mg New Bag 08/26/2021 12:29 PM ED T 293 mg 558.6 mL/hr in dextrose 5% 279.3 mL infusion 293 mg (rounded from 292.5 mg, Target AUC = 5), Intravenous, ONCE, 1 dose, On Wed08/26/21 at 1145, Administer over 30 Minutes, Warning Vesicant/Irritant Medication dexAMETHasone (Decadron) (10 mg/mL) injection Given 10:58 AM EDT 10 mg 10 mg 10 mg, Intravenous, ONCE, 1 dose, On Wed08/26/21 at 1045, Administer prior to chemotherapy etoposide (Vepesid) 148 mg in New Bag 08/26/2021 1:10 PM EDT 148 m g 338.3 mL/hr sodium chloride 0.9% Non-PVC 507.4 mL infusion 148 mg (rounded from 147.75 mg = 75 mg/m2/dose ? 1.97 m2 Treatment Plan BSA from Recorded weight), Intravenous, ONCE, 1 dose, On Wed08/26/21 at 1145, Administer over 90 Minutes, Warning Vesicant/Irritant Medication heparin (pf) (porcine) (100 units/mL) Given 08/26/2021 2:54 PM E DT 500 Units flush 5 mL syringe 500 Units 500 Units, Intravenous, ONCE PRN, Starting on Wed08/26/21 at 1022, Until Wed08/26/21 at 1703, Line Care, Refer to Intravenous (IV) Procedure: Accessing Implanted Vascular Access Devices (654) procedure and/or Intravenous (IV) Job Aid: Adult Flushing & Catheter Care (3281) job aid for additional information regarding guidelines and administration., Routine palonosetron (Aloxi) (0.05 mg/mL) injection Given 08/15 11:00 AM EDT 0.25 mg 0.25 mg 0.25 mg, Intravenous, ONCE, 1 dose, On Wed08/26/21 at 1045, Administer over 30 seconds., Routine sodium chloride 0.9 % (flush) (BD PosiFlush Given 08/26/2021 2:54 PM EDT 20 mLs Normal Saline 0.9) flush 5-20 mL 5-20 mL, Intravenous, EVERY 1 MIN PRN, Starting on Wed08/26/21 at 1022, Until Wed08/26/21 at 1703, Line Care, Flush pertains to all indwelling lines. Flush per protocol found in the job aid using the link provided on this medication record. Refer to Intravenous (IV) Job Aid: Adult Flushing & Catheter Care (7387) job aid for additional information regarding guidelines and administration., Routine sodium chloride 0.9% infusion New Bag 08/26/2021 10:30 AM EDT 100 mL/hr 100 mL/hr 100 mL/hr, Intravenous, CONTINUOUS, Starting on Wed08/26/21 at 1045, Until Wed08/26/21 at 1703 documented in this encounter Care Teams Management Engineer Relationship Specialty Start Date End Date Karla Curran MD PCP - General Family Medicine 12/16/20 [address] [place] [address] documented as of this encounter
--- OUTSIDE RECORDS SUMMARY | 2022-01-15 09:39 | XMS_ITS | Encounter Summary ---
:1940 Author Organization [facility] [place] [address] Care Team Providers Name Role Phone Karla Curran MD Primary Care Provider Encounter Details Date Type Department Care Team Description 08/26/2021 Office Visit Hematology/Oncology Jolie Bush MD [facility] HEMATOLOGY/[place] [address] Malignant neoplasm of urinary bladder, u nspecified site; at [facility] Uma Jeronimo APRN [facility] [place] [address] Hypothyroidism due to drugs [address] [place] [phone] Social History Tobacco Use Types Packs/Day Years Used Date Smoking Tobacco: Every Day Cigarettes 0.3 60 Smokeless Tobacco: Never Alcohol Use Standard Drinks/Week Comments Not Currently 0 (1 standard drink = 0.6 oz pure alcoho l) Sex Assigned at Date Recorded Not on file documented as of this encounter Last Filed Vital Signs Vital Sign Reading Time Taken Comments Blood Pressure 136/85 08/26/2021 9:29 AM EDT Pulse 72 08/26/2021 9:29 AM EDT Temperature 36.2 ??C (97.1 ??F) 08/26/2021 9:29 AM EDT Respiratory Rate 18 08/26/2021 9:29 AM EDT Oxygen Saturation 97% 08/26/2021 9:29 AM EDT Inhaled Oxygen Concentration - - Weight 77.8 kg (171 lb 9.6 oz) 08/26/2021 9:29 AM EDT Height 176.5 cm (5' 9.49) 08/26/2021 9:29 AM EDT Body Mass Index 24.99 08/26/2021 9:29 AM EDT documented in this encounter Patient Instructions Patient InstructionsUma Jeronimo APRN - 08/26/2021 10:00 AM EDT He will return in 2 weeks with labs prior for followup - he will return in 3 weeks with labs prior for cycle 2 and followup. documented in this encounter Progress Notes Uma Jeronimo APRN - 08/26/2021 10:00 AM EDT Images from the original note were not included. 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 Onclogical history 1. Castrate sensitive metastatic [...] declined 3. Anemia, multifactorial stable Interval history 08/26/21 He is here today for followup, chemotherapy teaching and start of his chemotherapy treatment. He states that he is feeling well. Since his last visit he has had a mediport placed. He denies any pain. He denies any chest pain shortness of breath or cough. His appetite is good. ROS is otherwise negative Interval history(08/12/21): Mr. Schwarz returns for follow-up appointment after biopsy of adrenal gland. He feels well. Denies pain. No focal complaints PMH: No interval changes since last visit Kidney stone ER visit in [place] Pulmonary embolism November 07, 2020 Pacemaker defibrillator placement 2 years ago, CAD with 2 coronary stents placement, hypertension, CHF with ejection fraction of 35% IN 2020 Patient Active Problem List Diagnosis ??? Small cell carcinoma ??? Malignant neoplasm of urinary bladder ??? High risk medication use ??? Pulmonary embolism 10/2020: detected on surveillance. No symptoms attributable. Sent to [facility] ED, started on eliquis ??? Non-ischemic cardiomyopathy 2003: EF 55% (at time of inferior TN) 2018: EF 30-35%. 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 It was stented anyway 04/2018: EF 35% 05/2018: [facility] ICD placed for primary prevention - Generator: [id number], [id number] - RA: 2088TC/52, [id number] - RV: 7122Q/58, [id number] ??? ASCVD (arteriosclerotic cardiovascular disease) 2003: Inferior TN 2018 Cath (EF decreased to 30 from [...] TNK and rescue PTCA of RCA at [facility] -Echo 06/15/02 with nl [...] Hives Medications: Your Medications Accurate as of August 26, 2021 10:23 AM. If you have any questions, ask [...] axillary nodes normal Neurologic: Normal Vitals BP 136/85 (Patient Position: Sitting) Pulse 72 Temp 36.2 ??C (97.1 ??F) (Temporal) Resp18 Ht 176.5 cm (5' 9.49) Wt 77.8 kg (171 lb 9.6 oz) SpO2 97% BMI 24.99 kg/m?? Pathology: 08/06/21 DIAGNOSIS Left adrenal gland, [...] of metastatic adenocarcinoma of prostatic origin. Labs 08/26/21 WBC 5.67 H/H11.5/34.7 Plts 203 ANC [...] sclerotic osseous metastatic disease Assessment and Plan: [facility] s/p chemo/RT completed 12/2019 Diagnosis: Prostate cancer with multiple metastasis to bones and lymph nodes Treatment: -Eligard 22.5 mg and Zometa renally adjusted dose every 3 months Mr. Banks followed with , [place] cancer specialist in [place]. PSA was undetectable in July 2020. Clinically, [...] low blood countsrequiring blood transfusion, infection including life-threatening infection as well as immune mediated thyroiditis, hypo or hyperthyroidism, immune mediated colitis, hepatitis, skin rash. All questionswere answered to patient's satisfaction. He is interested to proceed with chemotherapy. Informed verbal consent was obtained We will complete his staging with PET scan and brain MRI We will arrange Mediport placement. #Bladder cancer: He saw Dr. Ramos for [...] stable continue surveillance every 6 months. Plan: 08/26/21 1. He will receive his first cycle of carboplatin/etoposide and atezolizumab.f . 2. He will have a CT scan of his brain. 3. He will have cycle 2 in 3 weeks with labs prior. 4. Next visit in 2 weeks with CBC, CMP, The plan was discussed with the patient in details. All questions answered to patient satisfaction Chemotherapy teaching The following information was reviewed with the patient and family. All questions were asked and answered. They were comfortable with starting treatment. Carboplatin (Day 1) and Etoposide (Days 1, 2 & 3) every 21 days Atezolizumab (DAY 1). Labs will be done prior to each cycle of chemotherapy Provider Visits: Day 1 each cycle with lab work prior to infusion therapy Possible Side Effects Carboplatin : [facility] Etoposide: [facility] Medications: the following prescription should be picked up before starting treatment Prochlorperazine (Compazine): 10 mg (1 tablet) every 6 hours as needed for nausea Ondansetron (Zofran) 8 mg 1 tablet every 8 hours as needed for nausea Plan: .he was given written information regarding chemotherapy regimen, side effects and management strategies.He was given an o pportunity to ask questions and verbalized understanding of the information and treatment plan. No barriers to learning were identified. He was counseled on how to call for any further questions or concerns. ??? Chemotherapy is scheduled to begin on 08/26/21 ??? Testing/Diagnostics o Baseline blood work was reviewed and is adequate for treatment ??? Supportive Care: o To reduce the risk of neutropenia, patient will receive Neulasta onpro. This will be done on day 3of treatment. Neulasta may cause skeletal pain for several days after each injection. Claritin (loratadine) may be helpful in alleviating neulasta related bone pain. Patient may take 10 mg starting before their injection and continue to take daily for 5-7 days. o Antiemetics were reviewed with and patient understands how and when to take the medications prescribed o Hydration: -Hydration is important, try to drink plenty of fluids - 6-8 glasses of fluids per day (for example: Water and Gatorade) -Try to limit or avoid caffeinated drinks as they will dehydrate you. -Avoid alcohol during treatment as chemotherapy is already effects the liver and alcohol can make itworse. o Energy Levels / Fatigue: -Steroids are given with your treatment and can make you feel energized the first few days after treatment. You may feel fatigued by the end of the week. - Fatigue can be cumulative, meaning it can become worse with each treatment. - It is important to save your energy for the things most important to you -Try to stay active, but listen to your body when it is time to rest Antitumor Therapy Schedule: Atezolizumab (Tecentriq) - once every 3 weeks Infusion itself takes 60 minutes Laboratory Tests: CBC, CMP, TSH, Free T4 Provider Visits: Every 3 weeks with lab work prior to infusion therapy Possible Side Effects include, but are not limited to: Atezolizumab: side effects include but are not limited to low blood counts (decrease in red blood cells, resulting in anemia), fatigue, infusion reaction, skin reactions or rash (redness, blistering, peeling or loosening of the skin, including inside the mouth), increased liver enzymes, constipation or diarrhea, shortness of breath, nausea, vomiting, swelling, itching, electrolyte abnormalities, dizziness, joint or muscle pain, thyroid dysfunction, headaches. A serious but uncommon side effect may be an immune-mediated reaction. When this side effect occurs, it affects primarily the bowels, liver, skin, nerves and the endocrine system documented in this encounter Plan of Treatment Upcoming Encounters Date Type Specialty Care Team Description 01/20/2022 Office Visit Hematology and Oncology Rina Zazueta APRN [address] [place] [address] [place] [address] (Wo rk) 01/20/2022 Infusion Hematology and Oncology 02/19/2022 Office Visit Cardiology Liam Tompkins MD [facility] [address] [place], [place] [address] (Wo rk) 03/31/2022 Hospital Encounter Cardiology Arrived 04/03/2022 Office Visit Dermatology Mark Bishop MD [address] [place] [address] DERMATOLOGY [place], [place] [address] (Wo rk) 07/06/2022 Office Visit Urology Shane Ramos MD [facility] UROLOGY [place], [place] [address] (Wo rk) 08/12/2022 Office Visit Cardiology Graeme Cueva PA [facility] CARDIOLOGY DEPT [place], [place] [address] (Wo rk) Scheduled Orders Name Type Priority Associated Diagnoses Order S chedule TSH Lab Routine Malignant neoplasm of urinar y As Needed for 15 Occurrences bladder, unspeci fied site starting 08/26/2021 until Hypothyroidism due to drugs 08/26/2022 T4, free Lab Routine Malignant neoplasm of urinar y As Needed for 15 Occurrences bladder, unspeci fied site starting 08/26/2021 until Hypothyroidism due to drugs 08/26/2022 documented as of this encounter Visit Diagnoses Diagnosis Malignant neoplasm of urinary bladder, u nspecified site 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
--- OUTSIDE RECORDS SUMMARY | 2022-01-15 09:39 | XMS_ITS | Encounter Summary ---
:1940 Author Organization [facility] [place] [address] Care Team Providers Name Role Phone Karla Curran MD Primary Care Provider Reason for Visit Reason Comments Coronary Artery Disease Cardiomyopathy Encounter Details Date Type Department Care Team Description 06/16/2021 Office Visit Cardiology at Liam Tompkins ASCVD (ar teriosclerotic cardiovascular disease); Maria G SONG Pulmonary embolism, unspecified chronici ty, unspecified pulmonary embolism type, unspecified whether acute cor pulmonale present; [address] [facility] Non-isch emic cardiomyopathy [facility] [address], [place] [phone] Social History Tobacco Use Types Packs/Day Years Used Date Smoking Tobacco: Every Day Cigarettes 0.3 60 Smokeless Tobacco: Never Sex Assigned at Date Recorded Not on file documented as of this encounter Last Filed Vital Signs Vital Sign Reading Time Taken Comments Blood Pressure 150/79 06/16/2021 9:53 AM EDT Pulse 61 06/16/2021 9:53 AM EDT Temperature - - Respiratory Rate 22 06/16/2021 9:53 AM EDT Oxygen Saturation - - Inhaled Oxygen Concentration - - Weight 81.6 kg (180 lb) 06/16/2021 9:53 AM EDT Height 176.5 cm (5' 9.5) 06/16/2021 9:53 AM EDT Body Mass Index 26.2 06/16/2021 9:53 AM EDT documented in this encounter Progress Notes Liam Tompkins MD - 06/16/2021 9:40 AM EDT Images from the original note were not included. Subjective: Patient ID: Chris Banks is a 80 y.o. male who presents on follow-up for: Chief Complaint Patient presents with ??? Coronary Artery Disease ??? Cardiomyopathy HPI Last seen by me 12/2020, at which time no changes were made. Since then, he has been doing relatively well. Reasonable activity is without exertional encumbrance. No angina, orthopnea/pnd, weight gain, palpitations No bleeding on eliquis Current Outpatient Medications: ??? leuprolide acetate (ELIGARD, 3 MONTH, SUBQ), Inject subcutaneously., Disp: , Rfl: ??? calcium-vitamin D3 600 mg calcium- 400 unit Tablet, Take by mouth., Disp: , Rfl: ??? lisinopriL (Zestril) 5 mg Tablet, 5 mg., Disp: , Rfl: ??? metoprolol tartrate (Lopressor) 25 mg Tablet, Take 25 mg by mouth 2 times daily., Disp: , Rfl: ??? atorvastatin (Lipitor) 40 mg Tablet, Take 40 mg by mouth daily., Disp: , Rfl: ??? zoledronic acid (Zometa) 4 mg/5 mL Solution, Inject 4 mg into the vein every 21 days., Disp: , Rfl: ??? apixaban (Eliquis) 5 mg Tablet, Take 5 mg by mouth 2 times daily., Disp: , Rfl: ??? pantoprazole EC (Protonix) 20 mg Tablet, Delayed Release (E.C.), Take 20 mg by mouth daily., Disp: , Rfl: ??? fluticasone propionate (Flovent HFA) 220 mcg/actuation HFA Aerosol Inhaler, Inhale 1 puff into the lungs 2 times daily., Disp: , Rfl: ??? nitroGLYcerin (Nitrostat) 0.4 mg Tablet, Sublingual, Place 1 tablet under the tongue every 5 minutes as needed for Chest pain., Disp: 25 tablet, Rfl: PRN Patient Active Problem List Diagnosis ??? Pulmonary embolism 10/2020: detected on surveillance. No symptoms attributable. Sent to [facility] ED, started on eliquis ??? Non-ischemic cardiomyopathy 2003: EF 55% (at time of inferior NE) 2018: EF 30-35%. 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 It was stented anyway 04/2018: EF 35% 05/2018: [facility] [employer] ICD placed for primary prevention - Generator: [id number], [id number] - RA: 2088TC/52, [id number] - RV: 7122Q/58, [id number] ??? ASCVD (arteriosclerotic cardiovascular disease) 2003: Inferior NE 2018 Cath (EF decreased to 30 from [...] hyperglyceridemia ??? Tobacco dependence with current use Objective: BP 150/79 (BP Location (NBP): Right arm, Patient Position: Sitting, BP Cuff Sizes: Adult (25-34 cm)) Pulse 61 Resp 22 Ht 176.5 cm (5' 9.5) Wt 81.6 kg (180 lb) BMI 26.20 kg/m?? Gen: pleasant male in NAD Cor: rrr, s1/s2 of nl character and amplitude, no m/r/g. Estimated RAP not elevated. Carotids with normal upstroke without bruit. Pulm: CTAB. Normal diaphragmatic movement without use of accessory muscles Device Check Device: [facility] [employer] dcICD Implanted 2018 Indication: primary prevention of SCD Battery: 9.5 years Mode: DDDR, LRL 60 Atrial Ventricular Impedence (ohms) 610 490 Sensitivity (mV) 0.5 2.0 Threshold (V) 1.375 1.0 Amplitude (V) 2.0 2.0 Paced % 29 13 AT/AF burden: <0.1% Events: none Programming Changes: Iterative changes for testing purposes Assessment and Plan: ASCVD (arteriosclerotic cardiovascular disease) No angina per history. - Anti-Thrombosis: eliquis - Statin: lipitor 40 - Anti-anginals: GTN PRN, metoprolol Pulmonary embolism Reviewed that if upcoming PET scan was without disease, it would be reasonable to consider stopping eliquis. However, if active disease remains, would be inclined to continue, as it represents ongoing significant risk - eliquis 5 bid Non-ischemic cardiomyopathy No failure by history nor exam. - Diuresis: none - Cardioprotection: - Beta Blockade: lopressor 25 bid. - RAASi Lisinopril 5 QD - MC Blockade: not indicated - Devices: ICD in place. RTC 6 months Liam Tompkins MD documented in this encounter Miscellaneous Notes Assessment & Plan Note - Liam Tompkins MD - 06/22/2021 3:56 PM EDTAssociated Problem(s): Non-ischemic cardiomyopathy No failure by history nor exam. - Diuresis: none - Cardioprotection: - Beta Blockade: lopressor 25 bid. - RAASi Lisinopril 5 QD - MC Blockade: not indicated - Devices: ICD in place. Assessment & Plan Note - Liam Tompkins MD - 06/22/2021 3:55 PM EDTAssociated Problem(s): Pulmonary embolism Reviewed that if upcoming PET scan was without disease, it would be reasonable to consider stopping eliquis. However, if active disease remains, would be inclined to continue, as it represents ongoing significant risk - eliquis 5 bid Assessment & Plan Note - Liam Tompkins MD - 06/22/2021 3:54 PM EDTAssociated Problem(s): ASCVD (arteriosclerotic cardiovascular disease) No angina per history. - Anti-Thrombosis: eliquis - Statin: lipitor 40 - Anti-anginals: GTN PRN, metoprolol documented in this encounter Plan of Treatment Upcoming Encounters Date Type Specialty Care Team Description 01/20/2022 Office Visit Hematology and Oncology Rina Zazueta, AGENT CONTRACT CLERK[address] [place] [address] (Wo rk) 01/20/2022 Infusion Hematology and Oncology 02/19/2022 Office Visit Cardiology Liam Tompkins MD [facility] [address] [place], [place] [address] (Wo rk) 03/31/2022 Hospital Encounter Cardiology Arrived 04/03/2022 Office Visit Dermatology Mark Bishop MD [address] [facility] DERMATOLOGY [place], [place] [address] (Wo rk) 07/06/2022 Office Visit Urology Shane Ramos MD [facility] UROLOGY [place], [place] [address] (Wo rk) 08/12/2022 Office Visit Cardiology Graeme Cueva PA [facility] DR CARDIOLOGY DEPT [place], [place] [address] (Wo rk) documented as of this encounter Visit Diagnoses Diagnosis ASCVD (arteriosclerotic cardiovascular d isease) Unspecified cardiovascular disease Pulmonary embolism, unspecified chronici ty, unspecified pulmonary embolism type, unspecified whether acute cor pulmonale present Non-ischemic cardiomyopathy Other primary cardiomyopathies documented in this encounter Care Teams Catalyst Operator Gasoline Relationship Specialty Start Date End Date Karla Curran MD PCP - General Family Medicine 12/16/20 [address] [place] [address] documented as of this encounter
--- OUTSIDE RECORDS SUMMARY | 2022-01-15 09:39 | XMS_ITS | Encounter Summary ---
:1940 Author Organization [facility] [place] [address] Care Team Providers Name Role Phone Karla Curran MD Primary Care Provider Encounter Details Date Type Department Care Team Description 09/25/2021 Telephone Hematology and Oncology at Gladys Hudson MD [facility] Mikel zheng HEMATOLOGY/[place] [address] [place] [address] [phone] (Wo rk) Social History Tobacco Use Types Packs/Day Years Used Date Smoking Tobacco: Every Day Cigarettes 0.3 60 Smokeless Tobacco: Never Alcohol Use Standard Drinks/Week Comments Not Currently 0 (1 standard drink = 0.6 oz pure alcoho l) Sex Assigned at Date Recorded Not on file documented as of this encounter Miscellaneous Notes Telephone Encounter - Gladys Hudson MD - 09/25/2021 4:49 PM EDT [facility] - TELEPHONE NOTE Reason for call: shortness of breath; Hgb 7.4 HPI (from caller and chart review): Spoke with Dr. Vuong at [facility]. 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 Castrate sensitive metastatic prostate [...] last Eligard and Zometa July 30, 2020 ?? 2. High-grade muscular invasive urothelial carcinoma of [...] status post six cycles. Cystectomy was declined ?? 3. Anemia, multifactorial stable Hgb was 9 --> 7.4 after receiving chemotherapy 1 week ago. Full workup for shortness of breath exhausted. D-Dimer negative and on Eliquis without missing doses. Will get guaic stool and continue Eliquis. He has follow-up scheduled with Dr. Bush. I am not able to examine the patient. I personally reviewed labs and imaging studies. Assessment: 80 y.o. male with metastatic prostate cancer on active therapy with carbo/etopo/atezo, last dose 09/16/2021, presenting with QUINTANA. Full workup negative other than Hgb drop from 9 --> 7.4. Plan per Dr. Bush's note is transfuse for Hgb < 8. Recommendations: - Agree with blood transfusion for Hgb <8 - He has f/up scheduled with Dr. Bush on 10/07/2021 The above is based on my discussion with Dr. Vuong. I am not able to independently interview and examine the patient. I encouraged the caller to reach out again if clinical status changes or if additional questions arise. Gladys Hudson MD, MS Hematology/Oncology Fellow [facility] Pager [phone] documented in this encounter Plan of Treatment Upcoming Encounters Date Type Specialty Care Team Description 01/20/2022 Office Visit Hematology and Oncology Rina Zazueta, [address] [place] [address] (Wo rk) 01/20/2022 Infusion Hematology and Oncology 02/19/2022 Office Visit Cardiology Liam Tompkins MD [facility] [address] [place], [place] [address] (Wo rk) 03/31/2022 Hospital Encounter Cardiology Arrived 04/03/2022 Office Visit Dermatology Mark Bishop MD [address] [facility] DERMATOLOGY [place], [place] [address] (Wo rk) 07/06/2022 Office Visit Urology Shane Ramos MD [facility] UROLOGY [place], [place] [address] (Wo rk) 08/12/2022 Office Visit Cardiology Graeme Cueva PA [facility] CARDIOLOGY DEPT [place], [place] [address] (Wo rk) documented as of this encounter Visit Diagnoses Not on filedocumented in this encounter Care Teams Biostatistics Professor Relationship Specialty Start Date End Date Karla Curran MD PCP - General Family Medicine 12/16/20 [address] [place] [address] documented as of this encounter
--- OUTSIDE RECORDS SUMMARY | 2022-01-15 09:39 | XMS_ITS | Encounter Summary ---
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, unspecified site High risk medication use Jerald Bush MD [facility] Hem Onc Office [address] HEMATOLOGY/ONCOLOGY [place], [place] [phone] Fax: Referral ID Status Reason Start Date Expiration Date Visits Requ ested Visits Authorized [id number] Closed 08/12/2021 08/12/2022 99 99 Encounter Details Date Type Department Care Team Description 08/28/2021 Infusion Hematology Oncology at [facility] all cell carcinoma; [facility] Malignant neoplasm of urinar y bladder, unspecified site; [address] [place] [address] High risk medication use; [place], [place] [phone] Primary malignant neoplasm o f prostate [phone] Social History Tobacco Use Types Packs/Day Years Used Date Smoking Tobacco: Every Day Cigarettes 0.3 60 Smokeless Tobacco: Never Alcohol Use Standard Drinks/Week Comments Not Currently 0 (1 standard drink = 0.6 oz pure alcoho l) Sex Assigned at Date Recorded Not on file documented as of this encounter Last Filed Vital Signs Vital Sign Reading Time Taken Comments Blood Pressure 142/48 08/28/2021 1:21 PM EDT Pulse 80 08/28/2021 1:21 PM EDT Temperature 36.4 ??C (97.5 ??F) 08/28/2021 1:21 PM EDT Respiratory Rate 20 08/28/2021 1:21 PM EDT Oxygen Saturation 97% 08/28/2021 1:21 PM EDT Inhaled Oxygen Concentration - - Weight 80.9 kg (178 lb 6.4 oz) 08/28/2021 1:21 PM EDT Height 176.5 cm (5' 9.49) 08/28/2021 1:21 PM EDT Body Mass Index 25.97 08/28/2021 1:21 PM EDT documented in this encounter Progress Notes Jill Hall RN - 08/28/2021 1:30 PM EDT INFUSION THERAPY ADMINISTRATION NOTES DIAGNOSIS: Small Cell Cancer - unknown origin CYCLE #: 1 Day 3 REASON FOR VISIT: Etoposide chemotherapy, OnPro Device application SUBJECTIVE Mr. Banks is here for C1D3 Etoposide infusion & OnPro. He is overall doing well. Reports that he has had some constipation for the past 2 days. Is taking stool softener x 2 at night x 2 nights without benefit yet. He denies nausea/vomiting, abdominal pain. He understands that he will have OnPro Device applied today. He has no questions/concerns and is ready for treatment today. OBJECTIVE LAB DATA: Labs drawn 08/26 at [facility] and reviewed. Pre administration: Chemotherapy orders independently verified for drug name, route, and dosage per patient's height, weight and BSA by El Hall RN and pharmacist on-site. REACTIONS (DESCRIPTION, TIME, INTERVENTION AND EFFECTIVENESS) none ASSESSMENT Mr. Banks was awake, alert and tolerated treatment well. Constipation teaching done and patient given written instructions on constipation management. Advised that he call us tomorrow if no BM by mid-day for instructions. OnPro applied to right arm at 1452. Due to start deploying dose of medication tomorrow at 1752. Patient instructed to remove tomorrow at 1850 when meter reads empty and light is solid green. Reviewed patient instruction booklet in detail with patient and written instruction/booklet given to patient [facility] and [facility]. PLAN Return to clinic per routine. Patient was reminded to call in the interim with any questions/concerns. documented in this encounter Plan of Treatment Upcoming Encounters Date Type Specialty Care Team Description 01/20/2022 Office Visit Hematology and Oncology Rina Zazueta, PROCESS DESIGNER [address] [place] [address] [place] [address] (Wo rk) 01/20/2022 Infusion Hematology and Oncology 02/19/2022 Office Visit Cardiology Liam Tompkins MD [facility] [place], [place] [address] (Wo rk) 03/31/2022 Hospital Encounter Cardiology Arrived 04/03/2022 Office Visit Dermatology Mark Bishop MD [address] [place] [address] DERMATOLOGY [place], [place] [address] (Wo rk) 07/06/2022 Office Visit Urology Shane Ramos MD [facility] DR UROLOGY [place], [place] [address] (Wo rk) 08/12/2022 Office Visit Cardiology Graeme Cueva PA [facility] CARDIOLOGY DEPT [place], [place] [address] (Wo rk) documented as of [...] Rate Site dexAMETHasone (Decadron) tablet 10 Given 08/28/2021 1:41 PM EDT 10 mg mg 10 mg, Oral, ONCE, 1 dose, On Chelo 08/28/21 at 1300, Administer prior to chemotherapy, Routine etoposide (Vepesid) 148 mg in New Bag 08/28/2021 1:46 PM EDT 148 m g 338.3 mL/hr sodium chloride 0.9% Non-PVC 507.4 mL infusion 148 mg (rounded from 147.75 mg = 75 mg/m2/dose ? 1.97 m2 Treatment Plan BSA from Recorded weight), Intravenous, ONCE, 1 dose, On Chelo 08/28/21 at 1400, Administer over 90 Minutes, Warning Vesicant/Irritant Medication heparin (pf) (porcine) (100 units/mL) Given 08/28/2021 3:31 PM E DT 500 Units flush 5 mL syringe 500 Units 500 Units, Intravenous, ONCE PRN, Starting on Wed08/28/21 at 0813, Until Wed08/29/21 at 0812, Line Care, Refer to Intravenous (IV) Procedure: Accessing Implanted Vascular Access Devices (654) procedure and/or Intravenous (IV) Job Aid: Adult Flushing & Catheter Care (9487) job aid for additional information regarding guidelines and administration., Routine pegfilgrastim (Neulasta Onpro) (6 Given 08/28/2021 2:52 PM EDT 6 mg Right Arm mg/0.6 mL) injection kit 6 mg 6 mg, Subcutaneous, ONCE, 1 dose, On Wed08/28/21 at 1300, Allow the prefilled syringe co-packaged with the on-body injector to reach room temperature at least 30 minutes prior to administration., Routine, This agent is restricted to outpatient use. Is this drug being given as an outpatient? Yes sodium chloride 0.9 % (flush) (BD PosiFlush Given 08/28/2021 3:31 PM EDT 20 mLs Normal Saline 0.9) flush 5-20 mL 5-20 mL, Intravenous, EVERY 1 MIN PRN, Starting on Wed08/27/21 at 1536, Until Wed08/28/21 at 1535, Line Care, Flush pertains to all indwelling lines. Flush per protocol found in the job aid using the link provided on this medication record. Refer to Intravenous (IV) Job Aid: Adult Flushing & Catheter Care (1201) job aid for additional information regarding guidelines and administration., Routine sodium chloride 0.9% infusion New Bag 08/28/2021 1:40 PM EDT 100 mL/hr 100 mL/hr 100 mL/hr, Intravenous, CONTINUOUS, Starting on Chelo 08/28/21 at 1300, Until 08/29/21 at 1415 documented in this encounter Care Teams Fnps Relationship Specialty Start Date End Date Karla Curran MD PCP - General Family Medicine 12/16/20 [address] [place] [address] documented as of this encounter
--- OUTSIDE RECORDS SUMMARY | 2022-01-15 09:39 | XMS_ITS | Encounter Summary ---
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 [address] [place] [address] Social History Tobacco Use Types Packs/Day Years Used Date Smoking Tobacco: Every Day Cigarettes 0.3 60 Smokeless Tobacco: Never Alcohol Use Standard Drinks/Week Comments Not Currently 0 (1 standard drink = 0.6 oz pure alcoho l) Sex Assigned at Date Recorded Not on file documented as of this encounter Last Filed Vital Signs Vital Sign Reading Time Taken Comments Blood Pressure 136/81 09/09/2021 11:04 AM EDT Pulse 79 09/09/2021 11:04 AM EDT Temperature 36.8 ??C (98.2 ??F) 09/09/2021 11:04 AM EDT Respiratory Rate 20 09/09/2021 11:04 AM EDT Oxygen Saturation 100% 09/09/2021 11:04 AM EDT Inhaled Oxygen Concentration - - Weight 77.8 kg (171 lb 9.6 oz) 09/09/2021 11:04 AM EDT Height 176.5 cm (5' 9.49) 09/09/2021 11:04 AM EDT Body Mass Index 24.99 09/09/2021 11:04 AM EDT documented in this encounter Patient Instructions Patient InstructionsUma Jeronimo APRN - 09/09/2021 11:00 AM EDT He will return in one week with labs prior for followup and his next cycle of treatment. documented in this encounter Progress Notes Uma Jeronimo APRN - 09/09/2021 11:00 AM EDT Images from the original note were not included. 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 Onclogical history 1. Castrate sensitive metastatic prostate [...] declined 3. Anemia, multifactorial stable Interval history 09/09/21 he is here today after having received his first cycle of chemotherapy about 2 weeks ago. He tolerated the treatment well. He did not have any nausea from the treatment. He is fatigued- Especially during the first week. It is slowly getting better. He also notes that his appetite decreased since the treatment but he is starting to eat again. He did develop what appears to be blisters on his one foot and no place else. They were not itchy and there are no open areas. He denies any chest pain shortness of breath or cough. He denies any fevers or chills. He has had no issues with his bowels. ROS is otherwise negative. Interval history 08/26/21 He is here today for followup, chemotherapy teaching and start of his chemotherapy treatment. He states that he is feeling well. Since his last visit he has had a mediport placed. He denies any pain. He denies any chest pain shortness of breath or cough. His appetite is good. ROS is otherwise negative PMH: No interval changes since last visit Kidney stone ER visit in [place] Pulmonary embolism November 07, 2020 Pacemaker defibrillator [...] 2003: EF 55% (at time of inferior VA) 2018: EF 30-35%. 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 It was stented anyway 04/2018: EF 35% 05/2018: [facility] ICD placed for primary prevention - Generator: [id number], [id number] - RA: 8TC/52, [id number] - RV: 7122Q/58, [id number] ??? 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 If you have any questions, ask [...] axillary nodes normal Neurologic: Normal Vitals BP 136/81 (Patient Position: Sitting) Pulse 79 Temp 36.8 ??C (98.2 ??F) (Temporal) Resp20 Ht 176.5 cm (5' 9.49) Wt 77.8 kg (171 lb 9.6 oz) SpO2 100% BMI 24.99 kg/m?? Pathology: 08/06/21 DIAGNOSIS Left [...] of metastatic adenocarcinoma of prostatic origin. Labs 09/09/21 WBC 21.02 H/H 9.7/29.4 Plts 57K Na 139 K+ 4.4 BUN/Cr 28/2.1 Ca 9.4 AST18 ALT 22 Alk phos [id number] 08/26/21 WBC 5.67 H/H11.5/34.7 Plts 203 ANC [...] scan head Normal scan no disease seen 07/25/2021 CT chest abdomen pelvis: Impression: Small [...] 3 months Mr. Banks followed with , [place] cancer specialist in [place]. PSA was undetectable in July 2020. Clinically, [...] stable continue surveillance every 6 months. Plan: 09/09/21 1. He will return in one week for Cycle 2 of carboplatin/etoposide and atezolizumab. 2. His CTscan of his Head did not show any evidence of disease 3. He will have labs prior next week CBC CMP TSH T4 free The plan was discussed with the patient in details. All questions answered to patient satisfaction he is comfortable with this plan. He knows to call should he have any problems prior to his next visit. documented in this encounter Plan of Treatment Upcoming Encounters Date Type Specialty Care Team Description 01/20/2022 Office Visit Hematology and Oncology Rina Zazueta APRN [address] [place] [address] [place] [address] (Wo rk) 01/20/2022 Infusion Hematology and Oncology 02/19/2022 Office Visit Cardiology Liam Tompkins MD [facility] [place], [place] [address] (Wo rk) 03/31/2022 Hospital Encounter Cardiology Arrived 04/03/2022 Office Visit Dermatology Mark Bishop MD [address] [facility] DERMATOLOGY [place], [place] [address] (Wo rk) 07/06/2022 Office Visit Urology Shane Ramos MD [facility] UROLOGY [place], [place] [address] (Wo rk) 08/12/2022 Office Visit Cardiology Graeme Cueva PA [facility] DR CARDIOLOGY DEPT [place], [place] [address] (Wo rk) documented as of this encounter Visit Diagnoses Diagnosis Malignant neoplasm of urinary bladder, u nspecified site 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
--- OUTSIDE RECORDS SUMMARY | 2022-01-15 09:39 | XMS_ITS | Encounter Summary ---
:1940 [place] [address] Care Team Providers Name Role Phone Karla Curran MD Primary Care Provider Encounter Details Date Type Department Care Team Description 09/03/2021 Ancillary Procedure Radiology Library at Damien Curran MD [facility] [address] [facility] [address] [facility] [place] [address] [phone] Social History Tobacco Use Types Packs/Day Years [...] Visit Hematology and Oncology Rina Zazueta APRN [address] [place] [address] [place] [address] (Wo rk) 01/20/2022 Infusion Hematology and Oncology 02/19/2022 Office Visit Cardiology Liam Tompkins MD [facility] [address] [place] [address] (Wo rk) 03/31/2022 Hospital Encounter Cardiology Arrived 04/03/2022 Office Visit Dermatology Mark Bishop MD [address] [facility] DERMATOLOGY [place], [place] [address] (Wo rk) 07/06/2022 Office Visit Urology Shane Ramos MD [facility] UROLOGY [place], [place] [address] (Wo rk) 08/12/2022 Office Visit Cardiology Graeme Cueva PA [facility] CARDIOLOGY DEPT [place], [place] [address] (Wo rk) documented as of this encounter Procedures Procedure Name Priority Date/Time Associated Diagnosis Comme nts FILM LIBRARY Routine 09/03/2021 1:25 PM Results f or this STORAGE ONLY CT EDT procedure ar e in HEAD the results section. documented in this encounter Results Film Library- Storage Only CT Head (09/03/2021 1:25 PM EDT) Specimen (Source) Anatomical Location Collection Method / Collectio n Time Received Time / Laterality Volume Narrative ANA LUISA - 09/03/2021 1:25 PM EDT This exam is auto-finalizing. It's purpo se is for storage only. Karla Curran MD IMG FILM LIBRARY ORDERABLES Performing Organization Address City/State/ZIP Code Phon e Number [place], [place] documented in this encounter Visit Diagnoses Not on filedocumented in this encounter Care Teams Pretzel Twister Relationship Specialty Start Date End Date Karla Curran MD PCP - General Family Medicine 12/16/20 [facility] [place] [address] documented as of this encounter
--- OUTSIDE RECORDS SUMMARY | 2022-01-15 09:39 | XMS_ITS | Encounter Summary ---
:1940 Author Organization [facility] [place] [address] Care Team Providers Name Role Phone Karla Curran MD Primary Care Provider Encounter Details Date Type Department Care Team Description 07/25/2021 Ancillary Procedure Radiology Library at Damien Curran MD [facility] 580 [facility] [address] [facility] [place] [address] [phone] Social History Tobacco Use Types Packs/Day Years Used Date Smoking Tobacco: Every Day Cigarettes 0.3 60 Smokeless Tobacco: Never Sex Assigned at Date Recorded Not on file documented as of this encounter Plan of Treatment Upcoming Encounters Date Type Specialty Care Team Description 01/20/2022 Office Visit Hematology and Oncology Rina Zazueta, ELECT[employer]IC WARFARE OPERATOR [address] [place] [address] DR MEDICAL ONCOLOGY [place], [place] [address] (Wo rk) 01/20/2022 Infusion Hematology and Oncology 02/19/2022 Office Visit Cardiology Liam Tompkins MD [facility] [address] [place] [address] (Wo rk) 03/31/2022 Hospital Encounter Cardiology Arrived 04/03/2022 Office Visit Dermatology Mark Bishop MD [address] [facility] DERMATOLOGY [place], [place] [address] (Wo rk) 07/06/2022 Office Visit Urology Shane Ramos MD [facility] DR UROLOGY [place], [place] [address] (Wo rk) 08/12/2022 Office Visit Cardiology Graeme Cueva PA [facility] CARDIOLOGY DEPT [place], [place] [address] (Wo rk) documented as of this encounter Procedures Procedure Name Priority Date/Time Associated Diagnosis Comme nts FILM LIBRARY Routine 07/25/2021 12:00 AM Results for this STORAGE ONLY CT EDT procedure ar e in CHEST ABDOMEN the results PELVIS section. documented in this encounter Results Film Library- Storage Only CT Chest Abdomen Pelvis (07/25/2021 12:00 AM EDT) Specimen (Source) Anatomical Location Collection Method / Collectio n Time Received Time / Laterality Volume Narrative RAD - 07/28/2021 9:51 PM EDT This exam is auto-finalizing. It's purpo se is for storage only. Karla Curran MD IMG FILM LIBRARY ORDERABLES Performing Organization Address City/State/ZIP Code Phon e Number [place], [place] documented in this encounter Visit Diagnoses Not on filedocumented in this encounter Care Teams Mail Carrier Relationship Specialty Start Date End Date Karla Curran MD PCP - General Family Medicine 12/16/20 [address] [place] [address] documented as of this encounter
--- OUTSIDE RECORDS SUMMARY | 2022-01-15 09:39 | XMS_ITS | Encounter Summary ---
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, unspecified site Jerald Bush MD [facility] Rad Nuclear Med Procedures NM PET CT Skull Base to Mid-thigh [facility] HEMATOLOGY/[place] [address] [place] [address] Referral ID Status Reason Start Date Expiration Date Visits V isits Requested Authorized [id number] Closed Specialty 08/12/2021 02/11/2023 1 1 Service Requested Reason for Visit Diagnostic Test (Routine) - Closed Specialty Diagnoses / Procedures Referred By Contact Refer red To Contact Radiology 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, unspecified site Jerald Bush MD [facility] Rad Nuclear Med Procedures NM PET CT Skull Base to Mid-thigh [facility] HEMATOLOGY/[place] [address] [place] [address] Referral ID Status Reason Start Date Expiration Date Visits V isits Requested Authorized [id number] Closed Specialty 08/12/2021 02/11/2023 1 1 Service Requested Encounter Details Date Type Department Care Team Description 08/22/2021 Hospital Encounter Nuclear Medicine at [facility] all cell carcinoma; Angelica Marques MD Malignant neoplasm of urinary bladder, u nspecified site [facility] [address] [place] HEMATOLOGY/ONCOL [address] OGY [phone] [place] [address] Social History Tobacco Use Types Packs/Day Years [...] 100 ml over 15 minutes 0 11/25/2020 hqmr-cnjjryvG-puzbh 4 mg/100 mL Piggyback Eliquis 2.5 mg [...] Office Visit Hematology and Oncology Rina Zazueta, BAND BUILDER [address] [place] [address] [place] [address] (Wo rk) 01/20/2022 Infusion Hematology and Oncology 02/19/2022 Office Visit Cardiology Liam Tompkins MD [facility] [place], [place] [address] (Wo rk) 03/31/2022 Hospital Encounter Cardiology Arrived 04/03/2022 Office Visit Dermatology Mark Bishop MD [address] [place] [address] DERMATOLOGY [place], [place] [address] (Wo rk) 07/06/2022 Office Visit Urology Shane Ramos MD [facility] UROLOGY [place], [place] [address] (Wo rk) 08/12/2022 Office Visit Cardiology Graeme Cueva PA [facility] DR CARDIOLOGY DEPT [place], [place] [address] (Wo rk) documented as of this encounter Procedures Procedure Name Priority Date/Time Associated Diagnosis Comme nts NM PET CT SKULL Routine 08/22/2021 10:02 AM Small cell c arcinoma Results for this BASE TO MID-THIGH EDT Malignant neoplasm proc edure are in ([facility]) of urinary bladder, the resu lts unspecified site section. documented in this encounter Results NM PET CT Skull Base to Mid-thigh (08/22/2021 10:02 AM EDT) Anatomical Region Laterality Modality Positron Emission To mography (PET) Specimen (Source) Anatomical Location Collection Method / Collectio n Time Received Time / Laterality Volume Impressions 08/25/2021 4:02 PM EDT 1. ??FDG avid adenopathy in the left neck as detailed above, consistent with ruben metastases. 2. ??FDG avid bilateral adrenal lesions, consistent with adrenal metastases. 3. ??FDG avid 14 mm adenopathy in the le ft periaortic region at the level of the renal hilum, consistent with ruben metas tasis. 4. ??CT visualized groundglass opacities in the left upper, right middle, and right lower lobes, unchanged compared to CT of 07/25/2021. 5. ??Multiple CT visualized non-FDG avid sclerotic lesions in the axial and proximal appendicular skeleton, consiste nt with treated or quiescent sites of osseous metastases. I have personally reviewed the image(s) and the resident's interpretation and agree with the findings, Meghna Haddad at 08/25/2021 4:02 PM Thank you for letting us participate in the care of this patient. ??If you are a health care provider and have any questi ons regarding this report, please contact the number below. ??For patients who have questions please contact the health director of medicare that requested your imaging first. ? Electronically signed by: Vasquez Mason MD, [facility] ([phone]), at 08/25/2021 4:02 PM Narrative 08/25/2021 4:02 PM EDT EXAMINATION: NM PET CT STANDARD SKULL BASE TO MID-THIGH CLINICAL HISTORY: Prostate cancer metast atic to multiple sites of bone and lymph nodes, muscular invasive bladder cancer Metastatic prostate cancer LEFT lobe lateral neck lymph node core b iopsy with adenocarcinoma. 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 The noncontrast CT was used for anatomic localization and photo n attenuation correction of the PET scan. Blood glucose level: 107 (mg/dL) FDG dose: 11.9 mCi COMPARISON: CT chest with contrast 07/25/2021 FINDINGS: HEAD/NECK: Small FDG avid lymph nodes in the left l evel 5 region (axial image 32 and 33) and in the left anterior and posterior s upraclavicular regions (axial images 44-45). CHEST: Multiple bilateral punctate calcified gr anulomas, none of which demonstrate any FDG avidity. Similar appearance of LEFT upper lobe gr oundglass opacities, the largest of which measures 15 mm (CT image 88). Unchanged groundglass opacity in the RIG HT middle lobe (image 100) and the RIGHT lower lobe (106 and 103). No new groundg lass nodules or metabolically active groundglass nodules. Right-sided Mediport is in place. Left-s ided pulse generator with atrial and ventricular leads. ABDOMEN/PELVIS: FDG avid bilateral adrenal lesions, the LEFT measuring 3.7 cm and the RIGHT measuring 1.3 cm. 14 mm FDG avid adenopathy in the left pe riaortic region of the renal hilum (axial image 156). Patient status post cholecystectomy. Ath erosclerotic calcification of the abdominal aorta. SKELETON/EXTREMITIES: Linear FDG uptake in the LEFT gluteus ma ximus muscle (axial image 207), with an appearance most consistent with inflamma tion due to injection site. Multiple CT visualized non-FDG avid scle rotic lesions in the axial and proximal appendicular skeleton including in multi ple levels of the spine, both sides of the pelvis, and bilateral ribs. Procedure Note Vasquez Mason MD - 08/25/2021Formatti ng of this note might be different from the original. EXAMINATION: NM PET CT STANDARD SKULL BA SE TO MID-THIGH CLINICAL HISTORY: Prostate cancer metast atic to multiple sites of bone and lymph nodes, muscular invasive bladder cancer Metastatic prostate cancer LEFT lobe lateral neck lymph node core b iopsy with adenocarcinoma. 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 The noncontrast CT was used for anatomic localization and photo n attenuation correction of the PET scan. Blood glucose level: 107 (mg/dL) FDG dose: 11.9 mCi COMPARISON: CT chest with contrast 07/25/2021 FINDINGS: HEAD/NECK: Small FDG avid lymph nodes in the left l evel 5 region (axial image 32 and 33) and in the left anterior and posterior s upraclavicular regions (axial images 44-45). CHEST: Multiple bilateral punctate calcified gr anulomas, none of which demonstrate any FDG avidity. Similar appearance of LEFT upper lobe gr oundglass opacities, the largest of which measures 15 mm (CT image 88). Unchanged groundglass opacity in the RIG HT middle lobe (image 100) and the RIGHT lower lobe (106 and 103). No new groundg lass nodules or metabolically active groundglass nodules. Right-sided Mediport is in place. Left-s ided pulse generator with atrial and ventricular leads. ABDOMEN/PELVIS: FDG avid bilateral adrenal lesions, the LEFT measuring 3.7 cm and the RIGHT measuring 1.3 cm. 14 mm FDG avid adenopathy in the left pe riaortic region of the renal hilum (axial image 156). Patient status post cholecystectomy. Ath erosclerotic calcification of the abdominal aorta. SKELETON/EXTREMITIES: Linear FDG uptake in the LEFT gluteus ma ximus muscle (axial image 207), with an appearance most consistent with inflamma tion due to injection site. Multiple CT visualized non-FDG avid scle rotic lesions in the axial and proximal appendicular skeleton including in multi ple levels of the spine, both sides of the pelvis, and bilateral ribs. IMPRESSION 1. FDG avid adenopathy in the left neck as detailed above, consistent with ruben metastases. 2. FDG avid bilateral adrenal lesions, c onsistent with adrenal metastases. 3. FDG avid 14 mm adenopathy in the left periaortic region at the level of the renal hilum, consistent with ruben metas tasis. 4. CT visualized groundglass opacities i n the left upper, right middle, and right lower lobes, unchanged compared to CT of 07/25/2021. 5. Multiple CT visualized non-FDG avid s clerotic lesions in the axial and proximal appendicular skeleton, consiste nt with treated or quiescent sites of osseous metastases. I have personally reviewed the image(s) and the resident's interpretation and agree with the findings, Meghna Haddad at 08/25/2021 4:02 PM Thank you for letting us participate in the care of this patient. If you are a health care provider and have any questi ons regarding this report, please contact the number below. For patients w ho have questions please contact the health director of medicare that requested your imaging first. Electronically signed by: Vasquez Mason MD, [facility] ([phone]), at 08/25/2021 4:02 PM Jerald Bush MD IMG PET ORDERABLES documented in this encounter Visit Diagnoses Diagnosis Small cell carcinoma Other malignant neoplasm without specifi cation of site Malignant neoplasm of urinary bladder, u nspecified site documented in this encounter Administered Medications Inactive Administered Medications - up to 3 most recent administrations Medication Order MAR Action Action Date Dose Rate Site fludeoxyglucose (F-18) FDG Given 08/22/2021 8:56 AM 11.9 mCi Right Arm injection 0-20 mCi EDT 0-20 mCi, Intravenous, ONCE PRN, 1 dose, Starting on Wed08/22/21 at 0903, Until Wed08/22/21 at 0856, Per Protocol, Radiology Contrast, Routine documented in this encounter Care Teams Solar Electric Installer Relationship Specialty Start Date End Date Karla Curran MD PCP - General Family Medicine 12/16/20 [address] [place] [address] documented as of this encounter
--- OUTSIDE RECORDS SUMMARY | 2022-01-15 09:39 | XMS_ITS | Encounter Summary ---
:1940 Author Organization [facility] [place] [address] Care Team Providers Name Role Phone Karla Curran MD Primary Care Provider Encounter Details Date Type Department Care Team Description 09/25/2021 [facility] [place] [facility] [address] [place] [address] [phone] Social History Tobacco Use Types Packs/Day Years Used Date Smoking Tobacco: Every Day Cigarettes 0.3 60 Smokeless Tobacco: Never Alcohol Use Standard Drinks/Week Comments Not Currently 0 (1 standard drink = 0.6 oz pure alcoho l) Sex Assigned at Date Recorded Not on file documented as of this encounter Miscellaneous Notes Telephone Encounter - Jill Hall RN - 09/25/2021 1:14 PM EDT ----- Message from Ariana Barger sent at 09/25/2021 11:51 AM EDT ----- Neil Chris Banks's called in today and mentioned that Chris is having shortness of breath while walking up stairs or even just picking up a heavy bottle of water, he is to have his CBC lab drawn again on Wednesday, but wondered if he should go tomorrow as his hemoglobin was low two weeks ago. Iasked if he was dizzy, but denied that she also mentioned that his nausea is gone. 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 Banks. Mr. Banks has noticed over the past week or increased SOB with activity. reports that they went to the store last night and after walking up and down 3 small aisles she noted that he was very SOB, had to go back to car to sit down. 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 Other ROS: Cough - has chronic smokers cough. Nothing new or changed, no hemoptysis. No fevers or chills. Has some dizziness/lightheadedness when he gets up too quickly but this isn't new either. states that she checked his SaO2 today when he was sitting in chair and it was 92-93%. In clinic, normally runs between 96-100%. Denies chest pain/pressure Denies swelling lower extremities Eating and drinking well. No nausea/vomiting. Last CBC on 09/16 - Hgb was 9.0 Patient is scheduled to have mid-cycle CBC checked next week with plan for transfusion if hgb less than 8. wonders if they can have it checked tomorrow. Discussed with Uma Jeronimo APRN who would like patient to go to ED for evaluation. RN call back to patient/ with this recommendation. They will go to [facility] ED. RN call to [facility] ED, spoke with ANNABEL Patel with report/handoff. documented in this encounter Plan of Treatment Upcoming Encounters Date Type Specialty Care Team Description 01/20/2022 Office Visit Hematology and Oncology Rina Zazueta APRN [address] [place] [address] [place] [address] (Becky angela) 01/20/2022 Infusion Hematology and Oncology 02/19/2022 Office Visit Cardiology Liam Tompkins MD [facility] [address] [place] [address] (Becky angela) 03/31/2022 Hospital Encounter Cardiology Arrived 04/03/2022 Office Visit Dermatology Mark Bishop MD [address] [facility] DERMATOLOGY [place], [place] [address] (Wo rk) 07/06/2022 Office Visit Urology Shane Ramos MD [facility] UROLOGY [place], [place] [address] (Wo rk) 08/12/2022 Office Visit Cardiology Graeme Cueva PA [facility] DR CARDIOLOGY DEPT [place], [place] [address] (Wo rk) documented as of this encounter Visit Diagnoses Not on filedocumented in this encounter Care Teams Director Of Quantitative Research Relationship Specialty Start Date End Date Karla Curran MD PCP - General Family Medicine 12/16/20 580 [place] [address] documented as of this encounter
--- OUTSIDE RECORDS SUMMARY | 2022-01-15 09:39 | XMS_ITS | Encounter Summary ---
:1940 Author Organization [facility] [address] Care Team Providers Name Role Phone Karla Curran MD Primary Care Provider Encounter Details Date Type Department Care Team Description 05/01/2021 Telephone Hematology/Oncology at Andrade Rojas [address] [phone] Social History Tobacco Use Types Packs/Day Years Used Date Smoking Tobacco: Every Day Cigarettes 0.3 60 Smokeless Tobacco: Never Sex Assigned at Date Recorded Not on file documented as of this encounter Miscellaneous Notes Telephone Encounter - Andrade Rojas - 05/01/2021 7:[address] order to [facility]. Pt has MCR and a supplement - no PA. I asked [facility] to schedule his scan the week of July 21. Asked them to please let me know when the apt is scheduled. documented in this encounter Plan of Treatment Upcoming Encounters Date Type Specialty Care Team Description 01/20/2022 Office Visit Hematology and Oncology Rina Zazueta APRN [address] [place] [address] [place] [address] (Becky angela) 01/20/2022 Infusion Hematology and Oncology 02/19/2022 Office Visit Cardiology Liam Tompkins MD [facility] [address] [place] [address] (Becky angela) 03/31/2022 Hospital Encounter Cardiology Arrived 04/03/2022 Office Visit Dermatology Mark Bishop MD [address] [facility] DERMATOLOGY [place], [place] [address] (Wo rk) 07/06/2022 Office Visit Urology Shane Ramos MD [facility] UROLOGY [place], [place] [address] (Wo rk) 08/12/2022 Office Visit Cardiology Graeme Cueva PA [facility] CARDIOLOGY DEPT [place], [place] [address] (Wo rk) documented as of this encounter Visit Diagnoses Not on filedocumented in this encounter Care Teams Wood Crew Supervisor Relationship Specialty Start Date End Date Karla Curran MD PCP - General Family Medicine 12/16/20 580 [place] [address] documented as of this encounter
--- OUTSIDE RECORDS SUMMARY | 2022-01-15 09:39 | XMS_ITS | Encounter Summary ---
:1940 Author Organization [facility] [place] [address] Care Team Providers Name Role Phone Karla Curran MD Primary Care Provider Encounter Details Date Type Department Care Team Description 09/26/2021 [facility] [place] [facility] [address] [place] [address] [phone] Social History Tobacco Use Types Packs/Day Years Used Date Smoking Tobacco: Every Day Cigarettes 0.3 60 Smokeless Tobacco: Never Alcohol Use Standard Drinks/Week Comments Not Currently 0 (1 standard drink = 0.6 oz pure alcoho l) Sex Assigned at Date Recorded Not on file documented as of this encounter Miscellaneous Notes Telephone Encounter - Jill Hall RN - 09/26/2021 1:22 PM EDT ----- Message from Nat Yoon sent at 09/26/2021 1:02 PM EDT ----- Regarding: Looking for Direction Jennifer called to get directions on what to do now he went to [facility] ED yesterday. She needs to know what to do as far as labs and appointments. Suellen's call back is [phone]. Thanks Haley JIN Follow-Up Note Patient seen at [facility] ED yesterday (see triage notes from yesterday). In ER found to have Hgb 7.4, hct 22.3, plt 108k, wbc 4.55, anc 2.64. Was given 1 unit PRBCs and magnesium for mag 1.2. ER note, labs, Chest X-Ray, EKG report to be scanned to chart. reports that Mr. Banks is feeling better today and SOB is improved. States that he has been outside walking, including stairs, and is breathing much better. Mr. Banks wonders what plan for next weekshould be as patient was supposed to get labs again on 09/30. Plan: Keep lab appt scheduled for 09/30 for now. Triage nursing to call patient/ on Wednesday to seehow he is feeling and how the weekend went then discuss with Uma Jeronimo APRN if patient should have labs again on 09/30. documented in this encounter Plan of Treatment Upcoming Encounters Date Type Specialty Care Team Description 01/20/2022 Office Visit Hematology and Oncology Rina Zazueta APRN [address] [place] [address] [place] [address] (Wo rk) 01/20/2022 Infusion Hematology and Oncology 02/19/2022 Office Visit Cardiology Liam Tompkins MD [facility] [address] [place], [place] [address] (Wo rk) 03/31/2022 Hospital Encounter Cardiology Arrived 04/03/2022 Office Visit Dermatology Mark Bishop MD [address] [place] [address] DERMATOLOGY [place], [place] [address] (Wo rk) 07/06/2022 Office Visit Urology Shane Ramos MD [facility] UROLOGY [place], [place] [address] (Wo rk) 08/12/2022 Office Visit Cardiology Graeme Cueva PA [facility] CARDIOLOGY DEPT [place], [place] [address] (Wo rk) documented as of this encounter Visit Diagnoses Not on filedocumented in this encounter Care Teams Electromechanical Inspector Relationship Specialty Start Date End Date Karla Curran MD PCP - General Family Medicine 12/16/20 580 [place] [address] documented as of this encounter
--- OUTSIDE RECORDS SUMMARY | 2022-01-15 09:39 | XMS_ITS | Encounter Summary ---
:1940 Author Organization [place] [address] Care Team Providers Name Role Phone Karla Curran MD Primary Care Provider Reason for Visit Reason Onset Date Comments Follow-up 09/30/2021 No transfusion requi red Encounter Details Date Type Department Care Team Description 09/30/2021 Telephone Hematology/Oncology at Peg Lutz RN Follow-up (No [facility] transfusion required) [address] [place] [phone] Social History Tobacco Use Types Packs/Day Years Used Date Smoking Tobacco: Every Day Cigarettes 0.3 60 Smokeless Tobacco: Never Alcohol Use Standard Drinks/Week Comments Not Currently 0 (1 standard drink = 0.6 oz pure alcoho l) Sex Assigned at Date Recorded Not on file documented as of this encounter Miscellaneous Notes Telephone Encounter - Peg Lutz RN - 09/30/2021 9:56 AM EDT Pt's cbc reviewed by Uma Jeronimo CITY COLLECTOR today no transfusions required. HBG up to 9.2,Plt did drop to 45, he will have labs again next week and be seen by provider prior to infusion. Mrs. Banks agrees withplan. documented in this encounter Plan of Treatment Upcoming Encounters Date Type Specialty Care Team Description 01/20/2022 Office Visit Hematology and Oncology Rina Zazueta APRN [address] [place] [address] [place] [address] (Wo rk) 01/20/2022 Infusion Hematology and Oncology 02/19/2022 Office Visit Cardiology Liam oTmpkins MD [facility] [address] [place], [place] [address] (Wo rk) 03/31/2022 Hospital Encounter Cardiology Arrived 04/03/2022 Office Visit Dermatology Mark Bishop MD [address] [facility] DERMATOLOGY [place], [place] [address] (Wo rk) 07/06/2022 Office Visit Urology Shane Ramos MD [facility] UROLOGFrida [place], [place] [address] (Wo rk) 08/12/2022 Office Visit Cardiology Graeme Cueva PA [facility] CARDIOLOGY DEPT [place], [place] [address] (Wo rk) documented as of this encounter Visit Diagnoses Not on filedocumented in this encounter Care Teams International Sourcing Manager Relationship Specialty Start Date End Date Karla Curran MD PCP - General Family Medicine 12/16/20 [address] [place] [address] documented as of this encounter
--- OUTSIDE RECORDS SUMMARY | 2022-01-15 09:39 | XMS_ITS | Encounter Summary ---
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 Rad Nuclear Med Procedures NM PET CT Skull Base to Mid-thigh [facility] HEMATOLOGY/[place] [address] [place] [address] Referral ID Status Reason Start Date Expiration Date Visits V isits Requested Authorized [id number] Closed Specialty 08/12/2021 02/11/2023 1 1 Service Requested Encounter Details Date Type Department Care Team Description 08/12/2021 Office Visit Hematology/Oncology Jerald Bush Sm all cell carcinoma (Primary Dx); at [facility] Malignant neoplasm of urinary bladder, u nspecified site; [address] [facility] Malignant neoplasm of prosta te metastatic [place] [address] HEMATOLOGY/ONCOLOG [phone] Y [place], [place] [address] Social History Tobacco Use Types Packs/Day Years Used Date Smoking Tobacco: Every Day Cigarettes 0.3 60 Smokeless Tobacco: Never Alcohol Use Standard Drinks/Week Comments Not Currently 0 (1 standard drink = 0.6 oz pure alcoho l) Sex Assigned at Date Recorded Not on file documented as of this encounter Last Filed Vital Signs Vital Sign Reading Time Taken Comments Blood Pressure 161/86 08/12/2021 3:48 PM EDT Pulse 86 08/12/2021 3:48 PM EDT Temperature 36.2 ??C (97.2 ??F) 08/12/2021 3:48 PM EDT Respiratory Rate 18 08/12/2021 3:48 PM EDT Oxygen Saturation 100% 08/12/2021 3:48 PM EDT Inhaled Oxygen Concentration - - Weight 79 kg (174 lb 3.2 oz) 08/12/2021 3:48 PM EDT Height 176.5 cm (5' 9.49) 08/12/2021 3:48 PM EDT Body Mass Index 25.36 08/12/2021 3:48 PM EDT documented in this encounter Progress Notes Jerald Bush MD - 08/12/2021 4:00 PM EDT Images from the original note were not included. 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 Onclogical history 1. Castrate sensitive metastatic [...] was declined 3. Anemia, multifactorial stable Interval history(08/12/21): Mr. Schwarz returns for follow-up appointment after biopsy of adrenal gland. He feels well. Denies pain. No focal complaints PMH: No interval changes since last visit Kidney stone ER visit in [place] Pulmonary embolism November 07, 2020 Pacemaker defibrillator placement 2 years ago, CAD with 2 coronary stents placement, hypertension, CHF with ejection fraction of 35% [place] 2019 Patient Active Problem List Diagnosis ??? Pulmonary embolism 10/2020: detected on surveillance. No symptoms attributable. Sent to [facility] ED, started on eliquis ??? Non-ischemic cardiomyopathy 2003: EF 55% (at time of inferior KS) 2018: EF 30-35%. 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 It was stented anyway 04/2018: EF 35% 05/2018: [facility] ICD placed for primary prevention - Generator: [id number], [id number] - RA: [id number], [id number] - RV: [id number], [id number] ??? ASCVD (arteriosclerotic cardiovascular disease) 2003: Inferior [place] 2018 Cath (EF decreased to 30 from [...] [place]NK [place] [facility] [place]02 with nl LV [...] Medications: Your Medications Accurate as of August 12, 2021 4:21 PM. If you have any questions, ask [...] axillary nodes normal Neurologic: Normal Vitals BP 161/86 (Patient Position: Sitting) Pulse 86 Temp 36.2 ??C (97.2 ??F) (Temporal) Resp18 Ht 176.5 cm (5' 9.49) Wt 79 kg (174 lb 3.2 oz) SpO2 100% BMI 25.36 kg/m?? Pathology: 08/06/21 DIAGNOSIS Left adrenal gland, [...] followed with , [place] cancer specialist in [place]. PSA was undetectable in July 2020. Clinically, [...] continue surveillance every 6 months. Plan: 1. Mediport placement by IR 2. PET scan and brain MRI 3. tumor board discussion 08/21 4. Next visit in 2 weeks with CBC, CMP, CONE OPERATOR teaching and first cycle of carboplatin/etoposide and atezolizumab. The plan was discussed with the patient in details. All questions answered to patient satisfaction documented in this encounter Plan of Treatment Upcoming Encounters Date Type Specialty Care Team Description 01/20/2022 Office Visit Hematology and Oncology Rina Zazueta APRN [address] [place] [address] [place] [address] (Wo rk) 01/20/2022 Infusion Hematology and Oncology 02/19/2022 Office Visit Cardiology Liam Tompkins MD [facility] [address] [place], [place] [address] (Wo rk) 03/31/2022 Hospital Encounter Cardiology Arrived 04/03/2022 Office Visit Dermatology Mark Bishop MD [address] [place] [address] DERMATOLOGY [place], [place] [address] (Wo rk) 07/06/2022 Office Visit Urology Shane Ramos MD [facility] UROLOGY [place], [place] [address] (Wo rk) 08/12/2022 Office Visit Cardiology Graeme Cueva PA [facility] CARDIOLOGY DEPT [place], [place] [address] (Wo rk) Scheduled Orders Name Type Priority Associated Diagnoses Order S chedule MRI Brain wwo Contrast Imaging Routine Small cell carcino ma Expected: 08/19/2021 (Generic) (Approximate), Expires: 2022 MRI Brain wwo Contrast Imaging Routine Small zulema l carcinoma Expected: 08/19/2021, (Generic) Malignant neoplasm of s: 02/18/2022 urinary bladder, unspecified site CBC (with Diff) Lab Routine Small cell carcinoma Once a week for 10 Occurrences sta rting 08/12/2021 unti l 08/12/2022 Comprehensive metabolic Lab Routine Small cell carcin ever Once a week for 10 panel (non-fasting) Occurren yung starting 08/12/2021 unti l 08/12/2022 documented as of this encounter Results NM [...] who have questions please contact the health laboratory animal caretaker that requested your imaging first. ? Narrative 08/25/2021 4:02 PM EDT EXAMINATION: NM [...] origin TECHNIQUE: Following IV injection of 18- vqfjfa-2-kevqeqrlvvwm (FDG) a standard uptake of approximately 60 [...] origin TECHNIQUE: Following IV injection of 18- wudbxo-6-otznqxdruwzz (FDG) a standard uptake of approximately 60 [...] ho have questions please contact the health laboratory animal caretaker that requested your imaging first. Jerald Bush MD IMG PET ORDERABLES IR Mediport Placement (08/21/2021 8:36 AM EDT) [...] c to bone Malignant neoplasm of prostate Small cell carcinoma Other malignant neoplasm without specifi cation of site Malignant neoplasm of urinary bladder, u nspecified site Small cell carcinoma Other malignant neoplasm without specifi cation of site Malignant neoplasm of urinary bladder, u nspecified site documented in this encounter Care Teams Outsole Paraffiner Relationship Specialty Start Date End Date Karla Curran MD PCP - General Family Medicine 12/16/[address] [place] [address] documented as of this encounter
--- OUTSIDE RECORDS SUMMARY | 2022-01-15 09:39 | XMS_ITS | Encounter Summary ---
:1940 Author Organization [facility] [place] [address] Care Team Providers Name Role Phone Karla Curran MD Primary Care Provider Encounter Details Date Type Department Care Team Description 09/16/2021 Office Visit Hematology/Oncology Jolie Bush MD [facility] DR HEMATOLOGY/[place] [address] Anemia due to at [facility] Uma Jeronimo APRN [facility] [place] [address] [place] [address] chemotherapy (Primary [place], [place] Dx) [id number] Social History Tobacco Use Types Packs/Day Years Used Date Smoking Tobacco: Every Day Cigarettes 0.3 60 Smokeless Tobacco: Never Alcohol Use Standard Drinks/Week Comments Not Currently 0 (1 standard drink = 0.6 oz pure alcoho l) Sex Assigned at Date Recorded Not on file documented as of this encounter Last Filed Vital Signs Vital Sign Reading Time Taken Comments Blood Pressure 132/91 09/16/2021 10:08 AM EDT Pulse 85 09/16/2021 10:08 AM EDT Temperature 36.5 ??C (97.7 ??F) 09/16/2021 10:08 AM EDT Respiratory Rate 16 09/16/2021 10:08 AM EDT Oxygen Saturation 99% 09/16/2021 10:08 AM EDT Inhaled Oxygen Concentration - - Weight 77.6 kg (171 lb) 09/16/2021 10:08 AM EDT Height 176.5 cm (5' 9.49) 09/16/2021 10:08 AM EDT Body Mass Index 24.9 09/16/2021 10:08 AM EDT documented in this encounter Progress Notes Jerald Bush MD - 09/16/2021 10:00 AM EDT Images from the original note were not included. 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 Onclogical history 1. Castrate sensitive metastatic prostate [...] declined 3. Anemia, multifactorial stable Interval history 09/16/21 Chris is in clinic [...] last visit Kidney stone ER visit in [place] Pulmonary embolism November 07, 2020 Pacemaker defibrillator placement 2 years ago, CAD with 2 coronary stents placement, hypertension, CHF with ejection fraction of 35% [place] 2020 Patient Active Problem List Diagnosis ??? Small cell carcinoma ??? Malignant neoplasm of urinary bladder ??? High risk medication use ??? Pulmonary embolism 10/2020: detected on surveillance. No symptoms attributable. Sent to [facility] ED, started on eliquis ??? Non-ischemic cardiomyopathy 2003: EF 55% (at time of inferior PA) 2018: EF 30-35%. 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 It was stented anyway 04/2018: EF 35% 05/2018: [facility] ICD placed for primary prevention - Generator: [id number], [id number] - RA: [id number], [id number] - RV: [id number]/58, [id number] ??? ASCVD (arteriosclerotic cardiovascular disease) 2003: Inferior PA 2018 Cath (EF decreased to 30 from [...] [place] [facility] [place] Medications: Your Medications Accurate as of September 16, 2021 10:18 AM. If you have any questions, ask [...] nodes normal Neurologic: Normal Vitals BP (!) 132/91 (Patient Position: Sitting) Pulse 85 Temp 36.5 ??C (97.7 ??F) (Temporal) Resp 16 Ht 176.5 cm (5' 9.49) Wt 77.6 kg (171 lb) SpO2 99% BMI 24.90 kg/m?? Pathology: 08/06/21 DIAGNOSIS Left adrenal gland, [...] of metastatic adenocarcinoma of prostatic origin. Labs 09/16/2021 WBC 14.55, hemoglobin 9, platelet count 327, ANC 10.8, BUN 28, creatinine 2.0, 09/09/21 WBC 21.02 H/H 9.7/29.4 Plts 57K Na 139 K+ 4.4 BUN/Cr 28/2.1 Ca 9.4 AST18 ALT 22 Alk phos [id number] 08/26/21 WBC 5.67 H/H11.5/34.7 Plts 203 ANC [...] 3 months Mr. Banks followed with , [place] cancer specialist in [place]. PSA was undetectable in July 2020. Clinically, [...] every 6 months. Plan: 1. Start cycle 2 of carboplatin/etoposide and atezolizumab. Today 2. CBC [...] 01/20/2022 Office Visit Hematology and Oncology Rina Zazueta[address] [place] [address] (Wo rk) 01/20/2022 Infusion Hematology and Oncology 02/19/2022 Office Visit Cardiology Liam Tompkins MD [facility] [place], [place] [address] (Wo rk) 03/31/2022 Hospital Encounter Cardiology Arrived 04/03/2022 Office Visit Dermatology Mark Bishop MD [address] [place] [address] DERMATOLOGY [place], [place] [address] (Wo rk) 07/06/2022 Office Visit Urology Shane Ramos MD [facility] UROLOGY [place], [place] [address] (Wo rk) 08/12/2022 Office Visit Cardiology Graeme Cueva PA [facility] CARDIOLOGY DEPT [place], [place] [address] (Wo rk) Scheduled Orders Name Type Priority Associated Diagnoses Order S chedule Type and screen Lab Routine Anemia due to Every 2 Wee ks [place] 10 [place] [place] [place] antineoplastic chemother apy Occurrences starting 09/16/2021 unti l 09/16/2022 documented as of this encounter Visit Diagnoses Diagnosis 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
--- OUTSIDE RECORDS SUMMARY | 2022-01-15 09:40 | XMS_ITS | Encounter Summary ---
:1940 Author Organization [facility] [address] Care Team Providers Name Role Phone Coby Azevedo APRN Primary Care Provider Reason for Referral Diagnostic Test (Routine) - Closed Specialty Diagnoses / Procedures Referred By Contact Refer red To Contact Diagnoses Malignant neoplasm of prostate metastatic to bone Malignant neoplasm of urinary bladder, unspecified site Multiple lung nodules on CT Jerald Bush MD Procedures CT Chest w Contrast [facility] DR HEMATOLOGY/[place] [address] Referral ID Status Reason Start Date Expiration Date Visits V isits Requested Authorized [id number] Closed Specialty 11/19/2020 05/20/2022 1 1 Service Requested Encounter Details Date Type Department Care Team Description 11/19/2020 Office Visit Hematology/Oncology Jolie Bush MD [facility] DR HEMATOLOGY/[place] [address] Malignant neoplasm of prostate metastati c to bone; at [facility] Rina Zazueta APRN [address] [place] [address] [place] [address] Malignant neoplasm of urinary bladder, u nspecified site; [address] [place] [address] Bone metastases; [place], [place] [id number] Social History Tobacco Use Types Packs/Day Years Used Date Smoking Tobacco: Every Day Smokeless Tobacco: Never Sex Assigned at Date Recorded Not on file documented as of this encounter Last Filed Vital Signs Vital Sign Reading Time Taken Comments Blood Pressure 172/88 11/19/2020 10:55 AM EDT Pulse 74 11/19/2020 10:55 AM EDT Temperature 36.3 ??C (97.4 ??F) 11/19/2020 10:55 AM EDT Respiratory Rate 16 11/19/2020 10:55 AM EDT Oxygen Saturation 100% 11/19/2020 10:55 AM EDT Inhaled Oxygen Concentration - - Weight 78.9 kg (174 lb) 11/19/2020 10:55 AM EDT Height 171.5 cm (5' 7.52) 11/19/2020 10:55 AM EDT Body Mass Index 26.83 11/19/2020 10:55 AM EDT documented in this encounter Progress Notes Jerald Bush MD - 11/19/2020 11:00 AM EDT Images from the original note were not included. 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 Onclogical history 1. Castrate sensitive metastatic prostate [...] was declined 3. Anemia, multifactorial stable Interval history: Mr. Chris Schwarz is in clinic for follow-up appointment on metastatic prostate cancer and muscular invasive bladder cancer. He had incidental finding of pulmonary embolism on his restaging CT scan and was sent to emergency room. Started on Eliquis. Stopped Plavix and aspirin. Overall, he feels well. Denies any pain. No blood in the urine. No fever or chills. Chris was seen by his new primary care Coby Azevedo PMH: Pulmonary embolism November 07, 2020 Pacemaker defibrillator placement 2 years ago, CAD with 2 coronary stents placement, hypertension, CHF with ejection fraction of 35% [place] 2019 Patient Active Problem List Diagnosis ??? Malignant neoplasm of prostate metastatic to bone Problem List: #1 CAD -acute IMI 06/14/02 with TNK [place] [facility] [place] 06/15/02 with nl LV dimension, [...] ??? Cis Free Text Allergy ANTIHISTAMINES. ??? Cis Free Text Allergy CLAVULANIC ACID. Medications: Your Medications Accurate as of November 19, 2020 10:55 AM. If you have any questions, ask your nurse or doctor. Some of the medications listed here do not show instructions, such as how often to take the medication. Ask your doctor or nurse how to use these medications. Specifically ask about this and similar medications: CIS Free Text Med - Albuterol Continued medications with new dosing Dose Details CIS FREE TEXT MED What changed: See the new instructions. Refills: 0 Continued medications, unchanged Dose Details aspirin EC 81 mg Tbec Take 81 mg by mouth daily. 81 mg Refills: 0 Calcium 600 + D(3) 600 mg(1,500mg) -200 unit Tab Take 2 tablets by mouth daily. Generic drug: calcium-vitamin D3 2 tablet Refills: 0 clopidogreL 75 mg Tab Commonly known as: Plavix Take 75 mg by mouth three times a week. 75 mg Refills: 0 fluticasone propionate 220 mcg/actuation Hfaa Commonly known as: Flovent HFA Inhale 1 puff into the lungs 2 times daily. 1 puff Refills: 0 Lipitor 20 mg Tab Take 40 mg by mouth daily. Generic drug: atorvastatin 40 mg Refills: 0 lisinopriL 5 mg Tab Commonly known as: Zestril 5mg, PO, QD Refills: 0 metoprolol succinate XL 25 mg Tablet sr Commonly known as: Toprol-XL Take 25 mg by mouth 2 times daily. 25 mg Refills: 0 pantoprazole EC 20 mg Tbec Commonly known as: Protonix Take 20 mg by mouth daily. 20 mg Refills: 0 prochlorperazine 10 mg Tab Commonly known as: Compazine Take 10 mg by mouth every 6 hours as needed for Nausea. 10 mg Refills: 0 Review of Systems: Constitutional: [...] axillary nodes normal Neurologic: Normal Vitals BP 172/88 (Patient Position: Sitting) Pulse 74 Temp 36.3 ??C (97.4 ??F) (Temporal) Resp16 Ht 171.5 cm (5' 7.52) Wt 78.9 kg (174 lb) SpO2 100% BMI 26.83 kg/m?? Pathology: 03/29/2015 left low lateral neck [...] of metastatic adenocarcinoma of prostatic origin. Labs: 10/16/2020 WBC 7, hemoglobin 11.7, platelet count 233, BUN 26, creatinine 1.44, TB 0.6, total protein 6.7, albumin 3.9, alkaline phosphatase 75, ALT 19, AST 21, 07/09/2020 BUN 26, creatinine 1.5, sodium 142, potassium 4.5, calcium 9.8, albumin 3.8, AST 17, ALT 14, alkaline phosphatase 65, TB 0.4, glucose 106, total protein 6.3, EGFR 43, WBC 6.3, hemoglobin 10.8, MCV 98, platelet count 233 PSA testosteron 10/16/20 <0.008 <10 07/16/20 <0.064 Imagin11/07/2020 CT chest with contrast: Findings: No mediastinal, [...] sclerotic osseous metastatic disease Assessment and Plan: Diagnosis: Prostate cancer with multiple metastasis to bones and lymph nodes Treatment: -Eligard 22.5 mg and Zometa renally adjusted dose every 3 months Mr. Banks followed with , [place] cancer specialist in [place]. PSA was undetectable in July 2020. Clinically, he is asymptomatic. We will continue current regiment.. Restaging CT and bone scan shows stable bony lesions with no uptake on the bone scan with exception of one lesion. CT scan demonstrates new small lung opacities/nodules suspicious. They are too small for biopsy. The differential diagnosis is broad including metastases from bladder cancer versus metastasis from prostate cancer versus benign lesions I recommend to repeat CT scan within short timeframe in 2 months #Bladder cancer: Has follow-up appointment with Dr. 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 We will continue surveillance every 3 months. We will switch to every 6 months after next scan if negative for metastatic disease Plan: 1. Continue leuprolide and Zometa infusion every [address] chest in 2 months prior next visit 4. Next visit on January 21 with blood work, CT chest, Lupron and Zometa infusion The plan was discussed with the patient in details. All questions answered to patient satisfaction documented in this encounter Plan of Treatment Upcoming Encounters Date Type Specialty Care Team Description 01/20/2022 Office Visit Hematology and Oncology Rina Zazueta, [address] [place] [address] (Wo rk) 01/20/2022 Infusion Hematology and Oncology 02/19/2022 Office Visit Cardiology Liam Tompkins MD [facility] Dr [place], [place] [address] (Wo rk) 03/31/2022 Hospital Encounter Cardiology Arrived 04/03/2022 Office Visit Dermatology Mark Bishop MD [address] [place] [address] DERMATOLOGY [place], [place] [address] (Wo rk) 07/06/2022 Office Visit Urology Shane Ramos MD [facility] UROLOGY [place], [place] [address] (Wo rk) 08/12/2022 Office Visit Cardiology Graeme Cueva PA [facility] CARDIOLOGY DEPT [place], [place] [address] (Wo rk) Scheduled Orders Name Type Priority Associated Diagnoses Order S chedule CT Chest w Contrast Imaging Routine Malignant neoplasm of Expected: 01/13/2021 prostate metastatic to (Appr oximate), bone Expires: 07/15/2021 Malignant neoplasm of urinary bladder, unspecified site Multiple lung nodules on CT documented as of this encounter Visit Diagnoses Diagnosis Malignant neoplasm of prostate metastati c to bone Malignant neoplasm of prostate Malignant neoplasm of urinary bladder, u nspecified site Bone metastases Secondary malignant neoplasm of bone and bone marrow Multiple lung nodules on CT documented in this encounter Care Teams Online Merchandising Coordinator Relationship Specialty Start Date End Date Coby Azevedo APRN PCP - General Family Medicine 11/15/20 12/15/20 documented as of this encounter
--- OUTSIDE RECORDS SUMMARY | 2022-01-15 09:40 | XMS_ITS | Encounter Summary ---
:1940 Author Organization [facility] [place] [address] Care Team Providers Name Role Phone Karla Curran MD Primary Care Provider Encounter Details Date Type Department Care Team Description 03/24/2021 Orders Only Cardiology at Liam Tompkins ASCVD (ar teriosclerotic Maria G SONG cardiovascular disease) [address] [facility] [address] [place], [place] [phone] Social History Tobacco Use Types Packs/Day Years Used Date Smoking Tobacco: Every Day Cigarettes 0.3 60 Smokeless Tobacco: Never Sex Assigned at Date Recorded Not on file documented as of this encounter Plan of Treatment Upcoming Encounters Date Type Specialty Care Team Description 01/20/2022 Office Visit Hematology and Oncology Rina Zazueta APRN [address] [place] [address] DR MEDICAL ONCOLOGY [place], [place] [address] (Wo rk) 01/20/2022 Infusion Hematology and Oncology 02/19/2022 Office Visit Cardiology Liam Tompkins MD [facility] [address] [place] [address] (Wo rk) 03/31/2022 Hospital Encounter Cardiology Arrived 04/03/2022 Office Visit Dermatology Mark Bishop MD [address] [facility] DERMATOLOGY [place], [place] [address] (Wo rk) 07/06/2022 Office Visit Urology Shane Ramos MD [facility] UROLOGY [place], [place] [address] (Wo rk) 08/12/2022 Office Visit Cardiology Graeme Cueva PA [facility] CARDIOLOGY DEPT [place], [place] [address] (Wo rk) documented as of this encounter Visit Diagnoses Diagnosis ASCVD (arteriosclerotic cardiovascular d isease) Unspecified cardiovascular disease documented in this encounter Care Teams Prompt Care Rn Relationship Specialty Start Date End Date Karla Curran MD PCP - General Family Medicine 12/16/[address] [place] [address] documented as of this encounter
--- OUTSIDE RECORDS SUMMARY | 2022-01-15 09:40 | XMS_ITS | Encounter Summary ---
:1940 Author Organization [facility] [place] [address] Care Team Providers Name Role Phone Karla Curran MD Primary Care Provider Reason for Visit Reason Comments Annual Exam Encounter Details Date Type Department Care Team Description 03/31/2021 Office Visit Dermatology at [facility] [employer] [place] (act inic keratosis); Maria G SONG Seborrheic keratosis [address] [facility] [address] Zachery B DERMATOLOGY [place], [place] [id number] [phone] Social History Tobacco Use Types Packs/Day Years Used Date Smoking Tobacco: Every Day Cigarettes 0.3 60 Smokeless Tobacco: Never Sex Assigned at Date Recorded Not on file documented as of this encounter Progress Notes Mark Bishop MD - 03/31/2021 3:15 PM EST Problem: Skin check new patient initial visit Chris is an 80-year-old gentleman who is 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 He has been referred to see me for generalskin checkup as he was getting these on a yearly basis elsewhere last in [place] where he lived for 11 years before moving to the [facility]. Prior to that he lived in about 20 years in [place]. He tries to fall somewhat precautions and use sunscreen. He wears a hat when he is out of doors. He denies any personal history of skin cancer. He has had lesions treated with liquid nitrogen he states. Physical examination reveals a pleasant 80-year-old gentleman who has a cluster of 3 actinic keratoses on the left ear 2 on helical rim and 1 on the scapha of the ear. He is a benign examination of thehead the neck the chest the back the hands the arms of forearms. He has numerous seborrheic keratoses on his back shoulders and upper chest and on the scalp as well. Assessment plan: Actinic keratoses left ear 1. LN 2 x 2 applied to each of 3 sites Seborrheic keratoses 1. Patient reassured about his benign seborrheic keratoses History of extensive sun exposure 1. Patient was reassured about today's benign skin examination 2. Return to clinic in another year for repeat skin checkup 3. Will obtain old medical records from patient's prior smoke tester. CC: Karla Curran MD documented in this encounter Plan of Treatment Upcoming Encounters Date Type Specialty Care Team Description 01/20/2022 Office Visit Hematology and Oncology Rina Zazueta[address] [place] [address] (Wo rk) 01/20/2022 Infusion Hematology and Oncology 02/19/2022 Office Visit Cardiology Liam Tompkins MD [facility] [address] [place], [place] [address] (Becky angela) 03/31/2022 Hospital Encounter Cardiology Arrived 04/03/2022 Office Visit Dermatology Mark Bishop MD [address] [facility] DERMATOLOGY [place], [place] [address] (Wo rk) 07/06/2022 Office Visit Urology Shane Ramos MD [facility] UROLOGY [place], [place] [address] (Wo coreen) 08/12/2022 Office Visit Cardiology Graeme Cueva PA [facility] CARDIOLOGY DEPT [place], [place] [address] (Wo rk) documented as of this encounter Visit Diagnoses Diagnosis [place] (actinic keratosis) Actinic keratosis Seborrheic keratosis Other seborrheic keratosis documented in this encounter Care Teams Station Operator Relationship Specialty Start Date End Date Karla Curran MD PCP - General Family Medicine 12/16/20 [address] [place] [address] documented as of this encounter
--- OUTSIDE RECORDS SUMMARY | 2022-01-15 09:40 | XMS_ITS | Encounter Summary ---
:1940 Author Organization [facility] Address [facility] [place] [address] Care Team Providers Name Role Phone Eliana RIVERA MD, Charles J Primary Care Provider [phone] Encounter Details Date Type Department Care Team Description 11/07/2020 Ancillary Procedure Radiology Library at Alyson Monroy [facility] MD NICOLE [facility] [address] [place] [address] [place] [address] [phone] Social History Tobacco Use Types Packs/Day Years Used Date Smoking Tobacco: Every Day Smokeless Tobacco: Never Sex Assigned at Date Recorded Not on file documented as of this encounter Plan of Treatment Upcoming Encounters Date Type Specialty Care Team Description 01/20/2022 Office Visit Hematology and Oncology Rina Zazueta APRN [address] [place] [address] [place] [address] (Wo rk) 01/20/2022 Infusion Hematology and Oncology 02/19/2022 Office Visit Cardiology Liam Tompkins MD [facility] [address] [place] [address] (Wo rk) 03/31/2022 Hospital Encounter Cardiology Arrived 04/03/2022 Office Visit Dermatology Mark Bishop MD [address] [place] [address] DERMATOLOGY [place], [place] [address] (Wo rk) 07/06/2022 Office Visit Urology Shane Ramos MD [facility] DR UROLOGY [place], [place] [address] (Wo rk) 08/12/2022 Office Visit Cardiology Graeme Cueva PA [facility] CARDIOLOGY DEPT [place], [place] [address] (Wo rk) documented as of this encounter Procedures Procedure Name Priority Date/Time Associated Diagnosis Comme nts FILM LIBRARY Routine 11/07/2020 1:09 PM Results f or this STORAGE ONLY EDT procedure are i n NUCLEAR MEDICINE the results section. documented in this encounter Results Film Library- Storage Only nuclear medicine (11/07/2020 1:09 PM EDT) Specimen (Source) Anatomical Location Collection Method / Collectio n Time Received Time / Laterality Volume Narrative RAD - 11/07/2020 1:09 PM EDT This exam is auto-finalizing. It's purpo se is for storage only. Mark Monroy II, MD IMG FILM LIBRARY ORDERABLES Performing Organization Address City/State/ZIP Code Phon e Number [place], [place] documented in this encounter Visit Diagnoses Not on filedocumented in this encounter Care Teams Plug Overwrap Machine Tender Relationship Specialty Start Date End Date Mark Monroy II, MD PCP - General 01/07/10 11/14/20 [address] [place] [address] documented as of this encounter
--- OUTSIDE RECORDS SUMMARY | 2022-01-15 09:40 | XMS_ITS | Encounter Summary ---
:1940 Author Organization [facility] [place] [address] Care Team Providers Name Role Phone Coby Azevedo APRN Primary Care Provider Reason for Visit Consultation (Routine) - Closed Specialty Diagnoses / Procedures Referred By Contact Refer red To Contact Urology Diagnoses Primary malignant neoplasm of prostate metastatic to bone Malignant neoplasm of urinary bladder, unspecified site Malignant neoplasm of prostate metastatic to bone - Primary Malignant neoplasm of urinary bladder, unspecified site Jerald Bush MD [facility] U[facility] Procedures surveillance cystoscopy treatment [address] [place] [id number] Referral ID Status Reason Start Date Expiration Date Visits V isits Requested Authorized [id number] Closed Consult, 10/29/2020 10/29/2021 1 1 Test & Treat Encounter Details Date Type Department Care Team Description 11/25/2020 Office Visit Hematology and Shane Ramos t neoplasm of prostate; Oncology at [facility] MD Meghna Malignant neoplasm of urinary bladder, u nspecified site [facility] [address] [place] [address] [place] [address] [phone] (Wo rk) Social History Tobacco Use Types Packs/Day Years Used Date Smoking Tobacco: Every Day Cigarettes 0.3 Smokeless Tobacco: Never Sex Assigned at Date Recorded Not on file documented as of this encounter Last Filed Vital Signs Vital Sign Reading Time Taken Comments Blood Pressure 151/82 11/25/2020 2:56 PM EDT Pulse 71 11/25/2020 2:56 PM EDT Temperature - - Respiratory Rate 18 11/25/2020 2:56 PM EDT Oxygen Saturation 97% 11/25/2020 2:56 PM EDT Inhaled Oxygen Concentration - - Weight 78.7 kg (173 lb 6.4 oz) 11/25/2020 2:56 PM EDT Height 172 cm (5' 7.72) 11/25/2020 2:56 PM EDT Body Mass Index 26.59 11/25/2020 2:56 PM EDT documented in this encounter Progress Notes Susan Florence RN - 11/25/2020 3:00 PM EDT Prostate IPSS and EVAN(Pt Entered): Today's answers and scores Prostate Scores and Responses 11/25/2020 Confidence, level - past 6 months Low Penetration - past 6 months Almost never or never Penetration, maintain - past 6 months Almost never or never Erection, maintain - past 6 months Did not attempt intercourse Sexual satisfaction - past 6 months Did not attempt intercourse Sexual Health in Men 4 (SEVERE ED) Incomplete emptying Less than 1 time in 5 Frequency Less than half the time Intermittency Less than 1 time in 5 Urgency Less than 1 time in 5 Weak Stream Less than 1 time in 5 Straining Not at all Nocturia 3 times Quality of life Delighted Total IPSS Score 9 (MODERATE LUTS) Shane Ramos MD - 11/25/2020 3:00 PM EDT Outpatient Follow-up Chris Banks is a 79 y.o. gentleman referred for evaluation of 1) Metastatic prostate cancer 2) Muscle invasive bladder cancer. Onclogical history 1. Castrate sensitive metastatic prostate [...] status post six cycles. Cystectomy was declined The above are being managed by Dr. Brand. I reviewed the patient's history including pathology and recent imaging I explained my recommendations which are for cystoscopy every 3 months for the 1st 2 years in the setting of bladder preservationand he could have surveillance imaging as planned with Dr. Guillory. He is due for office cystoscopy now which I will schedule. documented in this encounter Plan of Treatment Upcoming Encounters Date Type Specialty Care Team Description 01/20/2022 Office Visit Hematology and Oncology Rina Zazueta APRN [address] [place] [address] [place] [address] (Becky angela) 01/20/2022 Infusion Hematology and Oncology 02/19/2022 Office Visit Cardiology Liam Tompkins MD [facility] [address] [place] [address] (Becky angela) 03/31/2022 Hospital Encounter Cardiology Arrived 04/03/2022 Office Visit Dermatology Mark Bishop MD [address] [place] [address] DERMATOLOGY [place], [place] [address] (Becky angela) 07/06/2022 Office Visit Urology Shane Ramos MD [facility] UROLOGY [place], [place] [address] (Becky angela) 08/12/2022 Office Visit Cardiology Trenkle, Greame W , PA [facility] DR CARDIOLOGY DEPT [place], [place] [address] (Wo rk) documented as of this encounter Visit Diagnoses Diagnosis Malignant neoplasm of prostate Malignant neoplasm of urinary bladder, u nspecified site documented in this encounter Care Teams Zone Manager Relationship Specialty Start Date End Date Coby Azevedo APRN PCP - General Family Medicine 11/15/20 12/15/20 documented as of this encounter
--- OUTSIDE RECORDS SUMMARY | 2022-01-15 09:40 | XMS_ITS | Encounter Summary ---
:1940 Author Organization [facility] [place] [address] Care Team Providers Name Role Phone Karla Curran MD Primary Care Provider Reason for Visit Reason Comments Coronary Artery Disease Congestive Heart Failure Cardiomyopathy [facility] AICD Diagnostic Test (Routine) - Closed Specialty Diagnoses / Procedures Referred By Contact Refer red To Contact Diagnoses Malignant neoplasm of prostate metastatic to bone Malignant neoplasm of urinary bladder, unspecified site Multiple lung nodules on CT Jerald Bush MD Procedures CT Chest w Contrast [facility] HEMATOLOGY/[place] [address] Referral ID Status Reason Start Date Expiration Date Visits V isits Requested Authorized [id number] Closed Specialty 11/19/2020 05/20/2022 1 1 Service Requested Encounter Details Date Type Department Care Team Description 12/16/2020 Office Visit Cardiology at Liam Tompkins, Malignant neoplasm of prostate metastatic to bone; Maria G SONG Malignant neoplasm of urinary bladder, u nspecified site; [facility] Multiple lung nodules on CT; [facility] Pulmonary embolism, unspecified chronici ty, unspecified pulmonary embolism type, unspecified whether acute cor pulmonale present; ILEANA [address] [place], [place] [address] ASCVD (arteriosclerotic cardiovascular d isease); [id number] Non-ischemic cardiomyopathy Social History Tobacco Use Types Packs/Day Years Used Date Smoking Tobacco: Every Day Cigarettes 0.3 60 Smokeless Tobacco: Never Sex Assigned at Date Recorded Not on file documented as of this encounter Last Filed Vital Signs Vital Sign Reading Time Taken Comments Blood Pressure 157/79 12/16/2020 1:09 PM EDT Pulse 78 12/16/2020 1:09 PM EDT Temperature - - Respiratory Rate - - Oxygen Saturation - - Inhaled Oxygen Concentration - - Weight 79.2 kg (174 lb 11.2 oz) 12/16/2020 1:09 PM EDT Height 175.3 cm (5' 9) 12/16/2020 1:09 PM EDT Body Mass Index 25.8 12/16/2020 1:09 PM EDT documented in this encounter Progress Notes Liam Tompkins MD - 12/16/2020 1:20 PM EDT Images from the original note were not included. CARDIOLOGY NEW OUTPATIENT PRIMARY CARE PROVIDER: Karla Curran MD PROBLEM LIST: Patient Active Problem List Diagnosis ??? Pulmonary [...] ICD placed for primary prevention - Generator: [id number], [id number] - RA: 2088TC/52, [id number] - RV: 7122Q/58, [id number] ??? ASCVD (arteriosclerotic cardiovascular disease) 2003: Inferior HI 2018 Cath (EF decreased [...] hyperglyceridemia ??? Tobacco dependence with current use MEDICATIONS: Current Outpatient Medications Medication Sig Dispense Refill ??? lisinopriL (Zestril) 5 mg Tablet Take 5 mg by mouth daily. ??? metoprolol tartrate (Lopressor) 25 mg Tablet Take 25 mg by mouth 2 times daily. ??? atorvastatin (Lipitor) 40 mg Tablet Take 40 mg by mouth daily. ??? zoledronic acid (Zometa) 4 mg/5 mL Solution Inject 4 mg into the vein every 21 days. ??? apixaban (Eliquis) 5 mg Tablet Take 5 mg by mouth 2 times daily. ??? pantoprazole EC (Protonix) 20 mg Tablet, Delayed Release (E.C.) Take 20 mg by mouth daily. ??? fluticasone propionate (Flovent HFA) 220 mcg/actuation HFA Aerosol Inhaler Inhale 1 puff into the lungs 2 times daily. ??? calcium-vitamin D3 (Calcium 600 + D,3,) 600 mg(1,500mg) -200 unit Tablet Take 2 tablets by mouthdaily. ??? prochlorperazine (Compazine) 10 mg Tablet Take 10 mg by mouth every 6 hours as needed for Nausea. No current facility-administered medications for this visit. Subjective: Patient ID: Chris Banks is a 79 y.o. male. HPI: 79 M presents on referral form GP to establish cardiovascular care. He has a notable cardiac historyas per updated problem list, all incurred in [place] when he lived there previously for over a decade Since last seen there (last year, approximately), he states he has been doing reasonably well. He walks about his neighborhood with exertional symptomatology such as angina nor untoward dyspnea. Last month, he was diagnosed with an incidental PE on CT scan and was initiated on eliquis. This has been rather costly for him, and he would like to switch to coumadin. No orthopnea, pnd, weight changes No bleeding on eliquis bp at home typically systolic 140-150 Objective: Patient Vitals for the past 24 hrs: Pulse BP 12/16/20 1309 78 157/79 Gen: pleasant male in NAD Cor: rrr, s1/s2 of nl character and amplitude, no m/r/g. Estimated RAP not elevated. Carotids without bruit. Pulm: CTAB. Normal diaphragmatic movement without use of accessory muscles EKG: -RADIOLOGY TECH Device Check Device: [facility] dcICD Implanted 2018 Indication: primary prevention of SCD Battery: 74% Mode: DDDR, LRL 60 Atrial Ventricular Impedence (ohms) 390 330, 77 Sensitivity (mV) auto auto Threshold (V) 0.25 1.0 Amplitude (V) 1.625 2.0 Paced % 44 21 AT/AF burden: 0% Events: 0 Programming Changes: Iterative changes for testing purposes Assessment and Plan: ASCVD (arteriosclerotic cardiovascular disease) No angina per history. - Anti-Thrombosis: OAC- see below - Statin: lipitor 40 - Anti-anginals: GTN PRN, metoprolol Non-ischemic cardiomyopathy No failure by history nor exam. - Diuresis: none - Cardioprotection: - Beta Blockade: lopressor 25 bid. Will discuss switching to QD formulation next visit - RAASi Lisinopril 5 QD. If SBP remains > 135, will discuss uptitration - MC Blockade: not indicated - Devices: ICD in place. Whilst CUPOLA MAN can be considered, this would be moreso for symptom improvement of which he does not have much attributable. Pulmonary embolism This is likely due to underlying malignancies. In this setting, without clear reversibility, lifelong OAC is indicated. He is having cost issues with Eliquis. I thus recommended initiation of VKA once his refill of Eliquis runs out - Recommend switching from Eliquis to coumadin (target INR 2.5), starting 1 day prior to his current fill of eliquis running out. RTC 6 months Liam Tompkins MD Between 45-59 minutes were spent doing patient care, chart care/review (today), and care coordination. documented in this encounter Miscellaneous Notes Assessment & Plan Note - Liam Tompkins MD - 12/16/2020 2:30 PM EDTAssociated Problem(s): Pulmonary embolism This is likely due to underlying malignancies. In this setting, without clear reversibility, lifelong OAC is indicated. He is having cost issues with Eliquis. I thus recommended initiation of VKA once his refill of Eliquis runs out - Recommend switching from Eliquis to coumadin (target INR 2.5), starting 1 day prior to his current fill of eliquis running out. Assessment & Plan Note - Liam Tompkins MD - 12/16/2020 2:25 PM EDTAssociated Problem(s): Non-ischemic cardiomyopathy No failure by history nor exam. - Diuresis: none - Cardioprotection: - Beta Blockade: lopressor 25 bid. Will discuss switching to QD formulation next visit - RAASi Lisinopril 5 QD. If SBP remains > 135, will discuss uptitration - MC Blockade: not indicated - Devices: ICD in place. Whilst CUPOLA MAN can be considered, this would be moreso for symptom improvement of which he does not have much attributable. Assessment & Plan Note - Liam Tompkins MD - 12/16/2020 2:25 PM EDTAssociated Problem(s): ASCVD (arteriosclerotic cardiovascular disease) No angina per history. - Anti-Thrombosis: OAC- see below - Statin: lipitor 40 - Anti-anginals: GTN PRN, metoprolol documented in this encounter Plan of Treatment Upcoming Encounters Date Type Specialty Care Team Description 01/20/2022 Office Visit Hematology and Oncology Rina Zazueta APRN [address] [place] [address] [place] [address] (Becky angela) 01/20/2022 Infusion Hematology and Oncology 02/19/2022 Office Visit Cardiology Liam Tompkins MD [facility] [address] [place] [address] (Becky angela) 03/31/2022 Hospital Encounter Cardiology Arrived 04/03/2022 Office Visit Dermatology Mark Bishop MD [address] [facility] DERMATOLOGY [place], [place] [address] (Becky angela) 07/06/2022 Office Visit Urology Shane Ramos MD [facility] UROLOGY [place], [place] [address] (Wo rk) 08/12/2022 Office Visit Cardiology Graeme Cueva PA [facility] CARDIOLOGY DEPT [place], [place] [address] (Wo rk) documented as of this encounter Visit Diagnoses Diagnosis Malignant neoplasm of prostate metastati c to bone Malignant neoplasm of prostate Malignant neoplasm of urinary bladder, u nspecified site Multiple lung nodules on CT Pulmonary embolism, unspecified chronici ty, unspecified pulmonary embolism type, unspecified whether acute cor pulmonale present ASCVD (arteriosclerotic cardiovascular d isease) Unspecified cardiovascular disease Non-ischemic cardiomyopathy Other primary cardiomyopathies documented in this encounter Care Teams Liquefaction Plant Operator Relationship Specialty Start Date End Date Karla Curran MD PCP - General Family Medicine 12/16/20 580 [place] [address] documented as of this encounter
--- OUTSIDE RECORDS SUMMARY | 2022-01-15 09:40 | XMS_ITS | Encounter Summary ---
:1940 Author Organization [facility] [place] [address] Care Team Providers Name Role Phone Eliana RIVERA MD, Mark Lala Primary Care Provider [phone] Reason for Visit Consultation (Routine) - Closed Specialty Diagnoses / Procedures Referred By Contact Refer red To Contact Hematology and Oncology Diagnoses Malignant neoplasm of bladder, unspecified Malignant neoplasm of prostate Malignant neoplasm of prostate,Malignant neoplasm of bladder, unspecified. Unknown [facility] Hem Onc Office Procedures TREATMENT OPTIONS. None [address] [place] [address] Phone: Fax: Referral ID Status Reason Start Date Expiration Date Visits Requ ested Visits Authorized [id number] Closed 09/03/2020 09/03/2021 1 1 Encounter Details Date Type Department Care Team Description 10/15/2020 Office Visit Hematology/Oncology Jerald Bush Ma lignant neoplasm of prostate metastatic to bone (Primary Dx); at [facility] Malignant neoplasm of urinary bladder, u nspecified site [address] [place] [address] HEMATOLOGY/ONCOLOG [phone] [address] [place], [place] [address] Social History Tobacco Use Types Packs/Day Years Used Date Smoking Tobacco: Every Day Smokeless Tobacco: Never Sex Assigned at Date Recorded Not on file documented as of this encounter Last Filed Vital Signs Vital Sign Reading Time Taken Comments Blood Pressure 165/78 10/15/2020 4:14 PM EDT Pulse 72 10/15/2020 4:14 PM EDT Temperature 36.2 ??C (97.2 ??F) 10/15/2020 4:14 PM EDT Respiratory Rate 16 10/15/2020 4:14 PM EDT Oxygen Saturation 98% 10/15/2020 4:14 PM EDT Inhaled Oxygen Concentration - - Weight 77.1 kg (170 lb) 10/15/2020 4:14 PM EDT Height 171.5 cm (5' 7.5) 10/15/2020 4:14 PM EDT Body Mass Index 26.23 10/15/2020 4:14 PM EDT documented in this encounter Progress Notes Peg Lutz, ANNABEL - 10/15/2020 4:00 PM EDT MEDICAL ONCOLOGY INITIAL NURSING ASSESSMENT ADVANCE DIRECTIVES: In EDH [ ] Has documents [x ] Will bring in [ x ] IF NO: Advance Directive pamphlet provided : Referral to Care Management : PRESENTING SYSTEMS and PATHOLOGY: noticed lump on left neck REVIEW OF SYSTEMS: see Dr. Bush's Prior Radiotherapy: no[ ] Yes[ x ]Site Bladder Date nov 2019 Facility Prior Chemotherapy: no[ ] Yes[ x ] Drug: nov 2019 concurrent Oncologist- LastTreatment: Balance difficulty: [ x ]no [ ]yes At risk for fall: [ x ] no [ ] yes If yes, actions implemented to prevent fall. Patient/family instructed to avoid independent ambulation. Use wheelchair and ask for assistance of staff while in the clinic. ADL [ x ] no limits [ ] needs dressing assistance [ ] needs meal assistance Assistive device:[ x ]none [ ]cane [ ]walker [ ]wheelchair [ ]other: explain PAIN ASSESSMENT: [ 0 ] out of 10 Location: Description: [ ] Dull [ ] Sharp [ ] Burning [ ] Throbbing [ ] Radiating [ ] Continuous [ ]Intermittent Aggravating Factors: [ ] Movement [ ] Position [ ]Immobility [ ]Other Alleviating Factors: [ ]Medication [ ] Positioning [ ] Other Current Pain Management Plan: [ ]Satisfied [ ] Not satisfied SOCIAL ASSESSMENT: See EDH social assessment information entered. Support Systems: [place] , transportation plan: [x ]private vehicle [ ] RCT needs Social Work referral [ ] Unknown at this time needs Social Work referral Barriers to treatment: none at this time Referrals/Interventions: LEARNING STYLE: Visual and verbal, wants written material and verbal discussion. TEACHING: __ NCI ???Chemotherapy and You?? and folder given __ Specific chemotherapy literature provided and reviewed with patient Jerald Bush MD - 10/15/2020 4:00 PM EDT Images from the original note were not included. 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 Onclogical history 1. Castrate sensitive metastatic [...] Cystectomy was declined 3. Anemia, multifactorial stable PMH: Pacemaker defibrillator placement 2 years ago, CAD with 2 coronary stents placement, hypertension Patient Active Problem List Diagnosis ??? Malignant neoplasm of prostate metastatic to bone Problem List: #1 CAD -acute IMI 06/14/02 with TNK and rescue PTCA of RCA at [facility] -Echo 06/15/02 with nl LV dimension, EF [...] ACID. Medications: Your Medications Accurate as of October 15, 2020 6:11 PM. If you have any questions, ask [...] and axillary nodes normal Neurologic: Normal Vitals Pathology: 03/29/2015 left low lateral neck lymph [...] of metastatic adenocarcinoma of prostatic origin. Labs: 07/09/2020 BUN 26, creatinine 1.5, sodium 142, potassium 4.5, calcium 9.8, albumin 3.8, AST 17, ALT 14, alkaline phosphatase 65, TB 0.4, glucose 106, total protein 6.3, EGFR 43, WBC 6.3, hemoglobin 10.8, MCV 98, platelet count 233 PSA testosteron 07/16/20 <0.064 Imagin07/08/[address] urogram: No abnormal enhancement within the collecting system. No abdominal pelvic adenopathy. Stable scattered sclerotic osseous metastatic disease Assessment and Plan: Diagnosis: Prostate cancer with multiple metastasis to bones and lymph nodes Treatment: -Eligard 22.5 mg and Zometa renally adjusted dose every 3 months Mr. Banks followed with , [place] cancer specialist in [place]. PSA was undetectable in July 2020. Clinically, he is asymptomatic. We will continue current regiment.. 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 We will continue surveillance every 3 months. We will switch to every 6 months after next scan if negative for metastatic disease Plan: 1. CBC, CMP, PSA, testosterone within a week at [facility] 2. Stand-alone leuprolide and Zometa infusion on , October [address] chest, CT urogram and bone scan within the next 3-4 weeks at [facility] 4. Next visit in 4-5 weeks 5. Referral to urology at [facility] for surveillance cystoscopy documented in this encounter Plan of Treatment Upcoming Encounters Date Type Specialty Care Team Description 01/20/2022 Office Visit Hematology and Oncology Rina Zazueta APRN [address] [place] [address] [place] [address] (Wo coreen) 01/20/2022 Infusion Hematology and Oncology 02/19/2022 Office Visit Cardiology Liam Tompkins MD [facility] [address] [place], [place] [address] (Wo rk) 03/31/2022 Hospital Encounter Cardiology Arrived 04/03/2022 Office Visit Dermatology Mark Bishop MD [address] [place] [address] DERMATOLOGY [place], [place] [address] (Wo rk) 07/06/2022 Office Visit Urology Shane Ramos MD [facility] UROLOGY [place], [place] [address] (Wo rk) 08/12/2022 Office Visit Cardiology Graeme Cueva PA [facility] CARDIOLOGY DEPT [place], [place] [address] (Wo rk) documented as of this encounter Visit Diagnoses Diagnosis Malignant neoplasm of prostate metastati c to bone - Primary Malignant neoplasm of prostate Malignant neoplasm of urinary bladder, u nspecified site documented in this encounter Care Teams Bone Process Operator Relationship Specialty Start Date End Date Mark Monroy II, MD PCP - General 01/07/10 11/14/20 [address] [place] [address] documented as of this encounter
--- OUTSIDE RECORDS SUMMARY | 2022-01-15 09:40 | XMS_ITS | Encounter Summary ---
:1940 Author Organization [facility] [place] [address] Care Team Providers Name Role Phone Eliana RIVERA MD, Mark Lala Primary Care Provider [phone] Reason for Visit Reason Onset Date Comments Follow-up 10/18/2020 Encounter Details Date Type Department Care Team Description 10/18/2020 Telephone Hematology/Oncology at Peg Lutz RN Follow-up [address] [phone] Social History Tobacco Use Types Packs/Day Years Used Date Smoking Tobacco: Every Day Smokeless Tobacco: Never Sex Assigned at Date Recorded Not on file documented as of this encounter Miscellaneous Notes Telephone Encounter - Peg Lutz RN - 10/18/2020 9:09 AM EDT Spoke with Mrs. Banks to let her and pt know Dr. Guillory reviewed labs and they looked good. PSA <0.008. Pt due for lupron and zometa 3.3 mg due to creatinine of 1.44, on oct 24 at 9am. She agrees with plan. documented in this encounter Plan of Treatment Upcoming Encounters Date Type Specialty Care Team Description 01/20/2022 Office Visit Hematology and Oncology Rina Zazueta APRN [address] [place] [address] MEDICAL ONCOLOGY [place], [place] [id number] (Wo rk) 01/20/2022 Infusion Hematology and Oncology 02/19/2022 Office Visit Cardiology Liam Tompkins MD [facility] Dr [place], [place] [address] (Wo rk) 03/31/2022 Hospital Encounter Cardiology Arrived 04/03/2022 Office Visit Dermatology Mark Bishop MD [address] [place] [address] DERMATOLOGY [place], [place] [address] (Wo rk) 07/06/2022 Office Visit Urology Shane Ramos MD [facility] UROLOGY [place], [place] [address] (Wo rk) 08/12/2022 Office Visit Cardiology Graeme Cueva PA [facility] DR CARDIOLOGY DEPT [place], [place] [address] (Wo rk) documented as of this encounter Visit Diagnoses Not on filedocumented in this encounter Care Teams Medical Billing Coder Relationship Specialty Start Date End Date Mark Monroy II, MD PCP - General 01/07/10 11/14/20 [address] [place] [address] documented as of this encounter
--- OUTSIDE RECORDS SUMMARY | 2022-01-15 09:40 | XMS_ITS | Encounter Summary ---
:1940 Author Organization [facility] [place] [address] Care Team Providers Name Role Phone Eliana RIVERA MD, Mark Lala Primary Care Provider [phone] Reason for Visit Reason Onset Date Comments Other 11/07/2020 PE Encounter Details Date Type Department Care Team Description 11/07/2020 Telephone Hematology/Oncology at Peg Lutz RN Other (PE) [address] [phone] Social History Tobacco Use Types Packs/Day Years Used Date Smoking Tobacco: Every Day Smokeless Tobacco: Never Sex Assigned at Date Recorded Not on file documented as of this encounter Miscellaneous Notes Telephone Encounter - Peg Lutz RN - 11/07/2020 10:23 AM EDT Called from [facility] PE seen on CT scan in right lower lobe, reviewed with Dr. Velazquez who stated pt needed to go to [facility]. Spoke with pt's who states he is not short of breath and will bring him right over to ER.Report given to [facility] [employer] MA[employer]. Latest notes faxed. Dr. Bushupdated and agreed with plan. Asked for images to be pushed. documented in this encounter Plan of Treatment Upcoming Encounters Date Type Specialty Care Team Description 01/20/2022 Office Visit Hematology and Oncology Rina Zazueta APRN [address] [place] [address] [place] [address] (Wo rk) 01/20/2022 Infusion Hematology and Oncology 02/19/2022 Office Visit Cardiology Liam Tompkins MD [facility] Dr [place], [place] [address] (Wo rk) 03/31/2022 Hospital Encounter Cardiology Arrived 04/03/2022 Office Visit Dermatology Mark Bishop MD [address] [place] [address] DERMATOLOGY [place], [place] [address] (Wo rk) 07/06/2022 Office Visit Urology Shane Ramos MD [facility] UROLOGFrida [place], [place] [address] (Wo rk) 08/12/2022 Office Visit Cardiology Graeme Cueva PA [facility] CARDIOLOGY DEPT [place], [place] [address] (Wo rk) documented as of this encounter Visit Diagnoses Not on filedocumented in this encounter Care Teams Threader Operator Relationship Specialty Start Date End Date Mark Monroy II, MD PCP - General 01/07/10 11/14/20 [address] [place] [address] documented as of this encounter
--- OUTSIDE RECORDS SUMMARY | 2022-01-15 09:40 | XMS_ITS | Encounter Summary ---
:1940 Author Organization [facility] [place] [address] Care Team Providers Name Role Phone Karla Curran MD Primary Care Provider Reason for Visit Reason Comments Injections SQ Eligard and IV zometa Treatment/Therapy Plan Authorization (Routine) - Closed Specialty Diagnoses / Procedures Referred By Contact Refer red To Contact Diagnoses Primary malignant neoplasm of prostate Jerald Bush MD [facility] Hem Onc Office Procedures TC ZOLEDRONIC ACID, 1 MG, INJECTION TC LEUPROLIDE ACETATE 7.5MG, FOR DEPOST SUSPENSION (LUPRON DEPOT) ZOMETA LUPRON [address] HEMATOLOGY/ONCOLOGY [place], [place] [phone] Fax: Referral ID Status Reason Start Date Expiration Date Visits Requ ested Visits Authorized [id number] Closed 10/15/2020 03/09/2021 99 99 Encounter Details Date Type Department Care Team Description 04/29/2021 Infusion Hematology Oncology at [facility] malignant neoplasm [facility] of prostate [address] [place] [phone] Social History Tobacco Use Types Packs/Day Years Used Date Smoking Tobacco: Every Day Cigarettes 0.3 60 Smokeless Tobacco: Never Sex Assigned at Date Recorded Not on file documented as of this encounter Progress Notes Gladys Christian RN - 04/29/2021 3:00 PM EDT Infusion Note Diagnosis: Metastatic prostate cancer Treatment: Zometa Infusion Creatinine: 04/22/21 - 1.81. CrCl - 36.275 Zometa 3 mg infused over 15 minutes. Patient instructed on side effects of Zometa. Patient states understanding of teaching, Patient aware to call clinic with any questions or concerns. Treatment: Eligard Injection Eligard 22.5 mg injected SQ in LQ abd. Patient instructed on side effects of Eligard Patient states understanding of teaching, Patient aware to call clinic with any questions or concerns. Plan: Return to clinic in three months. documented in this encounter Plan of Treatment Upcoming Encounters Date Type Specialty Care Team Description 01/20/2022 Office Visit Hematology and Oncology Rina Zazueta[address] [place] [address] (Wo rk) 01/20/2022 Infusion Hematology and Oncology 02/19/2022 Office Visit Cardiology Liam Tompkins MD [facility] Dr [place], [place] [address] (Wo rk) 03/31/2022 Hospital Encounter Cardiology Arrived 04/03/2022 Office Visit Dermatology Mark Bishop MD [address] [place] [address] DERMATOLOGY [place], [place] [address] (Wo rk) 07/06/2022 Office Visit Urology Shane Ramos MD [facility] UROLOGY [place], [place] [address] (Wo rk) 08/12/2022 Office Visit Cardiology Graeme Cueva PA [facility] CARDIOLOGY DEPT [place], [place] [address] (Wo rk) documented as of this encounter Visit Diagnoses Diagnosis Primary malignant neoplasm of prostate Malignant neoplasm of prostate documented in this encounter Administered Medications Inactive Administered Medications - up to 3 most recent administrations Medication Order MAR Action Action Date Dose Rate Site calcium carbonate (Tums) chewable Given 04/29/2021 3:56 PM EDT 5 00 mg tablet 500 mg 500 mg, Oral, ONCE, 1 dose, On Wed04/29/21 at 1530, Routine leuprolide (3 month) Given 04/29/2021 3:45 PM EDT 22.5 mg Right Lower Quadrant (Eligard) injection 22.5 mg 22.5 mg, Subcutaneous, ONCE, 1 dose, On Wed04/29/21 at 1545, Eligard is patient's preference, Routine, This agent is restricted to outpatient use. Is this drug being given as an outpatient? Yes zoledronic acid (Zometa) 3 mg in New Bag 04/29/2021 3:50 PM EDT 3 mg 415 mL/hr sodium chloride 0.9% 103.75 mL infusion 3 mg, Intravenous, ONCE, 1 dose, On Wed04/29/21 at 1530, Administer over 15 Minutes, Do not administer [...] metastases documented in this encounter Care Teams Tree Feller Operator Relationship Specialty Start Date End Date Karla Curran MD PCP - General Family Medicine 12/16/20 [address] [place] [address] documented as of this encounter
--- OUTSIDE RECORDS SUMMARY | 2022-01-15 09:40 | XMS_ITS | Encounter Summary ---
:1940 Author Organization [facility] [place] [address] Care Team Providers Name Role Phone Eliana RIVERA MD, Mark Lala Primary Care Provider [phone] Reason for Visit Reason Comments Other lupron, zometa Treatment/Therapy Plan Authorization (Routine) - Closed Specialty Diagnoses / Procedures Referred By Contact Refer red To Contact Diagnoses Primary malignant neoplasm of prostate Jerald Bush MD [facility] [[email or web address]] Hem Onc Office Procedures TC ZOLEDRONIC ACID, 1 MG, INJECTION TC LEUPROLIDE ACETATE 7.5MG, FOR DEPOST SUSPENSION (LUPRON DEPOT) ZOMETA LUPRON [address] HEMATOLOGY/ONCOLOGY [place], [place] [phone] Fax: Referral ID Status Reason Start Date Expiration Date Visits Requ ested Visits Authorized [id number] Closed 10/15/2020 03/09/2021 99 99 Encounter Details Date Type Department Care Team Description 10/24/2020 Infusion Hematology Oncology at [facility] prostate metastatic to bone [address] [place] [phone] Social History Tobacco Use Types Packs/Day Years Used Date Smoking Tobacco: Every Day Smokeless Tobacco: Never Sex Assigned at Date Recorded Not on file documented as of this encounter Last Filed Vital Signs Vital Sign Reading Time Taken Comments Blood Pressure 156/79 10/24/2020 9:03 AM EDT Pulse 73 10/24/2020 9:03 AM EDT Temperature 36.4 ??C (97.5 ??F) 10/24/2020 9:03 AM EDT Respiratory Rate 20 10/24/2020 9:03 AM EDT Oxygen Saturation 99% 10/24/2020 9:03 AM EDT Inhaled Oxygen Concentration - - Weight 77.9 kg (171 lb 12.8 oz) 10/24/2020 9:03 AM EDT Height 171.5 cm (5' 7.5) 10/24/2020 9:03 AM EDT Body Mass Index 26.51 10/24/2020 9:03 AM EDT documented in this encounter Progress Notes Peg Lutz RN - 10/24/2020 9:00 AM EDT INFUSION THERAPY ADMINISTRATION NOTES TIME TREATMENT STARTED: 849 TIME TREATMENT ENDED: 949 DIAGNOSIS: prostate cancer PROTOCOL:na CYCLE #: every 3 months REASON FOR VISIT: zometa lurpon SUBJECTIVE Chris H Card offers no complaints. OBJECTIVE LAB DATA: Cr 1.44 zometa dose adjusted to 3.3 mg lupron 22.5 mg IM given in right gluteal REACTIONS (DESCRIPTION, TIME, INTERVENTION AND EFFECTIVENESS) none ASSESSMENT Chris H Card was awake, alert and he tolerated treatment well. PLAN Return to clinic per routine. documented in this encounter Plan of Treatment Upcoming Encounters Date Type Specialty Care Team Description 01/20/2022 Office Visit Hematology and Oncology Rina Zazueta APRN [address] [place] [address] [place] [address] (Becky angela) 01/20/2022 Infusion Hematology and Oncology 02/19/2022 Office Visit Cardiology Liam Tompkins MD [facility] [address] [place] [address] (Becky angela) 03/31/2022 Hospital Encounter Cardiology Arrived 04/03/2022 Office Visit Dermatology Mark Bishop MD [address] [place] [address] DERMATOLOGY [place], [place] [address] (Becky angela) 07/06/2022 Office Visit Urology Shane Ramos MD [facility] UROLOGY [place], [place] [address] (Wo rk) 08/12/2022 Office Visit Cardiology Graeme Cueva PA [facility] CARDIOLOGY DEPT [place], [place] [address] (Wo rk) documented as of this encounter Visit Diagnoses Diagnosis Malignant neoplasm of prostate metastati c to bone Malignant neoplasm of prostate documented in this encounter Administered Medications Inactive Administered Medications - up to 3 most recent administrations Medication Order MAR Action Action Date Dose Rate Site calcium carbonate (Tums) chewable Given 10/24/2020 9:20 AM EDT 5 00 mg tablet 500 mg 500 mg, Oral, ONCE, 1 dose, On Chelo 10/24/20 at 0845, Routine leuprolide (Lupron Depot) Given 10/24/2020 9:43 AM EDT 22.5 mg Right Gluteal injection 22.5 mg 22.5 mg, Intramuscular, ONCE, 1 dose, On Chelo 10/24/20 at 0845, Routine, This agent is restricted to outpatient use. Is this drug being given as an outpatient? Yes zoledronic acid (Zometa) 3.3 mg New Bag 10/24/2020 9:20 AM EDT 3.3 mg 416.5 mL/hr in sodium chloride 0.9% 104.125 mL infusion 3.3 mg, Intravenous, ONCE, 1 dose, On Chelo 10/24/20 at 0845, Administer over 15 Minutes, Do not administer [...] metastases documented in this encounter Care Teams Office Rental Clerk Relationship Specialty Start Date End Date Mark Monroy II, MD PCP - General 01/07/10 11/14/20 [address] [place] [address] documented as of this encounter
--- OUTSIDE RECORDS SUMMARY | 2022-01-15 09:40 | XMS_ITS | Encounter Summary ---
:1940 Author Organization [facility] [place] [address] Care Team Providers Name Role Phone Karla Curran MD Primary Care Provider Reason for Visit Reason Comments IV Medication Zometa Injections Lupron Treatment/Therapy Plan Authorization (Routine) - Closed Specialty Diagnoses / Procedures Referred By Contact Refer red To Contact Diagnoses Primary malignant neoplasm of prostate Jerald Bush MD [facility] Hem Onc Office Procedures TC ZOLEDRONIC ACID, 1 MG, INJECTION TC LEUPROLIDE ACETATE 7.5MG, FOR DEPOST SUSPENSION (LUPRON DEPOT) ZOMETA LUPRON [address] HEMATOLOGY/[place] [phone] Fax: Referral ID Status Reason Start Date Expiration Date Visits Requ ested Visits Authorized [id number] Closed 10/15/2020 03/09/2021 99 99 Encounter Details Date Type Department Care Team Description 01/28/2021 Infusion Hematology Oncology at [facility] malignant neoplasm [facility] of prostate [address] [place] [phone] Social History Tobacco Use Types Packs/Day Years Used Date Smoking Tobacco: Every Day Cigarettes 0.3 60 Smokeless Tobacco: Never Sex Assigned at Date Recorded Not on file documented as of this encounter Progress Notes Jill Hall RN - 01/28/2021 3:30 PM EST INFUSION THERAPY ADMINISTRATION NOTES DIAGNOSIS: Prostate CA REASON FOR VISIT: Lupron Injection, Zometa infusion SUBJECTIVE Mr Banks is here for his Lupron and Zometa. He is doing well. He met with Rina Zazueta APRN prior tohis infusion appt, has no questions/concerns and is ready for treatment today. OBJECTIVE LAB DATA: Labs drawn 01/20/21. Reviewed and found adequate for treatment today. CrCl = 43.74 Pre administration: Orders independently verified for drug name, route, and dosage by El Hall RN and pharmacist on-site. REACTIONS (DESCRIPTION, TIME, INTERVENTION AND EFFECTIVENESS) none ASSESSMENT Mr. Banks was awake, alert and tolerated treatment well. PLAN Return to clinic per routine. Patient was reminded to call in the interim with any questions/concerns. documented in this encounter Plan of Treatment Upcoming Encounters Date Type Specialty Care Team Description 01/20/2022 Office Visit Hematology and Oncology Rina Zazueta APRN [address] [place] [address] [place] [address] (Wo rk) 01/20/2022 Infusion Hematology and Oncology 02/19/2022 Office Visit Cardiology Liam Tompkins MD [facility] [address] [place] [address] (Wo rk) 03/31/2022 Hospital Encounter Cardiology Arrived 04/03/2022 Office Visit Dermatology Mark Bishop MD [address] [place] [address] DERMATOLOGY [place], [place] [address] (Wo rk) 07/06/2022 Office Visit Urology Shane Ramos MD [facility] UROLOGY [place], [place] [address] (Wo coreen) 08/12/2022 Office Visit Cardiology Graeme Cueva PA [facility] CARDIOLOGY DEPT [place], [place] [address] (Wo coreen) documented as of this encounter Visit Diagnoses Diagnosis Primary malignant neoplasm of prostate Malignant neoplasm of prostate documented in this encounter Administered Medications Inactive Administered Medications - up to 3 most recent administrations Medication Order MAR Action Action Date Dose Rate Site calcium carbonate (Tums) chewable Given 01/28/2021 3:36 PM EST 5 00 mg tablet 500 mg 500 mg, Oral, ONCE, 1 dose, On Wed01/28/21 at 1530, Routine leuprolide (Lupron Depot) Given 01/28/2021 3:59 PM EST 22.5 mg Left Gluteal injection 22.5 mg 22.5 mg, Intramuscular, ONCE, 1 dose, On Wed01/28/21 at 1530, Routine, This agent is restricted to outpatient use. Is this drug being given as an outpatient? Yes zoledronic acid (Zometa) 3.3 mg New Bag 01/28/2021 3:34 PM EST 3.3 mg 416.5 mL/hr in sodium chloride 0.9% 104.125 mL infusion 3.3 mg, Intravenous, ONCE, 1 dose, On Wed01/28/21 at 1530, Administer over 15 Minutes, Do [...] metastases documented in this encounter Care Teams Doctor Of Audiology Relationship Specialty Start Date End Date Karla Curran MD PCP - General Family Medicine 12/16/20 [address] [place] [address] documented as of this encounter
--- OUTSIDE RECORDS SUMMARY | 2022-01-15 09:40 | XMS_ITS | Encounter Summary ---
:1940 Author Organization [facility] [place] [address] Care Team Providers Name Role Phone Coby Azevedo APRN Primary Care Provider Encounter Details Date Type Department Care Team Description 11/25/2020 Abstract Cardiology at [facility] Steven Ling RN [address] [place] [phone] Social History Tobacco Use Types Packs/Day Years Used Date Smoking Tobacco: Every Day Cigarettes 0.3 Smokeless Tobacco: Never Sex Assigned at Date Recorded Not on file documented as of this encounter Plan of Treatment Upcoming Encounters Date Type Specialty Care Team Description 01/20/2022 Office Visit Hematology and Oncology Rina Zazueta APRN [address] [place] [address] [place] [address] (Wo rk) 01/20/2022 Infusion Hematology and Oncology 02/19/2022 Office Visit Cardiology Liam Tompkins MD [facility] [address] [place] [address] (Wo rk) 03/31/2022 Hospital Encounter Cardiology Arrived 04/03/2022 Office Visit Dermatology Mark Bishop MD [address] [facility] DERMATOLOGY [place], [place] [address] (Wo rk) 07/06/2022 Office Visit Urology Shane Ramos MD [facility] UROLOGY [place], [place] [address] (Wo rk) 08/12/2022 Office Visit Cardiology Graeme Cueva , [facility] CARDIOLOGY DEPT [place], [place] [address] (Wo rk) documented as of this encounter Visit Diagnoses Not on filedocumented in this encounter Care Teams Visual Communications Instructor Relationship Specialty Start Date End Date Coby Azevedo APRN PCP - General Family Medicine 11/15/20 12/15/20 documented as of this encounter
--- OUTSIDE RECORDS SUMMARY | 2022-01-15 09:40 | XMS_ITS | Encounter Summary ---
:1940 Author Organization [facility] [place] [address] Care Team Providers Name Role Phone Karla Curran MD Primary Care Provider Encounter Details Date Type Department Care Team Description 2020 Office Visit Urology at [facility] Shane Ramos Primary malignant [facility] MD Meghna neoplasm [place] [address] UROLOGY [phone] [place] [address] (Wo rk) Social History Tobacco Use Types Packs/Day Years Used Date Smoking Tobacco: Every Day Cigarettes 0.3 60 Smokeless Tobacco: Never Sex Assigned at Date Recorded Not on file documented as of this encounter Last Filed Vital Signs Vital Sign Reading Time Taken Comments Blood Pressure 160/78 2020 4:06 PM EST Pulse 73 2020 4:06 PM EST Temperature 35.9 ??C (96.6 ??F) 2020 4:06 PM EST Respiratory Rate 20 2020 4:06 PM EST Oxygen Saturation - - Inhaled Oxygen Concentration - - Weight 78.9 kg (174 lb) 2020 4:06 PM EST Height 175.3 cm (5' 9) 2020 4:06 PM EST Body Mass Index 25.7 2020 4:06 PM EST documented in this encounter Patient Instructions Patient InstructionsRodo Atwood LPN - 2020 4:00 PM EST Instructions following Cystoscopy Activity: As tolerated [...] to void please call our office at [phone] before 5PM or [phone] after hours. Please call if: * you have copious blood in your urine * fevers greater than 101.3 F * you are unable to void The number for questions is [phone] before 5 PM weekdays and [phone] after 5 PM and weekends. Follow-up: With Dr. Ramos in 6 months. documented in this encounter Procedure Notes Shane Ramos MD - 2020 4:00 PM ESTAssociated Order(s): CYSTOSCOPY Pre-Procedure Diagnose(s): Primary malignant [...] Office Visit Hematology and Oncology Rina Zazueta, JOURNEYMAN MECHANIC[address] [place] [address] (Wo rk) 01/20/2022 Infusion Hematology and Oncology 02/19/2022 Office Visit Cardiology Liam Tompkins MD [facility] Dr [place] [address] (Wo rk) 03/31/2022 Hospital Encounter Cardiology Arrived 04/03/2022 Office Visit Dermatology Mark Bishop MD [address] [place] [address] DERMATOLOGY [place], [place] [address] (Wo rk) 07/06/2022 Office Visit Urology Shane Ramos MD [facility] UROLOGY [place], [place] [address] (Wo rk) 08/12/2022 Office Visit Cardiology Graeme Cueva PA [facility] CARDIOLOGY DEPT [place], [place] [address] (Wo rk) documented as of this encounter Procedures Procedure Name Priority Date/Time Associated Comments Diagnosis CYTOPATHOLOGY Routine 2020 5:20 PM Primary malignant Res ults for this NON-GYNECOLOGICAL EST neoplasm of procedure are in prostate the results section. NON-PERSONNEL GENERALIST MANAGER FINAL REPORT Routine 2020 4:15 PM R esults for this EST procedure are i n the results section. CYSTOSCOPY Routine 2020 4:00 PM Primary malignant Resu lts for this EST neoplasm of procedure are i n prostate the results section. documented in this encounter Results Cytopathology Non-Gynecological (2020 5:20 PM EST) Specimen Anatomical Collection Method Collection Time Receive d Time (Source) Location / / Volume Laterality AP Specimen 2020 5:20 PM 5:20 EST PM EST Narrative [facility] - 2020 5:20 PM EST Specimen requisition ordered. ??Separate Pathology report to follow Shane Ramos MD PATHOLOGY/CYTOLOGY ORDERABLE S Performing Organization Address City/[facility]/[place] [address] Non-Elevator Runner Final Report (2020 4:15 PM EST) Component Value Ref Test Analysis Performed At [facility] gist Range Method Time Signature Non-Elevator Runner Final [id number] ? Location: [address] [place] [address] The signing pathologist has (i) examined the relevant preparation(s) for the [facility] specimen(s) and (ii) rendered or confirmed the diagnosis(es) . HOSPITAL LABORATORY . ? No n-Elevator Runner Final DIAGNOSIS Negative for High Grade Urothelial Carcinoma See discussion. Electronically signed by: ?Pranav SONG PhD, Pete Lala Verified: ??12/25/2020 12:19 ??Pathologist Performed at: ??-[facility] Dept. of Pathology, [place], [place] DISCUSSION Urine, voided: Urothelial cells, squamous c ells, red blood cells, acute inflammation, casts and crystals are present. Degenerative changes are noted. Reference: Jose DL, ?? Zelalem EM, Gian ??DFI. The [place] System for Reporting Urinary Cytology. [place]: Irene; 2016. CLINICAL INFORMATION Specimen Source : Urine, voided Pertinent Clinical Data and Significant Therapy: Hx of bladder ca Clinical Impression : Hx of bladder ca Pertinent Radiologic Findings ??: (not provided) Gross Description: Received ??fresh, approximately 50 mL total volu me of ?? clear, yellow fluid. Total Preparation: Liquid-Based Prep 1. Specimen (Source) Anatomical Collection Method Collection Time Re ceived Time Location / / Volume Laterality 2020 4:15 PM EST Shane Ramos MD PATHOLOGY/CYTOLOGY ORDERABLE S Performing Organization Address City/[facility]/[place] [address] Cystoscopy (2020 4:00 PM EST) Narrative Shane Ramos MD - 2020 4:0 0 PM EST Shane Ramos MD ? 12/30/2020 10:04 AM Procedure: Flexible Cystoscopy Surgeon: Shane Ramos [...] prostate documented in this encounter Care Teams Datastage Consultant Relationship Specialty Start Date End Date Karla Curran MD PCP - General Family Medicine 12/16/[address] [place] [address] documented as of this encounter
--- OUTSIDE RECORDS SUMMARY | 2022-01-15 09:40 | XMS_ITS | Encounter Summary ---
:1940 Author Organization [facility] [place] [address] Care Team Providers Name Role Phone Karla Curran MD Primary Care Provider Encounter Details Date Type Department Care Team Description 01/30/2021 Telephone [facility] [address] [phone] Social History Tobacco Use Types Packs/Day Years Used Date Smoking Tobacco: Every Day Cigarettes 0.3 60 Smokeless Tobacco: Never Sex Assigned at Date Recorded Not on file documented as of this encounter Miscellaneous Notes Telephone Encounter - Marline Barker RN - 01/30/2021 10:45 AM EST Telephone call returned to patient . Spoke with both of them. Reports left buttock pain at injection site. States 3 months age he had similar pain following lupron which lasted a day following. He is still having discomfort from Tuesdays injection today so calledfor guidance. He rates pain 7-8/10 this morning but is now down to 2/10. It does not radiate. Denies increased warmth at site, any redness or swelling. Has tried ice on site which is helpful. His adds that she gave him ibuprofen 200 mg yesterday and again today which he also says is helpful. Interventions: Instructed to continue what they are doing prn. Instructed to call back with any worsening pain, redness, warmth, swelling or if symptoms don't resolve over next several days. They verbalize good understanding of these instructions and are agreeable to following through. Dr. Bush updated with this note. Telephone Encounter - Marline Barker RN - 01/30/2021 10:34 AM EST ----- Message from Nat L Car sent at 01/30/2021 8:15 AM EST ----- Regarding: Pain from his lupron He got a shot on Wednesday in his bum and it is bothering him today. His is wondering if this is normal and what she can do for him she said its not red or anything. But could someone call them at the home number to touch base with them. Thanks Adriane! documented in this encounter Plan of Treatment Upcoming Encounters Date Type Specialty Care Team Description 01/20/2022 Office Visit Hematology and Oncology Rina Zazueta[address] [place] [address] (Wo rk) 01/20/2022 Infusion Hematology and Oncology 02/19/2022 Office Visit Cardiology Liam Tompkins MD [facility] [address] [place] [address] (Wo rk) 03/31/2022 Hospital Encounter Cardiology Arrived 04/03/2022 Office Visit Dermatology Mark Bishop MD [address] [place] [address] DERMATOLOGY [place], [place] [address] (Wo rk) 07/06/2022 Office Visit Urology Shane Ramos MD [facility] UROLOGY [place], [place] [address] (Wo rk) 08/12/2022 Office Visit Cardiology Graeme Cueva PA [facility] CARDIOLOGY DEPT [place], [place] [address] (Wo rk) documented as of this encounter Visit Diagnoses Not on filedocumented in this encounter Care Teams Corporate Legal Intern Relationship Specialty Start Date End Date Karla Curran MD PCP - General Family Medicine 12/16/[address] [place], [place] [id number] documented as of this encounter
--- OUTSIDE RECORDS SUMMARY | 2022-01-15 09:40 | XMS_ITS | Encounter Summary ---
:1940 Author Organization [facility] [place] [address] Care Team Providers Name Role Phone Eliana RIVERA MD, Mark Lala Primary Care Provider [phone] Encounter Details Date Type Department Care Team Description 10/23/2020 Orders Only Hematology and Oncology at Jerald Guerra MD [facility] Mikel zheng HEMATOLOGY/[place] [address] [place] [address] [phone] (Wo rk) Social History Tobacco Use Types Packs/Day Years Used Date Smoking Tobacco: Every Day Smokeless Tobacco: Never Sex Assigned at Date Recorded Not on file documented as of this encounter Plan of Treatment Upcoming Encounters Date Type Specialty Care Team Description 01/20/2022 Office Visit Hematology and Oncology Rina Zazueta APR[address] MEDICAL ONCOLOGY [place], [place] [address] (Wo rk) 01/20/2022 Infusion Hematology and Oncology 02/19/2022 Office Visit Cardiology Liam Tompkins MD [facility] Dr [place], [place] [address] (Wo rk) 03/31/2022 Hospital Encounter Cardiology Arrived 04/03/2022 Office Visit Dermatology Mark Bishop MD [address] [place] [address] DERMATOLOGY [place], [place] [address] (Wo rk) 07/06/2022 Office Visit Urology Shane Ramos MD [facility] DR UROLOGY [place], [place] [address] (Wo rk) 08/12/2022 Office Visit Cardiology Graeme Cueva PA [facility] CARDIOLOGY DEPT [place], [place] [address] (Wo rk) documented as of this encounter Visit Diagnoses Not on filedocumented in this encounter Care Teams Stitch Bonding Machine Operator Relationship Specialty Start Date End Date Mark Monroy II, MD PCP - General 01/07/10 11/14/20 [address] [place] [address] documented as of this encounter
--- OUTSIDE RECORDS SUMMARY | 2022-01-15 09:40 | XMS_ITS | Encounter Summary ---
:1940 Author Organization [facility] Address [facility] [place] [address] Care Team Providers Name Role Phone Eliana RIVERA MD, Charles J Primary Care Provider [phone] Encounter Details Date Type Department Care Team Description 11/07/2020 Ancillary Procedure Radiology Library at Alyson Monroy [facility] MD NICOLE [facility] [address] [place] [address] [place] [address] [phone] Social History Tobacco Use Types Packs/Day Years Used Date Smoking Tobacco: Every Day Smokeless Tobacco: Never Sex Assigned at Date Recorded Not on file documented as of this encounter Plan of Treatment Upcoming Encounters Date Type Specialty Care Team Description 01/20/2022 Office Visit Hematology and Oncology Rina Zazueta APRN [address] [place] [address] [place] [address] (Wo rk) 01/20/2022 Infusion Hematology and Oncology 02/19/2022 Office Visit Cardiology Liam Tompkins MD [facility] [address] [place] [address] (Wo rk) 03/31/2022 Hospital Encounter Cardiology Arrived 04/03/2022 Office Visit Dermatology Mark Bishop MD [address] [place] [address] DERMATOLOGY [place], [place] [address] (Wo rk) 07/06/2022 Office Visit Urology Shane Ramos MD [facility] DR UROLOGY [place], [place] [address] (Wo rk) 08/12/2022 Office Visit Cardiology Graeme Cueva PA [facility] CARDIOLOGY DEPT [place], [place] [address] (Wo rk) documented as of this encounter Procedures Procedure Name Priority Date/Time Associated Diagnosis Comme nts FILM LIBRARY Routine 11/07/2020 1:10 PM Results f or this STORAGE ONLY CT EDT procedure ar e in CHEST ABDOMEN the results PELVIS section. documented in this encounter Results Film Library- Storage Only CT Chest Abdomen Pelvis (11/07/2020 1:10 PM EDT) Specimen (Source) Anatomical Location Collection Method / Collectio n Time Received Time / Laterality Volume Narrative RAD - 11/07/2020 1:10 PM EDT This exam is auto-finalizing. It's purpo se is for storage only. Mark Monroy II, MD IMG FILM LIBRARY ORDERABLES Performing Organization Address City/State/ZIP Code Phon e Number [place], [place] documented in this encounter Visit Diagnoses Not on filedocumented in this encounter Care Teams Buyers' Agent Relationship Specialty Start Date End Date Mark Monroy II, MD PCP - General 01/07/10 11/14/20 [address] [place] [address] documented as of this encounter
--- OUTSIDE RECORDS SUMMARY | 2022-01-15 09:40 | XMS_ITS | Encounter Summary ---
:1940 Author Organization [facility] [place] [address] Care Team Providers Name Role Phone Karla Curran MD Primary Care Provider Encounter Details Date Type Department Care Team Description 01/28/2021 Office Visit Hematology/Oncology Jolie Bush MD [facility] DR HEMATOLOGY/[place] [address] [facility] [address] [place] [address] DR [place] [address] [place] [phone] Social History Tobacco Use Types Packs/Day Years Used Date Smoking Tobacco: Every Day Cigarettes 0.3 60 Smokeless Tobacco: Never Sex Assigned at Date Recorded Not on file documented as of this encounter Last Filed Vital Signs Vital Sign Reading Time Taken Comments Blood Pressure 172/85 01/28/2021 2:53 PM EST Pulse 82 01/28/2021 2:53 PM EST Temperature 36.4 ??C (97.5 ??F) 01/28/2021 2:53 PM EST Respiratory Rate 18 01/28/2021 2:53 PM EST Oxygen Saturation 100% 01/28/2021 2:53 PM EST Inhaled Oxygen Concentration - - Weight 80.5 kg (177 lb 6.4 oz) 01/28/2021 2:53 PM EST Height 175.3 cm (5' 9.02) 01/28/2021 2:53 PM EST Body Mass Index 26.19 01/28/2021 2:53 PM EST documented in this encounter Progress Notes Marbin Rina Kenrick, CASE MAKER - 01/28/2021 3:00 PM EST Images from the original note were not included. 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 Onclogical history 1. Castrate sensitive metastatic prostate [...] on surveillance. No symptoms attributable. Sent to [facility] ED, started on eliquis ??? Non-ischemic cardiomyopathy 2003: EF 55% (at time of inferior [place]) 2018: EF 30-35%. 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 It was stented anyway 04/2018: EF 35% 05/2018: [facility] ICD placed for primary prevention - Generator: [id number], [id number] - RA: 2088TC/52, [id number] - RV: 7122Q/58, [id number] ??? 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 If you have any questions, ask your nurse or doctor. Continued medications, unchanged Dose Details aspirin EC 81 mg Tbec Take 81 mg by mouth daily. 81 mg Refills: 0 atorvastatin 40 mg Tab Commonly known as: Lipitor Take 40 mg by mouth daily. 40 mg Refills: 0 calcium-vitamin D3 600 mg calcium- 400 unit Tab Take by mouth. Refills: 0 Eliquis 5 mg Tab Take 5 mg by mouth 2 times daily. Generic drug: apixaban 5 mg Refills: 0 fluticasone propionate 220 mcg/actuation [...] by mouth daily. 20 mg Refills: 0 Zometa 4 mg/5 mL Soln Inject 4 mg into the vein every 21 days. Generic drug: zoledronic acid 4 mg Refills: 0 Review of Systems: [...] axillary nodes normal Neurologic: Normal Vitals BP 172/85 (Patient Position: Sitting) Pulse 82 Temp 36.4 ??C (97.5 ??F) (Temporal) Resp18 Ht 175.3 cm (5' 9.02) Wt 80.5 kg (177 lb 6.4 oz) SpO2 100% BMI 26.19 kg/m?? Pathology: 03/29/2015 left low lateral neck [...] sclerotic osseous metastatic disease Assessment and Plan: [facility] s/p chemo/RT completed 12/2019 Diagnosis: Prostate cancer with multiple metastasis to bones and lymph nodes Treatment: -Eligard 22.5 mg and Zometa renally adjusted dose every 3 months Mr. Banks followed with , [place] cancer specialist in [place]. PSA was undetectable in July 2020. Clinically, [...] We reviewed repeat CT scan today from 01/20/21- lung nodules are stable or decreased in size. No new nodules. Plan to continue monitoring him clinically and repeat CT scan in 3 months. #Bladder cancer: He saw Dr. Ramos for surveillance cystoscopy on 12/23/20 which was negative. 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 We will repeat CT scan in 3 months and if stable continue surveillance every 6 months. Plan: 1. Continue leuprolide and Zometa infusion every [address] scans in 3 months. 3. Follow up visit in 3 months with CBC,CMP, PSA, testosterone. The plan was discussed with the patient in details. All questions answered to patient satisfaction documented in this encounter Plan of Treatment Upcoming Encounters Date Type Specialty Care Team Description 01/20/2022 Office Visit Hematology and Oncology Rina Zazueta APRN [address] [place] [address] DR [place] [address] (Becky angela) 01/20/2022 Infusion Hematology and Oncology 02/19/2022 Office Visit Cardiology Liam Tompkins MD [facility] [address] [place] [address] (Becky angela) 03/31/2022 Hospital Encounter Cardiology Arrived 04/03/2022 Office Visit Dermatology Mark Bishop MD [address] [place] [address] DERMATOLOGY [place], [place] [address] (Wo rk) 07/06/2022 Office Visit Urology Shane Ramos MD [facility] UROLOGY [place], [place] [address] (Wo rk) 08/12/2022 Office Visit Cardiology Graeme Cueva PA [facility] CARDIOLOGY DEPT [place], [place] [address] (Wo rk) documented as of this encounter Visit Diagnoses Diagnosis Malignant neoplasm of prostate documented in this encounter Care Teams Thermal Spray Operator Relationship Specialty Start Date End Date Karla Curran MD PCP - General Family Medicine 12/16/20 [address] [place] [address] documented as of this encounter
--- OUTSIDE RECORDS SUMMARY | 2022-01-15 09:45 | XMS_ITS ---
:1940 Author Support Name Relationship Address Phone MASON ASHBY Unavailable [address] [facility] [phone] [place] [address] PROBLEMS Unknown Problems ALLERGIES No Information IMMUNIZATIONS No Known Immunizations SOCIAL HISTORY Never Assessed REASON FOR REFERRAL FUNCTIONAL STATUS PLAN OF CARE VITAL SIGNS MEDICATIONS Unknown Medications PROCEDURES No Known procedures RESULTS No Results REASON FOR VISIT Insurance Providers [facility] Health Member Patient Patient Patient Patient Patient Subscriber Subscriber Subscriber Group Insurance Plan Plan Plan Plan ID Relationship Address Phone Name Date of ID Name Date of No Type Insurance Insurance Insurance Coverage to Subscriber Address Phone Name Dates Medicare [phone] Medicare self MASON [id number] of [place] [address] [address] [facility] J[id number] BCBS of [phone] BCBS of self MASON [id number] [place] [id number] Supp
--- OUTSIDE RECORDS SUMMARY | 2022-01-15 09:45 | XMS_ITS ---
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 Problem Hypercholesteremia E78.00 Active 2 38038148 Problem 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 Problem Pulmonary embolism, I26.99 Active 71239656 unspecified chronicity, unspecified pulmonary embolism type, unspecified whether acute cor pulmonale present ALLERGIES Substance Reaction Event Type Date Status Kelsy Unknown Drug Allergy June, Active Augmentin Unknown Drug Allergy June, Active ENCOUNTERS Encounter Location Date Diagnosis [facility] [address] [place] [address] Sep, [place], [place] [id number] [address] Aug, [place], [place] [id number] [address] Aug, [place] [id number] [address] Aug, [place], [place] [id number] [address] Aug, [place] [id number] [address] Aug, [place] [id number] [address] Jul, [place], [place] [id number] [address] June, Sensation of fu llness in [address] both ears H93.8X 3 and [place], [place] Deviated nasal s eptum J34.[id number] June, [place], [place] [id number] [address] June, [place], [place] [id number] [facility] [address] [place] [address] June, [place], [place] [id number] [address] May, Flank pa in R10.9 [place], [place] [id number] [address] Feb, Pulmonar y embolism, [place], [place] unspecified c hronicity, [id number] unspecified pulm onary embolism type, u nspecified whether acute co r pulmonale present I26.[address] Feb, [place] [id number] [address] Jan, Primary malignant neoplasm [place], [place] of prostate C 61 and [id number] Pulmonary emboli sm, unspecified glass decorator nicity, unspecified pulm onary embolism type, u nspecified whether acute co r pulmonale present I26.[address] 15 Dec, 2020 [place], [place] [id number] [facility] [address] [place] [address] Dec, [place], [place] [id number] [address] Nov, [place] [id number] [address] Nov, [place] [id number] [address] Nov, [place] [id number] [address] Oct, Coronary arteriosclerosis [place], [place] I25.10 ; Enco unter to [id number] establish care Z 76.89 ; Hyperglycemia R7 3.9 ; Hypercholesterem ia E78.00 ; Primary malignan t neoplasm of prostate C61 and Abnormal skin growth D49. [address] Oct, [place], [place] [id number] [facility] Audiology [address] [place] [address] Sep, SENSORNEUR HEA R LOSS N[address] [address] [place], [place] [id number] [address] Sep, Sensorineural h earing loss [address] NOS [address] and T innitus [place], [place] [id number] IMMUNIZATIONS Vaccine Route Administration Date Status COVID-19 (Moderna BOOSTER) IM Intramuscular June 16, 2021 Admi nistered mRNA,LNP-S,PF 50 mcg/0.25mL dose COVID-19 (Moderna) mRNA,LNP-S,PF IM Intramuscular Dec 20, 2020 Administered 100 mcg/0.5mL dose COVID-19 (Moderna) mRNA,LNP-S,PF Unknown April 30, 2020 Administered 100 mcg/0.5mL dose COVID-19 (Moderna) mRNA,LNP-S,PF Unknown Apr 02, 2020 Administered 100 mcg/0.5mL dose SOCIAL HISTORY Qualifiers Date Current Smoker REASON FOR REFERRAL FUNCTIONAL STATUS PLAN OF CARE VITAL SIGNS Height 69 in 2021-07-11 Height 69 in 2021-05-29 Height 69 in 2021-02-05 Weight 180 lbs 2021-07-11 Weight 182.4 lbs 2021-05-29 Weight 180 lb 0 oz lbs 2021-02-05 Weight 174.4 lbs 2020-11-13 Heart Rate 71 /min 2021-05-29 Heart Rate 70 /min 2021-02-05 Heart Rate 70 /min 2020-11-13 Heart Rate 70 /min 2009-09-20 Oximetry 95 2021-05-29 Oximetry 97 2021-02-05 Oximetry 97 2020-11-13 Respiratory Rate 18 /min 2009-09-20 BMI 26.58 kg/m2 2021-07-11 BMI 26.93 kg/m2 2021-05-29 BMI 26.58 kg/m2 2021-02-05 Blood pressure systolic 136 mm Hg 2021-07-11 Blood pressure diastolic 82 mm Hg 2021-07-11 MEDICATIONS Medication Instructions Dosage Frequency Start End Duration Statu s Date Date Pantoprazole Orally Once a 1 tablet 24h 30 day(s) Ac tive Sodium 20 MG day Protonix 20 MG Orally Once a 1 tablet 24h 90 days No t-Takin day g metoprolol by mouth twice 1 tablet 12h 17 Aug, 90 days Activ e tartrate 25 mg a day 2022 Flovent HFA 220 Inhalation 2 puffs 12h 14 Feb, 90 days Activ e MCG/ACT Twice a day 2021 Aspirin 81 81 Orally Once a 1 tablet 24h 30 day(s) N ot-Takin MG day g Vitamin B12 Orally Once a 1 tablet 24h 30 day(s) Act juli 1000 MCG day Zometa Active Eliquis 2.5 MG Orally twice a TAKE 1 12h 30 days Ac tive day TABLET BY MOUTH TWICE DAILY Zoledronic Acid Intravenous 100 ml over Nov, Active 4 MG/100ML Everey three 15 minutes 2020 months Lisinopril 5 MG TAKE 1 30 Active TABLET BY MOUTH EVERY DAY Calcium 600 MG Orally Twice a 1 tablet 12h 30 day(s) Active day with meals Eligard 7.5 MG as directed Activ e every three months Atorvastatin Orally Once a 1 tablet 24h Nov, days Acti ve Calcium 40 MG day 2020 PROCEDURES Procedure Date Ordered Result Body Site COMPREHENSIVE AUDIOMET THRESH AND SPEECH Sep 20, 2009 COVID-19 (SARS-CoV-2) vaccine, 100 mcg or 50 mcg dose June 16 COVID-19 (SARS-CoV-2) vaccine, 100 mcg/0.5mL dosage Dec 20, 2020 RESULTS Name Result Date Reference Range CBC, WITH AUTO DIFF 2021-05-23 WBC 6.5 4.8-10.8 RBC 3.69 4.70-6.10 HGB 11.9 14.0-18.0 HCT 35.8 42.0-52.0 MCV 97.0 80.0-94.0 MCH 32.2 27.0-31.0 MCHC 33.2 32.0-37.0 RDW-CV 12.4 11.5-14.5 PLT 221 130-400 MPV 10.4 7.4-10.4 NE% 66.4 42.2-75.2 LY% 22.5 20.5-51.1 MO% 8.9 1.7-9.3 EO% 1.4 0.9-2.9 BA% 0.5 0.0-0.8 NE# 4.4 1.4-6.5 LY# 1.5 1.2-3.4 MO# 0.6 0.1-0.6 EO# 0.1 0.0-0.2 BA# 0.0 0.0-0.2 CT ABD/PELVIS W CONTRAST 2021-05-23 URINALYSIS COMPLETE 2021-05-23 COLOR Yellow YELLOW CLARITY Slightly Cloudy CLEAR SPECIFIC GRAVITY >=1.030 1.000-1.030 pH 5.0 5.0-8.0 PROTEIN 100 mg/dL NEGATIVE GLUCOSE Negative NEGATIVE KETONES Trace NEGATIVE UROBILINOGEN 0.2 E.U./dL 0.2 E.U./DL BILIRUBIN Small NEGATIVE BLOOD Negative NEGATIVE LEUKOCYTES Negative NEGATIVE NITRITES Negative NEGATIVE RBCs 0-3 0-3 SQ EPITHELIAL CELLS 0-3 CLUE CELLS NONE SEEN RTE CELLS 0-3 TRANSITIONAL EPIs 0-3 BACTERIA 1+ NONE SEEN CRYSTALS NONE SEEN HYALINE CASTS 0-3 NONE SEEN GRANULAR CASTS 0-3 NONE SEEN RBC CASTS NONE SEEN WBC CASTS NONE SEEN WAXY CASTS NONE SEEN CELLULAR CASTS NONE SEEN YEAST NONE SEEN TRICHOMONADS NONE SEEN SPERMATOZOA SEEN NONE SEEN URINE CULTURE NO NO COMPREHENSIVE METABOLIC PROFILE 2021-05-23 SODIUM 136 134-143 POTASSIUM 4.3 3.5-5.1 CHLORIDE 101 98-111 CO2 24 22-32 CALCIUM 9.1 8.9-10.3 GLUCOSE 129 74-106 BUN 27 8-26 CREATININE 1.79 0.61-1.24 TOTAL BILIRUBIN 0.5 0.3-1.2 TOTAL PROTEIN 7.0 6.5-8.1 ALBUMIN 4.0 3.5-5.0 ALKALINE PHOS 63 32-92 AST 27 15-41 ALT 23 17-63 A/GAP 11.0 3.0-12.0 B/CR 15.1 8.0-20.0 OSMOLARITY 279 275-295 GLOBULIN 3.0 2.3-3.5 A/G 1.3 1.0-2.5 LIPASE 2021-05-23 LIPASE 32 18-51 REASON FOR VISIT Eliquis , Forms for Eliquis (see TE), Eliquis $$ (Update 09/10), Metoprolol Tartrate 25 refill, RF-lisinopril 5 mg, podiatry referral request, [facility] 6 mo fu, Eliquis RF, ENT - discomfort in his ears due to fluid, PFP, New Patient, referral, Refill Lisinopril, Eliquis, #4 moderna, - [facility] ED f/u from 05/23 for flank pain, PC - 6mo f/u, pc 6m f/u, refill, Refills, BB transfer, Eliquis - RF, moderna, meddrug interaction form, Eliquis RF, 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, ENT, AUD gurvinder audio, left-sided tinnitus Insurance Providers [facility] Health Member Patient Patient Patient Patient Patient Subscriber Subscriber Subscriber Group Insurance Plan Plan Plan Plan ID Relationship Address Phone Name Date of ID Name Date of No Type Insurance Insurance Insurance Coverage to Subscriber Address Phone Name Dates [place] [phone] [place] self Chris [id number] ATTN 45 Card [id number] [place] [id number] NGS [phone] NGS self Chris [id number] MEDICARE [id number] [place] [address] BCBS OUT [phone] BCBS OUT self Chris [id number] OF AREA ATTN 83 OF AREA Card [id number] [place] [id number] MEDICARE [phone] MEDICARE self Chris [id number] Card [facility] [id number] MEDICARE [phone] MEDICARE self Chris [id number] PART A [id number] PART A Card [facility] [place] [id number]
[2022-01-20] MEDS: Normal Saline Flush 10 ML SYR IVP (08:55)
[2022-01-20 09:05] LABS: Abs Immature Grans 0.02 10^3/uL (0.0-0.06); Absolute Basophil Count 0.03 10^3/uL (0.0-0.2); Absolute Eosinophil Count 0.31 10^3/uL (0.0-0.7); Absolute Lymphocyte Count 1.45 10^3/uL (1.2-3.4); Absolute Monocyte Count 0.64 10^3/uL (0.1-0.8); Absolute Neutrophil Count 4.44 10^3/uL (1.2-6.7); Basophils % 0.4; Eosinophils % 4.5; HCT 30.8 % (40.0-50.0); HGB 10.3 g/dL (13.5-17.5); Immature Grans % 0.3; MCH 34.1 pg (27.0-33.0); MCHC 33.4 % (32.0-36.0); MCV 102 fL (80-95); MPV 9.8 fL (8.0-11.0); Monocytes % 9.3; Neutrophils % 64.5; Platelet Count 199 10^3/uL (130-400); RBC 3.02 10^6/uL (4.36-5.78); RDW 15.4 % (11.8-14.1); RDW-SD 57.7 fL; WBC 6.89 10^3/uL (4.4-10.8)
[2022-01-20 09:28] LABS: ALT 31 U/L (16-63); AST 31 U/L (15-37); Albumin 3.3 g/dL (3.4-5.0); Alkaline Phosphatase 87 U/L (46-116); Anion Gap 7.9 mmol/L (3-11); BUN 29 mg/dL (7-18); Bilirubin, Total 0.4 mg/dL (0.2-1.0); CO2 27.1 mmol/L (21.0-32.0); CREATININE 2.1 mg/dL (0.70-1.30); Calcium 8.8 mg/dL (8.5-10.1); Chloride 105 mmol/L (98-107); Estimated GFR 30.66 (mL/min/1.73m2); FREE T4 0.98 ng/dL (0.76-1.46); Glucose 115 mg/dL (74-106); Potassium 4.2 mmol/L (3.5-5.1); Sodium 140 mmol/L (136-145); TSH 1.17 uIU/mL (0.36-3.74); Total Protein 6.9 g/dL (6.4-8.2)
== END 2022-02-14 23:59 | disposition home or self-care (01) ==
LOC: INF 02:57
PROVIDERS: PCP Family Medicine; Visit Provider Internal Medicine
DX: C80.1 Malignant (primary) neoplasm, unspecified (principal); E03.2 Hypothyroidism due to medicaments and other exogenous substances; Z45.2 Encounter for adjustment and management of vascular access device
CPT/HCPCS: 36591; 80053; 84439; 84443; 85025

== ENCOUNTER 2022-03-17 02:31 | Outpatient (RCR) | payer MEDICARE, BC, SELFPAY ==
[2022-02-15 00:08] VITALS: BP 153/81; PULSE 80; RESP 16; TEMP 36.1
[2022-02-17] MEDS: Normal Saline Flush 10 ML SYR IVP (13:02)
[2022-02-17 13:17] LABS: Abs Immature Grans 0.01 10^3/uL (0.0-0.06); Absolute Basophil Count 0.03 10^3/uL (0.0-0.2); Absolute Eosinophil Count 0.26 10^3/uL (0.0-0.7); Absolute Lymphocyte Count 1.86 10^3/uL (1.2-3.4); Absolute Monocyte Count 0.73 10^3/uL (0.1-0.8); Absolute Neutrophil Count 3.87 10^3/uL (1.2-6.7); Basophils % 0.4; Eosinophils % 3.8; HCT 31.7 % (40.0-50.0); HGB 10.3 g/dL (13.5-17.5); Immature Grans % 0.1; Lymphocytes % 27.5; MCH 32.9 pg (27.0-33.0); MCHC 32.5 % (32.0-36.0); MCV 101 fL (80-95); MPV 9.9 fL (8.0-11.0); Monocytes % 10.8; Neutrophils % 57.4; Platelet Count 217 10^3/uL (130-400); RBC 3.13 10^6/uL (4.36-5.78); RDW 13.6 % (11.8-14.1); RDW-SD 50.5 fL; WBC 6.76 10^3/uL (4.4-10.8)
[2022-02-17 13:49] LABS: ALT 27 U/L (16-63); AST 28 U/L (15-37); Albumin 3.4 g/dL (3.4-5.0); Alkaline Phosphatase 83 U/L (46-116); Anion Gap 6.1 mmol/L (3-11); BUN 31 mg/dL (7-18); Bilirubin, Total 0.4 mg/dL (0.2-1.0); CO2 26.9 mmol/L (21.0-32.0); Calcium 8.9 mg/dL (8.5-10.1); Chloride 105 mmol/L (98-107); Estimated GFR 32.51 (mL/min/1.73m2); FREE T4 1.06 ng/dL (0.76-1.46); Glucose 93 mg/dL (74-106); Potassium 4.7 mmol/L (3.5-5.1); Sodium 138 mmol/L (136-145); TSH 1.33 uIU/mL (0.36-3.74); Total Protein 7.2 g/dL (6.4-8.2)
[2022-03-17] MEDS: Normal Saline Flush 10 ML SYR IVP (08:16)
[2022-03-17 08:31] LABS: Abs Immature Grans 0.02 10^3/uL (0.0-0.06); Absolute Basophil Count 0.03 10^3/uL (0.0-0.2); Absolute Eosinophil Count 0.27 10^3/uL (0.0-0.7); Absolute Lymphocyte Count 1.58 10^3/uL (1.2-3.4); Absolute Monocyte Count 0.71 10^3/uL (0.1-0.8); Absolute Neutrophil Count 4.45 10^3/uL (1.2-6.7); Basophils % 0.4; Eosinophils % 3.8; HCT 30.8 % (40.0-50.0); Immature Grans % 0.3; Lymphocytes % 22.4; MCH 32.5 pg (27.0-33.0); MCHC 32.5 % (32.0-36.0); MCV 100 fL (80-95); MPV 9.8 fL (8.0-11.0); Monocytes % 10.1; Platelet Count 210 10^3/uL (130-400); RBC 3.08 10^6/uL (4.36-5.78); RDW 12.8 % (11.8-14.1); RDW-SD 46.5 fL; WBC 7.06 10^3/uL (4.4-10.8)
[2022-03-17 08:56] LABS: ALT 28 U/L (16-63); AST 25 U/L (15-37); Albumin 3.3 g/dL (3.4-5.0); Alkaline Phosphatase 83 U/L (46-116); Anion Gap 7.3 mmol/L (3-11); BUN 34 mg/dL (7-18); Bilirubin, Total 0.4 mg/dL (0.2-1.0); CO2 27.7 mmol/L (21.0-32.0); CREATININE 2.2 mg/dL (0.70-1.30); Calcium 9.2 mg/dL (8.5-10.1); Chloride 105 mmol/L (98-107); Estimated GFR 28.99 (mL/min/1.73m2); FREE T4 1.01 ng/dL (0.76-1.46); Glucose 120 mg/dL (74-106); Potassium 4.5 mmol/L (3.5-5.1); Sodium 140 mmol/L (136-145); TSH 2.62 uIU/mL (0.36-3.74); Total Protein 6.9 g/dL (6.4-8.2)
== END 2022-03-17 23:59 | disposition home or self-care (01) ==
LOC: INF 02:31
PROVIDERS: PCP Family Medicine; Visit Provider Internal Medicine
DX: C80.1 Malignant (primary) neoplasm, unspecified (principal); E03.2 Hypothyroidism due to medicaments and other exogenous substances; Z45.2 Encounter for adjustment and management of vascular access device
CPT/HCPCS: 36591; 80053; 84439; 84443; 85025

== ENCOUNTER 2022-05-05 02:06 | Outpatient (RCR) | payer MEDICARE, BC, SELFPAY ==
[2022-05-05] MEDS: Heparin 500 UNITS/5 ML SYRINGE (12:42)
[2022-05-05] MEDS: Normal Saline Flush 10 ML SYR IVP (13:08)
[2022-05-05 13:23] LABS: ALT 26 U/L (16-63); AST 22 U/L (15-37); Alkaline Phosphatase 58 U/L (46-116); Anion Gap 6.4 mmol/L (3-11); BUN 39 mg/dL (7-18); Bilirubin, Total 0.4 mg/dL (0.2-1.0); CO2 28.6 mmol/L (21.0-32.0); CREATININE 1.8 mg/dL (0.70-1.30); Calcium 8.9 mg/dL (8.5-10.1); Chloride 104 mmol/L (98-107); Estimated GFR 36.89 (mL/min/1.73m2); Glucose 96 mg/dL (74-106); Potassium 4.9 mmol/L (3.5-5.1); Sodium 139 mmol/L (136-145); TSH 0.98 uIU/mL (0.36-3.74); Total Protein 6.3 g/dL (6.4-8.2)
[2022-05-05 13:24] LABS: HGB 10.4 g/dL (13.5-17.5); RBC 3.16 10^6/uL (4.36-5.78); WBC 10.38 10^3/uL (4.4-10.8)
[2022-05-05 13:25] LABS: Absolute Basophil Count 0.01 10^3/uL (0.0-0.2); Absolute Eosinophil Count 0.01 10^3/uL (0.0-0.7); Absolute Lymphocyte Count 0.95 10^3/uL (1.2-3.4); Absolute Monocyte Count 0.61 10^3/uL (0.1-0.8); Basophils % 0.1; Eosinophils % 0.1; Immature Grans % 0.9; Lymphocytes % 9.2; MCH 32.9 pg (27.0-33.0); MCHC 33.5 % (32.0-36.0); MCV 98 fL (80-95); Monocytes % 5.9; Neutrophils % 83.8; Platelet Count 150 10^3/uL (130-400); RDW 13.2 % (11.8-14.1); RDW-SD 46.7 fL
[2022-05-05 13:26] LABS: Abs Immature Grans 0.09 10^3/uL (0.0-0.06); Absolute Neutrophil Count 8.71 10^3/uL (1.2-6.7)
[2022-05-07 23:15] LABS: PSA, Ultrasensitive <0.01 ng/mL (<= 7.2)
== END 2022-05-15 23:59 | disposition home or self-care (01) ==
LOC: INF 02:06
PROVIDERS: PCP Family Medicine; Visit Provider Internal Medicine
DX: C61 Malignant neoplasm of prostate (principal); C80.1 Malignant (primary) neoplasm, unspecified; Z45.2 Encounter for adjustment and management of vascular access device
CPT/HCPCS: 36591; 80053; 84153; 84443; 85025